=== PATIENT | male | born 1940 | race Caucasian/White ===

== ENCOUNTER → 2016-09-29 | Outpatient (CLI) | payer OTHER ==
[~2016-09-29] MED LIST: ACET-1311 PO; BRVIN INH; CALC-51 PO; CLB/200 PO; EPP3/2 IM; ERGO1CAP41 PO; FINA5TAB PO; FLM4 PO; GABA-113 PO; IPRASOL4 INH; LEVAAER2 INH; METO50TA7 PO; TAMS0.4C38 PO; TRAM-10 PO; WARF5TAB7 PO; WARF7.5T4 PO
[2016-09-29 11:14] LABS: INR 2.2 (0.9-1.1); PROTHROMBIN TIME (PATIENT) 24.9 SECONDS (9.0-12.0)
--- NOTE | 2016-10-04 09:38 | CODING QUERY MEDICAL NECESSITY ---
SUPPORTING DIAGNOSIS NEEDED A supporting diagnosis is required for the test/procedure performed on this patient in order for us to be reimbursed by the patient's insurance. Please provide a supporting diagnosis for the following test/procedure listed below next to the test name along with your signature. *If there is no additional diagnosis for this patient that would support the following test/procedure please document that below next to the test/procedure. Test(s)/Procedure(s) that require a supporting diagnosis: * PSA DIAGNOSIS: * DOS: 09/29/16 Provider Signature: Date: Thank you Jossy Dasilva [employer] Once completed, please kindly fax back to [phone] For questions please call [phone]
== END | disposition home or self-care (01) ==
LOC: C.LAB 10:07
PROVIDERS: ATTEND Internal Medicine Pulmonary Disease
DX: I26.99 Other pulmonary embolism without acute cor pulmonale (principal); N40.0 Benign prostatic hyperplasia without lower urinary tract symptoms

== ENCOUNTER 2016-11-24 14:20 | Observation (INO) | payer OTHER ==
[~2016-11-24] VITALS: Ht 182.9 cm; Wt 118.5 kg
[~2016-11-24 14:20] MED LIST changes: -ACET-1311 PO; -BRVIN INH; -ERGO1CAP41 PO; +ERGO500011 PO; -GABA-113 PO; -TAMS0.4C38 PO; -TRAM-10 PO
--- NOTE | 2016-11-24 15:22 | DIAGNOSTIC IMAGING REPORT ---
CHEST ONE VIEW PORTABLE CLINICAL HISTORY: Fall. Headache. Chest pain. COMPARISON STUDY: No previous studies for comparison. FINDINGS: The cardiac and mediastinal contours are normal. There is no evidence of focal pulmonary consolidation. There is no evidence of failure. No pleural effusions are visualized.[ There is a calcified right lower lung zone granuloma. There is minor left basilar atelectasis. There is no pneumothorax. IMPRESSION: No active disease in the chest. Electronically signed by: Dimitrios Bush M.D. 11/24/2016 3:20 PM Dictated Date/Time: 11/24/2016 3:20 PM
[2016-11-24] MEDS ORDERED: TAMS0.4C38 PO (15:25)
[2016-11-24 15:30] LABS: BASO % 0.1 %; BASO ABS # 0.01 K/uL (0-0.2); COMPLETE YES; EOS % 1.6 %; IG% 0.5 %; LYMPH % 14.7 %; LYMPH ABS # 1.52 K/uL (1.2-3.4); MEAN CELL VOLUME 87.2 fL (80-100); MEAN CORPUSCULAR HEMOGLOBIN 29.6 pg (25-34); MEAN CORPUSCULAR HGB CONC 33.9 g/dl (32-36); MEAN PLATELET VOLUME 8.6 fL (7.4-10.4); NEUT % 76.1 %; PLATELET COUNT 260 K/uL (130-400); WHITE BLOOD COUNT 10.32 K/uL (4.8-10.8)
[2016-11-24] MEDS ORDERED: METHYLPREDNISOLONE 125 MG VIAL IV STA (15:30)
[2016-11-24] MEDS ORDERED: DiphenhydrAMINE HCL 50 MG/ML VIAL IV STA (15:30)
[2016-11-24 15:40] LABS: INR 1.9 (0.9-1.1); PARTIAL THROMBOPLASTIN RATIO 1.3; PROTHROMBIN TIME (PATIENT) 20.7 SECONDS (9.0-12.0)
--- NOTE | 2016-11-24 15:42 | EMERGENCY ROOM VISIT NOTE ---
History Report prepared by Nayeibjenny: Delmi Garrett Under the Supervision of: Dr. Josie Green M.D. First contact with patient: 14:37 Chief Complaint: HEAD PAIN Stated Complaint: FELL AND HIT HEAD, HEADACHE, CHEST PAIN, NECK PAIN History of Present Illness The patient is a 76 year old male who presents to the Emergency Room with complaints of a persistent headache status post a fall that occurred this afternoon. 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 He hit his head and lost consciousness. He is unsure how long he was unconscious for. Prior to the fall, he does not remember feeling unsteady, having chest pain or palpitations, or tripping. When he came to, he had neck pain and pain across his chest. Eventually he was able to get up and make his way to his house. His neck pain improved significantly when a collar was placed. Denies abdominal pain or other complaints. The patient is on Coumadin due to a history of blood clots. His INR is usually between 2 and 3. It was most recently checked about 4 weeks ago. Source of History: patient Onset: this afternoon Position: head Timing: other (persistent) Associated Symptoms: + LOC, + chest pain, + neck pain Review of Systems See HPI for pertinent positives & negatives. A total of 10 systems reviewed and were otherwise negative. Past Medical & Surgical Medical Problems: (1) cervical spine lamina fx (2) DVT (deep venous thrombosis) (3) Pulmonary embolism Family History Noncontributory secondary to age. Social History Smoking Status: Never Smoker Marital Status: Housing Status: lives with significant other Occupation Status: retired Current/Historical Medications Scheduled Calcium Carbonate-Vitamin D (Calcium), 500 MG PO WK Epinephrine (Epipen), 0.3 MG IM UD Ergocalciferol (Vitamin D 60187 Unit), 1.25 MG PO WK Finasteride (Proscar), 5 MG PO DAILY Metoprolol Succ (Toprol Xl) (Toprol-Xl), 50 MG PO DAILY Tamsulosin Hcl (Flomax), 0.4 MG PO DAILY Warfarin Sod (Jantoven), 5 MG PO 5XWK Warfarin Sod (Jantoven), 7.5 MG PO 2XWK Scheduled PRN Acetaminophen (Tylenol), 650 MG PO Q6 PRN for Pain Celecoxib (CeleBREX), 200 MG PO DAILY PRN for Pain Tramadol (Ultram), 50 MG PO Q8H PRN for Pain Allergies Coded Allergies: Aspirin (Verified Allergy, Severe, HIVES, 08/21/14) Iodinated Diagnostic Agents (Verified Allergy, Unknown, Contrast media - unknown rxn, 08/23/14) Iodine (Verified Allergy, Unknown, 08/21/14) Pineapple (Verified Allergy, Unknown, FROM ALLERGY TEST, 08/21/14) Physical Exam Vital Signs Date Time Temp Pulse Resp B/P Pulse Ox O2 Delivery O2 Flow Rate FiO2 11/24/16 17:47 59 23 150/88 95 Room Air 11/24/16 17:17 58 20 150/86 93 Room Air 11/24/16 15:28 67 11/24/16 15:20 68 26 146/69 93 Room Air 11/24/16 14:28 36.4 61 24 167/81 94 Room Air Physical Exam Vital signs reviewed. General: Elderly, well-appearing 76 year old male, in no significant distress. Collared. HEENT: No scleral icterus, PERRLA. Atraumatic. Poor dentition. Neck: Tender along the C-spine without step off or deformity. Cardiovascular: Regular rate and rhythm, no extra sounds. Pulmonary: Clear to auscultation bilaterally, normal work of breathing. Abdomen: Soft, nontender, nondistended, positive bowel sounds. Musculoskeletal: Atraumatic, no significant deformity. Cervical, thoracic and lumbar spine are palpated, nontender, no step-off or deformity appreciated. Neurologic: Patient awake alert and oriented x 3, full strength in all 4 extremities. Skin: Warm, dry, no rash. No significant abrasions/laceration. Medical Decision & Procedures ER Provider Diagnostic Interpretation: Radiology results as stated below per my review and radiologist interpretation: CHEST ONE VIEW PORTABLE CLINICAL HISTORY: Fall. Headache. Chest pain. COMPARISON STUDY: No previous studies for comparison. FINDINGS: The cardiac and mediastinal contours are normal. There is no evidence of focal pulmonary consolidation. There is no evidence of failure. No pleural effusions are visualized.[ There is a calcified right lower lung zone granuloma. There is minor left basilar atelectasis. There is no pneumothorax. IMPRESSION: No active disease in the chest. Electronically signed by: Dimitrios Bush M.D. 11/24/2016 3:20 PM Dictated Date/Time: 11/24/2016 3:[address] ABD/PELVIS IV AND ORAL CONT CLINICAL HISTORY: Abdominal pain status post trauma. Patient on Coumadin. COMPARISON STUDY: February 28, 2011 TECHNIQUE: Following the IV administration of 116 mL of Optiray-320, CT scan of the abdomen and pelvis was performed from the lung bases to the proximal femurs. Images are reviewed in the axial, sagittal, and coronal planes. IV contrast was administered without complication. CT DOSE: FINDINGS: Lower chest: There are bibasal atelectatic changes. There are coronary artery calcifications. Liver: The contrast-enhanced liver is normal in size, contour, and attenuation. There is no intrahepatic biliary ductal dilatation. The hepatic veins and portal veins are patent. Gallbladder: Cholelithiasis Spleen: Normal in size and attenuation. Pancreas: There are atrophic changes present. No masses are visualized. Adrenal glands: Unremarkable. Kidneys: There is a 22 mm left renal cyst. Bowel: There are no transition zones indicate bowel obstruction. There is colonic diverticulosis. There are no acute peridiverticular inflammatory changes. There are no extraluminal gas collections. There are no mesenteric fluid collections. Peritoneum: There is no intraperitoneal free air or abdominal ascites. Vasculature: The abdominal aorta is normal in course and caliber. Adenopathy: None. Pelvic viscera: The bladder, and pelvic viscera are unremarkable. Skeletal structures: There is ankylosis the dorsal spine. No acute fractures are visualized. IMPRESSION: No evidence of acute intra-abdominal or pelvic injury. Electronically signed by: Dimitrios Bush M.D. 11/24/2016 4:25 PM Dictated Date/Time: 11/24/2016 4:[address] DOSE: 1489.71 mGy.cm HISTORY: Neck pain. trauma TECHNIQUE: Multiaxial CT images of the cervical spine were performed and reformatted in the sagittal and coronal plane without the use of contrast. COMPARISON: None. FINDINGS: There is a nondisplaced incomplete fracture within the left C7 lamina. This is best seen on axial image 430 of 616. Fluid levels within the maxillary sinuses. Medial deviation of right vocal cord. This raises the possibility of paralysis. Alignment is intact. Mild degenerative disc disease within the mid to lower cervical spine. Prevertebral soft tissues and the C1-C2 interval are well-maintained. No pneumothorax. IMPRESSION: Nondisplaced incomplete fracture within the left C7 lamina. This is consistent with a stable fracture. Electronically signed by: Prem Flores M.D. 11/24/2016 4:15 PM Dictated Date/Time: 11/24/2016 4:[address] WITH CONTRAST CT DOSE: 1464.18 mGy.cm HISTORY: Fall. Trauma. trauma, coumadin TECHNIQUE: Multiaxial CT images of the chest were performed following the intravenous administration of contrast. COMPARISON: Chest CT 12/16/2010. FINDINGS: Majority of the thoracic spine vertebral bodies are fused. No acute fractures identified within the visualized osseous structures of the chest. No pleural effusions. No pneumothorax. Patchy and linear density lung bases favor subsegmental atelectasis. Stable calcified granuloma within the right lower lobe and right upper lobe. No focal lung consolidations to suggest pneumonia. No mediastinal or hilar lymphadenopathy. The main pulmonary arteries are patent. No pericardial effusion. IMPRESSION: No acute traumatic process within the chest. Additional chronic findings as described above. Electronically signed by: Prem Flores M.D. 11/24/2016 4:25 PM Dictated Date/Time: 11/24/2016 4:[address] HEAD WITHOUT CONTRAST (CT) CLINICAL HISTORY: Head trauma. Loss of consciousness. COMPARISON STUDY: No previous studies for comparison. TECHNIQUE: Axial CT of the brain is performed from the vertex to the skull base. IV contrast was not administered for this examination. CT DOSE: FINDINGS: No intra or extra-axial mass lesions are visualized. There is no CT evidence of acute cortical infarction. There is no evidence of midline shift. There is no acute hemorrhage. No calvarial fractures are visualized. There are minimal white matter hypodensities likely on a small vessel basis. There is no evidence of pathologic ventricular dilatation. There is a left maxillary sinus air-fluid level. There is partial opacification right maxillary sinus with right maxilla sinus wall thickening. The findings in the right are likely chronic. IMPRESSION: 1. Inflammatory changes within the maxilla sinuses 2. No evidence of acute intracranial injury. Electronically signed by: Dimitrios Bush M.D. 11/24/2016 4:07 PM Dictated Date/Time: 11/24/2016 4:05 PM Laboratory Results Test 11/24/16 15:15 11/24/16 15:25 Immature Granulocyte % (Auto) 0.5 % White Blood Count 10.32 K/uL (4.8-10.8) Red Blood Count 4.70 M/uL (4.7-6.1) Hemoglobin 13.9 g/dL (14.0-18.0) Hematocrit 41.0 % (42-52) Mean Corpuscular Volume 87.2 fL (80-100) Mean Corpuscular Hemoglobin 29.6 pg (25-34) Mean Corpuscular Hemoglobin Concent 33.9 g/dl (32-36) Platelet Count 260 K/uL (130-400) Mean Platelet Volume 8.6 fL (7.4-10.4) Neutrophils (%) (Auto) 76.1 % Lymphocytes (%) (Auto) 14.7 % Monocytes (%) (Auto) 7.0 % Eosinophils (%) (Auto) 1.6 % Basophils (%) (Auto) 0.1 % Neutrophils # (Auto) 7.85 K/uL (1.4-6.5) Lymphocytes # (Auto) 1.52 K/uL (1.2-3.4) Monocytes # (Auto) 0.72 K/uL (0.11-0.59) Eosinophils # (Auto) 0.17 K/uL (0-0.5) Basophils # (Auto) 0.01 K/uL (0-0.2) Immature Granulocyte # (Auto) 0.05 K/uL (0.00-0.02) Prothrombin Time 20.7 SECONDS (9.0-12.0) Prothromb Time International Ratio 1.9 (0.9-1.1) Activated Partial Thromboplast Time 34.8 SECONDS (21.0-31.0) Partial Thromboplastin Ratio 1.3 Magnesium Level 2.3 mg/dl (1.8-2.4) Total Bilirubin 0.3 mg/dl (0.2-1) Direct Bilirubin < 0.1 mg/dl (0-0.2) Aspartate Amino Transf (AST/SGOT) 16 U/L (15-37) Alanine Aminotransferase (ALT/SGPT) 20 U/L (12-78) Alkaline Phosphatase 69 U/L (45-117) Total Creatine Kinase 101 U/L (39-308) Creatine Kinase MB 2.5 ng/ml (0.5-3.6) Creatine Kinase MB Ratio 2.5 (0-3.0) Total Protein 6.9 gm/dl (6.4-8.2) Albumin 3.4 gm/dl (3.4-5.0) Bedside Troponin I 0.000 ng/ml (0-0.045) Laboratory results per my review. Medications Administered Medications (Trade) Dose Ordered Sig/Terri Route Start Time Stop Time Status Last Admin Dose Admin Diphenhydramine HCl (Benadryl Inj) 50 mg NOW STAT IV 11/24/16 15:30 11/24/16 15:33 DC 11/24/16 16:00 50 MG Methylprednisolone Sodium Succinate (Solu-Medrol IV) 125 mg NOW STAT IV 11/24/16 15:30 11/24/16 15:33 DC 11/24/16 16:00 125 MG Fentanyl Citrate (Fentanyl Inj) 50 mcg NOW STAT IV 11/24/16 16:58 11/24/16 16:59 DC 11/24/16 17:13 50 MCG Acetaminophen (Tylenol Tab) 1,000 mg Q6H PRN PO 11/24/16 18:45 11/25/16 12:56 DC 11/25/16 08:55 1,000 MG Morphine Sulfate (MoRPHine SULFATE INJ) 4 mg Q4H PRN IV 11/24/16 18:45 11/25/16 12:56 DC 11/24/16 20:54 4 MG Oxycodone HCl (Roxicodone Immediate Rel Tab) 10 mg Q6 PRN PO 11/24/16 18:45 11/25/16 12:56 DC 11/25/16 00:06 10 MG ECG Indication: other (fall with LOC) Rate (beats per minute): 63 Rhythm: normal sinus Findings: no acute ischemic change, no ectopy ED Course 1527: Past medical records reviewed. The patient was evaluated in room C9. A complete history and physical examination was performed. 1530: Ordered Solu-Medrol 125 mg IV, Benadryl Inj 50 mg IV. 1658: Ordered Fentanyl Inj 50 mcg IV. 1705: I reassessed the patient and updated him and his family on results so far. 1720: I discussed the case with Dr. Cárdenas - Orthopedic Surgery. He recommended hospitalization and will see the patient in the morning. 1730: Upon reevaluation, the patient is feeling better. I discussed laboratory and radiographic results with the patient and his family. They verbalized agreement of the treatment plan. 1839: I discussed the case [place] [facility] [place] The patient will be evaluated for further management. Medical Decision DDx: Intracranial injury, cervical spine injury, intrathoracic injury, intra- abdominal injury, musculoskeletal injury. This pt was evaluated and appeared to be in no distress. IV access was obtained and lab work was drawn. CT head and c-spine were performed and reveals a C7 laminar fx, sinusitis. CT CAP were performed d/t c/o chest pain, his trauma and anticoagulation. These studies are negative for acute trauma. Case was d/w Dr Cárdenas of spine who feels the pt should be placed in [place] J collar and observed overnight d/t head injury. Pt and family were made aware and they agree. Pt was d/w Dr Farris of the hospitalist service for further management. Consults Time Called: 1649 Consulting Physician: Dr. Cárdenas - Orthopedic Surgery Returned Call: 1720 I discussed the case with him. He recommended hospitalization and will see the patient in the morning. Additional Consults: Time Called: 1730 Consulted Physician: Dr. Farris - [facility] [place] Returned Call: 1839 Additional Comments: I discussed the case with him. The patient will be evaluated for further management. Impression Primary Impression: C7 cervical fracture Additional Impressions: Closed head injury Anticoagulated Scribe Attestation The scribe's documentation has been prepared under my direction and personally reviewed by me in its entirety. I confirm that the note above accurately reflects all work, treatment, procedures, and medical decision making performed by me. Departure Information Dispostion Being Evaluated By Hospitalist Prescriptions Tramadol (Ultram) 50 Mg Tab 50 MG PO Q8H Y for Pain, #20 TAB Prov: Benigno Toribio, D.O. 11/25/16 Acetaminophen (Tylenol) 325 Mg Tab 650 MG PO Q6 Y for Pain, #60 TAB Prov: Benigno Toribio, Denzel.O. 11/25/16 Referrals No Doctor, Assigned (PCP) Patient Instructions My [facility] Problem Qualifiers
[2016-11-24 15:48] LABS: ALT/SGPT 20 U/L (12-78); AST/SGOT 16 U/L (15-37); BLOOD UREA NITROGEN 13 mg/dl (7-18); BUN/CREATININE RATIO 13.9 (10-20); CALCIUM 8.5 mg/dl (8.5-10.1); CARBON DIOXIDE 26 mmol/L (21-32); CHLORIDE 107 mmol/L (98-107); CREATININE 0.93 mg/dl (0.60-1.40); GLUCOSE 129 mg/dl (70-99); MAGNESIUM 2.3 mg/dl (1.8-2.4); POTASSIUM 3.9 mmol/L (3.5-5.1); SODIUM 140 mmol/L (136-145)
[2016-11-24 15:53] LABS: ALKALINE PHOSPHATASE 69 U/L (45-117); CKMB/CK RATIO 2.5 (0-3.0)
[2016-11-24] MEDS ORDERED: OPTIRAY 320 IV PRN (16:00)
--- NOTE | 2016-11-24 16:09 | DIAGNOSTIC IMAGING REPORT ---
CT HEAD WITHOUT CONTRAST (CT) CLINICAL HISTORY: Head trauma. Loss of consciousness. COMPARISON STUDY: No previous studies for comparison. TECHNIQUE: Axial CT of the brain is performed from the vertex to the skull base. IV contrast was not administered for this examination. CT DOSE: FINDINGS: No intra or extra-axial mass lesions are visualized. There is no CT evidence of acute cortical infarction. There is no evidence of midline shift. There is no acute hemorrhage. No calvarial fractures are visualized. There are minimal white matter hypodensities likely on a small vessel basis. There is no evidence of pathologic ventricular dilatation. There is a left maxillary sinus air-fluid level. There is partial opacification right maxillary sinus with right maxilla sinus wall thickening. The findings in the right are likely chronic. IMPRESSION: 1. Inflammatory changes within the maxilla sinuses 2. No evidence of acute intracranial injury. Electronically signed by: Dimitrios Bush M.D. 11/24/2016 4:07 PM Dictated Date/Time: 11/24/2016 4:05 PM
--- NOTE | 2016-11-24 16:17 | DIAGNOSTIC IMAGING REPORT ---
CERVICAL SPINE CT CT DOSE: 1489.71 mGy.cm HISTORY: Neck pain. trauma TECHNIQUE: Multiaxial CT images of the cervical spine were performed and reformatted in the sagittal and coronal plane without the use of contrast. COMPARISON: None. FINDINGS: There is a nondisplaced incomplete fracture within the left C7 lamina. This is best seen on axial image 430 of 616. Fluid levels within the maxillary sinuses. Medial deviation of right vocal cord. This raises the possibility of paralysis. Alignment is intact. Mild degenerative disc disease within the mid to lower cervical spine. Prevertebral soft tissues and the C1-C2 interval are well-maintained. No pneumothorax. IMPRESSION: Nondisplaced incomplete fracture within the left C7 lamina. This is consistent with a stable fracture. Electronically signed by: Prem Flores M.D. 11/24/2016 4:15 PM Dictated Date/Time: 11/24/2016 4:07 PM
--- NOTE | 2016-11-24 16:26 | DIAGNOSTIC IMAGING REPORT ---
CT ABD/PELVIS IV AND ORAL CONT CLINICAL HISTORY: Abdominal pain status post trauma. Patient on Coumadin. COMPARISON STUDY: February 28, 2011 TECHNIQUE: Following the IV administration of 116 mL of Optiray-320, CT scan of the abdomen and pelvis was performed from the lung bases to the proximal femurs. Images are reviewed in the axial, sagittal, and coronal planes. IV contrast was administered without complication. CT DOSE: FINDINGS: Lower chest: There are bibasal atelectatic changes. There are coronary artery calcifications. Liver: The contrast-enhanced liver is normal in size, contour, and attenuation. There is no intrahepatic biliary ductal dilatation. The hepatic veins and portal veins are patent. Gallbladder: Cholelithiasis Spleen: Normal in size and attenuation. Pancreas: There are atrophic changes present. No masses are visualized. Adrenal glands: Unremarkable. Kidneys: There is a 22 mm left renal cyst. Bowel: There are no transition zones indicate bowel obstruction. There is colonic diverticulosis. There are no acute peridiverticular inflammatory changes. There are no extraluminal gas collections. There are no mesenteric fluid collections. Peritoneum: There is no intraperitoneal free air or abdominal ascites. Vasculature: The abdominal aorta is normal in course and caliber. Adenopathy: None. Pelvic viscera: The bladder, and pelvic viscera are unremarkable. Skeletal structures: There is ankylosis the dorsal spine. No acute fractures are visualized. IMPRESSION: No evidence of acute intra-abdominal or pelvic injury. Electronically signed by: Dimitrios Bush M.D. 11/24/2016 4:25 PM Dictated Date/Time: 11/24/2016 4:21 PM
--- NOTE | 2016-11-24 16:27 | DIAGNOSTIC IMAGING REPORT ---
CHEST CT WITH CONTRAST CT DOSE: 1464.18 mGy.cm HISTORY: Fall. Trauma. trauma, coumadin TECHNIQUE: Multiaxial CT images of the chest were performed following the intravenous administration of contrast. COMPARISON: Chest CT 12/16/2010. FINDINGS: Majority of the thoracic spine vertebral bodies are fused. No acute fractures identified within the visualized osseous structures of the chest. No pleural effusions. No pneumothorax. Patchy and linear density lung bases favor subsegmental atelectasis. Stable calcified granuloma within the right lower lobe and right upper lobe. No focal lung consolidations to suggest pneumonia. No mediastinal or hilar lymphadenopathy. The main pulmonary arteries are patent. No pericardial effusion. IMPRESSION: No acute traumatic process within the chest. Additional chronic findings as described above. Electronically signed by: Prem Flores M.D. 11/24/2016 4:25 PM Dictated Date/Time: 11/24/2016 4:20 PM
[2016-11-24] MEDS ORDERED: FENTANYL CITRATE INJ 50 MCG/1 ML 2 ML VIAL IV STA (16:58)
[2016-11-24] MEDS ORDERED: ONDANSETRON INJ 2 MG/ML 2 ML VIAL IV PRN (18:45)
[2016-11-24] MEDS ORDERED: OXYCODONE HCL IR 5 MG TAB (IMMEDIATE RELEASE) PO PRN (18:45)
[2016-11-24] MEDS ORDERED: ACETAMINOPHEN 500 MG TAB PO PRN (18:45)
[2016-11-24] MEDS ORDERED: MoRPHine SULFATE 4 MG/ML 1 ML CARP\\VIAL IV PRN (18:45)
[2016-11-24] MEDS ORDERED: MoRPHine SULFATE 2 MG/ML CARP IV PRN (18:45)
[2016-11-24] MEDS ORDERED: HydrALAZINE HCL 20 MG/ML VIAL IV PRN (19:30)
[2016-11-24 19:50] VITALS: BP 161/95; PULSE 63; TEMP 36.3; O2SAT 94; Ht 182.9 cm; Wt 118.5 kg
--- NOTE | 2016-11-24 21:34 | HISTORY & PHYSICAL EXAMINATION ---
DATE OF ADMISSION: 11/24/2016 REASON FOR ADMISSION: C7 fracture of the lamina from a traumatic fall. HISTORY OF PRESENT ILLNESS: Mr. Fink is a 76-year-old male who was getting into his skid steer, he reached for the handle, missed the handle, fell forward. He initially felt some minor paresthesias surrounding his left thumb. He presented to the Emergency Department, he had multiple imaging performed including: Head CT, only showing some maxillary sinus inflammation. Chest x-ray which showed no active disease in the chest. He had a chest CT which showed no traumatic process in the chest. He has had some atelectasis in his lungs. He has stable calcified granuloma in the right lower and right upper lobe. No pericardial effusion. He had abdominal pelvis CT which showed no acute intraabdominal or pelvic injury and he had a cervical spine which showed nondisplaced incomplete fracture of the left C7 lamina, stable fracture. The patient otherwise feels a little bit groggy. He lost consciousness at that time, does not know how long he was unconscious. He had neck pain initially, which was improved with the collar. PAST MEDICAL HISTORY: BPH, hypertension. He has had PE x2, is on lifelong anticoagulation. He has a history of asthma. He has had bilateral total knee arthroplasty and a TURP. MEDICATIONS: Proscar 5 a day, vitamin D daily, metoprolol XL 50 a day, Flomax 0.4 a day and warfarin he alternates 5 and 7.5. His INR was 1.0 on presentation. His labs were unremarkable. Reportedly Dr. Green told me she spoke with Dr. Cárdenas who recommended him to remain in a rigid collar, be observed overnight and he will evaluate him in the morning unless he acutely decompensates. REVIEW OF SYSTEMS: Ten systems reviewed are negative. PHYSICAL EXAMINATION: VITAL SIGNS: Temperature 36.4, pulse is 59, respirations 23, BP 150/88, O2 sat 95. HEENT: PERRL, EOMI. Oropharynx is clear. He has a rigid C-collar in place, which I did not remove. HEART: Regular without murmurs. LUNGS: Clear without wheezes or crackles. ABDOMEN: Normoactive bowel sounds, soft, nontender. EXTREMITIES: Without cyanosis, clubbing or edema. His inpatient coder strength is 5/5. His ability to abduct his thumbs are equal and equivalent bilaterally and sensation is equal and equivalent bilaterally to his upper and lower extremities. ASSESSMENT: A 76-year-old male with traumatic nondisplaced C7 lamina fracture. PLAN: We will observe him in our facility. We will be give him pain medication if needed. He will wear the rigid C-collar, will assess neuro checks one time throughout the night and Dr. Cárdenas will see him in the morning. Now, he took his Coumadin today, so we are not going to necessarily hold it, but we are not going to administer any additional Coumadin. Instructions on further warfarin therapy could be made per Dr. Cárdenas. Currently, DVT prevention is based on his Coumadin therapy. The patient is a full code.
[2016-11-24] MEDS ORDERED: IV FLUIDS COMPLETED PRN (22:30)
[2016-11-24 23:57] VITALS: BP 144/72; PULSE 65; TEMP 36.5; O2SAT 91
[2016-11-25 05:50] LABS: HEMATOCRIT 41.3 % (42-52); MEAN CELL VOLUME 87.3 fL (80-100); MEAN CORPUSCULAR HEMOGLOBIN 29.6 pg (25-34); MEAN CORPUSCULAR HGB CONC 33.9 g/dl (32-36); MEAN PLATELET VOLUME 8.8 fL (7.4-10.4); PLATELET COUNT 255 K/uL (130-400); RED BLOOD COUNT 4.73 M/uL (4.7-6.1); WHITE BLOOD COUNT 9.94 K/uL (4.8-10.8)
[2016-11-25 06:27] LABS: BUN/CREATININE RATIO 15.4 (10-20); CALCIUM 8.8 mg/dl (8.5-10.1); CREATININE 0.82 mg/dl (0.60-1.40); POTASSIUM 4.4 mmol/L (3.5-5.1)
[2016-11-25] MEDS ORDERED: PNEUMOCOCCAL POLYSACCHARIDES 25 MCG/0.5 ML VIAL/SYR IM. ONE (08:00)
[2016-11-25] MEDS ORDERED: INFLUENZA VIRUS QUAD VACCINE 0.5 ML SYR IM. ONE (08:00)
[2016-11-25] MEDS ORDERED: PNEUMOCOCCAL ADMINISTRATION CHARGE ONE (08:00)
[2016-11-25] MEDS ORDERED: INFLUENZA ADMINISTRATION CHARGE ONE (08:00)
[2016-11-25 08:03] VITALS: BP 137/78; PULSE 64; TEMP 36.7; O2SAT 91
[2016-11-25] MEDS ORDERED: TAMSULOSIN HCL 0.4 MG CAP PO SCH (09:00)
[2016-11-25] MEDS ORDERED: METOPROLOL SUCC 50MG EXT REL TAB PO SCH (09:00)
[2016-11-25] MEDS ORDERED: FINASTERIDE 5 MG TAB PO SCH (09:00)
[2016-11-25 09:21] VITALS: O2SAT 91
--- NOTE | 2016-11-25 10:53 | ORTHOPEDIC CONSULTATION ---
DATE OF CONSULTATION: 11/25/2016 CHIEF COMPLAINT: Neck pain. HISTORY OF PRESENT ILLNESS: Very pleasant 76-year-old male who is status post fall at home last evening. He describes a brief episode of loss of consciousness. At this point, he complains mostly of headaches and neck pain. This morning he denies any upper extremity numbness or tingling, tolerating the collar well. Has been ambulatory without assistance. PHYSICAL EXAMINATION: He has good strength to testing, tenderness to palpation over the cervicothoracic junction. Grossly neurologically intact. CAT scan of the cervical spine does demonstrate a nondisplaced C7 lamina fracture on the left. Otherwise, he has multilevel spondylosis, no evidence of any other issues or instability. ASSESSMENT: C7 lamina fracture. PLAN: At this time, I would ask him to wear the cervical collar at all times other than showering or eating. He is to lift no more than 5 pounds. I would like to see him in the office in the next 2-3 weeks, update x-ray of the cervical spine and hopefully increase his activity.
[2016-11-25] MEDS ORDERED: ACET-1311 PO (11:28)
[2016-11-25] MEDS ORDERED: TRAM-10 PO (11:28)
--- NOTE | 2016-11-25 11:33 | Discharge Instructions ---
Discharge Instructions Date of Service Nov 25, 2016. Admission Reason for Admission: Cervical Spine Lamina Fx Discharge Discharge Diagnosis / Problem: C7 lamina fracture, incomplete, non-displaced Discharge Goals Goal(s): Decrease discomfort, Improve function Activity Recommendations Activity Limitations: per Instructions/Follow-up section Lifting Limitations: no more than 5 pounds (until you see Dr. Cárdenas) Exercise/Sports Limitations: as tolerated May Resume Sexual Activity: when tolerated Shower/Bathe: no limitations (you can take off the collar to shower) Driving or Machine Use: do not drive with collar due to inability to turn head . Instructions / Follow-Up Instructions / Follow-Up Medications: - TYLENOL: take 650mg every 6 hours for pain, maximum dose in 24 hours is 3000mg - ULTRAM: 50mg, only get script filled if your pain is not controlled with Tylenol and Celebrex - COUMADIN: okay to continue taking Coumadin, no evidence of any bleeding C7 spine fracture: incomplete, non-displaced. Recommendations from Dr. Cárdenas below - wear the collar at ALL TIMES, you can take off to shower and eat - no lifting more that 5 pounds until you see Dr. Cárdenas FOLLOW UP - Dr. Cárdenas with [facility] in 2-3 weeks, call to make appointment , he will obtain a repeat x-ray and give you further instructions regarding the collar and activity [phone] Current Hospital Diet Patient's current hospital diet: Regular Diet Discharge Diet Recommended Diet: Regular Diet Pending Studies Studies pending at discharge: no Laboratory Results Last Resulted CBC 11/25/16 05:29 Last Resulted BMP 11/25/16 05:29 Medical Emergencies . Who to Call and When: Medical Emergencies: If at any time you feel your situation is an emergency, please call 911 immediately. . Non-Emergent Contact Non-Emergency issues call your: Primary Care Provider, Surgeon Call Non-Emergent contact if: your pain is not controlled, your pain is worsening, you have any medication questions . . "Provider Documentation" section prepared by Benigno Toribio. VTE Core Measure Inpt VTE Proph given/why not?: Warfarin (Coumadin) [place] Drug Monitoring Program Search Results: no issues identified
[2016-11-25 11:52] VITALS: BP 141/63; PULSE 67; TEMP 36.5; O2SAT 94
--- NOTE | 2016-11-25 14:18 | Discharge Summary ---
Discharge Summary Date of Service Nov 25, 2016. Discharge Summary Admission Date: Nov 24, 2016 at 18:48 Discharge Date: Nov 25, 2016 Discharge Disposition: Home Principal Diagnosis: C7 lamina fracture from trauma Problems/Secondary Diagnoses: H/o PE x 2, on Coumadin Immunizations: Have You Had Influenza Vaccine: Yes Influenza Vaccine Date: Jun 25, 2007 History of Tetanus Vaccine?: Yes Tetanus Immunization Date: Jun 25, 2005 History of Pneumococcal: No History of Hepatitis B Vaccine: No Procedures: CT head - normal CT chest and abdomen/pelvis - no injuries CT cervical spine - C7 lamina non-displaced fracture Consultations: Orthopedic surgery - Dr. Cárdenas Medication Reconciliation New Medications: Acetaminophen (Tylenol) 325 Mg Tab 650 MG PO Q6 PRN for Pain, #60 TAB Tramadol (Ultram) 50 Mg Tab 50 MG PO Q8H PRN for Pain, #20 TAB Continued Medications: Calcium Carbonate-Vitamin D (Calcium) 1 Tab Tab 500 MG PO WK Celecoxib (CeleBREX) 200 Mg Cap 200 MG PO DAILY PRN for Pain for 30 Days, #30 CAP 2 Refills Epinephrine (Epipen) 0.3 Mg/0.3 Ml Inj 0.3 MG IM UD Ergocalciferol (Vitamin D 65605 Unit) 50,000 Unit Cap 1.25 MG PO WK for 28 Days, #4 CAP 2 Refills Finasteride (Proscar) 5 Mg Tab 5 MG PO DAILY, 0 Refills Metoprolol Succ (Toprol Xl) (Toprol-Xl) 50 Mg Tabcr 50 MG PO DAILY, 0 Refills Tamsulosin Hcl (Flomax) 0.4 Mg Cap 0.4 MG PO DAILY, CAP Warfarin Sod (Jantoven) 5 Mg Tab 5 MG PO 5XWK, TAB Warfarin Sod (Jantoven) 7.5 Mg Tab 7.5 MG PO 2XWK, TAB Mon/Fri Discharge Exam Patient feeling well with collar in place, minimal pain this AM. Evaluated by Dr. Cárdenas, instructions below. Spoke with Dr. Cárdenas, he is okay with Coumadin. spoke with patient and family, answered their questions. Review of Systems: Constitutional: No chills, No fatigue, No fever, No problem reported, No sweats, No weakness, No weight loss Eyes: No diplopia, No discharge, No eye pain, No problem reported, No redness, No worsening of vision ENT: No dental problems, No hearing loss, No nasal symptoms, No problem reported, No sore throat, No tinnitus, No trouble swallowing, No unusual epistaxis Respiratory: No cough, No dyspnea at rest, No dyspnea on exertion, No hemoptysis, No problem reported, No shortness of breath, No sputum, No wheezing Cardiovascular: No PND, No chest pain, No claudication, No edema, No orthopnea, No palpitations, No problem reported Abdomen: No GI bleeding, No constipation, No diarrhea, No nausea, No pain, No problem reported, No vomiting Musculoskeletal: + joint pain (neck, mild to moderate at worst), No calf pain, No muscle pain, No problem reported, No swelling Genitourinary - Male: No dysuria, No hematuria, No urinary frequency, No urinary urgency Neurologic: No balance problems, No memory loss, No numbness/tingling, No paralysis, No problem reported, No vertigo, No weakness Psychiatric: No anhedonism, No anxiety, No depression symptoms, No insomnia , No problem reported, No substance abuse Endocrine: No excessive thirst, No excessive urination, No fatigue, No problem reported Hematologic / Lymphatic: No abnormal bleeding/bruising, No clotting problems , No night sweats, No problem reported, No swollen lymph nodes Integumentary: No bleeding, No color change, No itch, No new/changing skin lesions, No problem reported, No rash Physical Exam: General Appearance: WD/WN, no apparent distress Eyes: normal inspection, EOMI, sclerae normal ENT: normal ENT inspection, hearing grossly normal, pharynx normal Neck: + pertinent finding (collar in place) Respiratory/Chest: chest non-tender, lungs clear, normal breath sounds, no respiratory distress, no accessory muscle use Cardiovascular: regular rate, rhythm, no edema, no gallop, no JVD, no murmur , normal peripheral pulses Abdomen / GI: normal bowel sounds, non tender, soft, no organomegaly Extremities: normal inspection, no calf tenderness, normal capillary refill , no pedal edema, normal range of motion, pelvis stable 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 Imaging of abdomen, chest and head was normal. CT cervical spine showed C7 lamina fracture - C7 lamina fracture, incomplete, non-displaced: recommendations per Dr. Cárdenas collar in place at all times except off briefly for shower and to eat no lifting more than 5 pounds until seen by Dr. Cárdenas follow up in 2-3 weeks for repeat x-ray and evaluation Tylenol, Celebrex for pain, script for Ultram if pain not controlled - h/o PE: continue Coumadin, okay with Dr. Cárdenas d/c to home Total Time Spent: Less than 30 minutes This includes examination of the patient, discharge planning, medication reconciliation, and communication with other providers. Discharge Instructions Please refer to the electronic Patient Visit Report (Discharge Instructions) for additional information. Follow-Up Dr. Cárdenas in 2-3 weeks Additional Copies To Marlon Cárdenas,D.O.; Rex Granados, JAZ
[2016-11-25] MEDS ORDERED: WARFARIN SOD 5 MG TAB PO ONE (16:00)
[2016-11-26] MEDS ORDERED: CALCIUM 600MG + VIT D 400 IU TAB PO SCH (09:00)
== END 2016-11-25 12:15 | disposition home or self-care (01) ==
LOC: ENRESERVTM → ENRESERVDT → C.EDB 14:21 → C.MSW 18:48
PROVIDERS: ADMIT Internal Medicine; ATTEND Internal Medicine
DX: S12.600A Unspecified displaced fracture of seventh cervical vertebra, initial encounter for closed fracture (principal); S09.90XA Unspecified injury of head, initial encounter; W31.89XA Contact with other specified machinery, initial encounter; N40.0 Benign prostatic hyperplasia without lower urinary tract symptoms; J45.909 Unspecified asthma, uncomplicated; I10 Essential (primary) hypertension; Z86.711 Personal history of pulmonary embolism; Z79.01 Long term (current) use of anticoagulants; Z86.718 Personal history of other venous thrombosis and embolism; Z96.653 Presence of artificial knee joint, bilateral

== ENCOUNTER → 2017-02-07 | Outpatient (CLI) | payer OTHER ==
[~2017-02-07] MED LIST changes: +ACET-1311 PO; -FLM4 PO; -IPRASOL4 INH; -LEVAAER2 INH; +TAMS0.4C38 PO; +TRAM-10 PO
[2017-02-07 12:09] LABS: BASO % 0.5 %; BASO ABS # 0.03 K/uL (0-0.2); COMPLETE YES; EOS % 4.2 %; HEMATOCRIT 42.3 % (42-52); IG% 0.6 %; LYMPH % 22.1 %; LYMPH ABS # 1.37 K/uL (1.2-3.4); MEAN CELL VOLUME 88.7 fL (80-100); MEAN CORPUSCULAR HEMOGLOBIN 29.8 pg (25-34); MEAN CORPUSCULAR HGB CONC 33.6 g/dl (32-36); MONO % 9.2 %; NEUT % 63.4 %; PLATELET COUNT 252 K/uL (130-400); RED BLOOD COUNT 4.77 M/uL (4.7-6.1); WHITE BLOOD COUNT 6.21 K/uL (4.8-10.8)
[2017-02-07 12:38] LABS: ALT/SGPT 19 U/L (12-78); BLOOD UREA NITROGEN 13 mg/dl (7-18); BUN/CREATININE RATIO 14.1 (10-20); CARBON DIOXIDE 27 mmol/L (21-32); CHLORIDE 106 mmol/L (98-107); CHOLESTEROL 226 mg/dl (0-200); GLUCOSE 85 mg/dl (70-99); POTASSIUM 4.1 mmol/L (3.5-5.1); SODIUM 140 mmol/L (136-145)
[2017-02-07 12:41] LABS: ALB/GLOB RATIO 1.2 (0.9-2); ALKALINE PHOSPHATASE 71 U/L (45-117); AST/SGOT 17 U/L (15-37); CHOLESTEROL/HDL RATIO 5.1; HDL CHOLESTEROL 44 mg/dl; LDL CHOLESTEROL CALCULATED 152 mg/dl; TRIGLYCERIDES 152 mg/dl (0-150); VERY LOW DENSITY LIPOPROT CALC 30 mg/dl
[2017-02-07 12:48] LABS: CALCIUM 8.8 mg/dl (8.5-10.1)
== END | disposition home or self-care (01) ==
LOC: C.LAB 10:30
PROVIDERS: ATTEND Physician Assistant
DX: S12.600A Unspecified displaced fracture of seventh cervical vertebra, initial encounter for closed fracture (principal); X58.XXXA Exposure to other specified factors, initial encounter; Z51.81 Encounter for therapeutic drug level monitoring; Z79.01 Long term (current) use of anticoagulants; I82.409 Acute embolism and thrombosis of unspecified deep veins of unspecified lower extremity; I26.99 Other pulmonary embolism without acute cor pulmonale

== ENCOUNTER → 2017-06-07 | Outpatient (CLI) | payer OTHER ==
[~2017-06-07] MED LIST changes: -ACET-1311 PO; +ERGO1CAP41 PO; -ERGO500011 PO; -TRAM-10 PO
--- NOTE | 2017-06-07 14:35 | DIAGNOSTIC IMAGING REPORT ---
CHEST 2 VIEWS ROUTINE CLINICAL HISTORY: Chest pain and chronic bronchitis COMPARISON STUDY: 11/24/2016 FINDINGS: The heart is borderline enlarged. There is no failure. There is no focal pulmonary consolidation. There are no pleural effusions. This calcified granuloma at the right lung base[. There is no failure IMPRESSION: No active disease in the chest. Electronically signed by: Dimitrios Bush M.D. 06/07/2017 2:34 PM Dictated Date/Time: 06/07/2017 2:33 PM
[2017-06-07 15:43] LABS: BASO % 0.4 %; BASO ABS # 0.03 K/uL (0-0.2); COMPLETE YES; EOS % 3.7 %; HEMATOCRIT 41.4 % (42-52); IG% 0.7 %; LYMPH % 26.1 %; LYMPH ABS # 1.98 K/uL (1.2-3.4); MEAN CELL VOLUME 89.8 fL (80-100); MEAN CORPUSCULAR HEMOGLOBIN 30.6 pg (25-34); MEAN CORPUSCULAR HGB CONC 34.1 g/dl (32-36); NEUT % 59.1 %; PLATELET COUNT 257 K/uL (130-400); RED BLOOD COUNT 4.61 M/uL (4.7-6.1); WHITE BLOOD COUNT 7.59 K/uL (4.8-10.8)
[2017-06-07 15:54] LABS: ALT/SGPT 19 U/L (12-78); BLOOD UREA NITROGEN 13 mg/dl (7-18); BUN/CREATININE RATIO 15.1 (10-20); CARBON DIOXIDE 28 mmol/L (21-32); CHLORIDE 106 mmol/L (98-107); CREATININE 0.86 mg/dl (0.60-1.40); GLUCOSE 92 mg/dl (70-99); SODIUM 138 mmol/L (136-145)
[2017-06-07 15:56] LABS: ALKALINE PHOSPHATASE 75 U/L (45-117); AST/SGOT 15 U/L (15-37)
== END | disposition home or self-care (01) ==
LOC: C.RAD1850 14:21
PROVIDERS: ATTEND Internal Medicine Pulmonary Disease
DX: J42 Unspecified chronic bronchitis (principal); R07.9 Chest pain, unspecified

== ENCOUNTER → 2017-06-11 | Outpatient (CLI) | payer OTHER ==
[~2017-06-11] MED LIST changes: -ERGO1CAP41 PO; +ERGO500011 PO
--- NOTE | 2017-06-11 11:06 | DIAGNOSTIC IMAGING REPORT ---
LUNG IMAGING VQ HISTORY: J42 Chronic [id number] atypical Chest pain TECHNIQUE: Immediately following the inhalation of 33 mCi of technetium 99 M DTPA and the intravenous injection of 5.5 mCi of technetium 99m MAA, anterior, posterior, oblique, lateral views of the chest were performed for the ventilation and perfusion scan. COMPARISON STUDY: Chest 06/07/2017. FINDINGS: Blunting of the costophrenic sulci and a few small matched defects at the lung bases. No mismatch defects or large segmental defects identified. IMPRESSION: Above findings are consistent with a low probability scan. Electronically signed by: Prem Flores M.D. 06/11/2017 11:04 AM Dictated Date/Time: 06/11/2017 11:01 AM
--- NOTE | 2017-06-11 11:20 | DIAGNOSTIC IMAGING REPORT ---
CHEST 2 VIEWS ROUTINE CLINICAL HISTORY: CHEST PAIN dyspnea COMPARISON STUDY: 06/07/2017 FINDINGS: Mild chronic atelectatic change left lung base. Lungs otherwise are clear. There is component of mild emphysematous change. Costophrenic granuloma peripheral aspect right lung base unchanged. No new or interval finding. Small calcified granuloma right pulmonary apex unchanged. IMPRESSION: Chronic granulomatous change. Minimal chronic atelectatic change left base. No acute infiltrate. The above report was generated using voice recognition software. It may contain grammatical, syntax or spelling errors. Electronically signed by: Jairo John M.D. 06/11/2017 11:18 AM Dictated Date/Time: 06/11/2017 11:17 AM
== END | disposition home or self-care (01) ==
LOC: C.NUCL 10:02
PROVIDERS: ATTEND Internal Medicine Pulmonary Disease
DX: J42 Unspecified chronic bronchitis (principal); R07.9 Chest pain, unspecified

== ENCOUNTER → 2017-09-05 | Outpatient (CLI) | payer OTHER ==
[2017-09-05 15:39] LABS: BASO % 0.4 %; BASO ABS # 0.03 K/uL (0-0.2); EOS % 3.8 %; EOS ABS # 0.28 K/uL (0-0.5); HEMATOCRIT 43.5 % (42-52); HEMOGLOBIN 14.6 g/dL (14.0-18.0); IG# 0.02 K/uL (0.00-0.02); LYMPH ABS # 1.91 K/uL (1.2-3.4); MEAN CELL VOLUME 89.9 fL (80-100); MEAN CORPUSCULAR HEMOGLOBIN 30.2 pg (25-34); MEAN CORPUSCULAR HGB CONC 33.6 g/dl (32-36); MEAN PLATELET VOLUME 9.2 fL (7.4-10.4); MONO % 9.3 %; MONO ABS # 0.68 K/uL (0.11-0.59); NEUT % 60.2 %; NEUT ABS # 4.43 K/uL (1.4-6.5); PLATELET COUNT 254 K/uL (130-400); RED CELL DISTRIBUTION WIDTH CV 13.6 % (11.5-14.5); RED CELL DISTRIBUTION WIDTH SD 45.2 fL (36.4-46.3); WHITE BLOOD COUNT 7.35 K/uL (4.8-10.8)
[2017-09-05 16:02] LABS: ALBUMIN 3.6 gm/dl (3.4-5.0); ALKALINE PHOSPHATASE 73 U/L (45-117); ALT/SGPT 20 U/L (12-78); AST/SGOT 15 U/L (15-37)
== END | disposition home or self-care (01) ==
LOC: C.LAB1850 14:20
PROVIDERS: ATTEND Physician Assistant
DX: L29.9 Pruritus, unspecified (principal)

== ENCOUNTER 2020-05-05 12:28 | Inpatient (IN) ==
--- NOTE | 2020-05-05 13:12 | Emergency Department Note ---
Impression & Plan Syncope, Chest pain, High serum chloride ED Provider Note NAME: TONY AWAN AGE: 80 SEX: M : 1940 ARRIVES VIA: Walk-In INFORMANT: Patient ED PROVIDER(S): Raudel Gomes DO CHIEF COMPLAINT: Syncope HPI: Patient is an 80-year-old former with a past medical history of blood clots, prostate cancer who presents the ER for syncope. He passed out Sunday and his only symptom at that time prior to passing out was shortness of breath. He does not remember the event otherwise. 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 Following this he does not remember anything else. Sunday he was fine. Today he went down to cook pickled meat a stick and he believes he remembers everything but he does not remember his grand daughter coming to help him out as she was watching him from the window and saw him nearly fall. He currently upon arrival initially had chest pain but that has now abated. It was in the middle of his chest and radiated to the back. He notes he gets this intermittently and describes as a pressure/heaviness associated with some shortness of breath. Denies any nausea, vomiting, or diarrhea. No belly pain. No other weakness or numbness. ROS: See above HPI for pertinent positives & negatives. A total of 10 systems reviewed and were otherwise negative. PAST MEDICAL HISTORY:See Below PAST SURGICAL HISTORY:See Below FAMILY HISTORY:See Below SOCIAL HISTORY:See Below HOME MEDICATIONS:See Below ALLERGIES:See Below VITALS:See Below PHYSICAL EXAMINATION: GENERAL: Sitting up in bed, alert, well appearing, well nourished, no distress, non-toxic EYE EXAM: normal conjunctiva. PERRL and EOM's intact. OROPHARYNX: no exudate, no erythema, lips, buccal mucosa, and tongue normal and mucous membranes are moist NECK: supple, no nuchal rigidity, no adenopathy, non-tender LUNGS: Clear to auscultation. Normal chest wall mechanics HEART: no murmurs, S1 normal and S2 normal ABDOMEN: abdomen soft, non-tender, normo-active bowel sounds, no masses, no rebound or guarding. BACK: Back is symmetrical on inspection and there is no deformity, no midline tenderness, no CVA tenderness. SKIN: no rashes and no bruising UPPER EXTREMITIES: upper extremities are grossly normal. LOWER EXTREMITIES: No pitting edema. Right calf slightly larger than left NEURO EXAM: Normal sensorium, cranial nerves II-XII grossly intact, normal speech, no gross weakness of arms, no gross weakness of legs. MEDICAL DECISION MAKING: Patient is an 80-year-old male who presents the ER for an episode of syncope on Sunday. He was short of breath prior to the episode and sat down. Next thing he knew he woke up on the ground. He had no other prodromal symptoms. Again today prior to arrival he was outside and went to bend over and notes he nearly fell over and used his cane to support himself. Granddaughter ran out to assist him and help him and he does not remember that at all. He initially had some chest pain upon arrival but on my evaluation notes that that has abated. IV was established blood work was obtained. Labs show no significant leukocytosis or anemia. INR was therapeutic at 2.8. BMP with a slightly elevated chloride. LFTs bilirubin and lipase was negative. Troponin was negative as well. EKG with no acute ischemia. CT head was performed with a fall on Coumadin and was negative. Chest x-ray was unremarkable. Patient was updated bedside. With his age and symptoms I discussed with the hospitalist for observation. Triage Nursing notes reviewed. Prior medical records reviewed Vital Signs: reviewed and remarkable for no significant abnormalities Differential diagnosis: Differential diagnosis includes etiologies such as vasovagal event, infection, hypoglycemia, electrolyte abnormalities, cardiac sources, intracerebral event, toxicologic, neurologic, as well as others were entertained. ER treatment provided: See below Diagnostics interpreted by me: ECG: Sinus rhythm rate of 72 Left axis PVCs Normal QTC TWI in the septal leads V2 was changed from most recent previous ekg Cardiac Monitoring: An order was placed for continuous cardiac monitoring. The monitor shows a rate of 68 with sinus rhythm. Laboratory studies: As stated above and show below. Imaging studies: CT head shows no acute pathology Portable AP upright 1 view of the chest shows no focal infiltrate Consultation(s): Discussed with Dr. Daron Thomas for further evaluation ED COURSE: Procedures: none Critical Care: None Past Med/Surg History Medical History (Updated 05/05/20 @ 19:20 by Raudel Gomes DO) BPH loc w urin obs/LUTS Broken neck Broken ribs DVT (deep venous thrombosis) Hypoxia (08/22/14) Prostate cancer screening Pulmonary embolism (08/22/14) Sensorineural hearing loss (SNHL) of both ears SNHL (sensorineural hearing loss) Surgical History History of knee replacement History of transurethral resection of prostate Family History Father Cancer Prostate Other No significant family history Social History Smoking Status: Never smoker Hx Alcohol Use: Yes Alcohol type: wine Hx Substance Use: No Preferred Language: Urdu Communication Ability: Effective Qualitative Field Coordinator Required: No Beliefs That Will Affect Care: None Current Living Situation: Spouse current occupational status: retired Other Information That Helps Us Care for You: No Feels Safe at Home: Yes Safety Concerns: Feels Safe At This Time Allergies Allergies Allergy/AdvReac Type Severity Reaction Status Date / Time aspirin Allergy Severe HIVES Verified 05/05/20 15:07 celecoxib [From Celebrex] Allergy Severe hives Verified 05/05/20 15:07 Iodinated Contrast Media Allergy Unknown Contrast Verified 05/05/20 15:07 media - unknown rxn iodine Allergy Unknown Unknown Verified 05/05/20 15:07 Home Meds Home Medications Medication Instructions Recorded Confirmed calcium carbonate-vitamin D3 500 mg PO WK #0 09/11/16 05/05/20 [Calcium 500 + D] acetaminophen 500 mg tablet 500 mg PO DAILY PRN tab 11/11/18 05/05/20 epinephrine 0.3 mg/0.3 mL 0.3 mg IM UD PRN #0 08/28/19 05/05/20 injection, auto-injector warfarin 5 mg tablet See Rx Instructions PO UD tab 04/12/20 05/05/20 Previous Rx's Medication Instructions Recorded finasteride 5 mg tablet 5 mg PO DAILY #90 tab 07/22/19 tamsulosin 0.4 mg capsule 0.4 mg PO DAILY #90 cap 07/22/19 metoprolol succinate 50 mg 25 mg PO DAILY #45 tab 03/22/20 tablet,extended release 24 hr escitalopram oxalate 10 mg tablet 10 mg PO DAILY #30 tab 04/29/20 Results & Data (ED) Vital Signs Vital Signs - 24 hr 05/05/20 12:50 05/05/20 13:03 05/05/20 13:30 Temperature 36.8 C Temperature Source Oral Pulse Rate 69 61 56 L Respiratory Rate 18 13 15 Respiratory Effort / Characteristics Non-Labored Spontaneous Respiratory Depth Normal Respiratory Pattern Regular Blood Pressure 137/74 Blood Pressure Mean 95 Blood Pressure Position Sitting Pulse Oximetry 94 Oxygen Delivery Method Room Air Sepsis Recent Fever Within 48 Hours No Sepsis New/Unexplained Change in Mental Status N/A Sepsis Action Taken by Nursing No Action Required 05/05/20 14:37 05/05/20 14:38 Temperature Temperature Source Pulse Rate 52 L 52 L Respiratory Rate 21 23 Respiratory Effort / Characteristics Respiratory Depth Respiratory Pattern Blood Pressure 143/83 H Blood Pressure Mean 99 Blood Pressure Position Pulse Oximetry Oxygen Delivery Method Sepsis Recent Fever Within 48 Hours Sepsis New/Unexplained Change in Mental Status Sepsis Action Taken by Nursing Laboratory Data Result diagrams: 05/05/20 13:09 05/05/20 13:09 Lab Results 05/05/20 05/05/20 05/05/20 Range/Units 13:09 13:09 13:09 WBC 5.75 (4.8-10.8) K/uL RBC 4.51 L (4.7-6.1) M/uL Hgb 13.5 L (14.0-18.0) g/dL Hct 41.1 L (42-52) % MCV 91.1 (80-100) fL MCH 29.9 (25-34) pg MCHC 32.8 (32-36) g/dL RDW Std Deviation 47.6 H (36.4-46.3) fL RDW Coeff of Castillo 14.1 (11.5-14.5) % Plt Count 188 (130-400) K/uL MPV 9.1 (7.4-10.4) fL Immature Gran % (Auto) 0.7 % Neut % (Auto) 57.8 % Lymph % (Auto) 26.4 % Meigs % (Auto) 10.4 % Eos % (Auto) 4.5 % Baso % (Auto) 0.2 % Neut # (Auto) 3.32 (1.4-6.5) K/uL Lymph # (Auto) 1.52 (1.2-3.4) K/uL Meigs # (Auto) 0.60 H (0.11-0.59) K/uL Eos # (Auto) 0.26 (0-0.5) K/uL Baso # (Auto) 0.01 (0-0.2) K/uL Immature Gran # (Auto) 0.04 H (0.00-0.02) K/uL PT 28.2 H (9.0-12.0) Seconds INR 2.8 H (0.9-1.1) APTT 45.6 H* (21.0-31.0) Seconds PTT Ratio 1.6 Sodium 142 (136-145) mmol/L Potassium 4.3 (3.5-5.1) mmol/L Chloride 108 H (98-107) mmol/L Carbon Dioxide 27 (21-32) mmol/L Anion Gap 7.0 (3-11) BUN 10 (7-18) mg/dl Creatinine 1.00 (0.6-1.4) mg/dl Est Cr Clr Drug Dosing 76.5 ml/min Est GFR ( Amer) 80.9 Est GFR (Non-Af Amer) 69.8 BUN/Creatinine Ratio 9.8 L (10-20) Glucose 99 (70-99) mg/dl Calcium 9.0 (8.5-10.1) mg/dl Total Bilirubin 0.4 (0.2-1) mg/dl AST 15 (15-37) U/L ALT 19 (12-78) U/L Alkaline Phosphatase 62 (45-117) U/L Troponin I < 0.015 (0-0.045) ng/ml Total Protein 6.7 (6.4-8.2) gm/dl Albumin 3.3 L (3.4-5.0) gm/dl Globulin 3.4 (2.5-4.0) gm/dl Albumin/Globulin Ratio 1.0 (0.9-2) Lipase 64 L (73-393) U/L Discharge Plan Visit Data Chief Complaint: Syncope Stated Complaint: SYNCOPE ED Provider: Raudel Gomes Discharge Problem: Syncope, Chest pain, High serum chloride Patient Disposition: Admitted As Inpatient Discharge Instructions Interventions: ED Discharge Assessment Last Done: 05/05/20 17:56 Discharge Problem: Syncope Qualifiers: Syncope type: unspecified Qualified Code(s): R55 - Syncope and collapse Chest pain Qualifiers: Chest pain type: unspecified Qualified Code(s): R07.9 - Chest pain, unspecified
[2020-05-05 13:20] LABS: Basophils # (auto) 0.01 K/uL (0-0.2); Basophils % (auto) 0.2 %; Eosinophils # (auto) 0.26 K/uL (0-0.5); Eosinophils % (auto) 4.5 %; Hematocrit (blood only) 41.1 % (42-52); Hemoglobin 13.5 g/dL (14.0-18.0); Immature Granulocytes # (auto) 0.04 K/uL (0.00-0.02); Immature Granulocytes % (auto) 0.7 %; Lymphocytes # (auto) 1.52 K/uL (1.2-3.4); Lymphocytes % (auto) 26.4 %; Mean Corpuscular Hemoglobin 29.9 pg (25-34); Mean Corpuscular Hgb Conc 32.8 g/dL (32-36); Mean Corpuscular Volume 91.1 fL (80-100); Mean Platelet Volume 9.1 fL (7.4-10.4); Monocytes % (auto) 10.4 %; Neutrophils # (auto) 3.32 K/uL (1.4-6.5); Neutrophils % (auto) 57.8 %; Platelet Count 188 K/uL (130-400); RDW Coefficient of Variation 14.1 % (11.5-14.5); RDW Standard Deviation 47.6 fL (36.4-46.3); Red Blood Count 4.51 M/uL (4.7-6.1); White Blood Count 5.75 K/uL (4.8-10.8)
--- NOTE | 2020-05-05 13:33 | Electrocardiogram Report ---
Test Reason : Blood Pressure : / mmHG Vent. Rate : 062 BPM Atrial Rate : 062 BPM P-R Int : 180 ms QRS Dur : 096 ms QT Int : 422 ms P-R-T Axes : 060 -35 043 degrees QTc Int : 428 ms Poor data quality, interpretation may be adversely affected Sinus rhythm with occasional Premature ventricular complexes Left axis deviation Abnormal ECG When compared with ECG of 15-SEP-2018 23:28, Premature ventricular complexes are now Present Confirmed by Kevin Barbour ([id number]) on 05/05/2020 1:32:45 PM Referred By: Confirmed By:Kevin Barbour
[2020-05-05 13:37] LABS: Alanine Aminotransferase 19 U/L (12-78); Albumin Level 3.3 gm/dl (3.4-5.0); Aspartate Aminotransferase 15 U/L (15-37); BUN Creatinine Ratio 9.8 (10-20); Blood Urea Nitrogen 10 mg/dl (7-18); Carbon Dioxide 27 mmol/L (21-32); Chloride 108 mmol/L (98-107); Creatinine Clr Calc Pharmacy 76.5 ml/min; Est GFR (African American) 80.9; Est GFR (Non-African American) 69.8; Glucose 99 mg/dl (70-99); Lipase 64 U/L (73-393); Potassium 4.3 mmol/L (3.5-5.1); Sodium 142 mmol/L (136-145)
[2020-05-05 13:42] LABS: Alkaline Phosphatase 62 U/L (45-117); Bilirubin,Total 0.4 mg/dl (0.2-1); Globulin 3.4 gm/dl (2.5-4.0); Total Protein 6.7 gm/dl (6.4-8.2); Troponin I < 0.015 ng/ml (0-0.045)
[2020-05-05 13:49] LABS: INR 2.8 (0.9-1.1); Partial Thromboplastin Ratio 1.6; Prothrombin Time 28.2 Seconds (9.0-12.0)
[2020-05-05 14:16] LABS: Partial Thromboplastin Time 45.6 Seconds (21.0-31.0)
--- NOTE | 2020-05-05 14:35 | CT Scan Report ---
CT head/brain wo con CLINICAL HISTORY: syncope COMPARISON STUDY: 05/14/2019 TECHNIQUE: Axial CT of the brain is performed from the vertex to the skull base. IV contrast was not administered for this examination. A dose lowering technique was utilized adhering to the principles of ALARA. CT DOSE: 691.05 mGy.cm FINDINGS: No intra or extra-axial mass lesions are visualized. There is no CT evidence of acute cortical infarc tion. There is no evidence of midline shift. There is no acute hemorrhage. No calvarial fractures ar e visualized. There are patchy white matter hypodensities likely on a small vessel basis. There is no evidence of pathologic ventricular dilatation. There are chronic inflammatory changes present within the right maxillary sinus with areas of calcifi cation. There is chronic maxillary sinus wall thickening. IMPRESSION: No acute intracranial findings ACT 112: Negative or not required by law. Electronically signed by: Dimitrios Bush M.D. 05/05/2020 2:34 PM
--- NOTE | 2020-05-05 14:39 | Ultrasound Report ---
ULTRASOUND BILATERAL LOWER EXTREMITY VENOUS CLINICAL HISTORY: Leg pain. COMPARISON STUDY: Right lower extremity venous ultrasound dated 03/04/2020. TECHNIQUE: Real-time, grayscale, and color Doppler sonography of the deep veins of the right and left lower extremity was performed from the inguinal crease to the calf. Compression and augmentation wer e utilized. FINDINGS: There is no sonographic evidence of deep venous thrombosis identified in the right or left lower extremity. The common femoral, superficial femoral, and popliteal veins are patent and normally compressible bilaterally. The greater saphenous vein and the profunda femoris vein at the junction w ith the common femoral vein are clear in both legs. The visualized calf veins are patent bilaterally. IMPRESSION: There is no sonographic evidence of deep venous thrombosis identified in the right or lef t lower extremity. ACT 112: Negative or not required by law. Electronically signed by: Evelio Hollis M.D. 05/05/2020 2:37 PM
--- NOTE | 2020-05-05 14:56 | XRay Report ---
SINGLE VIEW CHEST CLINICAL HISTORY: Atypical chest pain. FINDINGS: 2 AP, portable, upright chest radiographs are compared to study dated 04/07/2020 and correla echo with chest CT dated 11/24/2016. The examination is degraded by portable technique and patient rotat ion. The heart is top normal for projection noting atherosclerotic calcification of the thoracic aort a. The pulmonary vasculature is noncongested. Chronic interstitial thickening is similar to previous. Atelectasis is noted at the left lung base. No airspace consolidation or large pleural effusion is i dentified. No pneumothorax is seen. The skeletal structures are osteopenic. The bony thorax is grossl y intact. IMPRESSION: No acute cardiopulmonary abnormality. ACT 112: Negative or not required by law. Electronically signed by: Evelio Hollis M.D. 05/05/2020 2:54 PM
--- NOTE | 2020-05-05 16:57 | History & Physical Report ---
Date of Service May 05, 2020 Assessment & Plan (1) Recurrent falls: Appears to be a combination of mainly ambulatory disequilibrium ?secondary to peripheral neuropathy +/- suspected cardiac arrythmia. (2) Syncope: Most concern are his episodes of unexplained syncope. No prodromal symptoms. Large number of PVCs as below ?causing low effective HR. Monitor on telemetry for arrhythmia/PVC burden - notable prior outpatient monitor but did not have any episodes while on this. Will continue on his usual metoprolol for now to see if he has a recurrent episode. Consult cardiology - for consideration of implantable loop recorder given infrequent episodes. (3) Frequent PVCs: Monitor on telemetry. As above. (4) Chest pain: Longstanding, not present on admission. Previously diagnosed as chest wall pain. Consistent with muscle spasms. (5) Ambulatory dysfunction: ?secondary to peripheral neuropathy. ?intermittent nerve compression at the back of his right knee causing his distal numbness. B12 level with AM labs - treat if < 400. Consider neurology consult either inpatient or outpatient for nerve conduction studies. (6) Peripheral neuropathy: Outpatient diagnosis of this although no prior workup seen. Consider inpatient/outpatient neurology referral for further workup as above. (7) BPH loc w urin obs/LUTS: Continue finasteride 5 mg p.o. daily (8) Benign essential tremor: Longstanding. Consider treatment if affecting his balance. (9) History of pulmonary embolism: Continue warfarin with his usual home dosing regimen. INR therapeutic. History of Present Illness Chief Complaint: Ambulatory dysfunction, syncope Primary Care Provider: Kevin Horton MD Patel Basurto is an 80 year old male with prior history of prostate cancer who presents to the ER after a fall/syncopal event. He does note think he lost consciousness today but does not remember his granddaughter coming to get him and sitting him down. He reports walking with his walking stick and reaching down to remove a rock on the floor. He felt unsteady and went to the right-hand side (he reports always falling to the right). He was unable to catch himself and so fell to the ground. He denies hitting his head or neck. His granddaughters were also the window and helped him to a chair to sitting down. Given his ongoing falls and a syncopal events on Sunday his advised him to come to the hospital. 2 days prior to this he had a full syncopal event. He was walking with 2 bottles of water. Unwitnessed. Denies any prodromal symptoms. His family found him lying down on the ground, unresponsive. Unsure how long he was lying down. They were eventually able to get him up and he declined coming to the hospital at this time. The following day he felt his normal self. In the ER he was referred to medicine due to concerning increased ambulatory dysfunction and recent syncopal event. Allergies Allergy/AdvReac Type Severity Reaction Status Date / Time aspirin Allergy Severe HIVES Verified 05/05/20 15:07 celecoxib [From Celebrex] Allergy Severe hives Verified 05/05/20 15:07 Iodinated Contrast Media Allergy Unknown Contrast Verified 05/05/20 15:07 media - unknown rxn iodine Allergy Unknown Unknown Verified 05/05/20 15:07 Home Medications Home Medications Medication Instructions Recorded Confirmed Type calcium carbonate-vitamin D3 500 mg PO WK #0 09/11/16 05/05/20 History [Calcium 500 + D] acetaminophen 500 mg tablet 500 mg PO DAILY PRN tab 11/11/18 05/05/20 History finasteride 5 mg tablet 5 mg PO DAILY #90 tab 07/22/19 05/05/20 Rx tamsulosin 0.4 mg capsule 0.4 mg PO DAILY #90 cap 07/22/19 05/05/20 Rx epinephrine 0.3 mg/0.3 mL 0.3 mg IM UD PRN #0 08/28/19 05/05/20 History injection, auto-injector metoprolol succinate 50 mg 25 mg PO DAILY #45 tab 03/22/20 05/05/20 Rx tablet,extended release 24 hr warfarin 5 mg tablet See Rx Instructions PO UD tab 04/12/20 05/05/20 History escitalopram oxalate 10 mg tablet 10 mg PO DAILY #30 tab 04/29/20 05/05/20 Rx Past Med/Surg History Medical History Acute bronchitis Arthralgia of multiple sites BPH loc w urin obs/LUTS Broken ribs DVT (deep venous thrombosis) Enlarged prostate with lower urinary tract symptoms (LUTS) Fracture of lamina of cervical vertebra (2016) History of squamous cell carcinoma HTN (hypertension) Impacted cerumen of both ears Left rib fracture Osteoporosis Polyneuropathy Sensorineural hearing loss (SNHL) of both ears Surgical History History of knee replacement History of transurethral resection of prostate Family History No significant family history Cancer Father Prostate Social History Smoking Status: Never smoker Hx Alcohol Use: Yes Alcohol type: wine Hx Substance Use: No Preferred Language: Nicaraguan Communication Ability: Effective 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 He always falls to the right side. He has a diagnosis of peripheral neuropathy although no formal nerve conduction studies. B12 level in 2018 -297. He is not on B12 supplements. Intermittent numbness from the right knee distally. Chronic chest pain -he has had this for years, diagnosed with chest wall pain and EHR, no recent change to this. Left hand action tremor - present for many years but progressively getting worse. Bilateral plantar foot paresthesia -first thing the morning feels like "walking on sponges" Broke neck 2 years ago off a skid steer. Turned around and passed out. Limited neck ROM since his accident. No dizziness on turning his head currently. Physical Exam Constitutional: well developed, well nourished and + obese; no acute distress Eyes: PERRL, conjunctivae normal, anicteric sclerae ENMT: external ear and nose normal, oropharynx normal Neck: trachea midline, no thyromegaly Respiratory: normal respiratory effort, lungs clear to auscultation Auscultation: + diminished lung sounds (Bibasal) Cardiovascular: RRR, no murmur, no edema (Frequent skipped beats) Gastrointestinal (Abdomen): normal bowel sounds, soft, nontender, no hepatosplenomegaly Musculoskeletal: no cyanosis or clubbing, extremities motor strength 5/5 Neurologic: moves all extremities and awake; not confused Motor/Sensory: + tremor (Action tremor left upper extremity) and + sensory deficit (Stocking distribution numbness to his ankles bilaterally); no pronator drift Cranial Nerves: normal facial strength and no nystagmus Coordination: normal [id number] test and normal fdmc-[id number] test Psychiatric: A+Ox3, euthymic affect Genitourinary: no CVA tenderness Results & Data Results & Data ([facility]) Vital Signs (Past 12 Hours) Vital Signs Temp Pulse Resp BP Pulse Ox 05/05/20 14:38 52 L 23 143/83 H 05/05/20 14:37 52 L 21 05/05/20 13:30 56 L 15 05/05/20 13:03 61 13 05/05/20 12:50 36.8 C 69 18 137/74 94 Diagnostic Findings ULTRASOUND BILATERAL LOWER EXTREMITY VENOUS IMPRESSION: There is no sonographic evidence of deep venous thrombosis identified in the right or left lower extremity. CT head/brain wo con IMPRESSION: No acute intracranial findings SINGLE VIEW CHEST IMPRESSION: No acute cardiopulmonary abnormality. ECG Indication: other (Fall) Rate (beats per minute): 62 Rhythm: normal sinus Findings: + PVC; no acute ischemic change Comparison ECG Date: from (September 15, 2018) Change: the following changes noted (PVCs present) Code Status & VTE Plan Code Status Full PG Care Time/CCT Total # of Minutes Spent Total Time Spent with Patient: Total time spent is greater than 50% in coordination of care (as documented) at patient's floor/unit and/or counseling patient: Coding Level of Care Code 63724 Initial Inpt Care Lvl 3 Diagnoses Recurrent falls R29.6 Syncope R55 Frequent PVCs I49.3 Chest pain R07.9 Chest pain type: unspecified Ambulatory dysfunction R26.2 Peripheral neuropathy G62.9 BPH loc w urin obs/LUTS N40.1 Benign essential tremor G25.0 History of pulmonary embolism Z86.711 (1) Chest pain Chest pain type: unspecified Qualified Code(s): R07.9 - Chest pain, unspecified
[2020-05-05] MEDS ORDERED: ONDANSETRON INJ 2 MG/ML 2 ML VIAL IV PRN (18:22)
[2020-05-05] MEDS ORDERED: ACETAMINOPHEN 325 MG TAB PO PRN (18:22)
[2020-05-05] MEDS ORDERED: POLYETHYLENE (MIRALAX) 17 GM PACK PO PRN (18:22)
[2020-05-05] MEDS ORDERED: ALUMINUM/MAGNESIUM SUSP 30 ML UDC PO PRN (18:22)
[2020-05-06 00:29] LABS: Appearance Urine Clear (Clear); Bilirubin Urine Negative (Negative); Blood Urine Negative (Negative); Color Urine Yellow; Glucose Urine UA Negative (Negative); Ketones Urine Negative (Negative); Leukocyte Esterase Urine Negative (Negative); Nitrite Urine Negative (Negative); Protein Urine Negative (Negative); Specific Gravity Urine 1.011 (1.000-1.030); Urobilinogen Urine Negative (Negative)
[2020-05-06 07:02] LABS: Basophils # (auto) 0.02 K/uL (0-0.2); Basophils % (auto) 0.4 %; Eosinophils # (auto) 0.26 K/uL (0-0.5); Eosinophils % (auto) 4.7 %; Hematocrit (blood only) 42.5 % (42-52); Hemoglobin 13.4 g/dL (14.0-18.0); Immature Granulocytes # (auto) 0.03 K/uL (0.00-0.02); Immature Granulocytes % (auto) 0.5 %; Lymphocytes # (auto) 1.48 K/uL (1.2-3.4); Lymphocytes % (auto) 26.5 %; Mean Corpuscular Hgb Conc 31.5 g/dL (32-36); Mean Platelet Volume 9.2 fL (7.4-10.4); Monocytes # (auto) 0.46 K/uL (0.11-0.59); Monocytes % (auto) 8.2 %; Neutrophils # (auto) 3.34 K/uL (1.4-6.5); Neutrophils % (auto) 59.7 %; Platelet Count 202 K/uL (130-400); RDW Coefficient of Variation 14.3 % (11.5-14.5); RDW Standard Deviation 48.5 fL (36.4-46.3); Red Blood Count 4.62 M/uL (4.7-6.1); White Blood Count 5.59 K/uL (4.8-10.8)
[2020-05-06 07:07] LABS: INR 2.8 (0.9-1.1); Prothrombin Time 27.7 Seconds (9.0-12.0)
[2020-05-06 07:31] LABS: BUN Creatinine Ratio 12.7 (10-20); Calcium 8.6 mg/dl (8.5-10.1); Creatinine Clr Calc Pharmacy 82.5 ml/min; Est GFR (African American) 90.6; Est GFR (Non-African American) 78.2; Potassium 4.3 mmol/L (3.5-5.1)
[2020-05-06] MEDS ORDERED: ESCITALOPRAM OXALATE 10 MG TAB PO SCH (09:00)
[2020-05-06] MEDS ORDERED: FINASTERIDE 5 MG TAB PO SCH (09:00)
[2020-05-06] MEDS ORDERED: METOPROLOL SUCC 25MG EXT REL TAB PO SCH (09:00)
[2020-05-06] MEDS ORDERED: TAMSULOSIN HCL 0.4 MG CAP PO SCH (09:00)
[2020-05-06] MEDS ORDERED: ATROPINE SULFATE 0.1 MG/ML 10ML SYR IV ONE (12:07)
[2020-05-06] MEDS ORDERED: METOPROLOL TARTRATE 1 MG/ML VIAL IV ONE (12:07)
[2020-05-06] MEDS ORDERED: DOBUTamine HCL 12.5 MG/ML 20 ML VIAL IV ONE (12:07)
[2020-05-06] MEDS ORDERED: PERFLUTREN LIPID MICROSPHERE (DEFINITY) IV ONE (13:26)
--- NOTE | 2020-05-06 14:07 | Cardiology Consultation ---
Date of Consultation May 06, 2020 Assessment & Plan (1) Syncope: Etiology of recurrent syncope remains uncertain. Fortunately, given favorable dobutamine stress echocardiogram results there is no evidence of myocardial ischemia or stress-induced dysrhythmia as contributing factors to his syncope. The suggestion that each of the syncopal episodes could have occurred at a time when he would have been turning his head or twisting his neck raises the strong possibility of carotid hypersensitivity. However, was unable to elicit on carotid massage any rhythm disturbance. Since his low-dose beta-samm could be suppressing ventricular ectopy and he showed a brisk response to dobutamine/atropine, reasonable to continue this in the absence of evidence for significant bradycardia. Did recommend moving his neck carefully and slowly during activities and avoiding climbing ladders or other risky activities given risk of further syncope. Spoke with electrophysiologists, they felt that there could be a role for a loop recorder in this situation, but that this could be arranged as an outpatient. Therefore would recommend arranging follow-up with Dr. Wu or Dr. Hutton for evaluation for loop recorder. (2) Peripheral neuropathy: This may have contributed to his disequilibrium and on balance, but is unlikely to play a role in his syncopal episodes. (3) Ambulatory dysfunction: Multifactorial, likely peripheral neuropathy. (4) HTN (hypertension): BP mildly hypertensive or normotensive throughout his hospital stay. Would not aggressively change his vasoactive regimen until his syncopal evaluation is completed. History of Present Illness Reason for Consultation: Syncope. Requesting Physician: Daron Thomas MD Attending Physician: Benigno Toribio DO History of Present Illness 80-year-old man with remote history of pulmonary embolism (chronic warfarin anticoagulation), peripheral neuropathy, hypertension, and minor other medical problems, who was admitted 05/05/2020 after 2 episodes of syncope over the past few days. Of note, he had a fall from a skid steer in 2017 which resulted in fracture of lamina of C7. His history and physical at the time states that he missed a handle and fell forward, but also notes that he had some loss of consciousness. When he related the episode to me today, he noted that he does not recall what happened to prompt the fall, but he did remember passing in front of the carmichael of the skid steer as he was falling. He had an event monitor in May 2019 for reasons that are unclear (no obvious associated notes), this showed only mild sinus bradycardia or sinus rhythm, there was one 7 beat run read as PSVT at 110 bpm. In the years since his fall from the skid steer in 2016, he has had some unsteadiness on his feet with disequilibrium and walks with a cane, occasionally falling, but without any alteration of consciousness. However, several days ago he had an episode of loss of consciousness after he was walking with 2 buckets of water, he set the buckets down and lost consciousness briefly. No trauma. He felt well up until that time, noting mild dyspnea but nothing extraordinary. No chest pain at that time. No bowel or bladder incontinence, post episode confusion, palpitations, or other prodrome or subsequent symptoms. On the day of admission he was walking up a hill, did not feel particularly fatigued or dyspneic, he bent over to bead picker a rock and lost consciousness. No significant trauma. Again, no prodrome or subsequent symptoms. Since his admission he has felt well, no lightheadedness or other symptoms. Work-up was unrevealing with ECG showing sinus rhythm with PVCs, telemetry monitoring showing sinus rhythm with sporadic PVCs but no runs or pauses, troponin was negative, head CT was negative. He did undergo a dobutamine stress echocardiogram today, there was no ECG, echo, or clinical evidence of myocardial ischemia. His baseline PVCs disappeared during stress and no dysrhythmia was noted. Carotid massage did not elicit any bradycardia or change in rhythm. Allergies Allergy/AdvReac Type Severity Reaction Status Date / Time aspirin Allergy Severe HIVES Verified 05/05/20 15:07 celecoxib [From Celebrex] Allergy Severe hives Verified 05/05/20 15:07 Iodinated Contrast Media Allergy Unknown Contrast Verified 05/05/20 15:07 media - unknown rxn iodine Allergy Unknown Unknown Verified 05/05/20 15:07 Home Medications Home Medications Medication Instructions Recorded Confirmed Type calcium carbonate-vitamin D3 500 mg PO WK #0 09/11/16 05/05/20 History [Calcium 500 + D] acetaminophen 500 mg tablet 500 mg PO DAILY PRN tab 11/11/18 05/05/20 History finasteride 5 mg tablet 5 mg PO DAILY #90 tab 07/22/19 05/05/20 Rx tamsulosin 0.4 mg capsule 0.4 mg PO DAILY #90 cap 07/22/19 05/05/20 Rx epinephrine 0.3 mg/0.3 mL 0.3 mg IM UD PRN #0 08/28/19 05/05/20 History injection, auto-injector metoprolol succinate 50 mg 25 mg PO DAILY #45 tab 03/22/20 05/05/20 Rx tablet,extended release 24 hr warfarin 5 mg tablet See Rx Instructions PO UD tab 04/12/20 05/05/20 History escitalopram oxalate 10 mg tablet 10 mg PO DAILY #30 tab 04/29/20 05/05/20 Rx Patient History Medical History Acute bronchitis Arthralgia of multiple sites BPH loc w urin obs/LUTS Broken ribs DVT (deep venous thrombosis) Enlarged prostate with lower urinary tract symptoms (LUTS) Fracture of lamina of cervical vertebra (2017) History of squamous cell carcinoma HTN (hypertension) Impacted cerumen of both ears Left rib fracture Osteoporosis Polyneuropathy Sensorineural hearing loss (SNHL) of both ears Surgical History History of knee replacement History of transurethral resection of prostate Family History No significant family history Cancer Father Prostate Social History Smoking Status: Never smoker Hx Alcohol Use: Yes Alcohol type: wine Hx Substance Use: No Preferred Language: Serbian Communication Ability: Effective Employee Services Manager Required: No Beliefs That Will Affect Care: None Current Living Situation: Spouse current occupational status: retired Other Information That Helps Us Care for You: No Feels Safe at Home: Yes Safety Concerns: Feels Safe At This Time Review of Systems Constitutional: no fever, no chills, no fatigue, no weight loss and no weight gain Eyes: no problem reported Ear, Nose, Mouth, Throat: no problem reported Respiratory: no cough and no dyspnea Cardiovascular: as per Subjective / HPI Gastrointestinal: no abdominal pain and no change in stools Musculoskeletal: no myalgia Integumentary: no rash and no new lesions Neurologic: as per Subjective / HPI, + falls and + syncope Psychiatric: no problem reported Hematologic / Lymphatic: no easy bleeding and no easy bruising Physical Exam Physical Exam: Large frame elderly white male appears comfortable. Afebrile. Mildly hypertensive, mildly bradycardic, respirations 20 but unlabored. Skin: No generalized lesions. HEENT: Unremarkable. Neck: Jugular venous pulse at the clavicle at 90 degrees, no carotid bruits. Lungs: Mildly decreased breath sounds but clear. Cardiac: Regular rhythm with faint heart tones, no obvious murmur or gallop. Abdomen: Soft nontender. Extremities: Minor right greater than left pretibial edema, peripheral pulses intact. Neurologic: Normal affect and conversation, grossly nonfocal. Results & Data ([facility]) Vital Signs (Past 12 Hours) Vital Signs Temp Pulse Pulse Resp BP Pulse Ox 05/06/20 11:25 97.5 F L 55 L 20 145/75 H 94 05/06/20 07:49 63 05/06/20 07:38 98.2 F 54 L 16 127/67 92 05/06/20 07:01 60 05/06/20 02:58 98.6 F 55 L 18 146/88 H 93 Laboratory Results CBC normal for age. INR therapeutic at 2.8. Normal electrolytes, BUN 12, creatinine 0.91. Troponin less than 0.015. Diagnostic Findings ECG showed sinus rhythm at 62 bpm with occasional PVCs and left axis deviation. Compared with 09/15/2018 ECG, PVCs now present, otherwise no significant change. Telemetry overnight showed sinus rhythm with sporadic PVCs, no ventricular runs or other dysrhythmias. PG Care Time/CCT Total # of Minutes Spent Total Time Spent with Patient: Total time spent is greater than 50% in coordination of care (as documented) at patient's floor/unit and/or counseling patient: Coding Level of Care Code 13488 Initial Inpt Care Lvl 3 Diagnoses Syncope R55 Syncope type: unspecified Peripheral neuropathy G62.9 Ambulatory dysfunction R26.2 HTN (hypertension) I10 (1) Syncope Syncope type: unspecified Qualified Code(s): R55 - Syncope and collapse
--- NOTE | 2020-05-06 14:30 | XCELERA ---
[id number]
[2020-05-06] MEDS ORDERED: WARFARIN SOD 5 MG TAB PO SCH (16:00)
[2020-05-07] MEDS ORDERED: WARFARIN SOD 7.5 MG TAB PO SCH (16:00)
--- NOTE | 2020-05-08 10:36 | Discharge Summary ---
Date of Service May 06, 2020 Admission HPI Per Admitting Provider Patel Basurto is an 80 year old male While walking he reached down for a rock. Using a walking stick for the last 6-8 months. Usually needing walking stick in morning until he gets going. Always falling to the right side. Granddaughter saw him start to fall out of the window. Patient doesn't remember her being there. She told him to sit down. His told him to come to the hospital. Occasional numbness from knee distally on right side. Sunday fell over while carrying 2 bottles of water. Found him laying down. Lost consciousness. Unresponsive. Unsure how long he laid there. No prodromal symptoms. Falling a lot over the last year, especially the last 2 months. Didn't think he lost conciousness today but also Chest pain for years. Broke neck 2 years ago off a skid steer. Turned around and passed out. Feels like walking on spongest. Left hand shakes. Principal Diagnosis Syncope and collapse Discharge Exam Constitutional WD/WN, vitals as above Eyes PERRL, conjunctivae normal, anicteric sclerae ENMT external ear and nose normal, oropharynx normal Neck trachea midline, no thyromegaly Respiratory normal respiratory effort, lungs clear to auscultation Cardiovascular RRR, no murmur, no edema Gastrointestinal (Abdomen) normal bowel sounds, soft, nontender, no hepatosplenomegaly Musculoskeletal no cyanosis or clubbing, extremities motor strength 5/5 Skin no rashes, warm and dry Neurologic patellar DTR's 2+ bilat, sensation intact and PERRL, EOMI, accommodation nl, no face palsy, no dysarthria Psychiatric A+Ox3, euthymic affect Lymphatic no cervical or axillary lymphadenopathy Discharge Data Allergies Allergy/AdvReac Type Severity Reaction Status Date / Time aspirin Allergy Severe HIVES Verified 05/05/20 15:07 celecoxib [From Celebrex] Allergy Severe hives Verified 05/05/20 15:07 Iodinated Contrast Media Allergy Unknown Contrast Verified 05/05/20 15:07 media - unknown rxn iodine Allergy Unknown Unknown Verified 05/05/20 15:07 Consultations 05/05/20 14:59 ED Decision to Admit Stat 05/05/20 18:22 Consult Cardiology Routine Ordered Studies 05/05/20 13:06 CT head/brain wo con Stat 05/05/20 13:12 US venous doppler LE BI Stat Hospital Course (1) Recurrent falls: falls not happening often, just a few in the past years 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 No prodromal symptoms. Large number of PVCs as below ?causing low effective HR. echo with preserved EF, no valve disease dobutamine stress echo on day of discharge showed no ischemic changes discussed with EP, will plan for loop recorder to be placed to determine if he has arrhythmia that causes these no neurological deficits, do not suspect stroke syncope was witnessed, it was 30 seconds long, he did not have confusion when he regained consciousness, no seizure like activity (3) Frequent PVCs: Monitor on telemetry. As above. plan for loop recorder (4) Chest pain: Longstanding, not present on admission. Previously diagnosed as chest wall pain. Consistent with muscle spasms. dobutamine stress echo - NEGATIVE for ischemia (5) Ambulatory dysfunction: (6) Peripheral neuropathy: Outpatient diagnosis of this although no prior workup seen. Consider inpatient/outpatient neurology referral for further workup as above. (7) BPH loc w urin obs/LUTS: Continue finasteride 5 mg p.o. daily (8) Benign essential tremor: Longstanding. Consider treatment if affecting his balance. (9) History of pulmonary embolism: Continue warfarin with his usual home dosing regimen. INR therapeutic. Total Time Total Time Spent Total Time Spent (In Minutes): 31 Total Time Includes: Examination of the Patient, Discharge Planning, Medication Reconciliation and Communication With Other Providers (Dr. Camargo) Discharge Plan Discharge Items Patient Disposition: Home - Self-Care Reason For Visit: SYNCOPE Discharge Diagnosis: Syncope Condition on Discharge: Good Activity: Resume your previous activity Driving/Machine Use: No limitations Weightbearing: Full weightbearing Non-emergency contact: Primary Care Provider and Foil Spinner Call non-emergency contact if: you have any medication questions and your symptoms worsen Follow-up/Referrals: Kevin Horton MD [Primary Care Provider] - 05/12/20 9:30 am (Your appointment will be with Dr. Khan) Dao Hutton MD [Physician] - 05/19/20 12:15 pm (2 weeks, evaluate for placement of loop recorder) Diet: Regular Addtl Attending Provider Instructions: Medications: no changes Syncope: unclear etiology, no clear cause found on work up here in hospital Complete blood count, renal function, electrolytes all normal normal CT head, normal chest x-ray no evidence of acute heart attack Dr. Camargo performed at stress echocardiogram and found no evidence of ischemia, heart functions well no arrhythmia on monitor Dr. Camargo recommends getting an implantable loop recorder that will stay in place, will record if you have an arrhythmia if you have another episode of passing out will make a referral for that appointment in the upcoming weeks Pending Studies at Discharge: No Stand-Alone Forms: [facility] [employer], Smoking Cessation Medications and DC Order Prescriptions: Continued acetaminophen [Tylenol Extra Strength] 500 mg tablet 500 mg PO DAILY PRN (Reason: pain) RF: 0 warfarin 5 mg tablet See Rx Instructions PO UD RF: 0 calcium carbonate-vitamin D3 [Calcium 500 + D] 500 mg(1,250mg) -200 unit Tablet 500 mg PO WK Qty: 0 RF: 0 epinephrine [EpiPen] 0.3 mg/0.3 mL auto-injector 0.3 mg IM UD PRN (Reason: Anaphylaxis) Qty: 0 RF: 0 metoprolol succinate [Toprol XL] 50 mg tablet extended release 24 hr 25 mg PO DAILY Qty: 45 RF: 1 escitalopram oxalate [Lexapro] 10 mg tablet 10 mg PO DAILY Qty: 30 RF: 5 tamsulosin [Flomax] 0.4 mg capsule 0.4 mg PO DAILY Qty: 90 RF: 3 finasteride [Proscar] 5 mg tablet 5 mg PO DAILY Qty: 90 RF: 3 Discharge Orders: Discharge Order (Routine); Ordered 05/06/20 Ordered By: Benigno Toribio Admission Data Admit Date/Time: 05/05/20 16:42 Attending Provider: Benigno Toribio Admit Provider: Daron Thomas Primary Care Provider: Kevin Horton Other Providers: Daron Thomas ; Kevin Barbour Other Interventions: Discharge Summary Assessment (RN) Last Done: 05/06/20 14:42 Coding Level of Care Code D/C Day Management >30 mins Diagnoses Recurrent falls R29.6 Syncope R55 Syncope type: unspecified Frequent PVCs I49.3 Chest pain R07.9 Chest pain type: unspecified Ambulatory dysfunction R26.2 Peripheral neuropathy G62.9 BPH loc w urin obs/LUTS N40.1 Benign essential tremor G25.0 History of pulmonary embolism Z86.711
== END 2020-05-06 15:15 | disposition home or self-care (01) | DRG 74 ==
LOC: ED 12:28 → 2N 16:42 → SUATTDRO 16:42 → 2N 17:56

== ENCOUNTER 2020-11-11 17:54 | Observation (INO) ==
[2020-11-11] MEDS ORDERED: ASPIRIN CHEW 324 MG ONE (19:03)
[2020-11-11] MEDS ORDERED: NITROGLYCERIN SL 0.4 MG/TAB TAB ONE (19:04)
[2020-11-11] MEDS ORDERED: NITROGLYCERIN SL 0.4 MG/TAB TAB SL STA (19:06)
[2020-11-11] MEDS ORDERED: SODIUM CHLORIDE 0.9% 1000ML 1,000 ML IV SCH (19:15)
[2020-11-11 19:21] LABS: Basophils # (auto) 0.02 K/uL (0-0.2); Basophils % (auto) 0.3 %; Eosinophils # (auto) 0.31 K/uL (0-0.5); Eosinophils % (auto) 4.7 %; Hematocrit (blood only) 39.4 % (42-52); Hemoglobin 13.1 g/dL (14.0-18.0); Immature Granulocytes # (auto) 0.03 K/uL (0.00-0.02); Immature Granulocytes % (auto) 0.5 %; Lymphocytes # (auto) 1.97 K/uL (1.2-3.4); Lymphocytes % (auto) 29.8 %; Mean Corpuscular Hgb Conc 33.2 g/dL (32-36); Mean Corpuscular Volume 90.2 fL (80-100); Monocytes # (auto) 0.65 K/uL (0.11-0.59); Monocytes % (auto) 9.8 %; Neutrophils # (auto) 3.63 K/uL (1.4-6.5); Neutrophils % (auto) 54.9 %; Platelet Count 207 K/uL (130-400); RDW Coefficient of Variation 14.1 % (11.5-14.5); RDW Standard Deviation 46.8 fL (36.4-46.3); Red Blood Count 4.37 M/uL (4.7-6.1); White Blood Count 6.61 K/uL (4.8-10.8)
[2020-11-11 19:35] LABS: Partial Thromboplastin Ratio 1.4; Partial Thromboplastin Time 36.2 Seconds (21.0-31.0); Prothrombin Time 19.1 Seconds (9.0-12.0)
[2020-11-11 19:37] LABS: BUN Creatinine Ratio 16.9 (10-20); Blood Urea Nitrogen 18 mg/dl (7-18); Calcium 9.2 mg/dl (8.5-10.1); Carbon Dioxide 26 mmol/L (21-32); Chloride 109 mmol/L (98-107); Creatinine Clr Calc Pharmacy 71.4 ml/min; Est GFR (African American) 74.5; Est GFR (Non-African American) 64.3; Glucose 97 mg/dl (70-99); Lipase 79 U/L (73-393); Potassium 4.1 mmol/L (3.5-5.1); Sodium 140 mmol/L (136-145)
[2020-11-11 19:42] LABS: Troponin I < 0.015 ng/ml (0-0.045)
--- NOTE | 2020-11-11 19:47 | XRay Report ---
XR chest 2V PA/lateral CLINICAL HISTORY: Atypical chest pain. COMPARISON STUDY: Chest radiograph June 19, 2020. Chest CT November 24, 2016. FINDINGS: Lung volumes are normal. There is no pneumothorax or pleural effusion. Incidental note is m darek of a calcified granuloma within the right lower lobe. Cardiomegaly is unchanged. There is no evid ence for pulmonary edema. There may be minimal left midlung opacity. IMPRESSION: 1. Possible left lung opacity. Artifact is favored however an infectious process could appear similar . Radiographic follow up is recommended. 2. Cardiomegaly without evidence for pulmonary edema. ACT 112: Negative or not required by law. Electronically signed by: Harrison Gaffney M.D. 11/11/2020 7:45 PM
[2020-11-11 23:38] LABS: Influenza A virus by PCR Negative (Neg); Influenza B virus by PCR Negative (Neg); RSV by PCR Negative (Neg); SARS CoV2 RNA(COVID-19) InHosp NEGATIVE (Negative)
--- NOTE | 2020-11-12 00:09 | Emergency Department Note ---
History of Present Illness General Chief Complaint: Chest Pain Stated Complaint: CHEST PAIN Time Seen by Provider: 11/11/20 18:47 History of Present Illness Provider Complaint: chest pain Onset (ago): day(s) 1 Duration: intermittent Pain Location: substernal Pain Radiation: LUE Severity: moderate Maximum Pain Intensity: 4 Current Pain Intensity: 4 Quality: + other (Pressure) Relieved By: + nothing Exacerbated By: + nothing Context: no recent illness, no recent surgery, no recent immobilization, no recent travel, no trauma/injury and no new medications Associated symptoms: + dyspnea; no nausea, no vomiting, no diaphoresis, no sense of impending doom, no syncope, no palpitations, no fever and no cough Home Medications Medication Instructions Recorded Confirmed Type calcium carbonate-vitamin D3 500 mg PO WK #0 09/11/16 11/11/20 History [Calcium 500 + D] epinephrine 0.3 mg/0.3 mL 0.3 mg IM UD PRN #0 08/28/19 11/11/20 History injection, auto-injector finasteride 5 mg tablet 5 mg PO DAILY #90 tab 05/27/20 11/11/20 Rx tamsulosin 0.4 mg capsule 0.4 mg PO DAILY #90 cap 05/27/20 11/11/20 Rx acetaminophen 500 mg tablet 500 mg PO BID tab 06/18/20 11/11/20 History metoprolol succinate 50 mg 25 mg PO DAILY #45 tab 09/17/20 11/11/20 Rx tablet,extended release 24 hr warfarin 5 mg tablet See Rx Instructions PO UD tab 11/08/20 11/11/20 History escitalopram oxalate 10 mg PO DAILY 11/11/20 11/11/20 History Allergies Allergy/AdvReac Type Severity Reaction Status Date / Time aspirin Allergy Severe HIVES Verified 11/11/20 21:30 celecoxib [From Celebrex] Allergy Severe hives Verified 11/11/20 21:30 Iodinated Contrast Media Allergy Unknown Contrast Verified 11/11/20 21:30 media - unknown rxn iodine Allergy Unknown Unknown Verified 11/11/20 21:30 Past Med/Surg History Medical History Acute bronchitis Arthralgia of multiple sites BPH loc w urin obs/LUTS Broken ribs Chest pain DVT (deep venous thrombosis) Enlarged prostate with lower urinary tract symptoms (LUTS) Fracture of lamina of cervical vertebra (2017) 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 HTN (hypertension) Impacted cerumen of both ears Left rib fracture Osteoporosis Polyneuropathy Sensorineural hearing loss (SNHL) of both ears Syncope Surgical History History of knee replacement History of transurethral resection of prostate Family History Father Cancer Prostate Other No significant family history Social History Smoking Status: Never smoker Hx Alcohol Use: No Hx Substance Use: No Preferred Language: Bruneian Communication Ability: Effective 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: No Beliefs That Will Affect Care: None Current Living Situation: Spouse current occupational status: retired Feels Safe at Home: Yes Assistive Devices: Glasses, Hearing Aid - Left and Hearing Aid - Right Review of Systems A total of 10 systems reviewed and were otherwise negative Physical Exam Vital Signs Vital Signs - 24 hr 11/11/20 18:03 11/11/20 19:13 11/11/20 19:28 Temperature 36.3 C L Temperature Source Temporal Artery Scan Pulse Rate 64 53 L 52 L Pulse Rate from SpO2 Sensor 51 L 52 L Respiratory Rate 20 18 18 Respiratory Effort / Characteristics Non-Labored Respiratory Depth Normal Blood Pressure 141/87 H 122/60 Blood Pressure Mean 105 80 Pulse Oximetry 93 96 96 Oxygen Delivery Method Room Air Sepsis Recent Fever Within 48 Hours No Sepsis New/Unexplained Change in Mental Status N/A Sepsis Action Taken by Nursing No Action Required 11/11/20 19:30 11/11/20 19:38 11/11/20 19:40 Temperature Temperature Source Pulse Rate 62 55 L Pulse Rate from SpO2 Sensor 72 Respiratory Rate 20 17 Respiratory Effort / Characteristics Respiratory Depth Blood Pressure 122/88 Blood Pressure Mean 99 Pulse Oximetry 93 Oxygen Delivery Method Sepsis Recent Fever Within 48 Hours Sepsis New/Unexplained Change in Mental Status Sepsis Action Taken by Nursing 11/11/20 19:50 11/11/20 20:00 11/11/20 20:01 Temperature Temperature Source Pulse Rate 51 L 53 L 52 L Pulse Rate from SpO2 Sensor 51 L 51 L 52 L Respiratory Rate 18 14 22 Respiratory Effort / Characteristics Respiratory Depth Blood Pressure 131/64 Blood Pressure Mean 86 Pulse Oximetry 96 96 95 Oxygen Delivery Method Sepsis Recent Fever Within 48 Hours Sepsis New/Unexplained Change in Mental Status Sepsis Action Taken by Nursing 11/11/20 20:10 11/11/20 20:20 11/11/20 20:30 Temperature Temperature Source Pulse Rate 54 L 51 L 51 L Pulse Rate from SpO2 Sensor 53 L 50 L 51 L Respiratory Rate 18 17 7 L Respiratory Effort / Characteristics Respiratory Depth Blood Pressure 141/69 H Blood Pressure Mean 93 Pulse Oximetry 96 94 94 Oxygen Delivery Method Sepsis Recent Fever Within 48 Hours Sepsis New/Unexplained Change in Mental Status Sepsis Action Taken by Nursing 11/11/20 20:31 11/11/20 20:40 11/11/20 20:50 Temperature Temperature Source Pulse Rate 50 L 51 L 53 L Pulse Rate from SpO2 Sensor 50 L 51 L 49 L Respiratory Rate 17 12 17 Respiratory Effort / Characteristics Respiratory Depth Blood Pressure Blood Pressure Mean Pulse Oximetry 95 95 94 Oxygen Delivery Method Sepsis Recent Fever Within 48 Hours Sepsis New/Unexplained Change in Mental Status Sepsis Action Taken by Nursing 11/11/20 21:00 11/11/20 21:30 Temperature Temperature Source Pulse Rate 50 L 51 L Pulse Rate from SpO2 Sensor 51 L 51 L Respiratory Rate 14 18 Respiratory Effort / Characteristics Respiratory Depth Blood Pressure 138/70 162/60 H Blood Pressure Mean 92 94 Pulse Oximetry 98 97 Oxygen Delivery Method Sepsis Recent Fever Within 48 Hours Sepsis New/Unexplained Change in Mental Status Sepsis Action Taken by Nursing Physical Exam GENERAL: He is oriented to person, place, and time. He appears well-developed and well-nourished. He does not appear distressed. HENT: Exam performed. - Head: Normocephalic and atraumatic. - Right Ear: External ear normal. No mastoid tenderness. - Left Ear: External ear normal. No mastoid tenderness. - Mouth/Throat: The oropharynx is clear and moist. No trismus in the jaw. No dental abscesses or uvula swelling. No oropharyngeal exudate or tonsillar abscesses. EYES: Conjunctivae and EOM are normal. Pupils are equal, round, and reactive to light. Right eye exhibits no discharge. Left eye exhibits no discharge. No scleral icterus. NECK: Normal range of motion. Neck supple. No JVD present. No spinous process tenderness present. No carotid bruit present. No rigidity. No tracheal deviation and normal range of motion present. No Brudzinski's sign and no Kernig's sign noted. CV: Normal rate, regular rhythm, normal heart sounds and intact distal pulses. There is no peripheral edema. Palpable radial pulses bue. PULM/CHEST: Effort normal and breath sounds normal. No respiratory distress. No stridor. He has no wheezes. He has no rales. - Chest Wall: He exhibits no tenderness. ABD: The abdomen is soft. Bowel sounds are normal. He has no distension. No mass is present. There is no tenderness. There is no rebound, no guarding, no Johnston's sign and no tenderness at McBurney's point. Rovsig negative. MUSC/SKEL: Normal range of motion. There is no peripheral edema, tenderness or deformity. LYMPH: No cervical adenopathy. NEURO: He is alert and oriented to person, place, and time. He has normal strength. No cranial nerve deficit or sensory deficit. Coordination and gait normal. GCS eye subscore is 4. GCS verbal subscore is 5. GCS motor subscore is 6. Cerebellar tests wnl. SKIN: Skin is warm and dry. He is not diaphoretic. PSYCH: He has a normal mood and affect. Behavior is normal. Judgment and thought content normal. Course Course 1846: The patient was evaluated in room C2. A complete history and physical exam was performed Cardiac monitoring: An order was placed for continuous cardiac monitoring. The monitor shows a rate of 60 with sinus rhythm 2150: Vital signs stable. Labs and imaging within normal limits with the exception of x-ray that shows a possible left lung opacity. Based on the patient's clinical history physical exam and normal white blood cell count it is not thought that the patient is suffering from pneumonia. Patient reports his chest pain resolved after sublingual nitroglycerin. [facility] ACS. Dr. Jimenez has been notified. Administered Medications Sodium Chloride (Nss 1000ml) 1,000 mls @ 125 mls/hr IV .Q8H [facility] Stop: 12/11/20 19:14 Last Admin: 11/11/20 19:18 Dose: 125 mls/hr Documented by: [id number] Discontinued Medications Aspirin (Aspirin Chew 324 Mg) Confirm Administered Dose 324 mg .ROUTE .STK-MED ONE Stop: 11/11/20 19:04 Last Admin: 11/11/20 19:17 Dose: Not Given Documented by: [id number] Nitroglycerin (Nitroglycerin Sl 0.4 Mg/Tab Tab) Confirm Administered Dose 0.4 mg .ROUTE .STK-MED ONE Stop: 11/11/20 19:05 Last Admin: 11/11/20 19:06 Dose: 0.4 mg Documented by: [id number] Nitroglycerin (Nitroglycerin Sl 0.4 Mg/Tab Tab) 0.4 mg SL NOW STA Stop: 11/11/20 19:07 Last Admin: 11/11/20 19:17 Dose: Not Given Documented by: [id number] Medical Decision Making Laboratory Data Result diagrams: 11/11/20 19:15 11/11/20 19:15 Labs: Lab Results 11/11/20 11/11/20 11/11/20 Range/Units 19:15 19:15 19:15 WBC 6.61 (4.8-10.8) K/uL RBC 4.37 L (4.7-6.1) M/uL Hgb 13.1 L (14.0-18.0) g/dL Hct 39.4 L (42-52) % MCV 90.2 (80-100) fL MCH 30.0 (25-34) pg MCHC 33.2 (32-36) g/dL RDW Std Deviation 46.8 H (36.4-46.3) fL RDW Coeff of Castillo 14.1 (11.5-14.5) % Plt Count 207 (130-400) K/uL MPV 9.0 (7.4-10.4) fL Immature Gran % (Auto) 0.5 % Neut % (Auto) 54.9 % Lymph % (Auto) 29.8 % Dickey % (Auto) 9.8 % Eos % (Auto) 4.7 % Baso % (Auto) 0.3 % Neut # (Auto) 3.63 (1.4-6.5) K/uL Lymph # (Auto) 1.97 (1.2-3.4) K/uL Dickey # (Auto) 0.65 H (0.11-0.59) K/uL Eos # (Auto) 0.31 (0-0.5) K/uL Baso # (Auto) 0.02 (0-0.2) K/uL Immature Gran # (Auto) 0.03 H (0.00-0.02) K/uL PT 19.1 H (9.0-12.0) Seconds INR 2.0 H (0.9-1.1) APTT 36.2 H (21.0-31.0) Seconds PTT Ratio 1.4 Sodium 140 (136-145) mmol/L Potassium 4.1 (3.5-5.1) mmol/L Chloride 109 H (98-107) mmol/L Carbon Dioxide 26 (21-32) mmol/L Anion Gap 5.0 (3-11) BUN 18 (7-18) mg/dl Creatinine 1.07 (0.6-1.4) mg/dl Est Cr Clr Drug Dosing 71.4 ml/min Est GFR ( Amer) 74.5 Est GFR (Non-Af Amer) 64.3 BUN/Creatinine Ratio 16.9 (10-20) Glucose 97 (70-99) mg/dl Calcium 9.2 (8.5-10.1) mg/dl Troponin I < 0.015 (0-0.045) ng/ml Lipase 79 (73-393) U/L COVID-19 Eval Order SARS-CoV-2 (PCR) (Negative) Influenza Type A (PCR) (Neg) Influenza Type B (PCR) (Neg) RSV (RT-PCR) (Neg) 11/11/20 11/11/20 Range/Units 21:55 21:55 WBC (4.8-10.8) K/uL RBC (4.7-6.1) M/uL Hgb (14.0-18.0) g/dL Hct (42-52) % MCV (80-100) fL MCH (25-34) pg MCHC (32-36) g/dL RDW Std Deviation (36.4-46.3) fL RDW Coeff of Castillo (11.5-14.5) % Plt Count (130-400) K/uL MPV (7.4-10.4) fL Immature Gran % (Auto) % Neut % (Auto) % Lymph % (Auto) % Dickey % (Auto) % Eos % (Auto) % Baso % (Auto) % Neut # (Auto) (1.4-6.5) K/uL Lymph # (Auto) (1.2-3.4) K/uL Dickey # (Auto) (0.11-0.59) K/uL Eos # (Auto) (0-0.5) K/uL Baso # (Auto) (0-0.2) K/uL Immature Gran # (Auto) (0.00-0.02) K/uL PT (9.0-12.0) Seconds INR (0.9-1.1) APTT (21.0-31.0) Seconds PTT Ratio Sodium (136-145) mmol/L Potassium (3.5-5.1) mmol/L Chloride (98-107) mmol/L Carbon Dioxide (21-32) mmol/L Anion Gap (3-11) BUN (7-18) mg/dl Creatinine (0.6-1.4) mg/dl Est Cr Clr Drug Dosing ml/min Est GFR ( Amer) Est GFR (Non-Af Amer) BUN/Creatinine Ratio (10-20) Glucose (70-99) mg/dl Calcium (8.5-10.1) mg/dl Troponin I (0-0.045) ng/ml Lipase (73-393) U/L COVID-19 Eval Order CovFluRsv at [facility] SARS-CoV-2 (PCR) NEGATIVE (Negative) Influenza Type A (PCR) Negative (Neg) Influenza Type B (PCR) Negative (Neg) RSV (RT-PCR) Negative (Neg) Imaging Data Chest x-ray: Radiologist's impression: XR chest 2V PA/lateral CLINICAL HISTORY: Atypical chest pain. COMPARISON STUDY: Chest radiograph June 19, 2020. Chest CT November 24, 2016. FINDINGS: Lung volumes are normal. There is no pneumothorax or pleural effusion. Incidental note is made of a calcified granuloma within the right lower lobe. Cardiomegaly is unchanged. There is no evidence for pulmonary edema. There may be minimal left midlung opacity. IMPRESSION: 1. Possible left lung opacity. Artifact is favored however an infectious process could appear similar. Radiographic follow up is recommended. 2. Cardiomegaly without evidence for pulmonary edema. ACT 112: Negative or not required by law. Electronically signed by: Harrison Gaffney M.D. 11/11/2020 7:45 PM Dictated: 11/11/201940 Transcribed: 11/11/201940 ECG Data Indication: chest pain Rate (beats per minute): 61 Rhythm: normal sinus Findings: + PVC; no ST depression, no ST elevation and no prolonged QT [facility] Narrative 1847: The patient was evaluated in room C2. A complete history and physical exam was performed Cardiac monitoring: An order was placed for continuous cardiac monitoring. The monitor shows a rate of 60 with sinus rhythm 2150: Vital signs stable. Labs and imaging within normal limits with the exception of x-ray that shows a possible left lung opacity. Based on the patient's clinical history physical exam and normal white blood cell count it is not thought that the patient is suffering from pneumonia. Patient reports his chest pain resolved after sublingual nitroglycerin. Patient will be admitted to the [facility] team for chest pain rule out ACS. Dr. Jimenez has been notified. Impression & Plan Chest pain Discharge Plan Visit Data Chief Complaint: Chest Pain Stated Complaint: CHEST PAIN ED Provider: Jordan Laws Discharge Problem: Chest pain Patient Disposition: Admitted As Inpatient Forms Stand Alone Forms: My [facility] Prescriptions Prescriptions: No Action acetaminophen [Tylenol Extra Strength] 500 mg tablet 500 mg PO BID RF: 0 warfarin 5 mg tablet See Rx Instructions PO UD RF: 0 calcium carbonate-vitamin D3 [Calcium 500 + D] 500 mg(1,250mg) -200 unit Tablet 500 mg PO WK Qty: 0 RF: 0 epinephrine [EpiPen] 0.3 mg/0.3 mL auto-injector 0.3 mg IM UD PRN (Reason: Anaphylaxis) Qty: 0 RF: 0 metoprolol succinate [Toprol XL] 50 mg tablet extended release 24 hr 25 mg PO DAILY Qty: 45 RF: 1 tamsulosin [Flomax] 0.4 mg capsule 0.4 mg PO DAILY Qty: 90 RF: 3 finasteride [Proscar] 5 mg tablet 5 mg PO DAILY Qty: 90 RF: 3 escitalopram oxalate 10 mg tablet 10 mg PO DAILY RF: 0 Referrals Referrals: Juvencio Granados PA-C [Primary Care Provider] - Discharge Problem: Chest pain Qualifiers: Chest pain type: unspecified Qualified Code(s): R07.9 - Chest pain, unspecified
[2020-11-12] MEDS ORDERED: NITROGLYCERIN SL 0.4 MG/TAB TAB SL PRN (01:52)
[2020-11-12] MEDS ORDERED: ONDANSETRON INJ 2 MG/ML 2 ML VIAL IV PRN (01:52)
[2020-11-12] MEDS ORDERED: ACETAMINOPHEN 325 MG TAB PO PRN (01:52)
[2020-11-12] MEDS ORDERED: hydrALAZINE HCL 20 MG/ML VIAL IV STA (02:00)
--- NOTE | 2020-11-12 04:52 | History & Physical Report ---
Date of Service November 12, 2020 Assessment & Plan (1) Chest wall pain: Chest wall pain/hypertension/presence of loop recorder- The patient will be admitted to telemetry for serial cardiac enzymes, serial EKG's, cardiac rhythm monitoring and a 2-D echocardiogram with Dopplers. Pain is somewhat reproducible, suggesting possible costochondritis, the patient has enough risk factors to warrant cardiac work-up. Continue metoprolol succinate 25 mg daily. Consult his charge account clerk Dr. Hutton Present on Admission?: Yes (2) HTN (hypertension): See above Present on Admission?: Yes (3) History of pulmonary embolism: Continue warfarin. INR therapeutic at 2.0 Present on Admission?: Yes (4) Enlarged prostate with lower urinary tract symptoms (LUTS): Continue tamsulosin 0.4 mg p.o. daily and finasteride 5 mg p.o. daily Present on Admission?: Yes Admission and Anticipated Discharge Date Admission Date: November 12, 2020 History of Present Illness Chief Complaint: The patient presents to the emergency department with complaint of intermittent left parasternal chest discomfort off and on over the past 2 weeks, which may occur with and without physical activity Primary Care Provider: Juvencio Granados PA-C The patient is an 80-year-old male with a past medical history including syncope, hypertension, polyneuropathy, benign essential tremor, frequent PVCs, history of PE, SNHL, chest wall pain, lumbar spinal stenosis and claudication of both lower extremities. 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 He notes 2 weeks of intermittent left parasternal chest discomfort, that initially occurred when he was physically active, but he reports that it may occur equally frequently when he is at rest or with activity. The discomfort does go away gradually on its own. He denies any recent travels or sick exposures. Allergies Allergy/AdvReac Type Severity Reaction Status Date / Time aspirin Allergy Severe HIVES Verified 11/11/20 21:30 celecoxib [From Celebrex] Allergy Severe hives Verified 11/11/20 21:30 Iodinated Contrast Media Allergy Unknown Contrast Verified 11/11/20 21:30 media - unknown rxn iodine Allergy Unknown Unknown Verified 11/11/20 21:30 Home Medications Medication Instructions Recorded Confirmed Type calcium carbonate-vitamin D3 500 mg PO WK #0 09/11/16 11/11/20 History [Calcium 500 + D] epinephrine 0.3 mg/0.3 mL 0.3 mg IM UD PRN #0 08/28/19 11/11/20 History injection, auto-injector finasteride 5 mg tablet 5 mg PO DAILY #90 tab 05/27/20 11/11/20 Rx tamsulosin 0.4 mg capsule 0.4 mg PO DAILY #90 cap 05/27/20 11/11/20 Rx acetaminophen 500 mg tablet 500 mg PO BID tab 06/18/20 11/11/20 History metoprolol succinate 50 mg 25 mg PO DAILY #45 tab 09/17/20 11/11/20 Rx tablet,extended release 24 hr warfarin 5 mg tablet See Rx Instructions PO UD tab 11/08/20 11/11/20 History escitalopram oxalate 10 mg PO DAILY 11/11/20 11/11/20 History Past Med/Surg History Medical History Acute bronchitis Arthralgia of multiple sites BPH loc w urin obs/LUTS Broken ribs Chest pain DVT (deep venous thrombosis) Enlarged prostate with lower urinary tract symptoms (LUTS) Fracture of lamina of cervical vertebra (2017) 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 HTN (hypertension) Impacted cerumen of both ears Left rib fracture Osteoporosis Polyneuropathy Sensorineural hearing loss (SNHL) of both ears Syncope Surgical History History of knee replacement History of transurethral resection of prostate Family History Father Cancer Prostate Other No significant family history Social History Smoking Status: Never smoker Hx Alcohol Use: No Hx Substance Use: No Preferred Language: Cypriot Communication Ability: Effective 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 Beliefs That Will Affect Care: None Current Living Situation: Spouse Current Living Situation Comment: lives in farmhouse with current occupational status: retired Other Information That Helps Us Care for You: No Feels Safe at Home: Yes Safety Concerns: Feels Safe At This Time Assistive Devices: None Review of Systems Review of Systems: The patient denies palpitations, shortness of breath, dyspnea on exertion, cough, lower extremity swelling, sore throat, fevers, chills, sweats, weight change, fatigue, nausea, vomiting, diarrhea , constipation, abdominal pain, pelvic pain, blood in urine or stool, dysuria, urinary frequency or urgency, lightheadedness, dizziness, headache, memory loss, loss of consciousness, rash, abnormal bruising or bleeding, imbalance, focal or generalized weakness, numbness or tingling in arms or legs, generalized arthralgias or myalgias, back or neck pain, or night sweats. 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 Physical Exam Physical Exam: The patient is awake, alert and oriented 3, well developed and well nourished, normocephalic and atraumatic, lying in bed and in no acute distress. HEENT--PERRL, EOMI, mucous membranes and oropharynx normal. Neck--supple. No JVD. No bruits. Thyroid normal, trachea midline, no adenopathy. Heart--normal S1 and S2. No murmurs, rubs or gallops. Lungs--clear bilaterally, no respiratory distress, no accessory muscle use. Chest wall--reproducible pain over left costochondral junctions at approximate level of T5-T7 Abdomen--normal bowel sounds and soft. Nontender. Nondistended. Obese. Extremities--no cyanosis or clubbing. No edema. Dermatologic--normal skin turgor, normal color, no abnormal lymph nodes, no rash. Neurologic--cranial nerves II through XII grossly intact. Rheumatologic--reproducible pain in rib cage as noted above. Decreased range of motion right knee Psychiatric--normal affect. Results & Data Results & Data ([facility]) Vital Signs (Past 12 Hours) Vital Signs Temp Pulse Pulse Resp BP BP BP 11/12/20 03:20 97.7 F 55 L 18 121/66 11/12/20 02:26 53 L 163/80 H 11/12/20 02:05 97.3 F L 53 L 51 L 18 179/83 H 11/12/20 01:30 51 L 18 139/66 11/12/20 00:35 54 L 15 156/69 H 11/11/20 23:00 51 L 13 03/25/21 21:30 51 L 18 162/60 H 11/11/20 21:00 50 L 14 138/70 11/11/20 20:50 53 L 17 11/11/20 20:40 51 L 12 11/11/20 20:31 50 L 17 11/11/20 20:30 51 L 7 L 141/69 H 11/11/20 20:20 51 L 17 11/11/20 20:10 54 L 18 11/11/20 20:01 52 L 22 11/11/20 20:00 53 L 14 131/64 11/11/20 19:50 51 L 18 11/11/20 19:40 55 L 17 11/11/20 19:38 62 20 11/11/20 19:30 122/88 11/11/20 19:28 52 L 18 11/11/20 19:13 53 L 18 122/60 11/11/20 18:03 97.3 F L 64 20 141/87 H Pulse Ox 11/12/20 03:20 95 11/12/20 02:26 11/12/20 02:05 96 11/12/20 01:30 96 11/12/20 00:35 96 11/11/20 23:00 96 11/11/20 21:30 97 11/11/20 21:00 98 11/11/20 20:50 94 11/11/20 20:40 95 11/11/20 20:31 95 11/11/20 20:30 94 11/11/20 20:20 94 11/11/20 20:10 96 11/11/20 20:01 95 11/11/20 20:00 96 11/11/20 19:50 96 11/11/20 19:40 93 11/11/20 19:38 11/11/20 19:30 11/11/20 19:28 96 11/11/20 19:13 96 11/11/20 18:03 93 Laboratory Results Laboratory Results WBC 6.61 K/uL (4.8-10.8) 11/11/20 19:15 RBC 4.37 M/uL (4.7-6.1) L 11/11/20 19:15 Hgb 13.1 g/dL (14.0-18.0) L 11/11/20 19:15 Hct 39.4 % (42-52) L 11/11/20 19:15 MCV 90.2 fL (80-100) 11/11/20 19:15 MCH 30.0 pg (25-34) 11/11/20 19:15 MCHC 33.2 g/dL (32-36) 11/11/20 19:15 RDW Std Deviation 46.8 fL (36.4-46.3) H 11/11/20 19:15 RDW Coeff of Castillo 14.1 % (11.5-14.5) 11/11/20 19:15 Plt Count 207 K/uL (130-400) 11/11/20 19:15 MPV 9.0 fL (7.4-10.4) 11/11/20 19:15 Immature Gran % (Auto) 0.5 % 11/11/20 19:15 Neut % (Auto) 54.9 % 11/11/20 19:15 Lymph % (Auto) 29.8 % 11/11/20 19:15 Dauphin % (Auto) 9.8 % 11/11/20 19:15 Eos % (Auto) 4.7 % 11/11/20 19:15 Baso % (Auto) 0.3 % 11/11/20 19:15 Neut # (Auto) 3.63 K/uL (1.4-6.5) 11/11/20 19:15 Lymph # (Auto) 1.97 K/uL (1.2-3.4) 11/11/20 19:15 Dauphin # (Auto) 0.65 K/uL (0.11-0.59) H 11/11/20 19:15 Eos # (Auto) 0.31 K/uL (0-0.5) 11/11/20 19:15 Baso # (Auto) 0.02 K/uL (0-0.2) 11/11/20 19:15 Immature Gran # (Auto) 0.03 K/uL (0.00-0.02) H 11/11/20 19:15 PT 19.1 Seconds (9.0-12.0) H 11/11/20 19:15 INR 2.0 (0.9-1.1) H 11/11/20 19:15 APTT 36.2 Seconds (21.0-31.0) H 11/11/20 19:15 PTT Ratio 1.4 11/11/20 19:15 Sodium 140 mmol/L (136-145) 11/11/20 19:15 Potassium 4.1 mmol/L (3.5-5.1) 11/11/20 19:15 Chloride 109 mmol/L (98-107) H 11/11/20 19:15 Carbon Dioxide 26 mmol/L (21-32) 11/11/20 19:15 Anion Gap 5.0 (3-11) 11/11/20 19:15 BUN 18 mg/dl (7-18) 11/11/20 19:15 Creatinine 1.07 mg/dl (0.6-1.4) 11/11/20 19:15 Est Cr Clr Drug Dosing 71.4 ml/min 11/11/20 19:15 Est GFR ( Amer) 74.5 11/11/20 19:15 Est GFR (Non-Af Amer) 64.3 11/11/20 19:15 BUN/Creatinine Ratio 16.9 (10-20) 11/11/20 19:15 Glucose 97 mg/dl (70-99) 11/11/20 19:15 Calcium 9.2 mg/dl (8.5-10.1) 11/11/20 19:15 Troponin I < 0.015 ng/ml (0-0.045) 11/11/20 19:15 Lipase 79 U/L (73-393) 11/11/20 19:15 COVID-19 Eval Order [facility]Rsv at [facility] 11/11/20 21:55 SARS-CoV-2 (PCR) NEGATIVE (Negative) 11/11/20 21:55 Influenza Type A (PCR) Negative (Neg) 11/11/20 21:55 Influenza Type B (PCR) Negative (Neg) 11/11/20 21:55 RSV (RT-PCR) Negative (Neg) 11/11/20 21:55 Diagnostic Findings [facility], [phone] XRay Report Patient: TONY AWAN AAdmit Date: 11/11/20MR#: [id number]: [id number]:[id number]: Date: 1940City Zip: [place] [address]Qcf: 80Location: EDSex: MRoom/Bed:Att Phy:Diagnosis: CHEST PAINPri Phy: Juvencio Granados PA-CService Date: 11/11/20Fa Phy:Interpreting Phy: Harrison Gaffney MDAdmit Phy: Ordering Phy: Jordan Laws MD cc: ~ XR chest 2V PA/lateral CLINICAL HISTORY: Atypical chest pain. COMPARISON STUDY: Chest radiograph June 19, 2020. Chest CT November 24, 2016. FINDINGS: Lung volumes are normal. There is no pneumothorax or pleural effusion. Incidental note is made of a calcified granuloma within the right lower lobe. Cardiomegaly is unchanged. There is no evidence for pulmonary edema. There may be minimal left midlung opacity. IMPRESSION: 1. Possible left lung opacity. Artifact is favored however an infectious process could appear similar. Radiographic follow up is recommended. 2. Cardiomegaly without evidence for pulmonary edema. ACT 112: Negative or not required by law. Electronically signed by: Harrison Gaffney M.D. 11/11/2020 7:45 PM Dictated: 11/11/201940Transcribed: 11/11/201940 [facility] Patient: TONY AWAN (Male) : 36 Status: ER Date: 11/11/20 22:46 Room #: History: abnormal chest xray lung lesion seen on xray Slices: [phone] Priors: Tech: Martha Sawyer @ [phone] Exams: CT CHEST Without Contrast Contrast: Accession Numbers: [id number] Preliminary Findings Only See Final Report For Complete Findings CT CHEST Without Contrast: Minimal bibasilar atelectasis/pneumonitis. No consolidation. No pulmonary mass. Old granulomatous disease. Cardiomegaly. Cholelithiasis. Spinal ankylosis. Radiologist: Mirella Teran M.D. Study ready at 23:01 and initial results transmitted at 23:07 *This report constitutes a preliminary interpretation only. Non-acute findings felt to be unrelated to the clinical presentation may not be discussed in this report. The study will be interpreted and a final report will be generated by the local Radiologist the following shift. To reach the hospital radiology department call [phone]. If a discrepancy is found between the preliminary and final interpretations of this study, please notify us via our Client Portal at [email or web address], under QA Exams.You can also fax this report with a description of the discrepancy, or include the final report, to our daytime fax number [phone].If faxing, please indicate the severity of discrepancy using one of the following categories: [ ] 1 - Agree/Informational [ ] 2 - Unlikely to Affect Management [ ] 3 - Possible Eventual Change of Management [ ] 4 - Probable Immediate Change of Management For all other patient related information, please fax us at [phone]. [id number] Code Status & VTE Plan Code Status Full code VTE Prophylaxis Plan VTE Prophylaxis will be ordered: Yes PG Care Time/CCT Total # of Minutes Spent Total Time Spent with Patient: Total time spent is greater than 50% in coordination of care (as documented) at patient's floor/unit and/or counseling patient: Coding Level of Care Code 88702 OBS Care - Level 3 Diagnoses Chest wall pain R07.89 HTN (hypertension) I10 History of pulmonary embolism Z86.711 Enlarged prostate with lower urinary tract symptoms (LUTS) N40.1
--- NOTE | 2020-11-12 07:34 | CT Scan Report ---
CT chest diagnostic wo con CLINICAL HISTORY: Abnormal chest x-ray. COMPARISON STUDY: Chest x-ray dated 11/11/2020, chest CT dated 11/24/2016 CT DOSE: 704.24 mGy.cm TECHNIQUE: CT of the thorax was performed from the thoracic inlet to the lung bases. Images are revi ewed in the axial, sagittal, and coronal planes. IV contrast was not administered for this examinatio n. A dose lowering technique was utilized adhering to the principles of ALARA. FINDINGS: Thyroid: Imaged portions of the thyroid gland are normal in appearance. Thoracic aorta: The thoracic aorta is normal in course and caliber, noting standard 3 vessel arch yazmin gary. Heart: There are coronary artery calcifications. There is mild pulmonary artery enlargement suggestin g pulmonary artery hypertension. Lungs and pleural spaces: There are no pleural effusions. There is prominent left-sided extrapleural fat which likely explains the chest x-ray findings. There is mild subpleural reticulation. There is a calcified right lower lobe granuloma. There is respiratory motion artifact. Mediastinum: Mediastinal lymph nodes are the upper limits of normal in size. Vira: There is no evidence of pathologic hilar adenopathy given the limitations of a noncontrast stud y Axilla: There is no evidence of pathologic axillary lymphadenopathy. Upper abdomen: Cholelithiasis Skeletal structures: No destructive lesions are visualized. There is ankylosis of the thoracic spine IMPRESSION: 1. No acute intrathoracic findings 2. Prominent extrapleural fat which explains the chest x-ray findings. No evidence of left lung conso lidation or mass 3. Cholelithiasis 4. Ankylosis of the spine. ACT 112: Negative or not required by law. Electronically signed by: Dimitrios Bush M.D. 11/12/2020 7:32 AM
[2020-11-12 07:58] LABS: Basophils # (auto) 0.03 K/uL (0-0.2); Basophils % (auto) 0.5 %; Eosinophils # (auto) 0.31 K/uL (0-0.5); Eosinophils % (auto) 5.2 %; Hematocrit (blood only) 39.4 % (42-52); Hemoglobin 13.4 g/dL (14.0-18.0); Immature Granulocytes # (auto) 0.03 K/uL (0.00-0.02); Immature Granulocytes % (auto) 0.5 %; Lymphocytes # (auto) 1.35 K/uL (1.2-3.4); Lymphocytes % (auto) 22.7 %; Mean Corpuscular Hemoglobin 30.4 pg (25-34); Mean Corpuscular Volume 89.3 fL (80-100); Mean Platelet Volume 9.1 fL (7.4-10.4); Monocytes # (auto) 0.69 K/uL (0.11-0.59); Monocytes % (auto) 11.6 %; Neutrophils # (auto) 3.54 K/uL (1.4-6.5); Neutrophils % (auto) 59.5 %; Platelet Count 228 K/uL (130-400); RDW Coefficient of Variation 14.3 % (11.5-14.5); RDW Standard Deviation 47.2 fL (36.4-46.3); Red Blood Count 4.41 M/uL (4.7-6.1); White Blood Count 5.95 K/uL (4.8-10.8)
[2020-11-12 08:26] LABS: Albumin Level 3.3 gm/dl (3.4-5.0); BUN Creatinine Ratio 18.6 (10-20); Blood Urea Nitrogen 15 mg/dl (7-18); Carbon Dioxide 26 mmol/L (21-32); Chloride 110 mmol/L (98-107); Creatinine Clr Calc Pharmacy 95.8 ml/min; Est GFR (African American) 96.9; Est GFR (Non-African American) 83.6; Glucose 91 mg/dl (70-99); Potassium 3.9 mmol/L (3.5-5.1); Sodium 140 mmol/L (136-145)
[2020-11-12 08:30] LABS: Phosphorus 3.2 mg/dl (2.5-4.9); Troponin I < 0.015 ng/ml (0-0.045)
[2020-11-12] MEDS: ACETAMINOPHEN 500 MG TAB PO SCH ×2 (08:30→11:28)
[2020-11-12] MEDS ORDERED: TAMSULOSIN HCL 0.4 MG CAP PO SCH (09:00)
[2020-11-12] MEDS ORDERED: METOPROLOL SUCC 25MG EXT REL TAB PO SCH (09:00)
[2020-11-12] MEDS ORDERED: FINASTERIDE 5 MG TAB PO SCH (09:00)
[2020-11-12] MEDS ORDERED: ESCITALOPRAM OXALATE 10 MG TAB PO SCH (09:00)
--- NOTE | 2020-11-12 10:23 | Cardiology Consultation ---
Date of Consultation November 12, 2020 Assessment & Plan (1) Chest pain: Despite his demographic and risk factors for coronary disease, I do not believe his current symptoms are related to coronary insufficiency, angina or ischemia. The episodes are fairly longstanding in nature. He has actually had some fairly extended episodes recently without any elevation in his cardiac biomarkers. The episodes themselves occur at rest and with activity. There does appear to be a positional and possibly reproducible component to his symptoms as well. I think it is possible this is musculoskeletal injury of some variety. He is known to have had some spinal fractures previously. This may have been related to falls in the past. 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 Think this is more likely an injury rather than a cardiac problem. Additionally, the symptoms have been present for over a year and only more frequent and severe in nature. He did undergo dobutamine echocardiography 6 months ago and there was no evidence of ischemia. Again, this speaks against a cardiac etiology for his current symptoms. (2) Recurrent falls: Most likely mechanical in nature. No defined etiology has been found. No arrhythmia has been recorded on loop recorder despite recurrent episodes subsequent to implantation. No recent falls. (3) Mitral regurgitation: Mild on echocardiography in April of 2020. No significant murmur on examination today. No need for re-evaluation currently. History of Present Illness Reason for Consultation: Chest pain Requesting Physician: Genie Attending Physician: Richard Quinn MD History of Present Illness The patient is an 80-year-old gentleman without a known history of significant cardiac disease who was admitted yesterday with symptoms of chest pain. Patient states for over a year he has been having some symptoms of chest discomfort. He describes this as both a sharp, stabbing pain in the chest with radiation to the back. Good portion of the symptoms seem to involve back discomfort. The episodes themselves have become more frequent in now are fairly random in occurrence. 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 He states that over the past weekend he had an extended episode which likely lasted several hours. Symptoms do not appear to be pleuritic in nature. They are not closely associated with breathing difficulty. He states that Tylenol relieves the symptoms to some degree. Also pressing his back against the wall often times relieves some of his symptoms. He has a history of falling. He had previously undergone implantation of a loop recorder in order to identify any arrhythmias associated with his falls. No arrhythmia has been identified. He has not report a fall in the past 2 months. He continues to have some back discomfort. Even lying in bed currently his back hurts. He describes location as underneath the left scapula. Not worse with movement of the left arm. Allergies Allergy/AdvReac Type Severity Reaction Status Date / Time aspirin Allergy Severe HIVES Verified 11/11/20 21:30 celecoxib [From Celebrex] Allergy Severe hives Verified 11/11/20 21:30 Iodinated Contrast Media Allergy Unknown Contrast Verified 11/11/20 21:30 media - unknown rxn iodine Allergy Unknown Unknown Verified 11/11/20 21:30 Home Medications Medication Instructions Recorded Confirmed Type calcium carbonate-vitamin D3 500 mg PO WK #0 09/11/16 11/11/20 History [Calcium 500 + D] epinephrine 0.3 mg/0.3 mL 0.3 mg IM UD PRN #0 08/28/19 11/11/20 History injection, auto-injector finasteride 5 mg tablet 5 mg PO DAILY #90 tab 05/27/20 11/11/20 Rx tamsulosin 0.4 mg capsule 0.4 mg PO DAILY #90 cap 05/27/20 11/11/20 Rx acetaminophen 500 mg tablet 500 mg PO BID tab 06/18/20 11/11/20 History metoprolol succinate 50 mg 25 mg PO DAILY #45 tab 09/17/20 11/11/20 Rx tablet,extended release 24 hr warfarin 5 mg tablet See Rx Instructions PO UD tab 11/08/20 11/11/20 History escitalopram oxalate 10 mg PO DAILY 11/11/20 11/11/20 History cyanocobalamin (vitamin B-12) 1,000 mcg PO DAILY #30 cap 11/12/20 Rx diclofenac sodium [Voltaren] 2 g EXT QID #50 g 11/12/20 Rx Patient History Medical History Acute bronchitis Arthralgia of multiple sites BPH loc w urin obs/LUTS Broken ribs Chest pain DVT (deep venous thrombosis) Enlarged prostate with lower urinary tract symptoms (LUTS) Fracture of lamina of cervical vertebra (2017) 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 HTN (hypertension) Impacted cerumen of both ears Left rib fracture Osteoporosis Polyneuropathy Sensorineural hearing loss (SNHL) of both ears Syncope Surgical History History of knee replacement History of transurethral resection of prostate Family History Father Cancer Prostate Other No significant family history Social History Smoking Status: Never smoker Hx Alcohol Use: No Hx Substance Use: No Preferred Language: Turkish Communication Ability: Effective Records And Tape Recordings Engineer Required: No Beliefs That Will Affect Care: None Current Living Situation: Spouse Current Living Situation Comment: lives in farmhouse with current occupational status: retired Feels Safe at Home: Yes Assistive Devices: None Review of Systems Review of Systems: Per HPI Physical Exam Physical Exam: The patient is alert and oriented. Mood and affect appeared normal. He answered all questions appropriately. HEENT: Pupils are equal and reactive to light and accommodation. Extraocular movements are intact. The sclerae are anicteric. Poor dentition Neuro: Cranial nerves intact Neck: Patient's neck is supple. He has palpable carotid pulses bilaterally w ithout bruits on auscultation. There is no evidence of jugular venous distention. The thyroid is not enlarged. Lungs: Clear to auscultation bilaterally. He has good air movement without use of accessory muscles. No rales wheezes or rhonchi. Cardiac: Heart demonstrates a regular rate and rhythm. Normal S1 and S2. Her soft systolic murmur Pulses: The patient has palpable radial pulses bilaterally that are equal in intensity Extremities: There was no evidence of hypoperfusion. There is no cyanosis or clubbing. Skin: I did not appreciate any rashes on examination today. Results & Data ([facility]) Vital Signs (Past 12 Hours) Vital Signs Temp Pulse Pulse Resp BP BP BP 11/12/20 07:11 36.5 C 66 18 151/73 H 11/12/20 07:06 49 L 11/12/20 03:20 36.5 C 55 L 18 121/66 11/12/20 02:26 53 L 163/80 H 11/12/20 02:05 36.3 C L 53 L 51 L 18 179/83 H 11/12/20 01:30 51 L 18 139/66 11/12/20 00:35 54 L 15 156/69 H 11/11/20 23:00 51 L 13 Pulse Ox 11/12/20 07:11 95 11/12/20 07:06 11/12/20 03:20 95 11/12/20 02:26 11/12/20 02:05 96 11/12/20 01:30 96 11/12/20 00:35 96 11/11/20 23:00 96 Laboratory Results Abnormal Lab Results 11/11/20 11/11/20 11/11/20 19:15 19:15 19:15 WBC 6.61 RBC 4.37 L Hgb 13.1 L Hct 39.4 L MCV 90.2 MCH 30.0 MCHC 33.2 RDW Std Deviation 46.8 H RDW Coeff of Castillo 14.1 Plt Count 207 MPV 9.0 Immature Gran % (Auto) 0.5 Neut % (Auto) 54.9 Lymph % (Auto) 29.8 [place] % (Auto) 9.8 Eos % (Auto) 4.7 Baso % (Auto) 0.3 Neut # (Auto) 3.63 Lymph # (Auto) 1.97 [place] # (Auto) 0.65 H Eos # (Auto) 0.31 Baso # (Auto) 0.02 Immature Gran # (Auto) 0.03 H PT 19.1 H INR 2.0 H APTT 36.2 H PTT Ratio 1.4 Sodium 140 Potassium 4.1 Chloride 109 H Carbon Dioxide 26 Anion Gap 5.0 BUN 18 Creatinine 1.07 Est Cr Clr Drug Dosing 71.4 Est GFR ( Amer) 74.5 Est GFR (Non-Af Amer) 64.3 BUN/Creatinine Ratio 16.9 Glucose 97 Calcium 9.2 Phosphorus Troponin I < 0.015 Albumin Lipase 79 COVID-19 Eval Order SARS-CoV-2 (PCR) Influenza Type A (PCR) Influenza Type B (PCR) RSV (RT-PCR) 11/11/20 11/11/20 11/12/20 21:55 21:55 07:10 WBC RBC Hgb Hct MCV MCH MCHC RDW Std Deviation RDW Coeff of Castillo Plt Count MPV Immature Gran % (Auto) Neut % (Auto) Lymph % (Auto) [place] % (Auto) Eos % (Auto) Baso % (Auto) Neut # (Auto) Lymph # (Auto) [place] # (Auto) Eos # (Auto) Baso # (Auto) Immature Gran # (Auto) PT INR APTT PTT Ratio Sodium 140 Potassium 3.9 Chloride 110 H Carbon Dioxide 26 Anion Gap 4.0 BUN 15 Creatinine 0.79 Est Cr Clr Drug Dosing 95.8 Est GFR ( Amer) 96.9 Est GFR (Non-Af Amer) 83.6 BUN/Creatinine Ratio 18.6 Glucose 91 Calcium 9.0 Phosphorus 3.2 Troponin I < 0.015 Albumin 3.3 L Lipase COVID-19 Eval Order CovFluRsv at [facility] SARS-CoV-2 (PCR) NEGATIVE Influenza Type A (PCR) Negative Influenza Type B (PCR) Negative RSV (RT-PCR) Negative 11/12/20 07:10 WBC 5.95 RBC 4.41 L Hgb 13.4 L Hct 39.4 L MCV 89.3 MCH 30.4 MCHC 34.0 RDW Std Deviation 47.2 H RDW Coeff of Castillo 14.3 Plt Count 228 MPV 9.1 Immature Gran % (Auto) 0.5 Neut % (Auto) 59.5 Lymph % (Auto) 22.7 [place] % (Auto) 11.6 Eos % (Auto) 5.2 Baso % (Auto) 0.5 Neut # (Auto) 3.54 Lymph # (Auto) 1.35 [place] # (Auto) 0.69 H Eos # (Auto) 0.31 Baso # (Auto) 0.03 Immature Gran # (Auto) 0.03 H PT INR APTT PTT Ratio Sodium Potassium Chloride Carbon Dioxide Anion Gap BUN Creatinine Est Cr Clr Drug Dosing Est GFR ( Amer) Est GFR (Non-Af Amer) BUN/Creatinine Ratio Glucose Calcium Phosphorus Troponin I Albumin Lipase COVID-19 Eval Order SARS-CoV-2 (PCR) Influenza Type A (PCR) Influenza Type B (PCR) RSV (RT-PCR) Diagnostic Findings I reviewed the source images EKG. Normal EKG was single PVC Chest x-ray obtained in the emergency room revealed a possible left lung opacity which was not confirmed on a CT scan. CT scan of the chest did not reveal any acute intrathoracic findings. There was cholelithiasis and ankylosis of the spine. Dobutamine echocardiogram performed in April 2020 did not reveal any evidence of inducible ischemia. He preserved LV systolic function at rest. There was mild mitral regurgitation. Sclerosis of the aortic valve. PG Care Time/CCT Total # of Minutes Spent Total Time Spent with Patient: Total time spent is greater than 50% in coordination of care (as documented) at patient's floor/unit and/or counseling patient: Coding Level of Care Code 10034 OBS Care - Level 3 Diagnoses Chest pain R07.9 Chest pain type: unspecified Recurrent falls R29.6 Mitral regurgitation I34.0 (1) Chest pain Chest pain type: unspecified Qualified Code(s): R07.9 - Chest pain, unspecified
--- NOTE | 2020-11-12 12:50 | Discharge Summary ---
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 He notes 2 weeks of intermittent left parasternal chest discomfort, that initially occurred when he was physically active, but he reports that it may occur equally frequently when he is at rest or with activity. The discomfort does go away gradually on its own. He denies any recent travels or sick exposures. Admission Exam Per Admitting Provider The patient is awake, alert and oriented 3, well developed and well nourished, normocephalic and atraumatic, lying in bed and in no acute distress. HEENT--PERRL, EOMI, mucous membranes and oropharynx normal. Neck--supple. No JVD. No bruits. Thyroid normal, trachea midline, no adenopathy. Heart--normal S1 and S2. No murmurs, rubs or gallops. Lungs--clear bilaterally, no respiratory distress, no accessory muscle use. Chest wall--reproducible pain over left costochondral junctions at approximate level of T5-T7 Abdomen--normal bowel sounds and soft. Nontender. Nondistended. Obese. Extremities--no cyanosis or clubbing. No edema. Dermatologic--normal skin turgor, normal color, no abnormal lymph nodes, no rash. Neurologic--cranial nerves II through XII grossly intact. Rheumatologic--reproducible pain in rib cage as noted above. Decreased range of motion right knee Psychiatric--normal affect. Principal Diagnosis MSK strain, possible costochondritis Discharge Exam Constitutional WD/WN, vitals as above Eyes PERRL, conjunctivae normal, anicteric sclerae ENMT external ear and nose normal, oropharynx normal Neck trachea midline, no thyromegaly Respiratory normal respiratory effort, lungs clear to auscultation Cardiovascular RRR, no murmur, no edema Chest (Breasts) Additional Comments: tender to palpation L chest and scapular region, reproducing reported discomfort Gastrointestinal (Abdomen) normal bowel sounds, soft, nontender, no hepatosplenomegaly Musculoskeletal no cyanosis or clubbing, extremities motor strength 5/5 Skin no rashes, warm and dry Neurologic patellar DTR's 2+ bilat, sensation intact and PERRL, EOMI, accommodation nl, no face palsy, no dysarthria Psychiatric A+Ox3, euthymic affect Lymphatic no cervical or axillary lymphadenopathy Discharge Data Allergies Allergy/AdvReac Type Severity Reaction Status Date / Time aspirin Allergy Severe HIVES Verified 11/11/20 21:30 celecoxib [From Celebrex] Allergy Severe hives Verified 11/11/20 21:30 Iodinated Contrast Media Allergy Unknown Contrast Verified 11/11/20 21:30 media - unknown rxn iodine Allergy Unknown Unknown Verified 11/11/20 21:30 Consultations 11/11/20 21:51 ED Decision to Admit Stat 11/12/20 01:52 Consult Cardiology Routine Ordered Studies 11/11/20 22:33 CT chest diagnostic wo con Urgent Hospital Course (1) Chest wall pain: Chest wall pain/hypertension/presence of loop recorder- Trop neg x 2 Dr Hutton from cardiology was consulted -- felt to be MSK related. No ECHO obtained Treated with topical voltaren and sent tube with patient at discharge Continued his metoprolol daily Follow up with cardiology routine as previously scheduled (2) HTN (hypertension): BP controlled but slightly elevated with discomfort 136/65 this morning but did elevated to 163/80 Consider increasing BP regimen at f/u with PCP if continues to have discomfort following treatment with voltaren (3) History of pulmonary embolism: Continued warfarin. INR therapeutic at 2.0 (4) Enlarged prostate with lower urinary tract symptoms (LUTS): Continued tamsulosin 0.4 mg p.o. daily and finasteride 5 mg p.o. daily No urinary symptoms reported B12 deficiency Not technically considered "low", but was low normal 298 -- given hx mechnical falls and neuropathy, supplementation at discharge Discharged home with family. Total Time Total Time Spent Total Time Spent (In Minutes): 60 Discharge Plan Discharge Items Patient Disposition: Home - Self-Care Reason For Visit: CHEST PAIN Discharge Diagnosis: Costochondritis Goals: You have been hospitalized for an acute medical problem. During your stay at [facility], we have made an effort to correct the problem that brought you to the hospital while keeping you as comfortable as possible. Medications were used to bring your condition under control and your discharge instructions will include directions for any medications you should take after leaving the hospital. Please make sure you see your Primary Care Provider as part of your follow up plan. Activity: Resume your previous activity Non-emergency contact: Primary Care Provider and High Wire Artist Call non-emergency contact if: you have any medication questions, your symptoms worsen and your pain is not controlled Follow-up/Referrals: Juvencio Granados PA-C [Primary Care Provider] - 11/18/20 1:15 pm (You have an appt on November 18 at 115pm. Please arrive 15 minutes prior to your appt. ) Dao Hutton MD [Physician] - 11/23/20 10:15 am (You have an appt with Dr. Hutton on 11/23 @ 1015am. Please arrive 15 minutes prior to your appt. ) Diet: Heart Healthy Addtl Attending Provider Instructions: You have been hospitalized for chest pain. Cardiac enzymes have been negative and you were evaluated by cardiology. This is felt to be musculoskeletal related given it's reproducibility, and you have been given topical Voltaren gel that can be applied up to 4 times/day for relief. This will be sent with you from the hospital. Telemetry monitoring did not show any abnormalities. Your B12 was checked given your neuropathy and history of falls and was not "low" based on lab ranges, but is on the low end of normal and you have been sent a prescription for supplementation at discharge that hopefully will help with this as well. You should follow up with your primary care provider and Dr. Hutton as needed. Please return to the emergency department with any worsening chest pain, shortness of breath, or for any other symptoms that are concerning for you. It has been a pleasure being a part of the medical team providing for you while you have been in the hospital. Take care! Pending Studies at Discharge: No Stand-Alone Forms: My [facility] Medications and DC Order Prescriptions: New diclofenac sodium [Voltaren] 1 % Gel 2 g EXT QID Qty: 50 RF: 0 cyanocobalamin (vitamin B-12) 1,000 mcg capsule 1,000 mcg PO DAILY Qty: 30 RF: 0 Continued acetaminophen [Tylenol Extra Strength] 500 mg tablet 500 mg PO BID RF: 0 warfarin 5 mg tablet See Rx Instructions PO UD RF: 0 calcium carbonate-vitamin D3 [Calcium 500 + D] 500 mg(1,250mg) -200 unit Tablet 500 mg PO WK Qty: 0 RF: 0 epinephrine [EpiPen] 0.3 mg/0.3 mL auto-injector 0.3 mg IM UD PRN (Reason: Anaphylaxis) Qty: 0 RF: 0 metoprolol succinate [Toprol XL] 50 mg tablet extended release 24 hr 25 mg PO DAILY Qty: 45 RF: 1 tamsulosin [Flomax] 0.4 mg capsule 0.4 mg PO DAILY Qty: 90 RF: 3 finasteride [Proscar] 5 mg tablet 5 mg PO DAILY Qty: 90 RF: 3 escitalopram oxalate 10 mg tablet 10 mg PO DAILY RF: 0 Discharge Orders: Discharge Order (Routine); Ordered 11/12/20 Ordered By: Gem Ziegler/Other Patient Handouts: ED Chest Pain, Noncardiac Admission Data Admit Date/Time: 11/12/20 00:27 Attending Provider: Richard Quinn Admit Provider: Mello Keen Primary Care Provider: Juvencio Granados Other Providers: Dao Hutton ; Richard Quinn Other Interventions: Discharge Summary Assessment (RN) Last Done: 11/12/20 12:46 Supervising Physician Co-Signing Physician Notes I supervised Gem Can PA-C on this admission. I did not examine the patient as he had been admitted <24 hours prior and seen by the attending provider at that time; however, we did discuss the patient's care and I also spoke with the customer complaint clerk. The plan is as written in her note except for any following changes/exceptions: None Likely MSK pain. No further cardiac testing per cardiology. Discharge home with Voltaren gel. Coding Level of Care Code Admit/DC Same Day >8hr Level 3 Diagnoses Chest wall pain R07.89 HTN (hypertension) I10 History of pulmonary embolism Z86.711 Enlarged prostate with lower urinary tract symptoms (LUTS) N40.1
[2020-11-12] MEDS ORDERED: DICLOFENAC SOD 1% GEL 100 GM TUBE EXT SCH (13:00)
--- NOTE | 2020-11-12 14:09 | Electrocardiogram Report ---
Test Reason : Blood Pressure : / mmHG Vent. Rate : 061 BPM Atrial Rate : 061 BPM P-R Int : 192 ms QRS Dur : 104 ms QT Int : 430 ms P-R-T Axes : 000 -34 046 degrees QTc Int : 432 ms Poor data quality, interpretation may be adversely affected Sinus rhythm with Premature atrial complexes with Aberrant conduction Left axis deviation Abnormal ECG When compared with ECG of 19-JUN-2020 17:31, Aberrant conduction is now Present Confirmed by Tariq Hutton ([id number]) on 11/12/2020 2:09:30 PM Referred By: REFERRED SELF Confirmed By:Power Hutton
[2020-11-12] MEDS ORDERED: WARFARIN SOD 5 MG TAB PO SCH (16:00)
[2020-11-13] MEDS ORDERED: WARFARIN SOD 7.5 MG TAB PO SCH (16:00)
== END 2020-11-12 15:12 | disposition home or self-care (01) ==
LOC: ED 17:54 → 2W 17:54 → SUATTDRO 11-12 00:27 → 2W 11-12 00:58

== ENCOUNTER 2022-07-10 11:50 | Observation (INO) ==
--- NOTE | 2022-07-10 12:44 | Emergency Department Note ---
Impression & Plan Acute exacerbation of CHF (congestive heart failure), PERALTA (dyspnea on exertion), Bilateral edema of lower extremity ED Provider Note HISTORY OF PRESENT ILLNESS: Patient is an 82-year-old male presenting with lower extremity edema and dyspnea on exertion. Patient reportedly has significantly declined in the last week per his . Reports the patient has always had some swelling of his lower extremities and takes 20 mg of furosemide daily. However, in the last week he has had progressively worsening swelling and he is unable to get up and do his activities of daily living. reports that the patient normally is able to walk around the house, but in the last week he is only been able to take 1-2 steps before becoming significantly winded and having to sit down. Patient denies having history of heart failure. Denies any chest pain. ROS: Constitutional: No fever, chills, or weakness Skin: No rash or diaphoresis HENT: No headaches or congestion Eyes: No vision changes Cardio: No chest pain, palpitations +leg swelling Respiratory: No cough, wheezing +shortness of breath GI: No nausea, vomiting, diarrhea, constipation : No dysuria, polyuria MSK: No joint or back pain Neuro: No loss of sensation, confusion, focal deficits, numbness, tingling Psychiatric: No mood changes PHYSICAL EXAM: Constitutional: Patient appears in no acute distress. HENT: Head: Normocephalic and atraumatic. Eyes: EOMI, PERRL Mouth/Throat: Mucous membranes moist. Neck: Trachea midline. Neck supple. Cardiovascular: RRR, No murmurs, rubs or gallops. Intact distal pulses. Pulmonary/Chest: No respiratory distress. Breath sounds clear and equal bilaterally. No wheezes or rales. Abdominal: BS +. Abdomen soft, no tenderness, rebound or guarding. Back: No midline spinal tenderness, no paraspinal tenderness, no CVA tenderness. Musculoskeletal: No tenderness or deformity noted. +2 pitting edema of bilateral lower extremities extending to knees. Skin: Warm and dry. No rash, erythema, pallor or cyanosis Psychiatric: Appropriate mood and affect for situation. Neurological: Alert and keenly responsive. CN II-XII grossly intact, moving all extremities equally and fully. MDM: - Vitals signs showed bradycardia - EKG negative for acute ischemic changes. - Laboratory workup showed normal WBC; stable electrolytes; normal creatinine; normal troponin; normal BNP - CXR negative for acute cardiopulmonary pathology. - 80 mg IV lasix ordered. Ordered for springer placement. - Hospitalist consulted for admission. - Patient admitted to [facility] [place] [facility] hospitalist service for further evaluation and management. ASSESSMENT AND PLAN: Disposition: leg swelling; dyspnea; CHF exacerbation Plan: admit Past Med/Surg History Medical History Enlarged prostate Hearing deficit BL JUDGE History of atrial fibrillation Follows with Dr. Hutton. On Eliquis. History of DVT (deep vein thrombosis) RLE post op TKA approx 20 years ago. Treated with AC. History of pulmonary embolism approx 20 years ago post op Rt TKA History of squamous cell carcinoma HTN (hypertension) Osteoarthritis Osteoporosis Polyneuropathy Sleep apnea no device Surgical History History of cataract surgery History of knee replacement Rt History of loop recorder History of squamous cell carcinoma excision History of tonsillectomy History of transurethral resection of prostate Family History Father Prostate cancer Cancer Prostate Mother Breast cancer Colorectal cancer Other No family history of adverse response to anesthesia No significant family history Denies family history of Ovarian cancer Myocardial infarction Social History Smoking Status: Never smoker Second Hand Exposure: No; Hx Alcohol Use: No Hx Substance Use: No Preferred Language: Amharic Communication Ability: Effective 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 Beliefs That Will Affect Care: None marital status: Current Living Situation: Spouse Current Living Situation Comment: lives in farmhouse with current occupational status: retired Feels Safe at Home: Yes Childhood Exposure to Second-Hand Smoke: No Dental Care, Regularly: No Physical Activity Frequency: Does not Exercise Seatbelt Use: always Sunscreen Use: Yes Assistive Devices: Cane, Glasses, Hearing Aid - Bilateral and Walker Allergies Allergies Allergy/AdvReac Type Severity Reaction Status Date / Time aspirin Allergy Severe HIVES Verified 07/03/22 16:37 celecoxib [From Celebrex] Allergy Severe hives Verified 07/03/22 16:37 Iodinated Contrast Media Allergy Unknown Contrast Verified 07/03/22 16:37 media - unknown rxn iodine Allergy Unknown Unknown Verified 07/03/22 16:37 tramadol AdvReac Severe dizziness, Verified 07/03/22 16:37 nausea, leg weakness Home Meds Home Medications Medication Instructions Recorded Confirmed acetaminophen 500 mg tablet 500 mg PO BID PRN Pain, Mild 11/07/21 07/03/22 (Tylenol Extra Strength) finasteride 5 mg tablet 5 mg PO QAM 05/24/22 07/03/22 amiodarone 200 mg tablet 200 mg PO QAM 07/03/22 07/03/22 furosemide 20 mg tablet (Lasix) 20 mg PO QAM 07/03/22 07/03/22 Previous Rx's Medication Instructions Recorded syringe with needle, safety 3 mL #100 ea 12/09/20 23 gauge x 1" (BD Safety-Bren Detachable Needle) epinephrine 0.3 mg/0.3 mL 0.3 mg (0.3 mL) IM UD PRN 11/07/21 injection, auto-injector (EpiPen) Anaphylaxis #1 ea albuterol sulfate 90 mcg/actuation 2 puff inhalation Q6H PRN 11/17/21 aerosol inhaler Shortness Of Breath Or Wheezing #18 grams fluticasone furoate 100 1 inh inhalation DAILY #60 ea 11/17/21 mcg-vilanterol 25 mcg/dose inhalation powder (Breo Ellipta) apixaban 5 mg tablet (Eliquis) 5 mg PO BID #180 tabs 06/27/22 metoprolol succinate 100 mg 150 mg PO DAILY #90 tabs 07/06/22 tablet,extended release 24 hr tamsulosin 0.4 mg capsule (Flomax) 0.4 mg PO QAM #90 caps 07/10/22 Results & Data (ED) Vital Signs Vital Signs - 24 hr 07/10/22 12:01 07/10/22 12:14 07/10/22 13:17 Temperature 36.4 C L Temperature Source Temporal Artery Scan Pulse Rate 49 L Pulse Rate [Apical] 48 L 46 L Pulse Rhythm Regular Pulse Strength Normal Respiratory Rate 20 18 18 Respiratory Effort / Characteristics Non-Labored Spontaneous Non-Labored Non-Labored Respiratory Depth Normal Normal Normal Respiratory Pattern Regular Blood Pressure 150/85 H Blood Pressure [Right Arm] 136/67 132/80 Blood Pressure Mean 106 Blood Pressure Mean [Right Arm] 90 97 Blood Pressure Position Sitting Pulse Oximetry 94 97 97 Oxygen Delivery Method Room Air Room Air Room Air Sepsis Recent Fever Within 48 Hours No Sepsis New/Unexplained Change in Mental Status N/A Sepsis Action Taken by Nursing No Action Required Laboratory Data Result diagrams: 07/10/22 12:25 07/10/22 12:25 Lab Results 07/10/22 07/10/22 07/10/22 Range/Units 12:25 12:25 13:12 WBC 7.81 (4.8-10.8) K/ul RBC 4.36 L (4.63-6.08) M/uL Hgb 13.3 L (14.0-18.0) g/dl Hct 40.6 (40.1-51.0) % MCV 93.1 (80.0-100.0) fL MCH 30.5 (25.0-34.0) pg MCHC 32.8 (32.0-36.0) g/dL RDW Std Deviation 49.2 H (36.4-46.3) fL RDW Coeff of Castillo 14.5 (11.5-14.5) % Plt Count 243 (130-400) K/uL MPV 9.0 L (9.4-12.4) fL Immature Gran % (Auto) 2.4 % Neut % (Auto) 61.8 % Lymph % (Auto) 19.1 % [place] % (Auto) 13.6 % Eos % (Auto) 2.2 % Baso % (Auto) 0.9 % Neut # (Auto) 4.83 (1.4-6.5) K/uL Lymph # (Auto) 1.49 (1.2-3.4) K/uL [place] # (Auto) 1.06 H (0.24-0.82) K/uL Eos # (Auto) 0.17 (0-0.50) K/uL Baso # (Auto) 0.07 (0-0.2) K/uL Immature Gran # (Auto) 0.19 H (0.00-0.02) K/uL Sodium 140 (136-145) mmol/L Potassium 4.2 (3.5-5.1) mmol/L Chloride 104 (98-107) mmol/L Carbon Dioxide 32 (21-32) mmol/L Anion Gap 4 (3-11) BUN 14 (6-23) mg/dl Creatinine 1.06 (0.6-1.4) mg/dl Est Cr Clr Drug Dosing 67.3 ml/min Est GFR ( Amer) 74.3 ml/min Est GFR (Non-Af Amer) 64.1 ml/min BUN/Creatinine Ratio 13.2 (10-20) Glucose 92 (70-99(Fasting)) mg/dl Calcium 9.1 (8.5-10.1) mg/dl Magnesium 2.2 (1.7-2.4) mg/dl Total Bilirubin 0.6 (0.2-1.0) mg/dl AST 11 L (13-39) U/L ALT 11 (7-52) U/L Alkaline Phosphatase 58 (34-104) U/L Troponin I High Sens 8.8 (0-20) pg/ml B-Natriuretic Peptide 89 (0-100) pg/ml Total Protein 6.4 (6.0-8.3) gm/dl Albumin 3.8 (3.4-5.0) gm/dl Globulin 2.6 (2.5-4.0) gm/dl Albumin/Globulin Ratio 1.5 (0.9-2) Administered Medications Discontinued Medications Furosemide (Furosemide 40 Mg/4 Ml Vial) 80 mg IV ONE ONE Stop: 07/10/22 14:16 Last Admin: 07/10/22 14:35 Dose: 80 mg Documented By: Imaging Data Radiologist's Impression: Chest X-Ray 07/10/22 12:42 XR chest 1V portable HISTORY: 82 years-old Male dyspnea on exertion acute shortness of breath COMPARISON: Chest radiograph and CTA chest 07/01/2022 TECHNIQUE: AP view of the chest FINDINGS: Cardiac silhouette is mildly enlarged. Corticated device. No pneumothorax, pleural effusion, airspace consolidation or overt pulmonary edema. Calcified granuloma of the right lower lobe. Degenerative changes of the shoulders and spine. IMPRESSION: No acute process. ACT 112: Negative or not required by law. The above report was generated using voice recognition software. It may contain grammatical, syntax or spelling errors. Electronically signed by: Enrico Fields M.D. 07/10/2022 12:56 PM Discharge Plan Visit Data Chief Complaint: Foot Injury/Pain Stated Complaint: SWELLING IN FEET, TROUBLE BREATHING ED Provider: Polinski,Delmi Z. Discharge Problem: Acute exacerbation of CHF (congestive heart failure), PERALTA (dyspnea on exe rtion), Bilateral edema of lower extremity Patient Disposition: Admitted As Inpatient Forms Stand Alone Forms: My [facility] Prescriptions Prescriptions: No Action acetaminophen [Tylenol Extra Strength] 500 mg tablet 500 mg PO BID PRN (Reason: Pain, Mild) Rx Instructions: in AM and with lunch Eliquis 5 mg tablet 5 mg PO BID Qty: 180 0RF tamsulosin [Flomax] 0.4 mg capsule 0.4 mg PO QAM Qty: 90 1RF epinephrine [EpiPen] 0.3 mg/0.3 mL auto-injector 0.3 mg IM UD PRN (Reason: Anaphylaxis) Qty: 1 1RF albuterol sulfate 90 mcg/actuation HFA aerosol inhaler 2 puff inhalation Q6H PRN (Reason: Shortness Of Breath Or Wheezing) Qty: 18 3RF Breo Ellipta 100-25 mcg/dose blister with device 1 inh inhalation DAILY Qty: 60 5RF (DME) BD Safety-Bren Detachable Needl 3 mL 23 gauge x 1" syringe See Rx Instructions .ROUTE .MEDSUPPLY Qty: 100 0RF Rx Instructions: As directed with cyanocobalamin finasteride 5 mg tablet 5 mg PO QAM Rx Instructions: TAKE 1 TABLET BY MOUTH DAILY amiodarone 200 mg tablet 200 mg PO QAM Rx Instructions: Two tablets by mouth twice daily for 10 days then reduce to 1 tablet daily. furosemide [Lasix] 20 mg tablet 20 mg PO QAM metoprolol succinate 100 mg tablet extended release 24 hr 150 mg PO DAILY Qty: 90 3RF Referrals Referrals: Sylvie Clarke MD [Primary Care Provider] -
--- NOTE | 2022-07-10 12:57 | XRay Report ---
XR chest 1V portable HISTORY: 82 years-old Male dyspnea on exertion acute shortness of breath COMPARISON: Chest radiograph and CTA chest 07/01/2022 TECHNIQUE: AP view of the chest FINDINGS: Cardiac silhouette is mildly enlarged. Corticated device. No pneumothorax, pleural effusion, airspace consolidation or overt pulmonary edema. Calcified granuloma of the right lower lobe. Degenerative ch anges of the shoulders and spine. IMPRESSION: No acute process. ACT 112: Negative or not required by law. The above report was generated using voice recognition software. It may contain grammatical, syntax o r spelling errors. Electronically signed by: Enrico Fields M.D. 07/10/2022 12:56 PM
[2022-07-10 13:10] LABS: Basophils # (auto) 0.07 K/uL (0-0.2); Basophils % (auto) 0.9 %; Eosinophils # (auto) 0.17 K/uL (0-0.50); Eosinophils % (auto) 2.2 %; Hematocrit (blood only) 40.6 % (40.1-51.0); Hemoglobin 13.3 g/dl (14.0-18.0); Immature Granulocytes # (auto) 0.19 K/uL (0.00-0.02); Immature Granulocytes % (auto) 2.4 %; Lymphocytes # (auto) 1.49 K/uL (1.2-3.4); Lymphocytes % (auto) 19.1 %; Mean Corpuscular Hemoglobin 30.5 pg (25.0-34.0); Mean Corpuscular Hgb Conc 32.8 g/dL (32.0-36.0); Mean Corpuscular Volume 93.1 fL (80.0-100.0); Monocytes # (auto) 1.06 K/uL (0.24-0.82); Monocytes % (auto) 13.6 %; Neutrophils # (auto) 4.83 K/uL (1.4-6.5); Neutrophils % (auto) 61.8 %; Platelet Count 243 K/uL (130-400); RDW Coefficient of Variation 14.5 % (11.5-14.5); RDW Standard Deviation 49.2 fL (36.4-46.3); Red Blood Count 4.36 M/uL (4.63-6.08); White Blood Count 7.81 K/ul (4.8-10.8)
[2022-07-10 13:22] LABS: Troponin I High Sensitivity 8.8 pg/ml (0-20)
[2022-07-10 13:29] LABS: Albumin Globulin Ratio 1.5 (0.9-2); Albumin Level 3.8 gm/dl (3.4-5.0); BUN Creatinine Ratio 13.2 (10-20); Bilirubin,Total 0.6 mg/dl (0.2-1.0); Calcium 9.1 mg/dl (8.5-10.1); Creatinine Clr Calc Pharmacy 67.3 ml/min; Est GFR (African American) 74.3 ml/min; Est GFR (Non-African American) 64.1 ml/min; Globulin 2.6 gm/dl (2.5-4.0); Magnesium 2.2 mg/dl (1.7-2.4); Potassium 4.2 mmol/L (3.5-5.1); Total Protein 6.4 gm/dl (6.0-8.3)
[2022-07-10] MEDS ORDERED: FUROSEMIDE 40 MG/4 ML VIAL IV ONE (14:15)
--- NOTE | 2022-07-10 15:00 | History & Physical Report ---
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 Santana, but he has not been taking his Breo. He had a CTPE on his last ED visit on 07/01/22 and has been on anticoagulation since so PE is less likely at this time. -Was given 80 mg IV lasix in the ED and had springer placed, will continue with 40 mg IV BID for now -Will continue albuterol, and restart breo as prescribed, will also start pulm hygiene with incentive spirometry and flutter therapy -Will get repeat echo to monitor for any changes since 2019, patient did just have a cardioversion with [facility] on 07/06/22 -Monitor on tele, daily weights, intake/output monitoring q6h -Will consul [facility] heart failure program -Will also consult PT/OT as it appears as he likely has some deconditioning as well -Heart healthy diet with 2g sodium restriction -AM CBC and BMP (2) Bilateral edema of lower extremity: Plan: See PERALTA (3) Sinus bradycardia: Plan: -Noted on ECG today and on tele -He was noted to be in sinus rhythm after his cardioversion and is still on 150 mg PO metoprolol succinate, of which he had his dose this am -Will cut his dose of metoprolol in half starting tomorrow -Monitor on tele -Continue amiodaron for hx of afib/flutter (4) History of pulmonary embolism: Plan: -Continue Eliquis (5) COPD with emphysema: Plan: -See PERALTA -Could consider pulmonary consult during admission (6) Paroxysmal atrial fibrillation: Plan: -Continue amiodarone -Redcuing dose of metoprolol from 150 daily to 75 due to sinus bradycardia (7) HTN (hypertension): Plan: -Continue metoprolol, and IV lasix for now -Has been hemodynamically stable (8) BPH (benign prostatic hyperplasia): Plan: -Continue flomax Plan The patient was discussed with Dr. Vanegas at the time of the admission History of Present Illness Chief Complaint: Lower extremity edema/PERALTA Primary Care Provider: Sylvie Clarke MD Patel is an 82 year old male with a PMH significant for afib on Eliquis, history of PE in 2014, benign essential tremor, BPH, COPD, HTN who presented to the [facility] ED on 07/10/22 with complaints of increased lower extremity swelling, PERALTA, and decreased exercise tolerance. In the ED the patient was found to be afebrile, hemodynamically stable, and stable on RA. Labs were remarkable for WBC WNL, stable Hgb, stable platelets, stable renal function and electrolytes, stable liver function, high sensitivity troponin of 8.8, BNP of 89. Chest xray was negative for acute processes. Prior to admission the patient was given 80 mg IV lasix and a Springer catheter was placed by ED staff. Per chart review, the patient was last seen in the [facility] ED on 07/01/22 for SOB, especially lying down. At that time a CTPE was obtained and was negative for acute PE or pulmonary edema. 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 The patient recently underwent cardioversion with [facility] on 07/06/22 due to chronic atrial flutter. Prior to the procedure the patient had been switched from Coumadin to Eliquis and had successful cardioversion back to NSR prior to discharge. Per chart review, the patient underwent a Dobutamine stress echo on 05/06/22 which was negative for ischemia. At that time his LVEF was noted to be 60-65%, mild-mod right ventricle dilation was noted, he was also found to have grade I LV diastolic dysfunction and mild aortic valve sclerosis without significant stenosis. At the time of the exam the patient was sitting comfortably in bed in no acute distress with his and Granddaughter sitting bedside. The majority of the history was obtained from the patient's as the patient has severe sensorineural hearing loss. She states that the patient started developing worsening PERALTA and lower extremity swelling approximately 1-2 months ago. The patient is a reddy and also used to work at [email or web address] where he had exposure to over 21 different chemicals, often without PPE. They state that since his cardioversion the patient has had even more swelling, PERALTA , and generalized weakness. The patient is unable to walk more than a few feet without feeling significantly SOB. His states that his legs have become much more weak with all the swelling, the patient states that it feels as though he's walking on water because his legs/feet are so swollen. The patient had a recent event at home where he had to lower himself to the ground because he felt so w eak; he did not hit his head or have acute trauma with that event. His states that the patient has been anticoagulation the entire time during this decline in function. He was on Warfarin prior to his cardioversion, switched to Eliquis before the cardioversion, and has continued on the Eliquis. His confirms that the patient has not missed doses of Eliquis. When asked if he has COPD of previous lung issues both he and he said now. Going over his med rec with them I noted that he has albuterol and breo listed. The patient states he stopped taking the breo awhile ago because he didn't think he needed it. His states that he occasionally uses the albuterol inhaler when he's SOB. He denies recent sick contacts, fever, chills, chest pain, productive cough, nausea, vomiting, diarrhea, dysuria, hematuria, melena. The patient and his confirm that he has been taking his 20 mg PO lasix daily as prescribed. I spoke to them regarding code status. The patient clearly stated that he would like to be a DNR/DNI. 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 His would make decisions for him if he could not make them himself. Per chart review, the patient has been followed outpatient by Pulmonology with his last visit with Dr. Santana on 11/17/21. Per the clinic notes, the patient was experiencing exertional dyspnea, hypersomnia, and had previously been experiencing anterior chest pain. Per the note, the patient had previously been diagnosed with COPD due to moderate obstructive patter on PFT's. This is why Dr. santana had prescribed Breo and albuterol. His assessment and plan state that he ordered the patient a 2D echo but it does not appear that the patient ever got it. Please refer to Dr. Vanegas's attestation for any changes to the treatment plan. Allergies Allergy/AdvReac Type Severity Reaction Status Date / Time aspirin Allergy Severe HIVES Verified 07/03/22 16:37 celecoxib [From Celebrex] Allergy Severe hives Verified 07/03/22 16:37 Iodinated Contrast Media Allergy Unknown Contrast Verified 07/03/22 16:37 media - unknown rxn iodine Allergy Unknown Unknown Verified 07/03/22 16:37 tramadol AdvReac Severe dizziness, Verified 07/03/22 16:37 nausea, leg weakness Home Medications Medication Instructions Recorded Confirmed Type syringe with needle, safety 3 mL #100 ea 12/09/20 06/27/22 Rx 23 gauge x 1" (BD Safety-Bren Detachable Needle) acetaminophen 500 mg tablet 500 mg PO BID PRN Pain, Mild 11/07/21 07/10/22 History (Tylenol Extra Strength) epinephrine 0.3 mg/0.3 mL 0.3 mg (0.3 mL) IM UD PRN 11/07/21 07/10/22 Rx injection, auto-injector (EpiPen) Anaphylaxis #1 ea albuterol sulfate 90 mcg/actuation 2 puff inhalation Q6H PRN 11/17/21 07/10/22 Rx aerosol inhaler Shortness Of Breath Or Wheezing #18 grams fluticasone furoate 100 1 inh inhalation DAILY #60 ea 11/17/21 07/10/22 Rx mcg-vilanterol 25 mcg/dose inhalation powder (Breo Ellipta) finasteride 5 mg tablet 5 mg PO QAM 05/24/22 07/10/22 History apixaban 5 mg tablet (Eliquis) 5 mg PO BID #180 tabs 06/27/22 07/10/22 Rx amiodarone 200 mg tablet 200 mg PO QAM 07/03/22 07/10/22 History furosemide 20 mg tablet (Lasix) 20 mg PO QAM 07/03/22 07/10/22 History metoprolol succinate 100 mg 150 mg PO DAILY #90 tabs 07/06/22 07/10/22 Rx tablet,extended release 24 hr tamsulosin 0.4 mg capsule (Flomax) 0.4 mg PO QAM #90 caps 07/10/22 07/10/22 Rx Past Med/Surg History Medical History Enlarged prostate Hearing deficit BL JUDGE History of atrial fibrillation Follows with Dr. Hutton. On Eliquis. History of DVT (deep vein thrombosis) RLE post op TKA approx 20 years ago. Treated with AC. History of pulmonary embolism approx 20 years ago post op Rt TKA History of squamous cell carcinoma HTN (hypertension) Osteoarthritis Osteoporosis Polyneuropathy Sleep apnea no device Surgical History History of cataract surgery History of knee replacement Rt History of loop recorder History of squamous cell carcinoma excision History of tonsillectomy History of transurethral resection of prostate Family History Father Prostate cancer Cancer Prostate Mother Breast cancer Colorectal cancer Other No family history of adverse response to anesthesia No significant family history Denies family history of Ovarian cancer Myocardial infarction Social History Smoking Status: Never smoker Second Hand Exposure: No; Hx Alcohol Use: No Hx Substance Use: No Preferred Language: Indonesian Communication Ability: Effective 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 Appliance Mechanic Required: No Beliefs That Will Affect Care: None marital status: Current Living Situation: Spouse Current Living Situation Comment: lives in farmhouse with current occupational status: retired Feels Safe at Home: Yes Childhood Exposure to Second-Hand Smoke: No Dental Care, Regularly: No Physical Activity Frequency: Does not Exercise Seatbelt Use: always Sunscreen Use: Yes Assistive Devices: Cane, Glasses, Hearing Aid - Bilateral and Walker Review of Systems Review of Systems: Denies current fever, chills, headache, changes in vision, hearing, taste, and smell, chest pain, abdominal pain, nausea, vomiting, diarrhea, hematemesis, melena, dysuria, hematuria. All systems have been reviewed and are otherwise negative. Physical Exam Physical Exam: Physical Exam: General: In no acute distress, stated age, morbidly obese, chronically ill appearing, non-toxic appearing HEENT: Normocephalic, atraumatic, no scleral icterus, pupils around round, symmetrical, and reactive to light, moist mucus membranes, trachea midline, no thyromegaly Chest/Pulm: Distant breath sounds, No respiratory distress, symmetrical chest expansion, expriatory wheezing noted throughout Cardiac: bradycardic rate, regular rhythm, no murmurs noted Abdomen: Negative for ascites and bruising, normoactive bowel sounds, soft, non-tender to palpation throughout Musculoskeletal: Symmetrical and without signs of acute trauma, upper and lower extremities with full ROM, no atrophy, spasticity, or flaccidity Extremities: Radial, dorsalis pedis, and posterior tibial pulses are intact and symmetrical, 3+edema noted in the BL LE's Skin: Warm, dry, no rashes , lesions, or scars noted Neuro: Alert and oriented to person, place, month, year, and president, no focal defects, CN II-XII tested and intact, finger to nose test negative, no tremors noted Psych: No acute distress, calm and cooperative during the exam Results & Data Results & Data ([facility]) Vital Signs (Past 12 Hours) Vital Signs Temp Pulse Pulse Resp BP BP Pulse Ox 07/10/22 13:17 46 L 18 132/80 97 07/10/22 12:14 48 L 18 136/67 97 07/10/22 12:01 36.4 C L 49 L 20 150/85 H 94 O2 Del Method 07/10/22 13:17 Room Air 07/10/22 12:14 Room Air 07/10/22 12:01 Room Air Laboratory Results Abnormal lab results 07/10/22 07/10/22 Range/Units 12:25 12:25 RBC 4.36 L (4.63-6.08) M/uL Hgb 13.3 L (14.0-18.0) g/dl RDW Std Deviation 49.2 H (36.4-46.3) fL MPV 9.0 L (9.4-12.4) fL [place] # (Auto) 1.06 H (0.24-0.82) K/uL Immature Gran # (Auto) 0.19 H (0.00-0.02) K/uL AST 11 L (13-39) U/L Diagnostic Findings Chest X-Ray 07/10/22 12:42 XR chest 1V portable HISTORY: 82 years-old Male dyspnea on exertion acute shortness of breath COMPARISON: Chest radiograph and CTA chest 07/01/2022 TECHNIQUE: AP view of the chest FINDINGS: Cardiac silhouette is mildly enlarged. Corticated device. No pneumothorax, pleural effusion, airspace consolidation or overt pulmonary edema. Calcified granuloma of the right lower lobe. Degenerative changes of the shoulders and spine. IMPRESSION: No acute process. ACT 112: Negative or not required by law. The above report was generated using voice recognition software. It may contain grammatical, syntax or spelling errors. Electronically signed by: Enrico Fields M.D. 07/10/2022 12:56 PM ECG Additional Comments: Sinus bradycardia with 1st degree A-V block Otherwise normal ECG When compared with ECG of 06-JUL-2022 07:26, No significant change was found Code Status & VTE Plan Code Status DNR/DNI VTE Prophylaxis Plan VTE Prophylaxis will be ordered: Yes Supervising Physician Co-Signing Physician Notes Patient seen and examined, chart reviewed, case discussed with Anatoly Motta PA-C and I agree with the assessment and plan as above except as otherwise noted Labs and images reviewed 82-year-old male who presents for evaluation of dyspnea and is clinically volume overloaded, suspect 2/2 CHF +/- acute on chronic COPD. At bedside no acute distress, 3+ edema, no rales are appreciated there is bilateral crackles but with scattered expiratory wheezes. Breathing improving. No sputum change agree with diuresis and breathing treatments as above. Sinus bradycardia on 150 mg of metoprolol which has been cut in half for bradycardia. Agree with management above. PG Care Time/CCT Total # of Minutes Spent Total Time Spent with Patient: Total time spent is greater than 50% in coordination of care (as documented) at patient's floor/unit and/or counseling patient: Coding Level of Care Code Established Pt INT OBSERVATION CARE 70M LVL 3 Patient Type Established Medical Decision Making High Complexity Diagnoses PERALTA (dyspnea on exertion) R06.09 Bilateral edema of lower extremity R60.0 Sinus bradycardia R00.1 History of pulmonary embolism Z86.711 COPD with emphysema J43.9 Paroxysmal atrial fibrillation I48.0 HTN (hypertension) I10 BPH (benign prostatic hyperplasia) N40.0
[2022-07-10] MEDS ORDERED: ALBUTEROL HFA 8 GM INHALER INH PRN (18:29)
--- NOTE | 2022-07-10 19:39 | XCELERA ---
[id number]
[2022-07-10] MEDS: FUROSEMIDE 40 MG/4 ML VIAL IV SCH (20:33)
[2022-07-10] MEDS: APIXABAN 5 MG TABLET PO SCH (21:35)
[2022-07-11] MEDS ORDERED: ACETAMINOPHEN 500 MG TAB PO PRN (00:44)
[2022-07-11 08:28] LABS: Hematocrit (blood only) 42.2 % (40.1-51.0); Hemoglobin 13.8 g/dl (14.0-18.0); Mean Corpuscular Hemoglobin 30.3 pg (25.0-34.0); Mean Corpuscular Hgb Conc 32.7 g/dL (32.0-36.0); Mean Corpuscular Volume 92.7 fL (80.0-100.0); Platelet Count 235 K/uL (130-400); RDW Coefficient of Variation 14.5 % (11.5-14.5); RDW Standard Deviation 49.3 fL (36.4-46.3); Red Blood Count 4.55 M/uL (4.63-6.08); White Blood Count 8.38 K/ul (4.8-10.8)
[2022-07-11 08:51] LABS: BUN Creatinine Ratio 15.1 (10-20); Calcium 9.3 mg/dl (8.5-10.1); Creatinine Clr Calc Pharmacy 58.1 ml/min; Est GFR (African American) 60.3 ml/min
[2022-07-11] MEDS: APIXABAN 5 MG TABLET PO SCH ×2 (08:55→20:21)
[2022-07-11] MEDS: FLUTICASONE/VILANTEROL 100/25MCG 14 PUFFS/INHALER INH SCH (08:55)
[2022-07-11] MEDS: TAMSULOSIN HCL 0.4 MG CAP PO SCH (08:55)
[2022-07-11] MEDS: FUROSEMIDE 40 MG/4 ML VIAL IV SCH ×2 (08:56→20:21)
[2022-07-11] MEDS: METOPROLOL SUCC 25MG EXT REL TAB PO SCH (09:32)
[2022-07-11] MEDS: AMIODARONE 200 MG TAB PO SCH (09:32)
--- NOTE | 2022-07-11 13:14 | Hospitalist Progress Note ---
Date of Service July 11, 2022 Assessment & Plan (1) PERALTA (dyspnea on exertion): Plan: -Transient shortness of breath -Etiology is uncertain, could have been multifactorial, CURTIS, Obesity hypoventilation, CHF exacerbation, COPD exacerbation -No chest x ray evidence of flash pulmonary edema, no wheeze on exam, low suspicion for PE -SOB has resolved, patient now at baseline. saturating well on room air -Was given 80 mg IV lasix in the ED and had springer placed, will continue with 40 mg IV BID for now -Will continue albuterol, and restart breo as prescribed, will also continue pulm hygiene with incentive spirometry and flutter therapy -2 D ECHO showed preserved EF 60-65% -Monitor on tele, daily weights, intake/output monitoring q6h (2) Bilateral edema of lower extremity: Plan: See PERALTA (3) Sinus bradycardia: Plan: -Noted on ECG today and on tele -He was noted to be in sinus rhythm after his cardioversion and is still on 150 mg PO metoprolol succinate, of which he had his dose this am -Will cut his dose of metoprolol in half starting tomorrow -Monitor on tele -Continue amiodaron for hx of afib/flutter (4) History of pulmonary embolism: Plan: -Continue Eliquis (5) COPD with emphysema: Plan: -diagnosed with COPD and was started on Breo and albuterol by Dr. Manning, but he has not been taking his Breo. -No wheeze on exam (6) Paroxysmal atrial fibrillation: Plan: -Continue amiodarone -Redcuing dose of metoprolol from 150 daily to 75 due to sinus bradycardia (7) HTN (hypertension): Plan: -Continue metoprolol, and IV lasix for now -Has been hemodynamically stable (8) BPH (benign prostatic hyperplasia): Plan: -Continue flomax Plan likely d/c in 24 hrs Admission and Anticipated Discharge Date Admission Date: July 10, 2022 Subjective patient seen and examined, now at baseline, says SOB has resolved Review of Systems Review of Systems: All systems reviewed are negative, apart from the ones contained in the history. Physical Exam Physical Exam: The patient is awake, alert and oriented 3, well developed and well nourished, normocephalic and atraumatic, lying in bed and in no acute distress. HEENT--PERRL, EOMI, mucous membranes and oropharynx mildly dry Neck--supple. No JVD. No bruits. Thyroid normal, trachea midline, no adenopathy. Heart--normal S1 and S2. No murmurs, rubs or gallops. Lungs--clear bilaterally, no respiratory distress, no accessory muscle use. Abdomen--normal bowel sounds and soft. Mild epigastric and left sided abdominal pain Extremities--no cyanosis or clubbing. No edema. Dermatologic--normal skin turgor, normal color, no abnormal lymph nodes, no rash. Neurologic--cranial nerves II through XII grossly intact. Rheumatologic--normal range of motion. Psychiatric--normal affect. Results & Data Results & Data ([facility]) Vital Signs (Past 12 Hours) Vital Signs Temp Pulse Pulse Resp BP Pulse Ox O2 Del Method 07/11/22 11:50 97.7 F 60 18 124/62 92 Room Air 07/11/22 06:15 63 07/11/22 07:23 97.5 F L 49 L 16 135/70 95 Room Air 07/11/22 04:19 97.5 F L 49 L 20 117/70 94 Room Air PG Care Time/CCT Total # of Minutes Spent Total Time Spent with Patient: Total time spent is greater than 50% in coordination of care (as documented) at patient's floor/unit and/or counseling patient: Coding Level of Care Code 27416 Subseq Hosp Care Lvl 2 Diagnoses PERALTA (dyspnea on exertion) R06.09 Bilateral edema of lower extremity R60.0 Sinus bradycardia R00.1 History of pulmonary embolism Z86.711 COPD with emphysema J43.9 Paroxysmal atrial fibrillation I48.0 HTN (hypertension) I10 BPH (benign prostatic hyperplasia) N40.0 Time Spent (min) 35
--- NOTE | 2022-07-11 14:14 | Heart Failure Consultation ---
Date of Consultation July 11, 2022 Assessment & Plan (1) Bilateral edema of lower extremity: (2) Exertional dyspnea: (3) COPD (chronic obstructive pulmonary disease): (4) Paroxysmal atrial fibrillation: (5) Mild sleep apnea: (6) Obesity: (7) Physical deconditioning: Plan Hypervolemia: Patient is having increased swelling in both legs. Ultrasound negative for DVT. His pulmonary symptoms seem to be chronic. His edema is responding well to diuretics and elevation. Symptoms improved today. Suspect his symptoms are multifactorial including COPD, CURTIS/OHS, deconditioning, and possibly some volume overload. CXR is negative and BNP is < 100 which would argue against cardiac etiology. Nonetheless, patient is diuresing quite well on Lasix 40 mg IV. Would continue to optimize his volume status as long as he is here. Would continue IV diuretics until a bump in his creatinine. He is taking Lasix 20 mg daily at home. If there is a significant improvement in his dyspnea- would consider more aggressive outpatient regimen. Continue daily STANDING weights. Low sodium diet. Strict I&Os. Dyspnea on exertion: This is somewhat chronic and is being worked up. Recently diagnosed with COPD and CURTIS. Attempted cardioversion to see if his arrhythmia could be playing a role. Patient bradycardic afterwards so possible that could have exacerbated his more recent symptoms. Rate is improved with lower dose of Metoprolol. Atrial fibrillation: Follows with EP. Recently cardioverted. Remains in sinus this admission. Rate improved on lower doses of Metoprolol. Continue Eliquis. Disposition: Will be away from the hospital for the next 5 days. Patient is scheduled for outpatient follow up with the heart failure program on 07/20/22. History of Present Illness Attending Physician: Odessa Ly MD History of Present Illness The patient is an 82-year-old gentleman with a history of pulmonary embolus, syncope, atrial fibrillation/flutter (persistent, cardioversion 07/06/22), COPD, atypical chest pain and PVCs were previously undergone implantation of loop recorder. Dr. Hutton is his primary machine programmer. Recent cardiac studies: 1. 12/28/21 Cardiac catheterization: 2. 07/10/22 Echo: Normal LV size/function. EF 60-65%. No RWMA. No significant valve disease. Patient has no prior history of heart failure. He has chronic dyspnea on e xertion that is likely multifactorial. Patient presented to the ED on 07/10/22 with chronic dyspnea on exertion and worsening lower extremity edema. He was taking Lasix 20 mg daily at home without improvement. He had been recently cardioverted on 07/06/22. BNP 89. CXR without acute process. EF well preserved without valvular abnormalities. He was treated with Lasix IV 80 mg on admission. He responded well and is net negative 3.9L Patient resting comfortably in bed this am. He reports he's feeling improved, breathing is back to baseline. He admits his breathing and decline in exercise tolerance has been going on for a least a year. 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 His saturations are in the 90s on room air. His biggest compliant was the increased edema. This seems to be somewhat improved today. He has had a good response to IV diuretics. He is sleeping with his head elevated. He sleeps in a recliner at home. He denies chest pain, palpitations, cough. Telemetry reviewed, sinus in the 50s/60s. Weight was 270 lb this am per bed scale. Kidney function and electrolytes are stable. Allergies Allergy/AdvReac Type Severity Reaction Status Date / Time aspirin Allergy Severe HIVES Verified 07/03/22 16:37 celecoxib [From Celebrex] Allergy Severe hives Verified 07/03/22 16:37 Iodinated Contrast Media Allergy Unknown Contrast Verified 07/03/22 16:37 media - unknown rxn iodine Allergy Unknown Unknown Verified 07/03/22 16:37 tramadol AdvReac Severe dizziness, Verified 07/03/22 16:37 nausea, leg weakness Home Medications Medication Instructions Recorded Confirmed Type syringe with needle, safety 3 mL #100 ea 12/09/20 06/27/22 Rx 23 gauge x 1" (BD Safety-Bren Detachable Needle) acetaminophen 500 mg tablet 500 mg PO BID PRN Pain, Mild 11/07/21 07/10/22 History (Tylenol Extra Strength) epinephrine 0.3 mg/0.3 mL 0.3 mg (0.3 mL) IM UD PRN 11/07/21 07/10/22 Rx injection, auto-injector (EpiPen) Anaphylaxis #1 ea albuterol sulfate 90 mcg/actuation 2 puff inhalation Q6H PRN 11/17/21 07/10/22 Rx aerosol inhaler Shortness Of Breath Or Wheezing #18 grams fluticasone furoate 100 1 inh inhalation DAILY #60 ea 11/17/21 07/10/22 Rx mcg-vilanterol 25 mcg/dose inhalation powder (Breo Ellipta) finasteride 5 mg tablet 5 mg PO QAM 05/24/22 07/10/22 History apixaban 5 mg tablet (Eliquis) 5 mg PO BID #180 tabs 06/27/22 07/10/22 Rx amiodarone 200 mg tablet 200 mg PO QAM 07/03/22 07/10/22 History furosemide 20 mg tablet (Lasix) 20 mg PO QAM 07/03/22 07/10/22 History metoprolol succinate 100 mg 150 mg PO DAILY #90 tabs 07/06/22 07/10/22 Rx tablet,extended release 24 hr tamsulosin 0.4 mg capsule (Flomax) 0.4 mg PO QAM #90 caps 07/10/22 07/10/22 Rx Patient History Medical History Enlarged prostate Hearing deficit BL JUDGE History of atrial fibrillation Follows with Dr. Hutton. On Eliquis. History of DVT (deep vein thrombosis) RLE post op TKA approx 20 years ago. Treated with AC. History of pulmonary embolism approx 20 years ago post op Rt TKA History of squamous cell carcinoma HTN (hypertension) Osteoarthritis Osteoporosis Polyneuropathy Sleep apnea no device Surgical History History of cataract surgery History of knee replacement Rt History of loop recorder History of squamous cell carcinoma excision History of tonsillectomy History of transurethral resection of prostate Family History Father Prostate cancer Cancer Prostate Mother Breast cancer Colorectal cancer Other No family history of adverse response to anesthesia No significant family history Denies family history of Ovarian cancer Myocardial infarction Social History Smoking Status: Never smoker Second Hand Exposure: No; Hx Alcohol Use: Yes Alcohol type: beer Hx Substance Use: No Preferred Language: Icelandic Communication Ability: Effective 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 Mood and affect appeared normal. He answered all questions appropriately. hard of hearing. HEENT: Pupils are equal and reactive to light and accommodation. Extraocular movements are intact. The sclerae are anicteric. No JVD Neuro: A&O x 3 Lungs: clear to auscultation bilaterally. Normal respiratory effort with decreased breath sounds at bases. Cardiac: Heart demonstrates an regular rate and rhythm. Normal S1 and S2. No murmurs on examination. Pulses: The patient has palpable radial pulses bilaterally that are equal in intensity Extremities: There was no evidence of hypoperfusion. There is no cyanosis or clubbing. 1+ lower bilateral lower extremity edema Skin: No rashes, wounds, cyanosis. Results & Data ([facility]) Vital Signs (Past 12 Hours) Vital Signs Temp Pulse Pulse Resp BP Pulse Ox O2 Del Method 07/11/22 11:50 97.7 F 60 18 124/62 92 Room Air 07/11/22 06:15 63 07/11/22 07:23 97.5 F L 49 L 16 135/70 95 Room Air 07/11/22 04:19 97.5 F L 49 L 20 117/70 94 Room Air Coding Level of Care Code 82095 Initial Inpt Care Lvl 3 Diagnoses Bilateral edema of lower extremity R60.0 Exertional dyspnea R06.00 COPD (chronic obstructive pulmonary disease) J44.9 Paroxysmal atrial fibrillation I48.0 Mild sleep apnea G47.30 Obesity E66.9 Physical deconditioning R53.81
[2022-07-12 06:49] LABS: Hematocrit (blood only) 40.8 % (40.1-51.0); Hemoglobin 13.7 g/dl (14.0-18.0); Mean Corpuscular Hemoglobin 30.4 pg (25.0-34.0); Mean Corpuscular Hgb Conc 33.6 g/dL (32.0-36.0); Mean Corpuscular Volume 90.7 fL (80.0-100.0); Mean Platelet Volume 9.2 fL (9.4-12.4); Platelet Count 232 K/uL (130-400); RDW Coefficient of Variation 14.5 % (11.5-14.5); White Blood Count 8.31 K/ul (4.8-10.8)
[2022-07-12 07:19] LABS: BUN Creatinine Ratio 18.1 (10-20); Calcium 9.2 mg/dl (8.5-10.1); Creatinine Clr Calc Pharmacy 50.8 ml/min; Est GFR (African American) 51.3 ml/min; Est GFR (Non-African American) 44.3 ml/min; Potassium 3.3 mmol/L (3.5-5.1)
[2022-07-12] MEDS: METOPROLOL SUCC 25MG EXT REL TAB PO SCH (09:06)
[2022-07-12] MEDS: FLUTICASONE/VILANTEROL 100/25MCG 14 PUFFS/INHALER INH SCH (09:06)
[2022-07-12] MEDS: APIXABAN 5 MG TABLET PO SCH (09:07)
[2022-07-12] MEDS: AMIODARONE 200 MG TAB PO SCH (09:07)
[2022-07-12] MEDS: TAMSULOSIN HCL 0.4 MG CAP PO SCH (09:08)
[2022-07-12] MEDS: FUROSEMIDE 40 MG/4 ML VIAL IV SCH (09:10)
--- NOTE | 2022-07-12 12:01 | Discharge Summary ---
Date of Service July 12, 2022 Admission HPI Per Admitting Provider Patel is an 82 year old male with a PMH significant for afib on Eliquis, history of PE in 2015, benign essential tremor, BPH, COPD, HTN who presented to the [facility] ED on 07/10/22 with complaints of increased lower extremity swelling, PERALTA, and decreased exercise tolerance. In the ED the patient was found to be afebrile, hemodynamically stable, and stable on RA. Labs were remarkable for WBC WNL, stable Hgb, stable platelets, stable renal function and electrolytes, stable liver function, high sensitivity troponin of 8.8, BNP of 89. Chest xray was negative for acute processes. Prior to admission the patient was given 80 mg IV lasix and a Springer catheter was placed by ED staff. Per chart review, the patient was last seen in the [facility] ED on 07/01/22 for SOB, especially lying down. At that time a CTPE was obtained and was negative for acute PE or pulmonary edema. 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 The patient recently underwent cardioversion with [facility] cardiology on 07/06/22 due to chronic atrial flutter. Prior to the procedure the patient had been switched from Coumadin to Eliquis and had successful cardioversion back to NSR prior to discharge. Per chart review, the patient underwent a Dobutamine stress echo on 05/06/22 which was negative for ischemia. At that time his LVEF was noted to be 60-65%, mild-mod right ventricle dilation was noted, he was also found to have grade I LV diastolic dysfunction and mild aortic valve sclerosis without significant stenosis. At the time of the exam the patient was sitting comfortably in bed in no acute distress with his and Granddaughter sitting bedside. The majority of the history was obtained from the patient's as the patient has severe sensorineural hearing loss. She states that the patient started developing worsening PERALTA and lower extremity swelling approximately 1-2 months ago. The patient is a reddy and also used to work at [employer]'s where he had exposure to over 21 different chemicals, often without PPE. They state that since his cardioversion the patient has had even more swelling, PERALTA , and generalized weakness. The patient is unable to walk more than a few feet without feeling significantly SOB. His states that his legs have become much more weak with all the swelling, the patient states that it feels as though he's walking on water because his legs/feet are so swollen. The patient had a recent event at home where he had to lower himself to the ground because he felt so weak; he did not hit his head or have acute trauma with that event. His states that the patient has been anticoagulation the entire time during this decline in function. He was on Warfarin prior to his cardioversion, switched to Eliquis before the cardioversion, and has continued on the Eliquis. His confirms that the patient has not missed doses of Eliquis. When asked if he has COPD of previous lung issues both he and he said now. Going over his med rec with them I noted that he has albuterol and breo listed. The patient states he stopped taking the breo awhile ago because he didn't think he needed it. His states that he occasionally uses the albuterol inhaler when he's SOB. He denies recent sick contacts, fever, chills, chest pain, productive cough, nausea, vomiting, diarrhea, dysuria, hematuria, melena. The patient and his confirm that he has been taking his 20 mg PO lasix daily as prescribed. I spoke to them regarding code status. The patient clearly stated that he would like to be a DNR/DNI. 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 His would make decisions for him if he could not make them himself. Per chart review, the patient has been followed outpatient by Pulmonology with his last visit with Dr. Santana on 11/17/21. Per the clinic notes, the patient was experiencing exertional dyspnea, hypersomnia, and had previously been experiencing anterior chest pain. Per the note, the patient had previously been diagnosed with COPD due to moderate obstructive patter on PFT's. This is why Dr. santana had prescribed Breo and albuterol. His assessment and plan state that he ordered the patient a 2D echo but it does not appear that the patient ever got it. Principal Diagnosis acute on chronic CHF exacerbation Discharge Exam The patient is awake, alert and oriented 3, well developed and well nourished, normocephalic and atraumatic, lying in bed and in no acute distress. HEENT--PERRL, EOMI, mucous membranes and oropharynx mildly dry Neck--supple. No JVD. No bruits. Thyroid normal, trachea midline, no adenopathy. Heart--normal S1 and S2. No murmurs, rubs or gallops. Lungs--clear bilaterally, no respiratory distress, no accessory muscle use. Abdomen--normal bowel sounds and soft. Mild epigastric and left sided abdominal pain Extremities--no cyanosis or clubbing. No edema. Dermatologic--normal skin turgor, normal color, no abnormal lymph nodes, no rash. Neurologic--cranial nerves II through XII grossly intact. Rheumatologic--normal range of motion. Psychiatric--normal affect. Discharge Data Allergies Allergy/AdvReac Type Severity Reaction Status Date / Time aspirin Allergy Severe HIVES Verified 07/03/22 16:37 celecoxib [From Celebrex] Allergy Severe hives Verified 07/03/22 16:37 Iodinated Contrast Media Allergy Unknown Contrast Verified 07/03/22 16:37 media - unknown rxn iodine Allergy Unknown Unknown Verified 07/03/22 16:37 tramadol AdvReac Severe dizziness, Verified 07/03/22 16:37 nausea, leg weakness Consultations 07/10/22 14:46 ED Decision to Admit Stat 07/10/22 15:54 [facility] CHF Program Referral Routine Hospital Course (1) PERALTA (dyspnea on exertion): -Transient shortness of breath -Etiology is uncertain, could have been multifactorial, CURTIS, Obesity hypoventilation, CHF exacerbation, COPD exacerbation -No chest x ray evidence of flash pulmonary edema, no wheeze on exam, low suspicion for PE -SOB has resolved, patient now at baseline. saturating well on room air -Was given 80 mg IV lasix in the ED and had springer placed, will continue with 40 mg IV BID for now -Will continue albuterol, and restart breo as prescribed, will also continue pulm hygiene with incentive spirometry and flutter therapy -2 D ECHO showed preserved EF 60-65% -Monitor on tele, daily weights, intake/output monitoring q6h (2) Bilateral edema of lower extremity: See PEARLTA (3) Sinus bradycardia: -Noted on ECG today and on tele -He was noted to be in sinus rhythm after his cardioversion and is still on 150 mg PO metoprolol succinate, of which he had his dose this am -Will cut his dose of metoprolol in half starting tomorrow -Monitor on tele -Continue amiodaron for hx of afib/flutter (4) History of pulmonary embolism: -Continue Eliquis (5) COPD with emphysema: -diagnosed with COPD and was started on Breo and albuterol by Dr. Santana, but he has not been taking his Breo. -No wheeze on exam (6) Paroxysmal atrial fibrillation: -Continue amiodarone -Redcuing dose of metoprolol from 150 daily to 75 due to sinus bradycardia (7) HTN (hypertension): -Continue metoprolol, and IV lasix for now -Has been hemodynamically stable (8) BPH (benign prostatic hyperplasia): -Continue flomax (9) Acute on chronic systolic CHF (congestive heart failure): Received Lasix with improvement continue home lasix Plan likely d/c in 24 hrs Total Time Total Time Spent Total Time Spent (In Minutes): 35 Discharge Plan Discharge Items Patient Disposition: Home - Self-Care Reason For Visit: PERALTA, LE SWELLING Discharge Diagnosis: Acute on chronic CHF exacerbation Activity: Resume your previous activity Non-emergency contact: Primary Care Provider and Fermenter Champagne Call non-emergency contact if: you have any medication questions Follow-up/Referrals: Sylvie Clarke MD [Primary Care Provider] - 07/24/22 11:00 am Luz Martinez PA-C [Physician Slitting And Shipping Supervisor] - 07/20/22 2:00 pm (Congestive Heart Failure Program Appointment Information Early follow up is essential to managing your heart failure. An appointment has been scheduled for you with the [facility] Heart Failure Program within 7 days of discharge. Anticipate this visit to be 30-60 minutes long. Please expect a commodity specialist phone call from one of our nurses approximately 48 hours from discharge. They will also be placing an order for lab work to be completed 1-2 days prior to your heart failure follow up appointment. Please be sure to have this done so we can go over the results when you come in. Office Location The cardiology office building is located in front of the hospital at [address]. Bring the following with you to your follow-up doctor appointments: Please bring your daily weight log any discharge paperwork all of your medication bottles with you to this visit. ) Diet: Low Sodium (2gm) Addtl Attending Provider Instructions: please make appointment to follow up with your regular PCP and parts cleaner Addtl Knife Changer Provider Instructions: Call your Primary Care doctor if any of the following symptoms or problems start or get worse: * Shortness of breath or difficulty breathing * Wake up at night short of breath * Chest pain * Cough * Swelling of your hands, feet, or legs * More fatigued or tired with your normal activity * Palpitations - sudden fast heart beats WEIGHT * Weigh yourself every morning after using the bathroom. * Use the same scale. * Wear the same amount of clothing. * Write your weight down on a chart. * Call your Primary Care doctor if you gain more than 2-3 pounds in 1-2 days. MEDICATIONS * Use this discharge instruction sheet for medication instructions. * Take your medications at the time your doctor ordered. * Do not skip a dose of your medicines. * If you miss a dose of medicine, take it as soon as possible, but DO NOT DOUBLE A DOSE. * Read your medicine information when you get home. * Know all of the side effects of your medicine. If in doubt, ask your pharmacist * Call your Primary Care doctor's office if you have any side effects. * Be sure all of your doctors know what medicine and herbs you take (including cold, flu, and herbal medicine). Take the following with you to your follow-up doctor appointments: * Weight Chart * Medication List * List of questions Do not drink excessive alcohol, beer or wine. Pending Studies at Discharge: No Stand-Alone Forms: My [facility], Smoking Cessation Medications and DC Order Prescriptions: Continued acetaminophen [Tylenol Extra Strength] 500 mg tablet 500 mg PO BID PRN (Reason: Pain, Mild) Rx Instructions: in AM and with lunch Eliquis 5 mg tablet 5 mg PO BID Qty: 180 0RF tamsulosin [Flomax] 0.4 mg capsule 0.4 mg PO QAM Qty: 90 1RF epinephrine [EpiPen] 0.3 mg/0.3 mL auto-injector 0.3 mg IM UD PRN (Reason: Anaphylaxis) Qty: 1 1RF albuterol sulfate 90 mcg/actuation HFA aerosol inhaler 2 puff inhalation Q6H PRN (Reason: Shortness Of Breath Or Wheezing) Qty: 18 3RF Breo Ellipta 100-25 mcg/dose blister with device 1 inh inhalation DAILY Qty: 60 5RF (DME) BD Safety-Bren Detachable Needl 3 mL 23 gauge x 1" syringe See Rx Instructions .ROUTE .MEDSUPPLY Qty: 100 0RF Rx Instructions: As directed with cyanocobalamin finasteride 5 mg tablet 5 mg PO QAM Rx Instructions: TAKE 1 TABLET BY MOUTH DAILY amiodarone 200 mg tablet 200 mg PO QAM Rx Instructions: Two tablets by mouth twice daily for 10 days then reduce to 1 tablet daily. furosemide [Lasix] 20 mg tablet 20 mg PO QAM metoprolol succinate 100 mg tablet extended release 24 hr 150 mg PO DAILY Qty: 90 3RF Discharge Orders: Discharge Order (Routine); Ordered 07/12/22 Ordered By: Odessa Ly Admission Data Admit Date/Time: 07/10/22 15:00 Attending Provider: Odessa Ly Admit Provider: Thomas Vanegas Primary Care Provider: Sylvie Clarke Other Providers: Thomas Vanegas ; Luz Martinez Other Interventions: Discharge Summary Assessment (RN) Last Done: 07/12/22 11:24 Coding Level of Care Code D/C DAY MANAGEMENT >30 MINS Diagnoses PERALTA (dyspnea on exertion) R06.09 Bilateral edema of lower extremity R60.0 Sinus bradycardia R00.1 History of pulmonary embolism Z86.711 COPD with emphysema J43.9 Paroxysmal atrial fibrillation I48.0 HTN (hypertension) I10 BPH (benign prostatic hyperplasia) N40.0 Acute on chronic systolic CHF (congestive heart failure) I50.23 Time Spent (min) 35
--- NOTE | 2022-07-12 21:15 | Electrocardiogram Report ---
Test Reason : Blood Pressure : / mmHG Vent. Rate : 049 BPM Atrial Rate : 049 BPM P-R Int : 228 ms QRS Dur : 114 ms QT Int : 492 ms P-R-T Axes : 064 -29 031 degrees QTc Int : 444 ms Sinus bradycardia with 1st degree A-V block Otherwise normal ECG When compared with ECG of 06-JUL-2022 07:26, No significant change was found Confirmed by Gulshan Eid ([id number]) on 07/12/2022 9:15:03 PM Referred By: ED Confirmed By:Gulshan Eid
== END 2022-07-12 14:16 | disposition home or self-care (01) ==
LOC: EDINP 11:50 → ED 11:50 → SUATTDRO 15:00 → 2W 18:30

== ENCOUNTER 2022-10-31 13:28 | Observation (INO) ==
[2022-10-31] MEDS ORDERED: NITROGLYCERIN 2% OINTMENT 30GM TUBE EXT STA (13:46)
--- NOTE | 2022-10-31 13:55 | Emergency Department Note ---
Impression & Plan Precordial chest pain, Near syncope ED Provider Note NAME: TONY AWAN AGE: 82 SEX: M : 1940 ARRIVES VIA: Walk-In INFORMANT: [Patient][family] ED PROVIDER(S): [Evelio Evans MD] CHIEF COMPLAINT: Chest pain HISTORY OF PRESENT ILLNESS: The patient is an 82-year-old male who presents to the ED with 1 week of exertional chest pain that makes him feel like he wants to pass out. No palpitations. He has to rest for things to improve. The episodes last anywhere from 15 minutes to an hour. The pain gets as severe as a 5/10. No shortness of breath, no pain radiation. No sweating, no nausea. The patient states that he has noticed that his legs are more swollen. He has not had cough or cold or congestion. No respiratory complaints. He denies ever having an WI. He is on Eliquis for previous PE, he also has a history of COPD and CHF. The patient currently has some very mild chest discomfort, nothing like earlier. PMHx/PSHx: See Below SOCIAL HISTORY: See Below. PHYSICAL EXAM: GENERAL: Patient is in no acute distress. HEENT: No acute trauma, normocephalic atraumatic, mucous membranes moist, no nasal congestion. NECK: No stridor, no adenopathy, no meningismus, trachea is midline. LUNGS: Clear to auscultation bilaterally, no wheeze, no rhonchi, breath sounds equal. HEART: Without murmurs gallops or rubs, regular rate and rhythm. ABDOMEN: Soft, nontender, bowel sounds positive, no peritonitis. EXTREMITIES: No cyanosis, moderate bilateral pedal edema, full range of motion of all the joints without pain or difficulty, no signs for acute trauma. NEUROLOGIC: Oriented x 3, no acute motor or sensory deficits, no focal weakness. SKIN: No rash, no jaundice, no diaphoresis. DIFFERENTIAL DIAGNOSIS: Dysrhythmia, A-fib, a flutter, V. tach or SVT, WI, angina, anemia, fluid overload, among others. EMERGENCY DEPARTMENT COURSE/PROCEDURES: Prior/Outside records reviewed: None. ECG per my interpretation: Indication was chest pain. The ECG shows a normal sinus rhythm with a rate of 62. There is no obvious ST elevation, there is an incomplete left bundle branch block. There are no PVCs. The QTc is 442. Continuous Cardiac Monitoring per my interpretation: An order was placed for continuous cardiac monitoring. The monitor shows a rate of 60 with normal sinus rhythm. MEDICAL DECISION MAKING: There is no leukocytosis or concerning anemia. There is a normal platelet count. No coagulopathy. No renal failure or significant electrolyte abnormality. No concerning liver enzyme elevation. No pancreatitis. ECG showed a normal sinus rhythm with a rate of 62. There was no obvious ST elevation. Cardiac enzyme testing x1 was not consistent with acute cardiac injury. Chest x-ray per my review did not show mediastinal widening, pneumonia or pneumothorax. There was no CHF. On exam, the patient complained of very mild chest discomfort, he was resting comfortably. The patient was given 1 inch of nitroglycerin paste. Aspirin was not given as he had a listed allergy to aspirin. The patient presents with exertional chest pain that improves with rest. Things have escalated for him. He felt near syncopal a few times. The patient requires further cardiac work-up in the hospital. Angina is a concern, dysrhythmia is a concern. I did speak with the patient and case management, the on-call hospitalist was consulted. DISPOSITION: The patient's presentation and findings warrant a hospital stay. 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 Hutton. On [facility]. History of DVT (deep vein thrombosis) RLE post op TKA approx 20 years ago. Treated with AC. History of pulmonary embolism approx 20 years ago post op Rt TKA History of squamous cell carcinoma HTN (hypertension) Mitral regurgitation Osteoarthritis Osteoporosis Polyneuropathy Sleep apnea no device Surgical History History of cataract surgery History of knee replacement History of loop recorder History of squamous cell carcinoma excision History of tonsillectomy History of transurethral resection of prostate Family History Father Prostate cancer Cancer Mother Breast cancer Colorectal cancer Other No family history of adverse response to anesthesia No significant family history Denies family history of Ovarian cancer Myocardial infarction Social History Smoking Status: Never smoker Second Hand Exposure: No; Hx Alcohol Use: Yes Alcohol type: beer Hx Substance Use: No Preferred Language: Ukrainian Communication Ability: Effective Cardiac Rehab Nurse Required: No Beliefs That Will Affect Care: None marital status: Current Living Situation: Spouse Current Living Situation Comment: lives in farmhouse with current occupational status: retired Feels Safe at Home: Yes Childhood Exposure to Second-Hand Smoke: No Dental Care, Regularly: No Physical Activity Frequency: Does not Exercise Seatbelt Use: always Sunscreen Use: Yes Assistive Devices: Cane Allergies Allergies Allergy/AdvReac Type Severity Reaction Status Date / Time aspirin Allergy Severe HIVES Verified 10/31/22 15:37 celecoxib [From Celebrex] Allergy Severe hives Verified 10/31/22 15:37 Iodinated Contrast Media Allergy Unknown Contrast Verified 10/31/22 15:37 media - unknown rxn iodine Allergy Unknown Unknown Verified 10/31/22 15:37 tramadol AdvReac Severe dizziness, Verified 10/31/22 15:37 nausea, leg weakness Home Meds Home Medications Medication Instructions Recorded Confirmed acetaminophen 500 mg tablet 500 mg PO BID PRN Pain, Mild 11/07/21 10/31/22 (Tylenol Extra Strength) phenazopyridine 200 mg tablet 200 mg PO TID PRN BLADDER PAIN 10/31/22 10/31/22 (Pyridium) Previous Rx's Medication Instructions Recorded syringe with needle, safety 3 mL #100 ea 12/09/20 23 gauge x 1" (BD Safety-Bren Detachable Needle) epinephrine 0.3 mg/0.3 mL 0.3 mg (0.3 mL) IM UD PRN 11/07/21 injection, auto-injector (EpiPen) Anaphylaxis #1 ea albuterol sulfate 90 mcg/actuation 2 puff inhalation Q6H PRN 11/17/21 aerosol inhaler Shortness Of Breath Or Wheezing #18 grams fluticasone furoate 100 1 inh inhalation DAILY #60 ea 11/17/21 mcg-vilanterol 25 mcg/dose inhalation powder (Breo Ellipta) tamsulosin 0.4 mg capsule (Flomax) 0.4 mg PO QAM #90 caps 07/10/22 furosemide 20 mg tablet (Lasix) 40 mg PO QAM #60 tabs 07/24/22 finasteride 5 mg tablet 5 mg PO QAM #90 tabs 08/15/22 amiodarone 200 mg tablet 200 mg PO QAM #30 tabs 08/17/22 metoprolol succinate 100 mg 50 mg PO DAILY #90 tabs 08/17/22 tablet,extended release 24 hr apixaban 5 mg tablet (Eliquis) 5 mg PO BID #180 tabs 09/11/22 Results & Data (ED) Vital Signs Vital Signs - 24 hr 10/31/22 13:30 10/31/22 13:47 10/31/22 13:48 Temperature 36.6 C Temperature Source Temporal Artery Scan Pulse Rate 69 Pulse Rate [Apical] 60 Pulse Rhythm [Apical] Regular Respiratory Rate 20 18 Respiratory Effort / Characteristics Non-Labored Spontaneous Respiratory Depth Normal Normal Respiratory Pattern Regular Blood Pressure 174/89 H Blood Pressure [Right Arm] 145/75 H Blood Pressure Mean 117 Blood Pressure Mean [Right Arm] 98 Blood Pressure Position Sitting Blood Pressure Position [Right Arm] Lying Pulse Oximetry 94 97 96 Oxygen Delivery Method Room Air Room Air Room Air Sepsis Recent Fever Within 48 Hours No Sepsis New/Unexplained Change in Mental Status No Sepsis Action Taken by Nursing No Action Required 10/31/22 13:48 Temperature Temperature Source Pulse Rate 61 Pulse Rate [Apical] Pulse Rhythm [Apical] Respiratory Rate Respiratory Effort / Characteristics Respiratory Depth Respiratory Pattern Blood Pressure Blood Pressure [Right Arm] Blood Pressure Mean Blood Pressure Mean [Right Arm] Blood Pressure Position Blood Pressure Position [Right Arm] Pulse Oximetry Oxygen Delivery Method Sepsis Recent Fever Within 48 Hours Sepsis New/Unexplained Change in Mental Status Sepsis Action Taken by Long Term Medications Current Medication List: was personally reviewed by me Laboratory Data Attestation: I reviewed the patient's lab results. 10/31/22 14:09 10/31/22 14:09 Lab Results 10/31/22 10/31/22 10/31/22 Range/Units 14:09 14:09 14:09 WBC 5.64 (4.8-10.8) K/ul RBC 4.55 L (4.70-6.10) M/uL Hgb 14.2 (14.0-18.0) g/dl Hct 42.1 (42.0-52.0) % MCV 92.5 (80.0-100.0) fL MCH 31.2 (25.0-34.0) pg MCHC 33.7 (32.0-36.0) g/dL RDW Std Deviation 45.3 (36.4-46.3) fL RDW Coeff of Castillo 13.4 (11.5-14.5) % Plt Count 248 (130-400) K/uL MPV 9.0 L (9.4-12.4) fL Immature Gran % (Auto) 1.2 % Neut % (Auto) 62.2 % Lymph % (Auto) 21.1 % [place] % (Auto) 11.7 % Eos % (Auto) 2.7 % Baso % (Auto) 1.1 % Neut # (Auto) 3.51 (1.40-6.50) K/uL Lymph # (Auto) 1.19 L (1.2-3.4) K/uL [place] # (Auto) 0.66 H (0.11-0.59) K/uL Eos # (Auto) 0.15 (0-0.50) K/uL Baso # (Auto) 0.06 (0-0.2) K/uL Immature Gran # (Auto) 0.07 (0.01-0.20) K/uL PT 11.3 (9.0-12.0) Seconds INR 1.1 (0.9-1.1) APTT 29.9 (21.0-31.0) Seconds PTT Ratio 1.1 Sodium 139 (136-145) mmol/L Potassium 4.2 (3.5-5.1) mmol/L Chloride 105 (98-107) mmol/L Carbon Dioxide 28 (21-32) mmol/L Anion Gap 6 (3-11) BUN 12 (6-23) mg/dl Creatinine 1.34 (0.6-1.4) mg/dl Est Cr Clr Drug Dosing Not Reportable Est GFR ( Amer) 56.0 ml/min Est GFR (Non-Af Amer) 48.3 ml/min BUN/Creatinine Ratio 9.0 L (10-20) Glucose 92 (70-99(Fasting)) mg/dl Calcium 9.0 (8.5-10.1) mg/dl Magnesium 2.3 (1.7-2.4) mg/dl Total Bilirubin 0.5 (0.2-1.0) mg/dl AST 15 (13-39) U/L ALT 10 (7-52) U/L Alkaline Phosphatase 63 (34-104) U/L Troponin I High Sens 6.3 (0-20) pg/ml Total Protein 6.9 (6.0-8.3) gm/dl Albumin 4.0 (3.4-5.0) gm/dl Globulin 2.9 (2.5-4.0) gm/dl Albumin/Globulin Ratio 1.4 (0.9-2) Lipase 10 L (11-82) U/L SARS-CoV-2, RNA, NAAT (NEGATIVE) 10/31/22 Range/Units 14:09 WBC (4.8-10.8) K/ul RBC (4.70-6.10) M/uL Hgb (14.0-18.0) g/dl Hct (42.0-52.0) % MCV (80.0-100.0) fL MCH (25.0-34.0) pg MCHC (32.0-36.0) g/dL RDW Std Deviation (36.4-46.3) fL RDW Coeff of Castillo (11.5-14.5) % Plt Count (130-400) K/uL MPV (9.4-12.4) fL Immature Gran % (Auto) % Neut % (Auto) % Lymph % (Auto) % [place] % (Auto) % Eos % (Auto) % Baso % (Auto) % Neut # (Auto) (1.40-6.50) K/uL Lymph # (Auto) (1.2-3.4) K/uL [place] # (Auto) (0.11-0.59) K/uL Eos # (Auto) (0-0.50) K/uL Baso # (Auto) (0-0.2) K/uL Immature Gran # (Auto) (0.01-0.20) K/uL PT (9.0-12.0) Seconds INR (0.9-1.1) APTT (21.0-31.0) Seconds PTT Ratio Sodium (136-145) mmol/L Potassium (3.5-5.1) mmol/L Chloride (98-107) mmol/L Carbon Dioxide (21-32) mmol/L Anion Gap (3-11) BUN (6-23) mg/dl Creatinine (0.6-1.4) mg/dl Est Cr Clr Drug Dosing Est GFR ( Amer) ml/min Est GFR (Non-Af Amer) ml/min BUN/Creatinine Ratio (10-20) Glucose (70-99(Fasting)) mg/dl Calcium (8.5-10.1) mg/dl Magnesium (1.7-2.4) mg/dl Total Bilirubin (0.2-1.0) mg/dl AST (13-39) U/L ALT (7-52) U/L Alkaline Phosphatase (34-104) U/L Troponin I High Sens (0-20) pg/ml Total Protein (6.0-8.3) gm/dl Albumin (3.4-5.0) gm/dl Globulin (2.5-4.0) gm/dl Albumin/Globulin Ratio (0.9-2) Lipase (11-82) U/L SARS-CoV-2, RNA, NAAT NEGATIVE (NEGATIVE) Administered Medications Discontinued Medications Famotidine (Famotidine 20mg/5ml Iv Push) 20 mg IV ONE STA Stop: 10/31/22 16:02 Last Admin: 10/31/22 16:12 Dose: 20 mg Documented By: DIANA Nitroglycerin (Nitroglycerin 2% Ointment 30gm Tube) 1 inch EXT NOW STA Stop: 10/31/22 13:47 Last Admin: 10/31/22 14:15 Dose: 1 inch Documented By: DIANA Imaging Data Radiologist's Impression: Chest X-Ray 10/31/22 13:36 SINGLE VIEW CHEST CLINICAL HISTORY: Atypical chest pain FINDINGS: 2 AP, portable, upright chest radiographs are compared to study dated 07/10/2022 and correlated with chest CT dated 07/01/2022. The examination is deg raded by portable technique and apical lordotic positioning. The heart is enlarged noting atherosclerotic calcification of the thoracic aorta. The pulmonary vasculature is noncongested. Chronic interstitial thickening is similar to previous. There is bibasilar scarring/atelectasis. No airspace conso lidation or large pleural effusion is identified. A calcified granuloma seen in the right lower lobe. No pneumothorax is seen. The skeletal structures are osteopenic. The bony thorax is grossly intact. IMPRESSION: Cardiomegaly with no acute cardiopulmonary abnormality. ACT 112: Negative or not required by law. Electronically signed by: Evelio Hollis M.D. 10/31/2022 1:56 PM Discharge Plan Visit Data Chief Complaint: Chest Pain Stated Complaint: CHEST PAINS, ABOUT TO PASSOUT ED Provider: Evelio Evans Discharge Problem: Precordial chest pain, Near syncope Patient Disposition: Admitted As Inpatient Condition: Good Discharge Instructions Interventions: ED Discharge Assessment Last Done: 10/31/22 16:23
--- NOTE | 2022-10-31 13:57 | XRay Report ---
SINGLE VIEW CHEST CLINICAL HISTORY: Atypical chest pain FINDINGS: 2 AP, portable, upright chest radiographs are compared to study dated 07/10/2022 and correl ated with chest CT dated 07/01/2022. The examination is degraded by portable technique and apical sabiha dotic positioning. The heart is enlarged noting atherosclerotic calcification of the thoracic aorta. The pulmonary vasculature is noncongested. Chronic interstitial thickening is similar to previous. Th ere is bibasilar scarring/atelectasis. No airspace consolidation or large pleural effusion is identif ied. A calcified granuloma seen in the right lower lobe. No pneumothorax is seen. The skeletal struct ures are osteopenic. The bony thorax is grossly intact. IMPRESSION: Cardiomegaly with no acute cardiopulmonary abnormality. ACT 112: Negative or not required by law. Electronically signed by: Evelio Hollis M.D. 10/31/2022 1:56 PM
[2022-10-31 14:32] LABS: Basophils # (auto) 0.06 K/uL (0-0.2); Basophils % (auto) 1.1 %; Eosinophils # (auto) 0.15 K/uL (0-0.50); Eosinophils % (auto) 2.7 %; Hematocrit (blood only) 42.1 % (42.0-52.0); Hemoglobin 14.2 g/dl (14.0-18.0); Immature Granulocytes # (auto) 0.07 K/uL (0.01-0.20); Immature Granulocytes % (auto) 1.2 %; Lymphocytes # (auto) 1.19 K/uL (1.2-3.4); Lymphocytes % (auto) 21.1 %; Mean Corpuscular Hemoglobin 31.2 pg (25.0-34.0); Mean Corpuscular Hgb Conc 33.7 g/dL (32.0-36.0); Mean Corpuscular Volume 92.5 fL (80.0-100.0); Monocytes # (auto) 0.66 K/uL (0.11-0.59); Monocytes % (auto) 11.7 %; Neutrophils # (auto) 3.51 K/uL (1.40-6.50); Neutrophils % (auto) 62.2 %; Platelet Count 248 K/uL (130-400); RDW Coefficient of Variation 13.4 % (11.5-14.5); RDW Standard Deviation 45.3 fL (36.4-46.3); Red Blood Count 4.55 M/uL (4.70-6.10); White Blood Count 5.64 K/ul (4.8-10.8)
[2022-10-31 14:51] LABS: Alanine Aminotransferase 10 U/L (7-52); Albumin Globulin Ratio 1.4 (0.9-2); Alkaline Phosphatase 63 U/L (34-104); Anion Gap 6 (3-11); Aspartate Aminotransferase 15 U/L (13-39); Bilirubin,Total 0.5 mg/dl (0.2-1.0); Blood Urea Nitrogen 12 mg/dl (6-23); Carbon Dioxide 28 mmol/L (21-32); Chloride 105 mmol/L (98-107); Est GFR (Non-African American) 48.3 ml/min; Globulin 2.9 gm/dl (2.5-4.0); Glucose 92 mg/dl (70-99(Fasting)); Lipase 10 U/L (11-82); Magnesium 2.3 mg/dl (1.7-2.4); Potassium 4.2 mmol/L (3.5-5.1); Sodium 139 mmol/L (136-145); Total Protein 6.9 gm/dl (6.0-8.3)
[2022-10-31 14:56] LABS: Troponin I High Sensitivity 6.3 pg/ml (0-20)
[2022-10-31 15:00] LABS: INR 1.1 (0.9-1.1); Partial Thromboplastin Ratio 1.1; Partial Thromboplastin Time 29.9 Seconds (21.0-31.0); Prothrombin Time 11.3 Seconds (9.0-12.0)
--- NOTE | 2022-10-31 15:42 | History & Physical Report ---
Date of Service October 31, 2022 Assessment & Plan (1) Dizziness: Plan: This is more of his acute issue than the chest pain. He describes it as difficulty focusing and a feeling like he is going to pass out. He denies vertigo. He does report being unbalanced but feels this is a separate issue. Will monitor on telemetry for arrhythmia and consult cardiology to assess loop recorder Orthostatics qshift TTE (2) Chest pain: Plan: Chest pain rule out OK - low likelihood since he has had similar pains for years with non-obstructive coronary artery disease on cath on December 2021 It it concerning that it is getting more frequent and increased duration but given some episodes last for an hour without a troponin elevation ACS seems unlikely Will trend troponins. TTE Consult cardiology Alternatively does not fit well with a GI cause either given random onset but not previously been evaluated for GERD/gastritis/esophageal spasm. Will give IV famotidine to see if this has any effect. ?chest tightness related to reactive airway disease, no PFTs no file but prescribed both Breo Ellipta and duonebs in the past which he does not use. Consider trial of duoneb if chest pain reoccurs. (3) Acute on chronic systolic CHF (congestive heart failure): Plan: Increased leg edema. Increased shortness of breath on exertion per family but denied by patient. Increased BNP. Will diurese with Lasix 40mg IV daily (first does now) Monitor for hypotension given dizziness as above. TTE Strict I&Os - if excessive oral intake will place fluid restriction Daily weights (4) Exertional shortness of breath: Plan: Likely underestimates his shortness of breath per family Likely multifactorial with CHF (treatment as above), suspect some reactive airway disease given prior inhaler prescription which he does not use (COPD mentioned in previous notes but no PFTs on file and patient denies this to me), CURTIS (which he does not treat) (5) HTN (hypertension): Plan: Continue metoprolol, lasix as above (6) History of pulmonary embolism: Plan: Continue Eliquis (7) Obstructive sleep apnea: Plan: Mild on sleep study in April 2022 Patient does not use CPAP. Not interested in using CPAP here. (8) Peripheral neuropathy: Plan: Patient reports unknown cause - consider further workup as outpatient with neurology Historically B12 levels < 400. Recommend supplementation for this. (9) Paroxysmal atrial fibrillation: Plan: Currently in NSR Anticoagulation with Eliquis Continue rhythm control with amiodarone Plan VTE Prophylaxis - Eliquis Diet - heart healthy Disposition - observation status to PCU Admission and Anticipated Discharge Date Admission Date: November 01, 2022 History of Present Illness Chief Complaint: Dizziness and chest pain Primary Care Provider: Sylvie Clarke MD Patel Fink is an 82 year old male who presents to the ER with chest pain and dizziness. Very difficult to get a good history from the patient due to the vagueness of his symptoms. He describes substernal chest pain the has been intermittently ongoing for years. It has more recently has been increasing in frequency and duration lasting for 15 minutes to and hour multiple times through the day. Occurs at random times and it doesn't matter what he is doing. Not positional, inspirational or exertional. No associated shortness of breath, diaphoresis or nausea. He was having similar characteristic pain when he had his cardiac cath in December 2021 showing non obstructive coronary artery disease. The dizziness is the main reason he came to the ER. This is a new symptom getting worse over the last week. He describes it as his eyes not being able to focus properly and feeling like he is going to pass out. He feels "bad" when he stands up and cannot walk straight away but he reports that is a different sensation to his current dizziness. He is unclear whether the dizziness is related to the chest pain, initially telling me they were occurring at the same time but later does not think they are related. His describes one of these episode he had yesterday with him sudden falling to the side and saying he felt like he was going to pass out. He denies any room spinning sensation. He has also noticed his leg swelling getting worse over the last month. Unknown if he has gained weight. His has also notived him getting progressively more short of breath although this is denied by the patient who feel he could walk half a mile without stopping. In the ER EKG showed normal sinus rhythm without ischemic changes. Initial troponin was negative. He was referred to medicine for admission and ongoing management of exertional chest pain (although he denies the exertional part to me) and near syncope. Allergies Allergy/AdvReac Type Severity Reaction Status Date / Time aspirin Allergy Severe HIVES Verified 10/31/22 15:37 celecoxib [From Celebrex] Allergy Severe hives Verified 10/31/22 15:37 Iodinated Contrast Media Allergy Unknown Contrast Verified 10/31/22 15:37 media - unknown rxn iodine Allergy Unknown Unknown Verified 10/31/22 15:37 tramadol AdvReac Severe dizziness, Verified 10/31/22 15:37 nausea, leg weakness Home Medications Medication Instructions Recorded Confirmed Type syringe with needle, safety 3 mL #100 ea 12/09/20 10/26/22 Rx 23 gauge x 1" (BD Safety-Bren Detachable Needle) acetaminophen 500 mg tablet 500 mg PO BID PRN Pain, Mild 11/07/21 10/31/22 History (Tylenol Extra Strength) epinephrine 0.3 mg/0.3 mL 0.3 mg (0.3 mL) IM UD PRN 11/07/21 10/31/22 Rx injection, auto-injector (EpiPen) Anaphylaxis #1 ea albuterol sulfate 90 mcg/actuation 2 puff inhalation Q6H PRN 11/17/21 10/31/22 Rx aerosol inhaler Shortness Of Breath Or Wheezing #18 grams fluticasone furoate 100 1 inh inhalation DAILY #60 ea 11/17/21 10/31/22 Rx mcg-vilanterol 25 mcg/dose inhalation powder (Breo Ellipta) tamsulosin 0.4 mg capsule (Flomax) 0.4 mg PO QAM #90 caps 07/10/22 10/31/22 Rx furosemide 20 mg tablet (Lasix) 40 mg PO QAM #60 tabs 07/24/22 10/31/22 Rx finasteride 5 mg tablet 5 mg PO QAM #90 tabs 08/15/22 10/31/22 Rx amiodarone 200 mg tablet 200 mg PO QAM #30 tabs 08/17/22 10/31/22 Rx metoprolol succinate 100 mg 50 mg PO DAILY #90 tabs 08/17/22 10/31/22 Rx tablet,extended release 24 hr apixaban 5 mg tablet (Eliquis) 5 mg PO BID #180 tabs 09/11/22 10/31/22 Rx phenazopyridine 200 mg tablet 200 mg PO TID PRN BLADDER PAIN 10/31/22 10/31/22 History (Pyridium) Past Med/Surg History Medical History Acute exacerbation of CHF (congestive heart failure) Ambulatory dysfunction Enlarged prostate Hearing deficit [employer]GE History of atrial fibrillation Follows with Dr. Hutton. On Eliquis. History of DVT (deep vein thrombosis) RLE post op TKA approx 20 years ago. Treated with AC. History of pulmonary embolism approx 20 years ago post op Rt TKA History of squamous cell carcinoma HTN (hypertension) Mitral regurgitation Osteoarthritis Osteoporosis Polyneuropathy Sleep apnea no device Surgical History History of cataract surgery History of knee replacement Rt History of loop recorder History of squamous cell carcinoma excision History of tonsillectomy History of transurethral resection of prostate Family History Father Prostate cancer Cancer Prostate Mother Breast cancer Colorectal cancer Other No family history of adverse response to anesthesia No significant family history Denies family history of Ovarian cancer Myocardial infarction Social History Smoking Status: Never smoker Second Hand Exposure: No; Hx Alcohol Use: No Hx Substance Use: No Preferred Language: Belarusian Communication Ability: Effective Pot Filler Required: No Beliefs That Will Affect Care: None marital status: Current Living Situation: Spouse Current Living Situation Comment: lives in farmhouse with current occupational status: retired Other Information That Helps Us Care for You: No Feels Safe at Home: Yes Safety Concerns: Feels Safe At This Time Childhood Exposure to Second-Hand Smoke: No Dental Care, Regularly: No Physical Activity Frequency: Does not Exercise Seatbelt Use: always Sunscreen Use: Yes Assistive Devices: None Review of Systems Review of Systems: All systems reviewed & are unremarkable except as noted in HPI & below Physical Exam Constitutional: well developed; + not well nourished and no acute distress Eyes: + anicteric sclerae; normal pupil size ENMT: external ear and nose normal, oropharynx normal Neck: trachea midline, no thyromegaly Respiratory: normal respiratory effort; no respiratory distress Auscultation: + diminished lung sounds (throughout); breath sounds present, no crackles, no rales, no rhonchi and no wheezes Cardiovascular: Rate/Rhythm: regular rate and regular rhythm Heart Sounds: no murmur Extremities: normal capillary refill and + pedal edema (2+ b/l pitting edema); no calf tenderness Gastrointestinal (Abdomen): normal bowel sounds, soft, nontender, no hepatosplenomegaly Musculoskeletal: no cyanosis or clubbing, extremities motor strength 5/5 Skin: no rashes, warm and dry Neurologic: moves all extremities and awake; not confused Psychiatric: A+Ox3, euthymic affect Genitourinary: no CVA tenderness Results & Data Results & Data ([facility]) Vital Signs (Past 12 Hours) Vital Signs Temp Pulse Pulse Resp BP BP Pulse Ox 10/31/22 13:48 61 10/31/22 13:48 96 10/31/22 13:47 60 18 145/75 H 97 10/31/22 13:30 36.6 C 69 20 174/89 H 94 O2 Del Method 10/31/22 13:48 10/31/22 13:48 Room Air 10/31/22 13:47 Room Air 10/31/22 13:30 Room Air Laboratory Results Abnormal lab results 10/31/22 10/31/22 Range/Units 14:09 14:09 RBC 4.55 L (4.70-6.10) M/uL MPV 9.0 L (9.4-12.4) fL Lymph # (Auto) 1.19 L (1.2-3.4) K/uL [place] # (Auto) 0.66 H (0.11-0.59) K/uL BUN/Creatinine Ratio 9.0 L (10-20) Lipase 10 L (11-82) U/L Diagnostic Findings SINGLE VIEW CHEST CLINICAL HISTORY: Atypical chest pain FINDINGS: 2 AP, portable, upright chest radiographs are compared to study dated 07/10/2022 and correlated with chest CT dated 07/01/2022. The examination is degraded by portable technique and apical lordotic positioning. The heart is enlarged noting atherosclerotic calcification of the thoracic aorta. The pulmonary vasculature is noncongested. Chronic interstitial thickening is similar to previous. There is bibasilar scarring/atelectasis. No airspace consolidation or large pleural effusion is identified. A calcified granuloma seen in the right lower lobe. No pneumothorax is seen. The skeletal structures are osteopenic. The bony thorax is grossly intact. IMPRESSION: Cardiomegaly with no acute cardiopulmonary abnormality. Medications Administered ER Medications Given: Nitroglycerin 1 inch paste ECG Indication: chest pain Rate (beats per minute): 62 Rhythm: normal sinus Findings: + LAFB Comparison ECG Date: from (July 10, 2022) Change: the following changes noted (Left anterior fascicular block) Code Status & VTE Plan Code Status Full VTE Prophylaxis Plan VTE Prophylaxis will be ordered: Yes PG Care Time/CCT Total # of Minutes Spent Total Time Spent with Patient: Total time spent is greater than 50% in coordination of care (as documented) at patient's floor/unit and/or counseling patient: Coding Level of Care Code 18752 INT INP/OBS CARE 3/75MIN Diagnoses Dizziness R42 Chest pain R07.9 Chest pain type: unspecified Acute on chronic systolic CHF (congestive heart failure) I50.23 Exertional shortness of breath R06.02 HTN (hypertension) I10 History of pulmonary embolism Z86.711 Obstructive sleep apnea G47.33 Peripheral neuropathy G62.9 Paroxysmal atrial fibrillation I48.0 (2) Chest pain Chest pain type: unspecified Qualified Code(s): R07.9 - Chest pain, unspecified
[2022-10-31] MEDS ORDERED: FAMOTIDINE 20 MG in SYRINGE 3 ML IV STA (15:52)
[2022-10-31] MEDS ORDERED: FAMOTIDINE 20MG/5ML IV PUSH IV STA (16:01)
[2022-10-31] MEDS ORDERED: ONDANSETRON INJ 2 MG/ML 2 ML VIAL IV PRN (16:43)
[2022-10-31] MEDS ORDERED: ACETAMINOPHEN 325 MG TAB PO PRN (16:43)
[2022-10-31] MEDS ORDERED: NITROGLYCERIN SL 0.4 MG/TAB TAB SL PRN (16:43)
[2022-10-31] MEDS: FUROSEMIDE 40 MG/4 ML VIAL IV SCH (17:50)
[2022-10-31] MEDS: APIXABAN 5 MG TABLET PO SCH (20:26)
[2022-11-01 04:37] LABS: Basophils # (auto) 0.05 K/uL (0-0.2); Basophils % (auto) 0.8 %; Eosinophils # (auto) 0.17 K/uL (0-0.50); Eosinophils % (auto) 2.6 %; Hematocrit (blood only) 38.2 % (42.0-52.0); Hemoglobin 12.7 g/dl (14.0-18.0); Immature Granulocytes # (auto) 0.07 K/uL (0.01-0.20); Immature Granulocytes % (auto) 1.1 %; Lymphocytes % (auto) 20.2 %; Mean Corpuscular Hemoglobin 30.7 pg (25.0-34.0); Mean Corpuscular Hgb Conc 33.2 g/dL (32.0-36.0); Mean Corpuscular Volume 92.3 fL (80.0-100.0); Mean Platelet Volume 8.7 fL (9.4-12.4); Monocytes # (auto) 0.67 K/uL (0.11-0.59); Monocytes % (auto) 10.4 %; Neutrophils # (auto) 4.16 K/uL (1.40-6.50); Neutrophils % (auto) 64.9 %; Platelet Count 210 K/uL (130-400); RDW Coefficient of Variation 13.3 % (11.5-14.5); RDW Standard Deviation 45.5 fL (36.4-46.3); Red Blood Count 4.14 M/uL (4.70-6.10); White Blood Count 6.42 K/ul (4.8-10.8)
[2022-11-01 04:45] LABS: BUN Creatinine Ratio 9.3 (10-20); Calcium 8.4 mg/dl (8.5-10.1); Chol HDL Ratio 5.8 (0-5); Creatinine Clr Calc Pharmacy 45.7 ml/min; Est GFR (African American) 44.5 ml/min; Est GFR (Non-African American) 38.4 ml/min; Magnesium 2.1 mg/dl (1.7-2.4)
[2022-11-01 08:15] LABS: Estimated Average Glucose 126 mg/dl
[2022-11-01] MEDS: APIXABAN 5 MG TABLET PO SCH ×2 (08:33→20:08)
[2022-11-01] MEDS: FUROSEMIDE 40 MG/4 ML VIAL IV SCH (08:34)
[2022-11-01] MEDS: TAMSULOSIN HCL 0.4 MG CAP PO SCH (08:34)
[2022-11-01] MEDS: AMIODARONE 200 MG TAB PO SCH (08:34)
[2022-11-01] MEDS: FINASTERIDE 5 MG TAB PO SCH (08:34)
[2022-11-01] MEDS: FLUTICASONE/VILANTEROL 100/25MCG 14 PUFFS/INHALER INH SCH (08:34)
[2022-11-01] MEDS ORDERED: METOPROLOL SUCC 50MG EXT REL TAB PO SCH (09:00)
[2022-11-01] MEDS ORDERED: FAMOTIDINE 20 MG in SYRINGE 3 ML IV SCH (09:00)
--- NOTE | 2022-11-01 12:05 | Hospitalist Progress Note ---
Date of Service November 01, 2022 Assessment & Plan (1) Dizziness: Plan: He describes it as difficulty focusing and a feeling like he is going to pass out. He denies vertigo. He does report being unbalanced but feels this is a separate issue. This is most liklely due to bradycardia, his heart rate has been in the 50's here in the hopsital His pacemaker was interrogated in the past couple of weeks and found to be working well His last 2 d ECHO done 3 months ago showed EF55-60% and no structural heart abnormalities or wma. Repeat is pending (2) Chest pain: Plan: Chest pain rule out [place] - low likelihood since he has had similar pains for years with non-obstructive coronary artery disease on cath on December 2021 It it concerning that it is getting more frequent and increased duration but given some episodes last for an hour without a troponin elevation ACS seems unlikely Will trend troponins. TTE Consult cardiology Alternatively does not fit well with a GI cause either given random onset but no t previously been evaluated for GERD/gastritis/esophageal spasm. Will give IV famotidine to see if this has any effect. ?chest tightness related to reactive airway disease, no PFTs no file but prescri bed both Breo Ellipta and duonebs in the past which he does not use. Consider trial of duoneb if chest pain reoccurs. (3) Acute on chronic systolic CHF (congestive heart failure): Plan: Increased leg edema. Increased shortness of breath on exertion per family but denied by patient. Increased BNP. Will diurese with Lasix 40mg IV daily (first does now) Monitor for hypotension given dizziness as above. TTE Strict I&Os - if excessive oral intake will place fluid restriction Daily weights (4) Exertional shortness of breath: Plan: Likely underestimates his shortness of breath per family Likely multifactorial with CHF (treatment as above), suspect some reactive airway disease given prior inhaler prescription which he does not use (COPD mentioned in previous notes but no PFTs on file and patient denies this to me), CURTIS (which he does not treat) (5) HTN (hypertension): Plan: Continue metoprolol, lasix as above (6) History of pulmonary embolism: Plan: Continue Eliquis (7) Obstructive sleep apnea: Plan: Mild on sleep study in April 2022 Patient does not use CPAP. Not interested in using CPAP here. (8) Peripheral neuropathy: Plan: Patient reports unknown cause - consider further workup as outpatient with neurology Historically B12 levels < 400. Recommend supplementation for this. (9) Paroxysmal atrial fibrillation: Plan: Currently in NSR Anticoagulation with Eliquis Continue rhythm control with amiodarone Plan VTE Prophylaxis - Eliquis Diet - heart healthy Disposition - observation status to PCU Admission and Anticipated Discharge Date Admission Date: October 31, 2022 Subjective patient seen and examined, said his diszzines has resolved, denies chest pain Review of Systems Review of Systems: All systems reviewed are negative, apart from the ones contained in the history. Physical Exam Physical Exam: The patient is awake, alert and oriented 3, well developed and well nourished, normocephalic and atraumatic, lying in bed and in no acute distress. HEENT--PERRL, EOMI, mucous membranes and oropharynx mildly dry Neck--supple. No JVD. No bruits. Thyroid normal, trachea midline, no adenopathy. Heart--normal S1 and S2. No murmurs, rubs or gallops. Lungs--clear bilaterally, no respiratory distress, no accessory muscle use. Abdomen--normal bowel sounds and soft. Mild epigastric and left sided abdominal pain Extremities--trace leg edema. Dermatologic--normal skin turgor, normal color, no abnormal lymph nodes, no rash. Neurologic--cranial nerves II through XII grossly intact. Rheumatologic--normal range of motion. Psychiatric--normal affect. Results & Data Results & Data Vital Signs (Past 12 Hours) Vital Signs Temp Pulse Pulse Resp BP Pulse Ox O2 Del Method 11/01/22 08:00 55 L 11/01/22 07:36 97.9 F 57 L 18 118/73 92 Room Air 11/01/22 02:39 97.9 F 20 95 Room Air PG Care Time/CCT Total # of Minutes Spent Total Time Spent with Patient: Total time spent is greater than 50% in coordination of care (as documented) at patient's floor/unit and/or counseling patient: Coding Level of Care Code 13462 SUB INP/OBS CARE 2/35MIN Diagnoses Dizziness R42 Chest pain R07.9 Chest pain type: unspecified Acute on chronic systolic CHF (congestive heart failure) I50.23 Exertional shortness of breath R06.02 HTN (hypertension) I10 History of pulmonary embolism Z86.711 Obstructive sleep apnea G47.33 Peripheral neuropathy G62.9 Paroxysmal atrial fibrillation I48.0 Time Spent (min) 35 (2) Chest pain Chest pain type: unspecified Qualified Code(s): R07.9 - Chest pain, unspecified
--- NOTE | 2022-11-01 16:38 | XCELERA ---
[id number]
--- NOTE | 2022-11-01 17:14 | Cardiology Consultation ---
Date of Consultation November 01, 2022 Assessment & Plan (1) Precordial chest pain: (2) Dizziness: (3) Sinus bradycardia: (4) HTN (hypertension): (5) Paroxysmal atrial fibrillation: (6) Near syncope: (7) CAD (coronary artery disease): Plan ASSESSMENT/PLAN: 1. Chest pain: Unclear if truly chest pain versus epigastric pain based on his demonstrated location of discomfort. Chronic and stable symptom for many years. Nonobstructive CAD on 12/28/2021. Had prolonged episode on the day prior to arrival with normal high sensitivity troponins. Chest pain appears noncardiac in nature. Defer further evaluation for noncardiac chest pain 2 primary hospitalist service. 2. Orthostatic hypotension/dizziness: Noted to have orthostatic hypotension here when getting from a seated position. Reproducible symptom at home, chronically. Recommended that he remain well hydrated. Recommended compression stockings. Discontinue metoprolol. May need to reduce diuretic dose as an outpatient. Recommend discontinuation of intravenous diuretic year as he does not appear to be hypervolemic and his creatinine increased today from baseline. 3. Bradycardia: Known to have issues with bradycardia in the past. Has demonstrated heart rates in the 30s to 40s at home via loop recorder interrogation. Discontinue metoprolol. If continues with significant bradycardia, would recommend reduction of amiodarone. May require pacemaker in the future, but would first alter medications and re-evaluate. 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 4. Paroxysmal atrial fibrillation/flutter: Continue anticoagulation for stroke risk reduction. Creatinine currently greater than 1.5 higher than baseline and therefore would continue usual dose of Eliquis. Continue amiodarone for now as above. Monitor TSH while on amiodarone, as well as transaminase levels. TSH will be ordered for tomorrow. 5. CAD: No definite angina. Describes chronic chest pain with stable pattern. Has underwent cardiac catheterization within the past year without obstructive CAD. 20 minutes episode day prior to arrival with normal high sensitivity troponin levels. Chest pain likely noncardiac in nature. Recommend high- intensity statin therapy if no contraindication. 6. Near syncope: Likely due to orthostatic hypotension. Bradycardia may be contributing, especially with blood pressure decline when initially standing. Compression stockings. Remain well hydrated. Discontinue beta-samm. May need to reduce diuretic. Change positions slowly. 7. Hypertension: Has history of hypertension but blood pressure has been mostly normotensive during this hospital stay. Adjusting medications due to symptomatic orthostatic hypotension as above. 8. Disposition: Will notify his primary senior industrial engineer, Dr. Hutton. Plan of care communicated to primary hospitalist, Dr. Ly. Cardiology will continue to follow. Today's visit was 65 minutes in duration, which includes [id number] time, reviewing multiple records as outlined above, coordinating care, and completing documentation. Thank you for allowing me to participate in the care of your patient. Please call for any other questions or concerns. Sincerely, Mike Eid M.D. History of Present Illness Reason for Consultation: "Dizziness on standing ?cardiac arrhythmia, chest pain" Requesting Physician: Dr. Thomas Attending Physician: Odessa Ly MD History of Present Illness Mr. Fink is a very pleasant 82-year-old gentleman with a history significant for paroxysmal atrial fibrillation, hypertension, nonobstructive CAD, DVT with PE, neuropathy, and loop recorder implantation. His primary senior industrial engineer is Dr. Hutton. He has chronically had chest discomfort and has had issues with syncope and near-syncope. He also has a history of PVCs and has undergone implantation of loop recorder. According to his most recent electrophysiology outpatient visit on 09/25/2022, there were no patient activated episodes on loop recorder. Apparently there had been a history of bradycardia and sinus arrest but none since the new year. He has had the following studies/procedures: 1. Loop recorder implantation 05/24/2020. 2. PFT's 09/12/2021: Minimal obstructive lung defect. Mild restrictive defect. Mildly decreased diffusing capacity. 3. Cardiac catheterization 12/28/2021: Distal left main 40%. Mid LAD 40-50%. LVEDP 7. No . 4. Cardioversion 07/06/2022: Atrial flutter converted to atrial fibrillation, which was then converted to sinus rhythm. He was admitted on 10/31/2022 after presenting with dizziness and chest pain. He states his chest pain has been intermittently occurring for years. When discussing his chest discomfort, he points to his epigastric area. He states it feels like a red hot poker. He describes it as a jab lasting approximately 1 second or so. He then later stated that he has had episodes up to 20 minutes when walking from room to room in his home. He denies any specific trigger however and has not noted any alleviating factor. Prior to presentation, he had a funny feeling in his abdomen to his neck. He felt near syncopal after getting up from a seated position. He states that when he stands up from a seated position, he will experience lightheaded and dizzy sensations. He typically stand still for a while until his dizziness resolves. He states that this is not a new issue. He has chronic lower extremity swelling. He denies melena, hematochezia, hematuria, or palpitations. He reports having syncope in the past. 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 He then stood and had a syncopal episode, fracturing his neck. His last episode of syncope was last year while upright, ambulating with a walker. He states that he drinks plenty of fluid. Nursing staff checked orthostatic vital signs prior to his consultation this morning. She reported a supine blood pressure of 153/63, sitting 146/80, and standing 127/73, while reporting dizziness upon standing. Heart rate remained in the 60s. His loop recorder was interrogated and he has been experiencing episodes of bradycardia, even during the daytime with heart rates reported as low as 30s to 40s and a 3 second pause on 10/29/2022, once again during the day. He reported taking metoprolol succinate 25 mg daily at home, not listed dose of 50 mg. Review of systems: As above. Review of systems otherwise negative/unremarkable. Family history: No known premature CAD. Social history: He denies smoking, alcohol, or drug abuse. He lives at home with his . Has 3 children. His granddaughter presented to the bedside near the end of today's consultation. 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 Allergies Allergy/AdvReac Type Severity Reaction Status Date / Time aspirin Allergy Severe HIVES Verified 10/31/22 15:37 celecoxib [From Celebrex] Allergy Severe hives Verified 10/31/22 15:37 Iodinated Contrast Media Allergy Unknown Contrast Verified 10/31/22 15:37 media - unknown rxn iodine Allergy Unknown Unknown Verified 10/31/22 15:37 tramadol AdvReac Severe dizziness, Verified 10/31/22 15:37 nausea, leg weakness Home Medications Medication Instructions Recorded Confirmed Type syringe with needle, safety 3 mL #100 ea 12/09/20 10/26/22 Rx 23 gauge x 1" (BD Safety-Bren Detachable Needle) acetaminophen 500 mg tablet 500 mg PO BID PRN Pain, Mild 11/07/21 10/31/22 History (Tylenol Extra Strength) epinephrine 0.3 mg/0.3 mL 0.3 mg (0.3 mL) IM UD PRN 11/07/21 10/31/22 Rx injection, auto-injector (EpiPen) Anaphylaxis #1 ea albuterol sulfate 90 mcg/actuation 2 puff inhalation Q6H PRN 11/17/21 10/31/22 Rx aerosol inhaler Shortness Of Breath Or Wheezing #18 grams fluticasone furoate 100 1 inh inhalation DAILY #60 ea 11/17/21 10/31/22 Rx mcg-vilanterol 25 mcg/dose inhalation powder (Breo Ellipta) tamsulosin 0.4 mg capsule (Flomax) 0.4 mg PO QAM #90 caps 07/10/22 10/31/22 Rx furosemide 20 mg tablet (Lasix) 40 mg PO QAM #60 tabs 07/24/22 10/31/22 Rx finasteride 5 mg tablet 5 mg PO QAM #90 tabs 08/15/22 10/31/22 Rx amiodarone 200 mg tablet 200 mg PO QAM #30 tabs 08/17/22 10/31/22 Rx metoprolol succinate 100 mg 50 mg PO DAILY #90 tabs 08/17/22 10/31/22 Rx tablet,extended release 24 hr apixaban 5 mg tablet (Eliquis) 5 mg PO BID #180 tabs 09/11/22 10/31/22 Rx phenazopyridine 200 mg tablet 200 mg PO TID PRN BLADDER PAIN 10/31/22 10/31/22 History (Pyridium) Patient History Medical History Ambulatory dysfunction CAD (coronary artery disease) Enlarged prostate Hearing deficit BL JUDGE History of atrial fibrillation Follows with Dr. Hutton. On Eliquis. History of DVT (deep vein thrombosis) RLE post op TKA approx 20 years ago. Treated with AC. History of pulmonary embolism approx 20 years ago post op Rt TKA History of squamous cell carcinoma HTN (hypertension) Mitral regurgitation Osteoarthritis Osteoporosis Polyneuropathy Sleep apnea no device Surgical History History of cataract surgery History of knee replacement Rt History of loop recorder History of squamous cell carcinoma excision History of tonsillectomy History of transurethral resection of prostate Family History Father Prostate cancer Cancer Prostate Mother Breast cancer Colorectal cancer Other No family history of adverse response to anesthesia No significant family history Denies family history of Ovarian cancer Myocardial infarction Social History Smoking Status: Never smoker Second Hand Exposure: No; Hx Alcohol Use: No Hx Substance Use: No Preferred Language: Citizen [place] Communication Ability: Effective Window Display Designer Required: No Beliefs That Will Affect Care: None marital status: Current Living Situation: Spouse Current Living Situation Comment: lives in farmhouse with current occupational status: retired Other Information That Helps Us Care for You: No Feels Safe at Home: Yes Safety Concerns: Feels Safe At This Time Childhood Exposure to Second-Hand Smoke: No Dental Care, Regularly: No Physical Activity Frequency: Does not Exercise Seatbelt Use: always Sunscreen Use: Yes Assistive Devices: Cane Physical Exam Physical Exam: Gen.: No acute distress. Alert. HEENT: Anicteric sclera. Neck: No JVD. No bruits. Normal carotid upstrokes bilaterally. Cardiac: No ventricular heave. Regular. Normal S1-S2. No murmurs, rubs, or gallops. Pulmonary: Clear to auscultation bilaterally without wheezes, rales, or rhonchi. Abdomen: Soft, nontender, nondistended, with normoactive bowel sounds. No bruits noted. Extremities: 2+ radial pulses bilaterally. 2+ posterior tibialis pulses bilaterally. Right leg larger than left (s/p right DVT in past). Trace bilateral lower extremity edema, right > left leg. No cyanosis. Psychiatric: Affect appears appropriate. Results & Data Vital Signs (Past 12 Hours) Vital Signs Temp Pulse Pulse Resp BP Pulse Ox O2 Del Method 11/01/22 16:47 36.6 C 58 L 20 111/67 94 Room Air 11/01/22 16:00 54 L 11/01/22 12:20 36.4 C L 56 L 18 114/69 93 Room Air 11/01/22 08:00 55 L 11/01/22 07:36 36.6 C 57 L 18 118/73 92 Room Air Intake & Output 10/30/22 10/31/22 11/01/22 11/02/22 06:59 06:59 06:59 06:59 Intake Total 475 / 475 750 / 750 Balance 475 / 475 750 / 750 Weight 259 lb 11.272 oz 259 lb 11.272 oz Laboratory Results Laboratory Results - last 24 hr 10/31/22 11/01/22 11/01/22 22:54 04:15 04:15 WBC 6.42 RBC 4.14 L Hgb 12.7 L Hct 38.2 L MCV 92.3 MCH 30.7 MCHC 33.2 RDW Std Deviation 45.5 RDW Coeff of Castillo 13.3 Plt Count 210 MPV 8.7 L Immature Gran % (Auto) 1.1 Neut % (Auto) 64.9 Lymph % (Auto) 20.2 [place] % (Auto) 10.4 Eos % (Auto) 2.6 Baso % (Auto) 0.8 Neut # (Auto) 4.16 Lymph # (Auto) 1.30 [place] # (Auto) 0.67 H Eos # (Auto) 0.17 Baso # (Auto) 0.05 Immature Gran # (Auto) 0.07 Sodium Potassium Chloride Carbon Dioxide Anion Gap BUN Creatinine Est Cr Clr Drug Dosing Est GFR ( Amer) Est GFR (Non-Af Amer) BUN/Creatinine Ratio Glucose Estimat Average Glucose Hemoglobin A1c Calcium Magnesium Troponin I High Sens 6.6 Triglycerides Cholesterol LDL Cholesterol, Calc VLDL Cholesterol, Calc HDL Cholesterol Cholesterol/HDL Ratio Vitamin B12 181 11/01/22 11/01/22 11/01/22 04:15 04:15 04:15 WBC RBC Hgb Hct MCV MCH MCHC RDW Std Deviation RDW Coeff of Castillo Plt Count MPV Immature Gran % (Auto) Neut % (Auto) Lymph % (Auto) [place] % (Auto) Eos % (Auto) Baso % (Auto) Neut # (Auto) Lymph # (Auto) [place] # (Auto) Eos # (Auto) Baso # (Auto) Immature Gran # (Auto) Sodium 138 Potassium 4.0 Chloride 103 Carbon Dioxide 29 Anion Gap 6 BUN 15 Creatinine 1.62 H Est Cr Clr Drug Dosing 45.7 Est GFR ( Amer) 44.5 Est GFR (Non-Af Amer) 38.4 BUN/Creatinine Ratio 9.3 L Glucose 105 H Estimat Average Glucose 126 Hemoglobin A1c 6.0 H Calcium 8.4 L Magnesium 2.1 Troponin I High Sens 6.2 Triglycerides 164 H Cholesterol 204 H LDL Cholesterol, Calc 136 VLDL Cholesterol, Calc 33 H HDL Cholesterol 35 Cholesterol/HDL Ratio 5.8 H Vitamin B12 11/01/22 10:28 WBC RBC Hgb Hct MCV MCH MCHC RDW Std Deviation RDW Coeff of Castillo Plt Count MPV Immature Gran % (Auto) Neut % (Auto) Lymph % (Auto) [place] % (Auto) Eos % (Auto) Baso % (Auto) Neut # (Auto) Lymph # (Auto) [place] # (Auto) Eos # (Auto) Baso # (Auto) Immature Gran # (Auto) Sodium Potassium Chloride Carbon Dioxide Anion Gap BUN Creatinine Est Cr Clr Drug Dosing Est GFR ( Amer) Est GFR (Non-Af Amer) BUN/Creatinine Ratio Glucose Estimat Average Glucose Hemoglobin A1c Calcium Magnesium Troponin I High Sens 6.5 Triglycerides Cholesterol LDL Cholesterol, Calc VLDL Cholesterol, Calc HDL Cholesterol Cholesterol/HDL Ratio Vitamin B12 Diagnostic Findings Labs reviewed from 11/01/2022, notable for mild anemia, worsened renal function, normal magnesium, dyslipidemia, and normal high sensitivity troponin levels x 5. ECG personally reviewed 10/31/2022: Sinus 62 bpm. Left anterior fascicular block. Loop recorder interrogation records reviewed demonstrating bradycardia. Echo 11/01/2022: Hyperdynamic LV systolic function. EF > 70%. No regional wall motion abnormalities. Moderate LVH. Mild left atrial dilation. No significant valvular abnormalities. Telemetry personally reviewed: Sinus bradycardia in the 40s to 50s although heart rate was in the 60s this morning at the time of evaluation. History and Physical report reviewed. Cardiac catheterization report reviewed. Outpatient electrophysiology notes reviewed. Chest x-ray image from 10/31/2022 personally reviewed: No obvious infiltrate. Radiology interpreted as no acute cardiopulmonary abnormality. Medications Administered Current Inpatient Medications Acetaminophen (Acetaminophen 325 Mg Tab) 650 mg PO Q4H PRN PRN Reason: Pain or Fever Stop: 11/30/22 16:42 Amiodarone HCl (Amiodarone 200 Mg Tab) 200 mg PO QAM [facility] Stop: 12/01/22 08:59 Last Admin: 11/01/22 08:34 Dose: 200 mg Apixaban (Apixaban 5 Mg Tablet) 5 mg PO BID [facility] Stop: 11/30/22 20:59 Last Admin: 11/01/22 08:33 Dose: 5 mg Famotidine (Famotidine 20 Mg Tab) 20 mg PO QAM [facility] Stop: 12/02/22 08:59 Finasteride (Finasteride 5 Mg Tab) 5 mg PO QAM [facility] Stop: 12/01/22 08:59 Last Admin: 11/01/22 08:34 Dose: 5 mg Fluticasone/Vilanterol (Fluticasone/Vilanterol 100/25mcg 14 Puffs/Inhaler) 1 puffs INH DAILY [facility] Stop: 12/01/22 08:59 Last Admin: 11/01/22 08:34 Dose: 1 puffs Furosemide (Furosemide 40 Mg/4 Ml Vial) 40 mg IV QAM [facility] Stop: 11/30/22 17:44 Last Admin: 11/01/22 08:34 Dose: 40 mg Metoprolol Succinate (Metoprolol Succ 25mg Ext Rel Tab) 25 mg PO DAILY [facility] Stop: 12/02/22 08:59 Nitroglycerin (Nitroglycerin Sl 0.4 Mg/Tab Tab) 0.4 mg SL UD PRN PRN Reason: Chest Pain Stop: 11/30/22 16:42 Ondansetron HCl (Ondansetron Inj 2 Mg/Ml 2 Ml Vial) 4 mg IV Q6H PRN PRN Reason: Nausea Stop: 11/30/22 16:42 Tamsulosin HCl (Tamsulosin Hcl 0.4 Mg Cap) 0.4 mg PO QAM [facility] Stop: 12/01/22 08:59 Last Admin: 11/01/22 08:34 Dose: 0.4 mg PG Care Time/CCT Total # of Minutes Spent Total Time Spent with Patient: Total time spent is greater than 50% in coordination of care (as documented) at patient's floor/unit and/or counseling patient: Coding Level of Care Code 57737 INT INP/OBS CARE 2/55MIN Diagnoses Precordial chest pain R07.2 Dizziness R42 Sinus bradycardia R00.1 HTN (hypertension) I10 Paroxysmal atrial fibrillation I48.0 Near syncope R55 CAD (coronary artery disease) I25.10 Time Spent (min) 65
[2022-11-02 06:26] LABS: BUN Creatinine Ratio 13.4 (10-20); Calcium 8.9 mg/dl (8.5-10.1); Creatinine Clr Calc Pharmacy 51.4 ml/min; Est GFR (African American) 52.2 ml/min
[2022-11-02] MEDS: FLUTICASONE/VILANTEROL 100/25MCG 14 PUFFS/INHALER INH SCH (08:14)
[2022-11-02] MEDS: TAMSULOSIN HCL 0.4 MG CAP PO SCH (08:14)
[2022-11-02] MEDS: APIXABAN 5 MG TABLET PO SCH (08:14)
[2022-11-02] MEDS: AMIODARONE 200 MG TAB PO SCH (08:14)
[2022-11-02] MEDS: FINASTERIDE 5 MG TAB PO SCH (08:15)
[2022-11-02] MEDS ORDERED: FAMOTIDINE 20 MG TAB PO SCH (09:00)
[2022-11-02] MEDS ORDERED: METOPROLOL SUCC 25MG EXT REL TAB PO SCH (09:00)
--- NOTE | 2022-11-02 11:37 | Hospitalist Progress Note ---
Date of Service November 02, 2022 Assessment & Plan (1) Dizziness: Plan: Admitted on account of dizziness, which He describes as difficulty focusing and a feeling like he is going to pass out. He denies vertigo. This is most liklely due to bradycardia, and orthostatic hypotension, his heart rate has been in the 50's here in the hospital His pacemaker was interrogated in the past couple of weeks and found to be working well His last 2 d ECHO done 3 months ago showed EF55-60% and no structural heart abnormalities or wma. Repeat is similar His metoprolol has been discontinued (2) Chest pain: Plan: ACS has been ruled out NO ST changes on EKG, normal trops (3) Bradycardia: Plan: Patient has been having occassional bryson as noted by his drilling fluids specialist Will discontinue his metoprolol ECHO did not show any structural heart abnormality TSH is a bit elevated, may have an element of hypothyroidism Obtain T3, T4 cardiology on consult (4) Acute on chronic systolic CHF (congestive heart failure): Plan: Appears currently compensated Lasix has been discontinued Monitor I/O, daily weight (5) Exertional shortness of breath: Plan: Likely due to deconditioning (6) HTN (hypertension): Plan: Continue metoprolol, lasix as above (7) History of pulmonary embolism: Plan: Continue Eliquis (8) Obstructive sleep apnea: Plan: Mild on sleep study in April 2022 Patient does not use CPAP. Not interested in using CPAP here. (9) Peripheral neuropathy: Plan: Patient reports unknown cause - consider further workup as outpatient with neurology Historically B12 levels < 400. Recommend supplementation for this. (10) Paroxysmal atrial fibrillation: Plan: Currently in NSR Anticoagulation with Eliquis Continue rhythm control with amiodarone Plan VTE Prophylaxis - Eliquis Diet - heart healthy Disposition - observation status to PCU Admission and Anticipated Discharge Date Admission Date: October 31, 2022 Subjective patient seen and examined, no more episodes of dizziness and chest pain Review of Systems Review of Systems: All systems reviewed are negative, apart from the ones contained in the history. Physical Exam Physical Exam: The patient is awake, alert and oriented 3, well developed and well nourished, normocephalic and atraumatic, lying in bed and in no acute distress. HEENT--PERRL, EOMI, mucous membranes and oropharynx mildly dry Neck--supple. No JVD. No bruits. Thyroid normal, trachea midline, no adenopathy. Heart--normal S1 and S2. No murmurs, rubs or gallops. Lungs--clear bilaterally, no respiratory distress, no accessory muscle use. Abdomen--normal bowel sounds and soft. Mild epigastric and left sided abdominal pain Extremities--trace leg edema. Dermatologic--normal skin turgor, normal color, no abnormal lymph nodes, no rash. Neurologic--cranial nerves II through XII grossly intact. Rheumatologic--normal range of motion. Psychiatric--normal affect. Results & Data Results & Data Vital Signs (Past 12 Hours) Vital Signs Temp Pulse Pulse Resp BP Pulse Ox O2 Del Method 11/02/22 10:56 97.9 F 61 20 164/83 H 93 Room Air 11/02/22 08:00 54 L 11/02/22 07:50 98.2 F 51 L 18 127/65 93 Room Air 11/02/22 02:38 97.9 F 60 18 137/64 94 Room Air PG Care Time/CCT Total # of Minutes Spent Total Time Spent with Patient: Total time spent is greater than 50% in coordination of care (as documented) at patient's floor/unit and/or counseling patient: Coding Level of Care Code 61413 SUB INP/OBS CARE 2/35MIN Diagnoses Dizziness R42 Chest pain R07.9 Chest pain type: unspecified Bradycardia R00.1 Acute on chronic systolic CHF (congestive heart failure) I50.23 Exertional shortness of breath R06.02 HTN (hypertension) I10 History of pulmonary embolism Z86.711 Obstructive sleep apnea G47.33 Peripheral neuropathy G62.9 Paroxysmal atrial fibrillation I48.0 Time Spent (min) 35 (2) Chest pain Chest pain type: unspecified Qualified Code(s): R07.9 - Chest pain, unspecified
--- NOTE | 2022-11-02 13:31 | Cardiology Progress Note ---
Date of Service November 02, 2022 Assessment & Plan (1) Precordial chest pain: (2) Dizziness: (3) Sinus bradycardia: (4) HTN (hypertension): (5) Paroxysmal atrial fibrillation: (6) Near syncope: (7) CAD (coronary artery disease): Plan ASSESSMENT/PLAN: 1. Chest pain: this is his usual atypical chest pain. No recurrence. Not exertional. 2. Orthostatic hypotension/dizziness: This seems to be improved today. I think reducing his outpatient diuretic dose would also be reasonable. We will need to monitor for worsening edema, but he does have close follow-up in our clinic. 3. Bradycardia: He has had some lower heart rates at times. These have not correlated very well with any symptoms. We have gradually been reducing his beta-samm in the outpatient setting it would seem reasonable discontinue this altogether. Will continue the low-dose amiodarone at 200 mg daily. 4. Paroxysmal atrial fibrillation/flutter: He has maintained sinus rhythm since his cardioversion. Unclear this is produces significant change in his symptoms. However, at this point I think we will continue the amiodarone at 200 mg daily. Continue systemic anticoagulation. 5. CAD: We will continue aggressive secondary prevention. 6. Near syncope: Likely due to orthostatic hypotension. Bradycardia may be contributing, especially with blood pressure decline when initially standing. Compression stockings. Remain well hydrated. Discontinue beta-samm. reduce diuretic. Change positions slowly. 7. Hypertension: He appears have adequate control. 8. Disposition: He feels much better today. There was no significant bradycardia, pauses or heart block on his telemetry. I would feel comfortable sending him home today if he is ambulatory without symptoms. As noted above discontinue metoprolol and reduce Lasix to 20 mg daily. Admission and Anticipated Discharge Date Admission Date: October 31, 2022 Subjective this afternoon the patient claimed he feeling much better. He did not report significant dizziness or lightheadedness. He has been ambulatory to the bathroom. He had some hot visual changes yesterday and also appeared to have resolved. Review of Systems Review of Systems: per HPI Physical Exam Physical Exam: The patient is alert and oriented. Mood and affect appeared normal. He answered all questions appropriately. hard of hearing HEENT: Pupils are equal and reactive to light and accommodation. Extraocular movements are intact. The sclerae are anicteric. Neuro: Cranial nerves intact Lungs: Clear to auscultation bilaterally. He has good air movement without use of accessory muscles. No rales wheezes or rhonchi. Cardiac: Heart demonstrates a regular rate and rhythm. Normal S1 and S2. No murmurs on examination. Pulses: The patient has palpable radial pulses bilaterally that are equal in intensity Extremities: There was no evidence of hypoperfusion. There is no cyanosis or clubbing. mild lower extremity edema Skin: I did not appreciate any rashes on examination today. Results & Data Vital Signs (Past 12 Hours) Vital Signs Temp Pulse Pulse Resp BP Pulse Ox O2 Del Method 11/02/22 10:56 36.6 C 61 20 164/83 H 93 Room Air 11/02/22 08:00 54 L 11/02/22 07:50 36.8 C 51 L 18 127/65 93 Room Air 11/02/22 02:38 36.6 C 60 18 137/64 94 Room Air Laboratory Results Abnormal Lab Results 11/02/22 11/02/22 11/02/22 05:49 05:49 05:49 Sodium 138 Potassium 4.0 Chloride 101 Carbon Dioxide 30 Anion Gap 7 BUN 19 Creatinine 1.42 H Est Cr Clr Drug Dosing 51.4 Est GFR ( Amer) 52.2 Est GFR (Non-Af Amer) 45.0 BUN/Creatinine Ratio 13.4 Glucose 105 H Calcium 8.9 TSH 12.907 H Free T4 0.71 PG Care Time/CCT Total # of Minutes Spent Total Time Spent with Patient: Total time spent is greater than 50% in coordination of care (as documented) at patient's floor/unit and/or counseling patient: Coding Level of Care Code 12962 SUB INP/OBS CARE 2/35MIN Diagnoses Precordial chest pain R07.2 Dizziness R42 Sinus bradycardia R00.1 HTN (hypertension) I10 Paroxysmal atrial fibrillation I48.0 Near syncope R55 CAD (coronary artery disease) I25.10
--- NOTE | 2022-11-02 13:56 | Discharge Summary ---
Date of Service November 02, 2022 Admission HPI Per Admitting Provider Patel Fink is an 82 year old male who presents to the ER with chest pain and dizziness. Very difficult to get a good history from the patient due to the vagueness of his symptoms. He describes substernal chest pain the has been intermittently ongoing for years. It has more recently has been increasing in frequency and duration lasting for 15 minutes to and hour multiple times through the day. Occurs at random times and it doesn't matter what he is doing. Not positional, inspirational or exertional. No associated shortness of breath, diaphoresis or nausea. He was having similar characteristic pain when he had his cardiac cath in December 2021 showing non obstructive coronary artery disease. The dizziness is the main reason he came to the ER. This is a new symptom getting worse over the last week. He describes it as his eyes not being able to focus properly and feeling like he is going to pass out. He feels "bad" when he stands up and cannot walk straight away but he reports that is a different sensation to his current dizziness. He is unclear whether the dizziness is related to the chest pain, initially telling me they were occurring at the same time but later does not think they are related. His describes one of these episode he had yesterday with him sudden falling to the side and saying he felt like he was going to pass out. He denies any room spinning sensation. He has also noticed his leg swelling getting worse over the last month. Unknown if he has gained weight. His has also notived him getting progressively more short of breath although this is denied by the patient who feel he could walk half a mile without stopping. In the ER EKG showed normal sinus rhythm without ischemic changes. Initial troponin was negative. He was referred to medicine for admission and ongoing management of exertional chest pain (although he denies the exertional part to me) and near syncope. Principal Diagnosis presyncope, Bradycardia Discharge Exam The patient is awake, alert and oriented 3, well developed and well nourished, normocephalic and atraumatic, lying in bed and in no acute distress. HEENT--PERRL, EOMI, mucous membranes and oropharynx mildly dry Neck--supple. No JVD. No bruits. Thyroid normal, trachea midline, no adenopathy. Heart--normal S1 and S2. No murmurs, rubs or gallops. Lungs--clear bilaterally, no respiratory distress, no accessory muscle use. Abdomen--normal bowel sounds and soft. Mild epigastric and left sided abdominal pain Extremities--trace leg edema. Dermatologic--normal skin turgor, normal color, no abnormal lymph nodes, no rash. Neurologic--cranial nerves II through XII grossly intact. Rheumatologic--normal range of motion. Psychiatric--normal affect. Discharge Data Allergies Allergy/AdvReac Type Severity Reaction Status Date / Time aspirin Allergy Severe HIVES Verified 10/31/22 15:37 celecoxib [From Celebrex] Allergy Severe hives Verified 10/31/22 15:37 Iodinated Contrast Media Allergy Unknown Contrast Verified 10/31/22 15:37 media - unknown rxn iodine Allergy Unknown Unknown Verified 10/31/22 15:37 tramadol AdvReac Severe dizziness, Verified 10/31/22 15:37 nausea, leg weakness Consultations 10/31/22 15:30 ED Decision to Admit Stat 10/31/22 17:30 Consult Cardiology Routine Hospital Course (1) Dizziness: Admitted on account of dizziness, which He describes as difficulty focusing and a feeling like he is going to pass out. He denies vertigo. This is most liklely due to bradycardia, and orthostatic hypotension, his heart rate has been in the 50's here in the hospital His pacemaker was interrogated in the past couple of weeks and found to be working well His last 2 d ECHO done 3 months ago showed EF55-60% and no structural heart abnormalities or wma. Repeat is similar His metoprolol has been discontinued (2) Chest pain: ACS has been ruled out NO ST changes on EKG, normal trops (3) Bradycardia: Patient has been having occassional bryson as noted by his retention representative Will discontinue his metoprolol ECHO did not show any structural heart abnormality TSH is a bit elevated, may have an element of hypothyroidism Obtain T3, T4 cardiology on consult (4) Acute on chronic systolic CHF (congestive heart failure): Appears currently compensated Lasix has been discontinued Monitor I/O, daily weight (5) Exertional shortness of breath: Likely due to deconditioning (6) HTN (hypertension): Continue metoprolol, lasix as above (7) History of pulmonary embolism: Continue Eliquis (8) Obstructive sleep apnea: Mild on sleep study in April 2022 Patient does not use CPAP. Not interested in using CPAP here. (9) Peripheral neuropathy: Patient reports unknown cause - consider further workup as outpatient with neurology Historically B12 levels < 400. Recommend supplementation for this. (10) Paroxysmal atrial fibrillation: Currently in NSR Anticoagulation with Eliquis Continue rhythm control with amiodarone Plan VTE Prophylaxis - Eliquis Diet - heart healthy Disposition - observation status to PCU Total Time Total Time Spent Total Time Spent (In Minutes): 35 Discharge Plan Discharge Items Patient Disposition: Home - Self-Care Reason For Visit: UNSTABLE ANGINA Discharge Diagnosis: Presyncope, Bradycardia Condition on Discharge: Good Activity: Resume your previous activity Non-emergency contact: Primary Care Provider and Patient Registration Representative Call non-emergency contact if: you have any medication questions Follow-up/Referrals: Sylvie Clarke MD [Primary Care Provider] - 11/06/22 11:30 am (With Jossy Shelley) Diet: Regular and Low Sodium (2gm) Addtl Attending Provider Instructions: Please make appointment to follow up with your regular PCP and Patient Registration Representative (on the 11/21/22) Stop your metoprolol because of low heart rate Also cut your lasix by half. from 40mg daily to 20mg daily Pending Studies at Discharge: No Stand-Alone Forms: My [employer], Smoking Cessation Medications and DC Order Prescriptions: New furosemide [Lasix] 20 mg tablet 20 mg PO DAILY Qty: 30 0RF Continued acetaminophen [Tylenol Extra Strength] 500 mg tablet 500 mg PO BID PRN (Reason: Pain, Mild) Rx Instructions: in AM and with lunch tamsulosin [Flomax] 0.4 mg capsule 0.4 mg PO QAM Qty: 90 1RF finasteride 5 mg tablet 5 mg PO QAM Qty: 90 3RF Rx Instructions: TAKE 1 TABLET BY MOUTH DAILY Eliquis 5 mg tablet 5 mg PO BID Qty: 180 1RF epinephrine [EpiPen] 0.3 mg/0.3 mL auto-injector 0.3 mg IM UD PRN (Reason: Anaphylaxis) Qty: 1 1RF albuterol sulfate 90 mcg/actuation HFA aerosol inhaler 2 puff inhalation Q6H PRN (Reason: Shortness Of Breath Or Wheezing) Qty: 18 3RF Breo Ellipta 100-25 mcg/dose blister with device 1 inh inhalation DAILY Qty: 60 5RF amiodarone 200 mg tablet 200 mg PO QAM Qty: 30 3RF (DME) BD Safety-Bren Detachable Needl 3 mL 23 gauge x 1" syringe See Rx Instructions .ROUTE .MEDSUPPLY Qty: 100 0RF Rx Instructions: As directed with cyanocobalamin phenazopyridine [Pyridium] 200 mg tablet 200 mg PO TID PRN (Reason: BLADDER PAIN) Discontinued metoprolol succinate 100 mg tablet extended release 24 hr 50 mg PO DAILY Qty: 90 3RF furosemide [Lasix] 20 mg tablet 40 mg PO QAM Qty: 60 11RF Discharge Orders: Discharge Order (Routine); Ordered 11/02/22 Ordered By: Odessa Ly Admission Data Admit Date/Time: 10/31/22 15:39 Attending Provider: Odessa Ly Admit Provider: Daron Thomas Primary Care Provider: Sylvie Clarke Other Providers: Daron Thomas ; Tim Wu Other Interventions: Discharge Summary Assessment (RN) Last Done: 11/02/22 13:31 Coding Level of Care Code 35758 INP/OBS DISCH >30 MIN Diagnoses Dizziness R42 Chest pain R07.9 Chest pain type: unspecified Bradycardia R00.1 Acute on chronic systolic CHF (congestive heart failure) I50.23 Exertional shortness of breath R06.02 HTN (hypertension) I10 History of pulmonary embolism Z86.711 Obstructive sleep apnea G47.33 Peripheral neuropathy G62.9 Paroxysmal atrial fibrillation I48.0 Time Spent (min) 35
--- NOTE | 2022-11-02 23:30 | Electrocardiogram Report ---
Test Reason : Blood Pressure : / mmHG Vent. Rate : 062 BPM Atrial Rate : 062 BPM P-R Int : 232 ms QRS Dur : 108 ms QT Int : 436 ms P-R-T Axes : 000 -53 044 degrees QTc Int : 442 ms Sinus rhythm with 1st degree A-V block Left anterior fascicular block Abnormal ECG When compared with ECG of 10-JUL-2022 12:10, No significant change Confirmed by Gulshan Eid ([id number]) on 11/02/2022 11:29:27 PM Referred By: Confirmed By:Gulshan Eid
--- NOTE | 2022-11-04 00:25 | Electrocardiogram Report ---
Test Reason : Blood Pressure : / mmHG Vent. Rate : 065 BPM Atrial Rate : 065 BPM P-R Int : 208 ms QRS Dur : 114 ms QT Int : 444 ms P-R-T Axes : 022 -67 045 degrees QTc Int : 461 ms Normal sinus rhythm Left anterior fascicular block Abnormal ECG When compared with ECG of 31-OCT-2022 13:40, No significant change was found Confirmed by Gulshan Eid ([id number]) on 11/04/2022 12:24:47 AM Referred By: Sylvie Clarke Confirmed By:Gulshan Eid
== END 2022-11-02 17:23 | disposition home or self-care (01) ==
LOC: ED 13:28 → 4W 13:28 → SUATTDRO 15:39 → 4W 16:23

== ENCOUNTER 2023-11-02 05:10 | Observation (INO) ==
--- NOTE | 2023-10-03 10:04 | PAT Medication Instructions ---
Medication Instructions Date of Service October 03, 2023 Home Medications Medication Instructions Recorded syringe with needle, safety 3 mL #100 ea 12/09/20 23 gauge x 1" (BD Safety-Bren Detachable Needle) tamsulosin 0.4 mg capsule (Flomax) 0.4 mg PO QAM #90 caps 01/30/23 epinephrine 0.3 mg/0.3 mL 0.3 mg (0.3 mL) IM UD PRN 03/01/23 injection, auto-injector (EpiPen) Anaphylaxis #1 ea amiodarone 200 mg tablet 200 mg PO QAM #90 tabs 03/26/23 levothyroxine 50 mcg tablet 50 mcg PO DAILY #90 tabs 06/14/23 apixaban 5 mg tablet (Eliquis) 5 mg PO BID #180 tabs 08/25/23 finasteride 5 mg tablet 5 mg PO QAM #90 tabs 10/01/23 sulfamethoxazole 800 1 tab PO BID 7 days #14 tabs 10/01/23 mg-trimethoprim 160 mg tablet (Bactrim DS) acetaminophen 500 mg tablet (Tylenol Extra Strength) 500 mg PO BID PRN tamsulosin 0.4 mg capsule (Flomax) 0.4 mg PO QAM epinephrine 0.3 mg/0.3 mL injection, auto-injector (EpiPen) 0.3 mg (0.3 mL) IM UD PRN amiodarone 200 mg tablet 200 mg PO QAM levothyroxine 50 mcg tablet 50 mcg PO DAILY apixaban 5 mg tablet (Eliquis) 5 mg PO BID finasteride 5 mg tablet 5 mg PO QAM sulfamethoxazole 800 mg-trimethoprim 160 mg tablet (Bactrim DS) 1 tab PO BID citalopram 10 mg tablet 10 mg PO QAM citalopram 20 mg tablet 20 mg PO QAM cyanocobalamin (vitamin B-12) 1,000 mcg capsule 1,000 mcg PO QAM furosemide 20 mg tablet (Lasix) 20 mg PO BID pregabalin 50 mg capsule (Lyrica) 50 mg PO QPM Continue as directed levothyroxine 50 mcg tablet 50 mcg PO DAILY epinephrine 0.3 mg/0.3 mL injection, auto-injector (EpiPen) 0.3 mg (0.3 mL) IM UD PRN(if needed) ASK your prescriber and surgeon apixaban 5 mg tablet (Eliquis) 5 mg PO BID(in order for spinal or epidural anesthesia, Eliquis needs to be stopped 72 hours/3 days before surgery. Please check if okay with doctor that prescribes this to you) DO NOT take the morning of surgery cyanocobalamin (vitamin B-12) 1,000 mcg capsule 1,000 mcg PO QAM furosemide 20 mg tablet (Lasix) 20 mg PO BID Take morning of surgery With a small sip of water, OTHERWISE NOTHING TO EAT OR DRINK AFTER MIDNIGHT: acetaminophen 500 mg tablet (Tylenol Extra Strength) 500 mg PO BID PRN(if needed) tamsulosin 0.4 mg capsule (Flomax) 0.4 mg PO QAM amiodarone 200 mg tablet 200 mg PO QAM finasteride 5 mg tablet 5 mg PO QAM sulfamethoxazole 800 mg-trimethoprim 160 mg tablet (Bactrim DS) 1 tab PO BID citalopram 10 mg tablet 10 mg PO QAM citalopram 20 mg tablet 20 mg PO QAM Take evening before surgery acetaminophen 500 mg tablet (Tylenol Extra Strength) 500 mg PO BID PRN(if needed) sulfamethoxazole 800 mg-trimethoprim 160 mg tablet (Bactrim DS) 1 tab PO BID furosemide 20 mg tablet (Lasix) 20 mg PO BID pregabalin 50 mg capsule (Lyrica) 50 mg PO QPM Other Notes If you have any questions please call us at [phone] or [phone] or [phone] or [phone]
--- NOTE | 2023-10-05 10:47 | Anesthesiology Consultation ---
Date of Service October 05, 2023 Assessment & Plan (1) Encounter for pre-operative examination: Chart Review Chart Review: Acceptable Risk for Surgery (pending cardio clearance, PCP clearance and routine neuro appt ) and Patient seen in Pre Admission Testing - Will set up cardiac clearance (established with [facility]) for cardiac optimization (risk factors of frequent falls - has loop recorder, chronic chest pain, fair functional status) - appt scheduled 10/11/23 at 830 - information given to who confirms they can make appt - Awaiting PCP appt 10/19/23 (workload written and PCP confirmed will do preop evaluation) - Awaiting neuro appt 10/23/23 ([facility]) (referred for tremor) - Check coags AM DOS - Patient is NOT an OPJ candidate Per PAT appt on 10/05/23, no recent illness/disease exposures, illness related symptoms, or recent illness/disease positive tests. Will leave to surgeon's discretion if preop Covid testing needed Teaching & Discussion Pre-Anesthesia Teaching/Discussion Notes: Instructed NPO after midnight before surgery,except medications with 15 cc of water. Medication instructions provided according to the PAT guidelines. History Surgery Operation Date: 11/02/23 08:05 Proposed Procedures p Right Total Hip Arthroplasty Anterior - Tang Arrington, Height/Weight Height: 6 ft Weight: 117.5 kg Allergies Allergy/AdvReac Type Severity Reaction Status Date / Time aspirin Allergy Intermediate HIVES Verified 10/02/23 15:33 celecoxib [From Celebrex] Allergy Intermediate hives Verified 10/02/23 15:33 Iodinated Contrast Media Allergy Intermediate Hives and Verified 10/05/23 10:51 swelling iodine Allergy Intermediate Hives Verified 10/02/23 15:33 tramadol AdvReac Intermediate dizziness, Verified 10/02/23 15:33 nausea, leg weakness Medications Home Medications Medication Instructions Recorded Confirmed Last Taken syringe with needle, safety 3 mL #100 ea 12/09/20 10/01/23 Unknown 23 gauge x 1" (BD Safety-Bren Detachable Needle) acetaminophen 500 mg tablet 500 mg PO BID PRN Pain, Mild 11/07/21 10/02/23 10/31/22 08:00 (Tylenol Extra Strength) tamsulosin 0.4 mg capsule (Flomax) 0.4 mg PO QAM #90 caps 01/30/23 10/02/23 Unknown epinephrine 0.3 mg/0.3 mL 0.3 mg (0.3 mL) IM UD PRN 03/01/23 10/02/23 Unknown injection, auto-injector (EpiPen) Anaphylaxis #1 ea amiodarone 200 mg tablet 200 mg PO QAM #90 tabs 03/26/23 10/02/23 Unknown levothyroxine 50 mcg tablet 50 mcg PO DAILY #90 tabs 06/14/23 10/02/23 Unknown apixaban 5 mg tablet (Eliquis) 5 mg PO BID #180 tabs 08/25/23 10/02/23 Unknown finasteride 5 mg tablet 5 mg PO QAM #90 tabs 10/01/23 10/02/23 Unknown sulfamethoxazole 800 1 tab PO BID 7 days #14 tabs 10/01/23 10/02/23 Unknown mg-trimethoprim 160 mg tablet (Bactrim DS) citalopram 10 mg tablet 10 mg PO QAM 10/02/23 10/02/23 Unknown citalopram 20 mg tablet 20 mg PO QAM 10/02/23 10/02/23 Unknown cyanocobalamin (vitamin B-12) 1,000 mcg PO QAM 10/02/23 10/02/23 Unknown 1,000 mcg capsule furosemide 20 mg tablet (Lasix) 20 mg PO BID 10/02/23 10/02/23 Unknown pregabalin 50 mg capsule (Lyrica) 50 mg PO QPM 10/02/23 10/02/23 Unknown Past Medical History Medical History (Updated 10/05/23 @ 11:53 by Janet Meehan PA-C) Benign essential tremor Will be seeing neuro 10/23/23 CAD (coronary artery disease) Nonobstructive per cardio records Cervical pain Did have cervical fracture approximately 2019- conservative treatment- mild pain Depression PERALTA (dyspnea on exertion) Improved since cardio stopped Amiodarone 06/2023 Enlarged prostate Hearing deficit BL JUDGE History of atrial fibrillation Follows with Dr. Hutton. On Eliquis. (cardioversion 2021) History of DVT (deep vein thrombosis) RLE post op TKA approx 20+years ago. Treated with AC/coumadin at that time, now on Eliquis History of pulmonary embolism approx 20+ years ago post op Rt TKA History of squamous cell carcinoma s/ excision HTN (hypertension) Osteoporosis Polyneuropathy Hands and feet bilaterally Sleep apnea no device UTI (urinary tract infection) being tx for currently- following with PCP- patient aware that UTI needs resolved by DOS Exercise / Class Metabolic Activity III < 4 Walking/Shop/Light housework (no chest pain or SOB with flat surface ambulation - uses cane ) Past Family History Family History Father Prostate cancer Cancer Prostate Mother Breast cancer Colorectal cancer Other No family history of adverse response to anesthesia No significant family history Denies family history of Ovarian cancer Myocardial infarction Past Surgical History Surgical History History of cardiac cath 2021>no stents History of cardioversion 2021 at [place] History of cataract surgery rt/left History of knee replacement Rt History of loop recorder placed 2019 - placed for syncope and frequent falls History of squamous cell carcinoma excision History of tonsillectomy History of transurethral resection of prostate Past Anesthesia History No Hx of Anesthesia Complications and No Family Hx of Anesthesia Complications History of PONV No Hx of PONV and No Hx of Motion Sickness Social History Smoking Status: Never smoker Do You Dip or Chew Tobacco: No Hx Alcohol Use: Yes Alcohol type: beer alcohol intake frequency: holidays/special occasions only Hx Substance Use: No substance use type: does not use Review of Systems - Chronic chest pain- left sided- last a minute. Can radiate into left arm. Ongoing x years. Unsure how often it occurs. No sweating, SOB, nausea associated. Can occur with strenuous activity (heavy lifting). Rest improves - Occ palpitations - No recent syncope episodes Patient denies shortness of breath, dyspnea on exertion, reflux, cough, wheezing. No hx of seizures, stroke, UT. No hx of blood transfusions Physical Exam Vital Signs VITALS BP 110/63 P 77 TEMP 98.2 SP02 93% RESP 16 Constitutional no acute distress ENMT Mouth: no TMJ clicking Thyromental Distance: > or= 3.5 Finger Breadths (3.5) Mallampati Class: II Mouth / Teeth: 2 1. Broken 2. Missing 3. Missing Missing side teeth, molars and see picture [place] to molar Neck + limited neck extension Respiratory normal respiratory effort; no respiratory distress Auscultation: lungs clear to auscultation bilaterally; no wheezes Cardiovascular Rate/Rhythm: regular rate and regular rhythm Heart Sounds: no murmur Vessels: no carotid bruit Heart sound diminished throughout Musculoskeletal Spine: + pain with cervical ROM Extremities: extremities normal to inspection Psychiatric Orientation: alert Lab Results Anesthesia Preop Results Results Anesthesia Widget: 2 WBC 8.08 K/ul (4.8-10.8) 10/01/23 Hgb 12.8 g/dl (14.0-18.0) L 10/01/23 Hct 37.9 % (42.0-52.0) L 10/01/23 Plt 248 K/uL (130-400) 10/01/23 Na 136 mmol/L (136-145) 10/05/23 K 4.0 mmol/L (3.5-5.1) 10/05/23 Cl 105 mmol/L (98-107) 10/05/23 CO2 23 mmol/L (21-32) 10/05/23 BUN 16 mg/dl (6-23) 10/05/23 Creat 1.28 mg/dl (0.6-1.4) 10/05/23 Glucose Level 125 mg/dl (70-99(Fasting)) H 10/05/23 PT 12.2 Seconds (9.0-12.0) H 10/05/23 PTT 36 Seconds (21-31) H 10/05/23 INR 1.1 (0.9-1.1) 10/05/23 Urine Color Dark Yellow 10/02/23 Urine Appearance Turbid (Clear) A 10/02/23 Urine pH 5.0 (4.5-7.5) 10/02/23 Urine Specific [place] 1.029 (1.000-1.030) 10/02/23 Urine Protein Trace (Negative) H 10/02/23 Urine Glucose (UA) Negative (Negative) 10/02/23 Urine Ketones Trace (Negative) H 10/02/23 Urine Blood Trace (Negative) H 10/02/23 Urine Nitrite Positive (Negative) A 10/02/23 Urine Bilirubin Negative (Negative) 10/02/23 Urine Urobilinogen Negative (Negative) 10/02/23 Urine Leukocyte Esterase 2+ (Negative) H 10/02/23 Urine WBC (Auto) >30 /hpf (0-5) H 10/02/23 Urine RBC (Auto) 0-4 /hpf (0-4) 10/02/23 Urine Hyaline Casts (Auto) 1-5 /lpf (0-5) 10/02/23 Urine Epithelial Cells (Auto) >30 /lpf (0-5) H 10/02/23 Urine Bacteria (Auto) 4+ (Negative) H 10/02/23 Blood Type AB Positive 10/05/23 Antibody Screen NEGATIVE 10/05/23 Testing Laboratory Results Elevated coags- on Eliquis- will recheck DOS 10/02/23= URINE CULTURE: E coli >100,000 CFU/ml (currently on abx at [facility] appt 10/08/23- patient aware UTI needs resolved prior to surgery (following with PCP)- patient will contact PAT or surgeon if symptoms persist/do not resolve) Electrocardiogram Date: 10/08/23 Findings: + NSR @ (67bpm) Left anterior fascicular block Poor R wave progression, consider anterior UT versus lead placement versus LVH When compared to EKG from April 17, 2023sinus rhythm has replaced junctional rhythm per cardio Chest X-Ray Date: 04/17/23 Findings: + NAD No lines and tubes are seen. Calcified aortic knob is seen. The lungs are clear. No evidence of pleural effusion or pneumothorax. Echocardiogram Date: 11/01/22 EF: >70% RWMA: + none Other Findings: + LVH (Moderate/concentric) and + diastolic dysfunction (Type I) Valvular Disease: + no significant valvular disease Normal LV size with hyperdynamic systolic function Mild left atrial dilation Compared to prior study on 07/10/2022, LV systolic function is now hyperdynamic Cardiac Catheterization Date: 12/28/21 LM: Left main coronary artery was normal in size and caliber and bifurcated in the left anterior descending left circumflex arteries. He did have approximately 40% distal stenosis. Left anterior descending: Left anterior descending was a relatively small- caliber vessel bifurcated early into a very high 1st diagonal branch. There is 40-50% mid LAD stenosis. No significant disease in the diagonal branch. Left circumflex: Left circumflex was a nondominant system. There are no discrete lesions. Right coronary: The right coronary was a dominant system with luminal regularities but no discrete obstructive lesions. Impression: Right dominant coronary system Normal left ventricular filling pressures No evidence of aortic stenosis Nonobstructive coronary disease primarily involving the distal left main. Other Testing Loop recorder 09/20/2023 = some episodes of transient bradycardia, possibly junctional. Just last a few seconds on August 23. No symptoms reported. Normal battery parameters.
--- NOTE | 2023-10-30 07:50 | History & Physical Report ---
Date of Service October 30, 2023 Assessment & Plan (1) Osteoarthritis of right hip: We will proceed with a right anterior total of arthroplasty. Postoperatively he will be started on Eliquis for DVT prophylaxis and kept overnight in the hospital for postop medical management. He plans to have the hospital set up home health before discharge. History of Present Illness Chief Complaint: Osteoarthritis of the right hip. Primary Care Provider: Sylvie Clarke MD Patel is a pleasant 83-year-old male who has been dealing with chronic increasing right hip and groin pain. X-rays and clinical examination have been diagnostic for advanced arthritis of the right hip. He has failed years of conservative treatment including multiple injections. After failing conservative treatment he has elected proceed with a right anterior total of arthroplasty. Allergies Allergy/AdvReac Type Severity Reaction Status Date / Time aspirin Allergy Intermediate HIVES Verified 10/23/23 09:49 celecoxib [From Celebrex] Allergy Intermediate hives Verified 10/23/23 09:49 Iodinated Contrast Media Allergy Intermediate Hives and Verified 10/23/23 09:49 swelling iodine Allergy Intermediate Hives Verified 10/23/23 09:49 tramadol AdvReac Intermediate dizziness, Verified 10/23/23 09:49 nausea, leg weakness Home Medications Medication Instructions Recorded Confirmed Type syringe with needle, safety 3 mL #100 ea 12/09/20 10/23/23 Rx 23 gauge x 1" (BD Safety-Bren Detachable Needle) acetaminophen 500 mg tablet 500 mg PO BID PRN Pain, Mild 11/07/21 10/23/23 History (Tylenol Extra Strength) tamsulosin 0.4 mg capsule (Flomax) 0.4 mg PO QAM #90 caps 01/30/23 10/23/23 Rx epinephrine 0.3 mg/0.3 mL 0.3 mg (0.3 mL) IM UD PRN 03/01/23 10/23/23 Rx injection, auto-injector (EpiPen) Anaphylaxis #1 ea amiodarone 200 mg tablet 200 mg PO QAM #90 tabs 03/26/23 10/23/23 Rx levothyroxine 50 mcg tablet 50 mcg PO DAILY #90 tabs 06/14/23 10/23/23 Rx apixaban 5 mg tablet (Eliquis) 5 mg PO BID #180 tabs 08/25/23 10/23/23 Rx finasteride 5 mg tablet 5 mg PO QAM #90 tabs 10/01/23 10/23/23 Rx citalopram 10 mg tablet 10 mg PO QAM 10/02/23 10/23/23 History citalopram 20 mg tablet 20 mg PO QAM 10/02/23 10/23/23 History cyanocobalamin (vitamin B-12) 1,000 mcg PO QAM 10/02/23 10/23/23 History 1,000 mcg capsule furosemide 20 mg tablet (Lasix) 20 mg PO DAILY 10/19/23 10/23/23 History pregabalin 75 mg capsule 75 mg PO HS #60 caps 10/23/23 10/23/23 Rx Past Med/Surg History Medical History Prediabetes Cervical pain Did have cervical fracture approximately 2018- conservative treatment- mild pain Depression UTI (urinary tract infection) being tx for currently- following with PCP- patient aware that UTI needs resolved by DOS CAD (coronary artery disease) Nonobstructive per cardio records PERALTA (dyspnea on exertion) Improved since cardio stopped Amiodarone 06/2023 History of pulmonary embolism approx 20+ years ago post op Rt TKA Enlarged prostate Hearing deficit BL JUDGE Sleep apnea no device History of DVT (deep vein thrombosis) RLE post op TKA approx 20+years ago. Treated with AC/coumadin at that time, now on Eliquis History of atrial fibrillation Follows with Dr. Hutton. On Eliquis. (cardioversion 2021) HTN (hypertension) Osteoporosis Polyneuropathy Hands and feet bilaterally Benign essential tremor Will be seeing neuro 10/23/23 History of squamous cell carcinoma s/ excision Surgical History History of cardioversion 2021 at [place] History of cardiac cath 2021>no stents History of squamous cell carcinoma excision History of loop recorder placed 2019 - placed for syncope and frequent falls History of tonsillectomy History of cataract surgery rt/left History of transurethral resection of prostate History of knee replacement Rt Family History Father Prostate cancer Cancer Prostate Mother Breast cancer Colorectal cancer Other No family history of adverse response to anesthesia No significant family history Denies family history of Ovarian cancer Myocardial infarction Social History Smoking Status: Never smoker Second Hand Exposure: No; Do You Dip or Chew Tobacco: No; Hx Alcohol Use: Yes Alcohol type: beer Hx Substance Use: No Preferred Language: Bahraini Communication Ability: Effective Communication Ability Comment: 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 Physical Exam On physical examination of the right hip, he has decreased range of motion. He has pain with forced internal/external rotation. All of his pain is located in his groin.. Constitutional WD/WN, vitals as above Eyes PERRL, conjunctivae normal, anicteric sclerae ENMT external ear and nose normal, oropharynx normal Neck trachea midline, no thyromegaly Respiratory normal respiratory effort Cardiovascular RRR, no murmur, no edema Gastrointestinal (Abdomen) normal bowel sounds, soft, nontender, no hepatosplenomegaly Psychiatric A+Ox3, euthymic affect Results & Data Results & Data Laboratory Results . Diagnostic Findings X-rays of the right hip show advanced osteoarthritis with joint space narrowing, osteophyte formation, and [id number] articulation. PG Care Time/CCT Total # of Minutes Spent Total Time Spent with Patient: Total time spent is greater than 50% in coordination of care (as documented) at patient's floor/unit and/or counseling patient: Coding Level of Care Code None Diagnoses Osteoarthritis of right hip M16.11
[~2023-11-02 05:10] MED LIST changes: +ALLERGY Noted to ORDERED Medication SCH; -CALC-51 PO; -CLB/200 PO; -EPP3/2 IM; -ERGO500011 PO; -FINA5TAB PO; -METO50TA7 PO; -TAMS0.4C38 PO; -WARF5TAB7 PO; -WARF7.5T4 PO
[2023-11-02] MEDS ORDERED: ceFAZolin 2000MG 2,000 MG/15 ML SYR IV SCH (06:00)
[2023-11-02] MEDS ORDERED: dexAMETHasone 4 MG TAB PO SCH (06:00)
[2023-11-02] MEDS: LR 500ML BOLUS, THEN 15ML/HR IV SCH (06:06)
[2023-11-02] MEDS: LR 60ML/HR IV SCH (06:06)
[2023-11-02] MEDS: ACETAMINOPHEN 500 MG TAB PO SCH ×2 (06:08→14:57)
[2023-11-02] MEDS: FAMOTIDINE 20 MG TAB PO SCH (06:09)
[2023-11-02] MEDS: GABAPENTIN 300 MG CAP PO SCH (06:09)
[2023-11-02] MEDS: dexAMETHasone**PF** 10 MG/ML VIAL IV SCH (06:09)
[2023-11-02] MEDS ORDERED: BUPIVACAINE 0.5 % 5 MG/1 ML PF 10ML VIAL ONE (06:21)
[2023-11-02 06:34] LABS: Partial Thromboplastin Time 29 Seconds (21-31); Prothrombin Time 11.4 Seconds (9.0-12.0)
[2023-11-02] MEDS ORDERED: MIDAZOLAM HCL 1 MG/ML 2ML VIAL ONE (06:36)
[2023-11-02] MEDS ORDERED: HYDROmorphone INJ 1 MG/ML SYRINGE IV PRN (06:41)
[2023-11-02] MEDS ORDERED: ONDANSETRON INJ 2 MG/ML 2 ML VIAL IV PRN ×2 (06:41→10:02)
[2023-11-02] MEDS ORDERED: ePHEDrine sulfate 50 MG/ML AMP IV PRN (06:41)
[2023-11-02] MEDS ORDERED: fentaNYL citrate PF 100 MCG/2 ML VIAL IV PRN (06:41)
[2023-11-02] MEDS ORDERED: ATROPINE SULFATE 0.1 MG/ML 10ML SYR IV PRN (06:41)
[2023-11-02] MEDS: TRANEXAMIC ACID 1,000 MG **IV Pre-op IV SCH (06:44)
--- NOTE | 2023-11-02 06:52 | History & Physical Bridge Note ---
Date of Service November 02, 2023 History & Physical Bridge Note I have examined the patient, reviewed the History & Physical and in the interval since the performance of the History & Physical I have noted the following changes of clinical significance: no changes noted
[2023-11-02] MEDS: ceFAZolin 3000MG 3,000 MG/72.5 ML BAG IV SCH (06:58)
[2023-11-02] MEDS ORDERED: PROPOFOL IV EMULSION 10 MG/ML 20 ML VIAL IV ONE ×2 (07:23→07:57)
[2023-11-02] MEDS ORDERED: ONDANSETRON INJ 2 MG/ML 2 ML VIAL ONE (07:23)
[2023-11-02] MEDS ORDERED: ePHEDrine sulfate 50 MG/5 ML SYR ONE (07:24)
[2023-11-02] MEDS ORDERED: PHENYLEPHRINE 100MCG/ML 10ML SYR IV ONE (07:31)
[2023-11-02] MEDS: ROPIV 0.5% 246mg, Ketorolac 30mg, EPINEPHrine 0.5mg in NSS INFIL SCH (07:34)
[2023-11-02] MEDS: TRANEXAMIC ACID 1,000 MG **IV Intra-op IV SCH (08:01)
--- NOTE | 2023-11-02 08:12 | Operative Report ---
PG Post Operative Report Pre & Post Diagnosis Operation Date: 11/02/23 07:00 Pre-Op Diagnosis: Degenerative Joint Disease Right Hip Post-Op Diagnosis: Degenerative Joint Disease Right Hip I identified the patient and participated in the time-out.: Yes Procedure Operation Date: 11/02/23 07:00 Actual Procedures p Right Anterior Total Hip Arthroplasty, Uncemented(Right) - Tang Arrington DO Surgeon Tang Arrington DO Patient Office Rep Tang Lira PA-C Estimated Blood Loss 250 Findings Consistent with Post-Op Diagnosis Specimens Right femoral head Description of Procedure Implants used I used a ZimmerBiomet total hip arthroplasty system with a size 8 standard Avenir Complete stem, a 58 mm G7 cup with a 25mm screw, an E1 polyethylene liner, a 40 mm ceramic head with a +3.5 neck. Patel arrived at the hospital for the above procedure. He was seen in the preoperative holding area and the operative extremity was identified and signed. He was given a spinal anesthetic, a preoperative antibiotic, and TXA. He was then taken back to the operating room and laid on the table in the supine position. He was given basic sedation. The operative leg was secured to a Puristst leg positioner. The hip was then prepped and draped in sterile fashion. A timeout was done and the patient and the operative extremity was properly identified. An anterior approach was used. Dissection was taken down through the fascia and the tensor muscle belly was retracted laterally and the rectus was retracted medially. The circumflex vessels were identified and ligated. The capsule was then incised and tagged for later repair. The femoral neck was then cut and the femoral head was removed. The acetabulum was exposed. Time was spent doing a complete circumferential labral release. Sequential reaming of the acetabulum up to a size 57 reamer was done. Final reamings were done under fluoroscopy to ensure appropriate version. A Biomet 58 mm G7 cup was then impacted into place. A single 25 mm screw was placed. The E1 polyethylene liner was then snapped into place. Surrounding soft tissues were then injected with 100 cc of an orthopedic pain control cocktail. The proximal femur was then exposed. Sequential broaching up to a size 8 broach was done. Off that broach a size 40 head with a +3.5 neck was trialed. The hip was reduced and fluoroscopic images showed anatomic alignment of the implants in acceptable length. The broach was removed. The final size 8 standard offset Avenir Complete stem was then impacted into place. A ceramic 40 mm head with a +3.5 neck was then impacted onto the stem and the hip was reduced. Final fluoroscopic images showed anatomic alignment of the hip. The capsule was then closed with #1 Vicryl suture. A dilute betadyne lavage was then done for 3 minutes. The joint was then irrigated with normal saline solution. The fascia was closed with #1 PDS suture. Skin was closed with 2-0 Vicryl, flo, and a Silverlon dressing. He was then transferred to a hospital bed and taken to the post anesthesia care unit in stable condition. He tolerated the procedure well. Tang Lira PA-C, was present for the entire procedure. He was critical for patient positioning, prepping, draping, retraction exposure, wound closure and application of sterile dressing. I attest to the content of the Intraoperative Record and any orders documented therein. Any exceptions are noted below.
--- NOTE | 2023-11-02 08:25 | Fluoroscopy Report ---
FL hip RT 1V CLINICAL HISTORY: RT ANTERIOR HIP COMPARISON STUDY: Right hip radiographs December 20, 2022. FLUOROSCOPY TIME: 13 seconds. Ka, r: 2.5580 mGy FLUOROSCOPIC IMAGES: 1 FINDINGS: Fluoroscopy was provided during anterior total right hip arthroplasty. Alignment is anatomi c. Hardware is intact. No unexpected radiopaque foreign bodies. IMPRESSION: Fluoroscopy provided during anterior total right hip arthroplasty. ACT 112: Negative or not required by law. Electronically signed by: Harrison Gaffney M.D. 11/02/2023 8:23 AM
--- NOTE | 2023-11-02 09:05 | XRay Report ---
XR hip 1V RT w pelvis HISTORY: 83 years-old Male IN PACU - Post Surgical right hip arthroplasty COMPARISON: Fluoroscopic images of same day TECHNIQUE: AP view of the pelvis with cross table lateral view of the right hip FINDINGS: Moderate left hip osteoarthritis. Unremarkable appearance of the right hip arthroplasty with lateral skin flo, expected postoperative soft tissue swelling and deep tissue air. No acute fracture, dis location or unexpected opaque foreign body. IMPRESSION: Right hip arthroplasty with expected postoperative changes. ACT 112: Negative or not required by law. The above report was generated using voice recognition software. It may contain grammatical, syntax o r spelling errors. Electronically signed by: Enrico Fielsd M.D. 11/02/2023 9:04 AM
--- NOTE | 2023-11-02 09:41 | Anesthesiology Progress Note ---
Date of Service November 02, 2023 Anesthesia Post Procedure Vital Signs Vital Signs: Temp Pulse Resp BP Pulse Ox O2 Del Method O2 Flow Rate 11/02/23 09:25 63 18 116/58 L 93 Nasal Cannula 2 11/02/23 09:15 36.4 C L 65 18 113/55 L 94 Room Air 11/02/23 09:05 62 16 116/56 L 96 Oxymask 4 11/02/23 08:55 64 18 110/55 L 95 Oxymask 4 11/02/23 08:45 66 16 115/59 L 97 Oxymask 4 11/02/23 08:35 71 18 110/57 L 93 Oxymask 4 11/02/23 08:27 36.4 C L 76 20 106/66 94 Oxymask 6 11/02/23 05:54 36.7 C 62 20 191/93 H 98 Room Air Transfer of Care Handoff Completed per policy Notes Mental Status: alert / awake / arousable and participated in evaluation Patient Amnestic to Procedure: Yes Nausea / Vomiting: adequately controlled Pain: adequately controlled Airway Patency, RR, SpO2: stable & adequate BP & HR: stable & adequate Hydration State: stable & adequate Anesthetic Complications: no major complications apparent and Pt Satisfied with anesthetic care
[2023-11-02] MEDS: Nursing to Pharmacy Communication SCH (10:01)
[2023-11-02] MEDS ORDERED: NON-FORMULARY MEDICATION (Citalopram 10 mg tablet) PO SCH (10:02)
[2023-11-02] MEDS ORDERED: HYDROmorphone INJ 0.5 MG/0.5 ML SYR IV PRN (10:02)
[2023-11-02] MEDS ORDERED: NALOXONE HCL 0.4 MG/1 ML VIAL/CARP IV PRN (10:02)
[2023-11-02] MEDS ORDERED: MAGNESIUM HYDROXIDE SUSP 30 ML UDC PO PRN (10:02)
[2023-11-02] MEDS ORDERED: bisacodyL 10 MG SUPP PR PRN (10:02)
[2023-11-02] MEDS ORDERED: METOCLOPRAMIDE HCL INJ 5 MG/ML 2 ML VIAL IV PRN (10:02)
[2023-11-02] MEDS ORDERED: EPINEPHrine INJ 1 MG/ML AMP IM PRN (10:23)
[2023-11-02] MEDS: SODIUM CHLORIDE 0.9% 1,000 ML IV SCH (11:16)
[2023-11-02] MEDS: DOCUSATE SODIUM 100 MG CAP PO SCH (11:17)
[2023-11-02] MEDS: MULTIVITAMIN TAB PO SCH (11:17)
[2023-11-02] MEDS: ceFAZolin 2000MG 2,000 MG/15 ML SYR IV SCH (14:57)
[2023-11-02] MEDS: SENNA 8.6 MG TAB PO SCH (20:45)
[2023-11-03] MEDS: oxyCODONE HCL IR 5 MG TAB (IMMEDIATE RELEASE) PO PRN (03:17)
[2023-11-03] MEDS: LEVOTHYROXINE SODIUM 50 MCG TABLET PO SCH (05:39)
--- NOTE | 2023-11-03 07:39 | Surgery Progress Note ---
Date of Service November 03, 2023 Assessment & Plan (1) Status post right hip replacement: Plan: 83-year-old elderly gentleman postop day 1 from a right total hip replacement. He is doing reasonably well. Have a little difficulty lifting his leg which is normal at this point. Hips located. He is neurologically intact. Medically appears stable. Plan he is getting go through therapy this morning. Will see how things go. The plan is to discharge home with some home health if he does okay. Follow-up in the office in 2 weeks. Admission and Anticipated Discharge Date Admission Date: November 02, 2023 Subjective 83-year-old gentleman now postop day 1 from a right anterior total hip arthroplasty. He is doing reasonably well. Pains been controlled. Have a little trouble lifting his leg and concerned about that. No chest pain or shortness of breath. Physical Exam Physical Exam: Physical examination is a pleasant elderly male. He is sitting up in bed and looks reasonably comfortable. Examination of the right hip and leg reveals dressing be clean dry and intact. Leg lengths are equal. He can dorsiflex and plantarflex his foot appropriately. He has difficulty doing a straight leg raise. Respiratory: normal respiratory effort, lungs clear to auscultation Cardiovascular: RRR, no murmur, no edema Gastrointestinal (Abdomen): normal bowel sounds, soft, nontender, no hepatosplenomegaly Results & Data Vital Signs (Past 12 Hours) Vital Signs Temp Pulse Resp BP Pulse Ox O2 Del Method 11/03/23 07:14 36.5 C 62 18 158/73 H 94 Room Air 11/03/23 03:23 36.4 C L 60 16 144/71 H 94 Room Air 11/02/23 23:37 36.3 C L 65 16 177/79 H 94 Room Air 11/02/23 19:45 Room Air 11/02/23 19:45 36.4 C L 64 14 133/72 95 Room Air Laboratory Results Labs are pending. PG Care Time/CCT Total # of Minutes Spent Total Time Spent with Patient: Total time spent is greater than 50% in coordination of care (as documented) at patient's floor/unit and/or counseling patient: Coding Level of Care Code None Diagnoses Status post right hip replacement Z96.641
[2023-11-03] MEDS: CITALOPRAM 20 MG TAB PO SCH (07:47)
[2023-11-03] MEDS: APIXABAN 5 MG TABLET PO SCH (07:48)
[2023-11-03] MEDS: dexAMETHasone 4 MG TAB PO SCH (07:48)
[2023-11-03] MEDS: FINASTERIDE 5 MG TAB PO SCH (07:48)
[2023-11-03] MEDS: AMIODARONE 200 MG TAB PO SCH (07:48)
[2023-11-03] MEDS: TAMSULOSIN HCL 0.4 MG CAP PO SCH (07:49)
--- NOTE | 2023-11-05 13:51 | Discharge Summary ---
Date of Service November 05, 2023 Admission HPI (Per Admitting) Patel is a pleasant 83-year-old male who has been dealing with chronic increasing right hip and groin pain. X-rays and clinical examination have been diagnostic for advanced arthritis of the right hip. He has failed years of conservative treatment including multiple injections. After failing conservative treatment he has elected proceed with a right anterior total of arthroplasty. Admission Exam (Per Admitting) On physical examination of the right hip, he has decreased range of motion. He has pain with forced internal/external rotation. All of his pain is located in his groin.. Principal Diagnosis Same as "Discharge Diagnosis" noted below under Discharge Instructions. Discharge Data Procedures Performed Operation Date: 11/02/23 07:00 Actual Procedures p Right Anterior Total Hip Arthroplasty, Uncemented(Right) - Tang Arrington DO Ordered Studies 11/02/23 07:00 FL hip RT 1V Routine Hospital Course (1) Status post right hip replacement: On October 23, 2023 Patel arrived at [facility] and underwent a right anterior hip replacement without complication. Postoperatively he was started back on Eliquis for DVT prophylaxis and transferred to the general orthopedic floors. His hospital course was uneventful. On postop day #1, his vital signs were stable and his pain was well-controlled. He was able to participate well with physical therapy doing ambulation and range of motion exercises. He was then discharged home. He will follow-up orthopedics in 2 weeks. PG Care Time/CCT Total # of Minutes Spent Total Time Spent with Patient: Total time spent is greater than 50% in coordination of care (as documented) at patient's floor/unit and/or counseling patient: Discharge Plan Discharge Items Patient Disposition: Home - Home Health Services Reason For Visit: Degenerative Joint Disease Right Hip Discharge Diagnosis: Right hip replacement Activity: Per Instructions section Non-emergency contact: Surgeon Call non-emergency contact if: your wound has increased redness and your wound has increased drainage Follow-up/Referrals: Sylvie Clarek MD [Primary Care Provider] - Diet: Regular Addtl Attending Provider Instructions: Activity and Therapy Recommendations: * If you are using [facility] then therapy will be provided at your home until they feel you have accomplished all of your goals. * If you are using [facility] then Physical Therapy will be provided until they feel you are ready to start Outpatient Physical Therapy. * If you are not using home therapy then Outpatient Physical Therapy should start about 3-5 days from your day of surgery. Therapy will last about 6-10 weeks * You were shown a series of exercises in the hospital. Do these exercises three times each day including the exercises you were shown in physical therapy. * Get up and walk several times each day.~ For the first four weeks, try not to stand or walk for more than one hour at a time. If you do stand or walk for more than one hour, you will not hurt anything, but your leg will likely swell.~~ * As you feel comfortable, you may change from the walker or crutches to a cane and~then to independent walking. Medications: * Narcotic You will likely be sent home from the hospital with a prescription for the narcotic pain medication that worked best throughout your stay. * Cefadroxil -take the antibiotic twice a day for 10 days to help prevent infection. * Eliquis -continue your Eliquis as prescribed. * Other medications may be prescribed for specific circumstances. If you have any questions, please call the office at . * Resume previous home medications unless otherwise instructed TEDs/Elastic Stockings: The white elastic stockings help limit swelling and prevent blood clots from forming in your legs. The more you wear them, the more they work. Wear them for six weeks. Dressing Care: Leave the Silverlon dressing in place for 7 days. After 7 days you may remove the dressing. If the incision is not draining then you may leave the flo open to air. If there is a little bit of drainage or if the flo are getting stuck on your clothing then cover the incision with a dry dressing. The flo will be removed at your 2 week follow-up appointment. Showering: You may shower with the Silverlon dressing in place. Do not let the shower spray hit the dressing directly. Pat the Silverlon dressing dry. If the dressing becomes wet underneath, then simply remove the dressing. Keep the incision dry until you are 7 days out from the day of surgery. After 7 days you may remove the Silverlon dressing and shower with the flo exposed. Let soapy water run over the flo and pat them dry. Do not scrub or soak the incision. Things To Watch For: * Drainage from the incision site that occurs more than one week after your surgery. * Increased redness at the incision site. * Fever above 102 degrees Fahrenheit. * Unusual chest pain or shortness of breath. * Call [facility] at with any of the above problems Follow-Up Visit: Follow-up with Dr. Arrington's PA (Tang Lira) 2-3 weeks after your day of surgery. He will remove your flo and answer any questions. If you have any additional questions or concerns, Dr Arrington is usually in the office at the same time and will be available An appointment was probably scheduled when you signed-up for surgery in the office. If you have any questions call Office Instructions: More detailed instructions as well as Frequently Asked Questions were provided in a folder by our office when you signed-up for surgery. Please review these instructions when you get home. If you have any further questions or concerns, please feel free to call the office at [phone] Pending Studies at Discharge: No Stand-Alone Forms: [facility], Smoking Cessation Medications and DC Order Prescriptions: New oxycodone 5 mg Tablet 5 mg PO Q4H PRN (Reason: pain) Qty: 30 0RF cefadroxil 500 mg capsule 500 mg PO BID 10 Days Qty: 20 0RF Continued acetaminophen [Tylenol Extra Strength] 500 mg tablet 500 mg PO BID PRN (Reason: Pain, Mild) Rx Instructions: in AM and with lunch amiodarone 200 mg tablet 200 mg PO QAM Qty: 90 3RF levothyroxine 50 mcg tablet 50 mcg PO DAILY Qty: 90 1RF Eliquis 5 mg tablet 5 mg PO BID Qty: 180 2RF furosemide [Lasix] 20 mg tablet 20 mg PO BID Qty: 90 3RF tamsulosin [Flomax] 0.4 mg capsule 0.4 mg PO QAM Qty: 90 3RF (DME) BD Safety-Bren Detachable Needl 3 mL 23 gauge x 1" syringe See Rx Instructions .ROUTE .MEDSUPPLY Qty: 100 0RF Rx Instructions: As directed with cyanocobalamin epinephrine [EpiPen] 0.3 mg/0.3 mL auto-injector 0.3 mg IM UD PRN (Reason: Anaphylaxis) Qty: 1 1RF finasteride 5 mg tablet 5 mg PO QAM Qty: 90 3RF Rx Instructions: TAKE 1 TABLET BY MOUTH DAILY cyanocobalamin (vitamin B-12) 1,000 mcg Capsule 1,000 mcg PO QAM citalopram 10 mg tablet 10 mg PO QAM Rx Instructions: take 20mg +10mg daily citalopram 20 mg tablet 20 mg PO QAM Rx Instructions: Take 20mg +10mg daily Admission Data Admit Date/Time: 11/02/23 08:31 Attending Provider: Tang Arrington Admit Provider: Tang Arrington Primary Care Provider: Sylvie Clarke Other Providers: [facility],Home Healthcare; [facility],Referral Center Other Interventions: Discharge Summary Assessment (RN) Last Done: 11/03/23 10:32
== END 2023-11-03 11:36 | disposition home health service (06) ==
LOC: ASU 05:10 → 3E 05:10

== ENCOUNTER 2024-06-04 11:46 | Observation (INO) ==
--- NOTE | 2024-06-04 12:10 | Emergency Department Note ---
Impression & Plan Fall, Head injury, Back contusion, Abdominal contusion ED Provider Note NAME: TONY AWAN AGE: 84 SEX: M : 1940 ARRIVES VIA: Walk-In INFORMANT: Patient, the patient's daughter ED PROVIDER(S): Kevin Camilo DO CHIEF COMPLAINT: Trauma alert HPI: The patient is an 84-year-old male who has a history of venous thromboembolic disease who presented to the emergency department after frequent falls. The patient has always had a problem with falling especially over the course of the last 6 or 7 months. The patient presented to the emergency department today at the request of his primary care physician. The patient has been having problems with falling. The patient states over the last week he had 3 different falls. The most recent one was today where he fell straight backwards. The patient struck the back of his head. The patient denies having any loss of consciousness. He was made a trauma alert from triage because he takes oral anticoagulation. The patient denies having any abdominal pain but does note some right hip pain. He also notices low back pain and neck pain. ROS: See above HPI for pertinent positives & negatives. A total of 10 systems reviewed and were otherwise negative. PAST MEDICAL HISTORY: See Below PAST SURGICAL HISTORY: See Below FAMILY HISTORY: See Below SOCIAL HISTORY: See Below HOME MEDICATIONS: See Below ALLERGIES: See Below VITALS: See Below PHYSICAL EXAMINATION: GENERAL: Patient is awake alert in no acute distress patient is resting comfortably and showing no signs of anxiety EYES: The conjunctivae are clear. The pupils are round and reactive. EARS, NOSE, MOUTH AND THROAT: The nose is without any evidence of any deformity. Mucous membranes are moist. There is an abrasion on the right side of the forehead. There is no active bleeding. There is tenderness over the occipital scalp. NECK: Diffuse tenderness was noted over the posterior cervical spine. Range of motion appears intact. RESPIRATORY: Normal respiratory effort is noted there is no evidence of wheezing rhonchi or rales CARDIOVASCULAR: Regular rate and rhythm noted there no murmurs rubs or gallops normal S1 normal S2. GASTROINTESTINAL: The abdomen is soft. There is tenderness in the left upper quadrant. There is no guarding or rigidity. BACK: Diffuse back pain was noted to palpation especially over the lower lumbar spine. There was no specific step-off. MUSCULOSKELETAL/EXTREMITIES: There is no deformity of either lower extremity. There was pain with range of motion testing of the right hip. SKIN: Skin was cool and dry. There is pedal edema bilaterally. NEUROLOGIC: Patient is awake alert and oriented x3. Strength is symmetric but diminished. MEDICAL DECISION MAKING: The patient is an 84-year-old male who presented to the emergency department after a fall. It sounds of the patient does have a history of frequent falls but over the last week or so he has had multiple falls. There was concern by his family that this was not normal and given the patient's use of anticoagulation he was felt to be in need of referral to the emergency department by his primary care physician. I discussed the patient's laboratory and radiographic studies with him. There is no obvious injury noted on radiographic studies. The patient was reevaluated multiple times. The patient describes these episodes where he becomes very weak and this is why he falls. Right now his strength does appear to be symmetric. I would still question why the patient is falling. I do not feel that he would be safe for an outpatient workup given his oral anticoagulant use. For this reason I [facility] Nursing notes reviewed. Prior medical records reviewed Vital Signs: reviewed and remarkable for no significant abnormalities Differential diagnosis: Fracture, dislocation, contusion, intra-abdominal, pneumothorax, intrathoracic, intracranial, neurologic, compartment syndrome, rhabdomyolysis, as well as other pathologies. ER treatment provided: See below Diagnostics interpreted by me: ECG: EKG was obtained in the emergency department. My interpretation is normal sinus rhythm at 63 bpm. There was no ectopy. There was no acute ST segment abnormalities noted. This was compared to a tracing from January 18, 2024. No changes were noted. Cardiac Monitoring: An order was placed for continuous cardiac monitoring. The monitor shows a rate of 70 bpm with sinus rhythm. Laboratory studies: As stated above and show below. Imaging studies: See below. Radiographic imaging was reviewed by myself Consultation(s): I discussed this case with Dr. Thomas [facility] Past Med/Surg History Problem List (Updated 06/04/24 @ 16:35 by Kevin Camilo DO) Abdominal contusion (Acute) Back contusion (Acute) Head injury (Acute) Fall (Acute) Recurrent falls Sacroiliitis Leg length discrepancy Ankylosing spondylitis lumbar region Pes anserinus bursitis Status post right hip replacement (~10/2023) Prediabetes Carpal tunnel syndrome on both sides Hypothyroidism Osteoarthritis of hips, bilateral Shortness of breath Cough Exposure to COVID-19 virus Suicidal thoughts Depression Osteoarthritis of right hip Elevated TSH Orthostatic hypotension Near syncope (Acute) Precordial chest pain (Acute) Dizziness Urinary tract infection Conjunctivitis Suprapubic pain, acute Urgency of urination Burning with urination Frequency of urination Obstructive sleep apnea Hematuria Hypervolemia Physical deconditioning BPH (benign prostatic hyperplasia) Sinus bradycardia Bilateral edema of lower extremity (Acute) PERALTA (dyspnea on exertion) (Acute) Improved since cardio stopped Amiodarone 06/2023 Encounter for pre-operative examination Mild sleep apnea Postherpetic neuralgia Paroxysmal atrial fibrillation (Acute) Obesity Hypersomnia COPD (chronic obstructive pulmonary disease) Exertional shortness of breath 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 Decreased activity tolerance Fatigue Exertional dyspnea Arthralgia Myalgia nursing home (current) use of anticoagulants (Chronic) Non-cardiac chest pain Enlarged prostate with lower urinary tract symptoms (LUTS) (Acute) Recurrent falls Benign essential tremor Will be seeing neuro 10/23/23 Frequent PVCs History of pulmonary embolism (2014) Syncope Sensorineural hearing loss (SNHL) of both ears Chest wall pain Lumbar spinal stenosis Peripheral neuropathy CAD (coronary artery disease) Nonobstructive per cardio records HTN (hypertension) (Acute) Polyneuropathy (Acute) Hands and feet bilaterally Medical History Cervical pain Did have cervical fracture approximately 2019- conservative treatment- mild pain Depression UTI (urinary tract infection) being tx for currently- following with PCP- patient aware that UTI needs resolved by DOS History of pulmonary embolism approx 20+ years ago post op Rt TKA Enlarged prostate Hearing deficit BL JUDGE Sleep apnea no device History of DVT (deep vein thrombosis) RLE post op TKA approx 20+years ago. Treated with AC/coumadin at that time, now on Eliquis History of atrial fibrillation Follows with Dr. Hutton. On Alee. (cardioversion 2021) Osteoporosis History of squamous cell carcinoma s/ excision Surgical History History of cardioversion 2021 at [place] History of cardiac cath 2021>no stents History of squamous cell carcinoma excision History of loop recorder placed 2020 - placed for syncope and frequent falls History of tonsillectomy History of cataract surgery rt/left History of transurethral resection of prostate History of knee replacement Rt Family History Father Prostate cancer Cancer Prostate Mother Breast cancer Colorectal cancer Other No family history of adverse response to anesthesia No significant family history Denies family history of Ovarian cancer Myocardial infarction Social History Smoking Status: Never smoker Second Hand Exposure: No; Do You Dip or Chew Tobacco: No; Hx Alcohol Use: Yes Alcohol type: beer Hx Substance Use: No Preferred Language: [place] Communication Ability: Effective Communication Ability Comment: Pt is PAUMA Hearing Ability: Use of Hearing Aid Lathe Scalper Operator Required: No Beliefs That Will Affect Care: None marital status: Current Living Situation: Spouse Current Living Situation Comment: lives in farmhouse with current occupational status: retired Feels Safe at Home: Yes Childhood Exposure to Second-Hand Smoke: No Dental Care, Regularly: No Physical Activity Frequency: Does not Exercise Seatbelt Use: always Sunscreen Use: Yes Assistive Devices: Cane and Walker Allergies Allergies Allergy/AdvReac Type Severity Reaction Status Date / Time aspirin Allergy Intermediate HIVES Verified 06/04/24 13:35 celecoxib [From Celebrex] Allergy Intermediate hives Verified 06/04/24 13:35 Iodinated Contrast Media Allergy Intermediate Hives and Verified 06/04/24 13:35 swelling iodine Allergy Intermediate Hives Verified 06/04/24 13:35 tramadol AdvReac Intermediate dizziness, Verified 06/04/24 13:35 nausea, leg weakness Home Meds Home Medications Medication Instructions Recorded Confirmed cyanocobalamin (vitamin B-12) 1,000 mcg PO QAM 10/02/23 06/04/24 1,000 mcg capsule acetaminophen 500 mg tablet 1,000 mg PO BID Pain, Mild 04/22/24 06/04/24 (Tylenol Extra Strength) levothyroxine 50 mcg tablet 50 mcg PO DAILY 06/04/24 06/04/24 Previous Rx's Medication Instructions Recorded syringe with needle, safety 3 mL #100 ea 12/09/20 23 gauge x 1" (BD Safety-Bren Detachable Needle) epinephrine 0.3 mg/0.3 mL 0.3 mg (0.3 mL) IM UD PRN 03/01/23 injection, auto-injector (EpiPen) Anaphylaxis #1 ea apixaban 5 mg tablet (Eliquis) 5 mg PO BID #180 tabs 08/25/23 finasteride 5 mg tablet 5 mg PO QAM #90 tabs 10/01/23 Wheeled Walker #1 ea 11/21/23 citalopram 20 mg tablet 20 mg PO DAILY #90 tabs 04/22/24 furosemide 20 mg tablet (Lasix) 20 mg PO DAILY #180 tabs 04/22/24 tamsulosin 0.4 mg capsule (Flomax) 0.4 mg PO QAM #90 caps 04/22/24 Results & Data (ED) Vital Signs Vital Signs - 24 hr 06/04/24 11:48 06/04/24 11:52 06/04/24 12:00 Temperature 36.6 C Temperature Source Skin Pulse Rate 72 Pulse Rate [Finger] 63 Pulse Rhythm Pulse Rhythm [Finger] Regular Pulse Strength [Finger] Normal Respiratory Rate 18 20 Respiratory Effort / Characteristics Non-Labored Respiratory Depth Normal Respiratory Pattern Regular Blood Pressure [Right Arm] 177/90 H Blood Pressure Mean [Right Arm] 119 Blood Pressure Position [Right Arm] Lying Pulse Oximetry 94 95 95 Oxygen Delivery Method Room Air Room Air Room Air Oxygen Flow Rate Sepsis Recent Fever Within 48 Hours No Sepsis New/Unexplained Change in Mental Status No Sepsis Action Taken by Nursing No Action Required 06/04/24 12:01 06/04/24 12:05 06/04/24 12:30 Temperature Temperature Source Pulse Rate 56 L Pulse Rate [Finger] 61 Pulse Rhythm Regular Pulse Rhythm [Finger] Regular Pulse Strength [Finger] Normal Respiratory Rate 20 Respiratory Effort / Characteristics Non-Labored Respiratory Depth Normal Respiratory Pattern Regular Blood Pressure [Right Arm] 164/86 H Blood Pressure Mean [Right Arm] 112 Blood Pressure Position [Right Arm] Lying Pulse Oximetry 96 96 Oxygen Delivery Method Room Air Room Air Room Air Oxygen Flow Rate 96 Sepsis Recent Fever Within 48 Hours Sepsis New/Unexplained Change in Mental Status Sepsis Action Taken by Nursing 06/04/24 13:00 06/04/24 13:20 06/04/24 14:00 Temperature 36.6 C Temperature Source Oral Pulse Rate 58 L Pulse Rate [Finger] 56 L Pulse Rhythm Pulse Rhythm [Finger] Regular Pulse Strength [Finger] Normal Respiratory Rate 18 20 Respiratory Effort / Characteristics Non-Labored Non-Labored Spontaneous Respiratory Depth Normal Normal Respiratory Pattern Regular Blood Pressure [Right Arm] 160/83 H 209/109 H Blood Pressure Mean [Right Arm] 108 142 Blood Pressure Position [Right Arm] Lying Lying Pulse Oximetry 95 96 Oxygen Delivery Method Room Air Room Air Oxygen Flow Rate Sepsis Recent Fever Within 48 Hours Sepsis New/Unexplained Change in Mental Status Sepsis Action Taken by Nursing 06/04/24 16:00 Temperature Temperature Source Pulse Rate Pulse Rate [Finger] 67 Pulse Rhythm Pulse Rhythm [Finger] Pulse Strength [Finger] Respiratory Rate 18 Respiratory Effort / Characteristics Non-Labored Spontaneous Respiratory Depth Normal Respiratory Pattern Regular Blood Pressure [Right Arm] 135/77 Blood Pressure Mean [Right Arm] 96 Blood Pressure Position [Right Arm] Pulse Oximetry 95 Oxygen Delivery Method Room Air Oxygen Flow Rate Sepsis Recent Fever Within 48 Hours Sepsis New/Unexplained Change in Mental Status Sepsis Action Taken by [place] Medications Current Medication List: was personally reviewed by me Laboratory Data Attestation: I reviewed the patient's lab results. 06/04/24 12:05 06/04/24 12:05 Lab Results 06/04/24 06/04/24 Range/Units 12:05 13:10 WBC 7.44 (4.8-10.8) K/ul RBC 4.47 L (4.70-6.10) M/uL Hgb 13.7 L (14.0-18.0) g/dl Hct 40.4 L (42.0-52.0) % MCV 90.4 (80.0-100.0) fL MCH 30.6 (25.0-34.0) pg MCHC 33.9 (32.0-36.0) g/dL RDW Std Deviation 44.5 (36.4-46.3) fL RDW Coeff of [place] 13.4 (11.5-14.5) % Plt Count 262 (130-400) K/uL MPV 8.9 L (9.4-12.4) fL Immature Gran % (Auto) 1.1 % Neut % (Auto) 65.7 % Lymph % (Auto) 19.6 % [place] % (Auto) 10.1 % Eos % (Auto) 2.8 % Baso % (Auto) 0.7 % Neut # (Auto) 4.89 (1.40-6.50) K/uL Lymph # (Auto) 1.46 (1.20-3.40) K/uL [place] # (Auto) 0.75 H (0.11-0.59) K/uL Eos # (Auto) 0.21 (0.00-0.50) K/uL Baso # (Auto) 0.05 (0.00-0.20) K/uL Immature Gran # (Auto) 0.08 (0.01-0.20) K/uL PT 11.4 (9.0-12.0) Seconds INR 1.1 (0.9-1.1) APTT 29 (21-31) Seconds PTT Ratio 1.1 Sodium 140 (136-145) mmol/L Potassium 4.0 (3.5-5.1) mmol/L Chloride 106 (98-107) mmol/L Carbon Dioxide 28 (21-32) mmol/L Anion Gap 6 (3-11) BUN 16 (6-23) mg/dl Creatinine 0.95 (0.6-1.4) mg/dl Est Cr Clr Drug Dosing 75.4 ml/min eGFR 77.95 BUN/Creatinine Ratio 16.8 (10-20) Glucose 100 H (70-99(Fasting)) mg/dl Calcium 9.2 (8.6-10.3) mg/dl Total Bilirubin 0.6 (0.2-1.0) mg/dl AST 14 (13-39) U/L ALT 8 (7-52) U/L Alkaline Phosphatase 83 (34-104) U/L Total Creatine Kinase 66 (30-223) U/L Troponin I High Sens 9.5 (0-20) pg/ml Total Protein 7.1 (6.0-8.3) gm/dl Albumin 4.0 (3.4-5.0) gm/dl Globulin 3.1 (2.5-4.0) gm/dl Albumin/Globulin Ratio 1.3 (0.9-2) Urine Color Yellow Urine Appearance Clear (Clear) Urine pH 6.0 (4.5-7.5) Ur Specific [place] 1.014 (1.000-1.030) Urine Protein Negative (Negative) Urine Glucose (UA) Negative (Negative) Urine Ketones Negative (Negative) Urine Blood Negative (Negative) Urine Nitrite Negative (Negative) Urine Bilirubin Negative (Negative) Urine Urobilinogen Negative (Negative) Ur Leukocyte Esterase Negative (Negative) Administered Medications Discontinued Medications Acetaminophen (Acetaminophen 500 Mg Tab) 1,000 mg PO NOW STA Stop: 06/04/24 16:24 Last Admin: 06/04/24 16:29 Dose: 1,000 mg Documented By: GALLO Dexamethasone (Dexamethasone Sod Inj 4 Mg/Ml Vial) 10 mg IV NOW STA Stop: 06/04/24 16:23 Last Admin: 06/04/24 16:31 Dose: 10 mg Documented By: GALLO Imaging Data Attestation: I personally reviewed and interpreted this imaging study as follows: My Impression: CT the brain was obtained in the emergency department. My interpretation is no intracranial hemorrhage or mass effect, final report below. CT of the chest was obtained in the emergency department. My interpretation is no free air or definite infiltrate, final report below. CT of the abdomen and pelvis was obtained in the emergency department. My interpretation is no free air or signs of bowel obstruction, final report below. X-ray of the right hip and pelvis was obtained in the emergency department. My interpretation is no definite fracture, previous surgical intervention noted, final report below. Radiologist's Impression: Abdomen/Pelvis CT 06/04/24 12:01 CT OF THE ABDOMEN AND PELVIS WITHOUT CONTRAST CLINICAL HISTORY: Trauma COMPARISON STUDY: CT of the abdomen and pelvis January 18, 2024. TECHNIQUE: Axial images of the abdomen and pelvis were obtained without IV contrast. Images were reviewed in the axial, sagittal, and coronal planes. Automated exposure control was utilized for the study. A dose lowering technique was utilized adhering to the principles of ALARA. FINDINGS: No hemoperitoneum or pneumoperitoneum is present. Evaluation of the solid abdominal viscera is suboptimal on this unenhanced exam but there is no evidence for traumatic injury to the liver, spleen, adrenal glands, kidneys or pancreas. There is a 4.4 cm left renal cyst. Colonic diverticulosis is present. There is no evidence for acute diverticulitis. There is no evidence for a bowel obstruction. No acute lumbar spine, pelvis or hip fractures are identified. There is less portions of the right hip arthroplasty are intact. There are several healing transverse process fractures as well as healing fractures of the posterior left 11th and 12th rib. No acute fractures are identified. IMPRESSION: 1. No acute medical findings within the abdomen or pelvis on unenhanced exam. 2. No acute lumbar spine, pelvic or hip fractures. 3. Intact total right hip arthroplasty. 4. Colonic diverticulosis. No evidence for acute diverticulitis. ACT 112: Negative or not required by law. Electronically signed by: Harrison Gaffney M.D. 06/04/2024 1:[address] 06/04/24 12:01 CT cervical spine wo con CT DOSE: 4965.91 mGy.cm CLINICAL HISTORY: 84 years-old Male with Trauma. Acute neck injury status post trauma COMPARISON: 11/24/2016. TECHNIQUE: Multiple axial CT images of the cervical spine were obtained without contrast. A dose lowering technique was utilized adhering to the principles of ALARA. FINDINGS: Demineralized appearance of the bones. Moderate multilevel intervertebral disc space narrowing, spondylitic spurring and facet arthrosis. Mild superior endplate compression at T1 appears chronic. The cervical soft tissues appear unremarkable. The visualized lung apices appear clear. IMPRESSION: No acute cervical spine fracture or subluxation identified. ACT 112: Negative or not required by law. The above report was generated using voice recognition software. It may contain grammatical, syntax or spelling errors. Electronically signed by: Enrico Fields M.D. 06/04/2024 1:[address] 06/04/24 12:01 CT OF THE CHEST WITHOUT IV CONTRAST CLINICAL HISTORY: Trauma COMPARISON STUDY: Chest CT January 18, 2024. Chest radiograph performed earlier today. TECHNIQUE: Axial images of the chest were obtained without IV contrast. Images were reviewed in the axial, sagittal, and coronal planes. IV contrast was not administered for this examination. Automated exposure control was utilized for the study. A dose lowering technique was utilized adhering to the principles of ALARA. FINDINGS: The thoracic aorta is suboptimally assessed on this unenhanced exam but there is no mediastinal hematoma. Moderate cardiomegaly and dilatation of the central pulmonary arteries is again noted. There is no pericardial effusion. No pneumothorax or pleural effusion is present. Lungs are suboptimally assessed due to respiratory motion. Subpleural groundglass opacities favor atelectasis. There are no suspicious pulmonary nodules. A few calcified nodules are present. Extensive anterior osteophytosis of the thoracic spine is again noted. No thoracic spine fractures are present. There is a healing posterior left 11th rib. There are several old bilateral rib fractures. No acute rib fractures are identified. IMPRESSION: 1. No acute traumatic findings within the chest on unenhanced exam. 2. No pneumothorax. No pulmonary contusions. Several old bilateral rib fractures and a healing posterior left 11th rib fracture. No acute rib fractures. ACT 112: Negative or not required by law. Electronically signed by: Harrison Gaffney M.D. 06/04/2024 12:53 PM Chest X-Ray 06/04/24 12:01 XR chest 1V portable CLINICAL HISTORY: trauma alert COMPARISON STUDY: Chest CT January 18, 2024. Chest radiograph January 30, 2024. FINDINGS: There is no pneumothorax or pleural effusion. The patient is mildly rotated. Cardiomegaly is unchanged. There is no evidence for pulmonary edema. There are several old anterior right-sided rib fractures. IMPRESSION: No acute cardiopulmonary findings. ACT 112: Negative or not required by law. Electronically signed by: Harrison Gaffney M.D. 06/04/2024 12:[address] 06/04/24 12:01 CT OF THE HEAD WITHOUT CONTRAST CLINICAL HISTORY: Trauma COMPARISON STUDY: Head CT June 19, 2020. TECHNIQUE: Helical axial images of the head were obtained without IV contrast. Automated exposure control was utilized for the study. A dose lowering technique was utilized adhering to the principles of ALARA. FINDINGS: No acute intracranial hemorrhage, midline shift or mass effect is present. White matter hypodensity suggests small vessel disease. The ventricular system is unremarkable. The basal cisterns are patent. No extra-axial collections are present. There are no findings to suggest acute dural sinus thrombosis or acute territorial infarct. There are no calvarial fractures. Visualized portions of the right maxillary sinus are nearly entirely opacified. This has increased since CT of June 19, 2020 but is likely chronic. IMPRESSION: 1. No acute intracranial findings. 2. No calvarial fractures. ACT 112: Negative or not required by law. Electronically signed by: Harrison Gaffney M.D. 06/04/2024 12:[address] 06/04/24 12:01 CT lumbar spine wo con CLINICAL HISTORY: Trauma TECHNIQUE: Multidetector row helical CT of the lumbar spine was performed without administration of intravenous contrast. Coronal and sagittal reformations were obtained. Automated dose lowering techniques and/or adjustment according to patient size were utilized for this exam. Comparison: None available at the time of this dictation. FINDINGS: For counting purposes, the last complete intervertebral disc space is considered L5-S1. No acute fractures are identified. Degenerative changes are noted in the visualized spine. Vertebral body alignment is within normal limits. Surrounding soft tissues are unremarkable. IMPRESSION: Degenerative changes without evidence of acute bony injury. ACT 112: Negative or not required by law. Electronically signed by: Benigno Lopez M.D. 06/04/2024 1:05 PM Hip/Pelvis X-Ray 06/04/24 12:02 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 Unremarkable appearance of the right hip arthroplasty. No acute fracture or dislocation. Marginal osteophytic spurring of the greater trochanter. IMPRESSION: No acute fracture identified. ACT 112: Negative or not required by law. The above report was generated using voice recognition software. It may contain grammatical, syntax or spelling errors. Electronically signed by: Enrico Fields M.D. 06/04/2024 1:07 PM Wrist X-Ray 06/04/24 13:16 XR wrist RT min 3V routine HISTORY: 84 years-old Male fall acute right wrist pain status post fall COMPARISON: 12/16/2012 TECHNIQUE: 4 views of the right breast FINDINGS: Scapholunate interval measures near the limits of normal at 2.5 mm. Multifocal osteoarthritis, severe within the radiocarpal joint and moderate triscaphe and first carpometacarpal articulations. No acute fracture, dislocation or osseous erosion. Arterial calcifications. Mild circumferential soft tissue swelling. IMPRESSION: No acute fracture or dislocation. ACT 112: Negative or not required by law. The above report was generated using voice recognition software. It may contain grammatical, syntax or spelling errors. Electronically signed by: Enrico Fields M.D. 06/04/2024 2:24 PM Discharge Plan Visit Data Chief Complaint: Trauma Stated Complaint: 3-4 FALLS, WEAKNESS/BODY GIVES OUT ED Provider: Kevin Camilo Discharge Problem: Fall, Head injury, Back contusion, Abdominal contusion Patient Disposition: Being Evaluated by Hospitalist Forms Stand Alone Forms: Remember The Member Prescriptions Prescriptions: No Action Eliquis 5 mg tablet 5 mg PO BID Qty: 180 2RF citalopram 20 mg tablet 20 mg PO DAILY Qty: 90 3RF furosemide [Lasix] 20 mg tablet 20 mg PO DAILY Qty: 180 3RF (DME) BD Safety-Bren Detachable Needl 3 mL 23 gauge x 1" syringe See Rx Instructions .ROUTE .MEDSUPPLY Qty: 100 0RF Rx Instructions: As directed with cyanocobalamin (DME) Wheeled Walker Misc See Rx Instructions .MEDSUPPLY Qty: 1 0RF Rx Instructions: As directed epinephrine [EpiPen] 0.3 mg/0.3 mL auto-injector 0.3 mg IM UD PRN (Reason: Anaphylaxis) Qty: 1 1RF finasteride 5 mg tablet 5 mg PO QAM Qty: 90 3RF Rx Instructions: TAKE 1 TABLET BY MOUTH DAILY acetaminophen [Tylenol Extra Strength] 500 mg tablet 1,000 mg PO BID tamsulosin [Flomax] 0.4 mg capsule 0.4 mg PO QAM Qty: 90 3RF cyanocobalamin (vitamin B-12) 1,000 mcg Capsule 1,000 mcg PO QAM levothyroxine 50 mcg tablet 50 mcg PO DAILY Rx Instructions: As of 06/04/24, pt states he takes 50mcg daily Referrals Referrals: Sylvie Clarke MD [Primary Care Provider] - Discharge Problem: Fall Qualifiers: Encounter type: initial encounter Qualified Code(s): W19.XXXA - Unspecified fall, initial encounter Head injury Qualifiers: Encounter type: initial encounter Qualified Code(s): S09.90XA - Unspecified injury of head, initial encounter Back contusion Qualifiers: Encounter type: initial encounter Laterality: unspecified laterality Qualified Code(s): S20.229A - Contusion of unspecified back wall of thorax, initial encounter Abdominal contusion Qualifiers: Encounter type: initial encounter Qualified Code(s): S30.1XXA - Contusion of abdominal wall, initial encounter
--- NOTE | 2024-06-04 12:31 | XRay Report ---
XR chest 1V portable CLINICAL HISTORY: trauma alert COMPARISON STUDY: Chest CT January 18, 2024. Chest radiograph January 30, 2024. FINDINGS: There is no pneumothorax or pleural effusion. The patient is mildly rotated. Cardiomegaly i s unchanged. There is no evidence for pulmonary edema. There are several old anterior right-sided rib fractures. IMPRESSION: No acute cardiopulmonary findings. ACT 112: Negative or not required by law. Electronically signed by: Harrison Gaffney M.D. 06/04/2024 12:29 PM
[2024-06-04 12:34] LABS: Basophils # (auto) 0.05 K/uL (0.00-0.20); Basophils % (auto) 0.7 %; Eosinophils # (auto) 0.21 K/uL (0.00-0.50); Eosinophils % (auto) 2.8 %; Hematocrit (blood only) 40.4 % (42.0-52.0); Hemoglobin 13.7 g/dl (14.0-18.0); Immature Granulocytes # (auto) 0.08 K/uL (0.01-0.20); Immature Granulocytes % (auto) 1.1 %; Lymphocytes # (auto) 1.46 K/uL (1.20-3.40); Lymphocytes % (auto) 19.6 %; Mean Corpuscular Hemoglobin 30.6 pg (25.0-34.0); Mean Corpuscular Hgb Conc 33.9 g/dL (32.0-36.0); Mean Corpuscular Volume 90.4 fL (80.0-100.0); Mean Platelet Volume 8.9 fL (9.4-12.4); Monocytes # (auto) 0.75 K/uL (0.11-0.59); Monocytes % (auto) 10.1 %; Neutrophils # (auto) 4.89 K/uL (1.40-6.50); Neutrophils % (auto) 65.7 %; Platelet Count 262 K/uL (130-400); RDW Coefficient of Variation 13.4 % (11.5-14.5); RDW Standard Deviation 44.5 fL (36.4-46.3); Red Blood Count 4.47 M/uL (4.70-6.10); White Blood Count 7.44 K/ul (4.8-10.8)
--- NOTE | 2024-06-04 12:43 | CT Scan Report ---
CT OF THE HEAD WITHOUT CONTRAST CLINICAL HISTORY: Trauma COMPARISON STUDY: Head CT June 19, 2020. TECHNIQUE: Helical axial images of the head were obtained without IV contrast. Automated exposure con trol was utilized for the study. A dose lowering technique was utilized adhering to the principles o f ALARA. FINDINGS: No acute intracranial hemorrhage, midline shift or mass effect is present. White matter hyp odensity suggests small vessel disease. The ventricular system is unremarkable. The basal cisterns ar e patent. No extra-axial collections are present. There are no findings to suggest acute dural sinus thrombosis or acute territorial infarct. There are no calvarial fractures. Visualized portions of the right maxillary sinus are nearly entirely opacified. This has increased since CT of June 19, 2020 but is likely chronic. IMPRESSION: 1. No acute intracranial findings. 2. No calvarial fractures. ACT 112: Negative or not required by law. Electronically signed by: Harrison Gaffney M.D. 06/04/2024 12:42 PM
[2024-06-04 12:49] LABS: Albumin Globulin Ratio 1.3 (0.9-2); BUN Creatinine Ratio 16.8 (10-20); Bilirubin,Total 0.6 mg/dl (0.2-1.0); Calcium 9.2 mg/dl (8.6-10.3); Creatinine Clr Calc Pharmacy 75.4 ml/min; Globulin 3.1 gm/dl (2.5-4.0); Total Protein 7.1 gm/dl (6.0-8.3)
--- NOTE | 2024-06-04 12:54 | CT Scan Report ---
CT OF THE CHEST WITHOUT IV CONTRAST CLINICAL HISTORY: Trauma COMPARISON STUDY: Chest CT January 18, 2024. Chest radiograph performed earlier today. TECHNIQUE: Axial images of the chest were obtained without IV contrast. Images were reviewed in the axial, sagittal, and coronal planes. IV contrast was not administered for this examination. Automat ed exposure control was utilized for the study. A dose lowering technique was utilized adhering to t he principles of ALARA. FINDINGS: The thoracic aorta is suboptimally assessed on this unenhanced exam but there is no medias tinal hematoma. Moderate cardiomegaly and dilatation of the central pulmonary arteries is again noted . There is no pericardial effusion. No pneumothorax or pleural effusion is present. Lungs are subopti jorge luis assessed due to respiratory motion. Subpleural groundglass opacities favor atelectasis. There a re no suspicious pulmonary nodules. A few calcified nodules are present. Extensive anterior osteophyt osis of the thoracic spine is again noted. No thoracic spine fractures are present. There is a healin g posterior left 11th rib. There are several old bilateral rib fractures. No acute rib fractures are identified. IMPRESSION: 1. No acute traumatic findings within the chest on unenhanced exam. 2. No pneumothorax. No pulmonary contusions. Several old bilateral rib fractures and a healing wool grower ior left 11th rib fracture. No acute rib fractures. ACT 112: Negative or not required by law. Electronically signed by: Harrison Gaffney M.D. 06/04/2024 12:53 PM
[2024-06-04 12:55] LABS: Troponin I High Sensitivity 9.5 pg/ml (0-20)
[2024-06-04 13:07] LABS: INR 1.1 (0.9-1.1); Partial Thromboplastin Ratio 1.1; Partial Thromboplastin Time 29 Seconds (21-31); Prothrombin Time 11.4 Seconds (9.0-12.0)
--- NOTE | 2024-06-04 13:07 | CT Scan Report ---
CT lumbar spine wo con CLINICAL HISTORY: Trauma TECHNIQUE: Multidetector row helical CT of the lumbar spine was performed without administration of i ntravenous contrast. Coronal and sagittal reformations were obtained. Automated dose lowering techniq ues and/or adjustment according to patient size were utilized for this exam. Comparison: None available at the time of this dictation. FINDINGS: For counting purposes, the last complete intervertebral disc space is considered L5-S1. No acute fractures are identified. Degenerative changes are noted in the visualized spine. Vertebral body alignment is within normal limits. Surrounding soft tissues are unremarkable. IMPRESSION: Degenerative changes without evidence of acute bony injury. ACT 112: Negative or not required by law. Electronically signed by: Benigno Lopez M.D. 06/04/2024 1:05 PM
--- NOTE | 2024-06-04 13:08 | XRay Report ---
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 Unremarkable appearance of the right hip arthroplasty. No acute fracture or dislocation. Marginal osteophytic spurring of the greater trochanter. IMPRESSION: No acute fracture identified. ACT 112: Negative or not required by law. The above report was generated using voice recognition software. It may contain grammatical, syntax o r spelling errors. Electronically signed by: Enrico Fields M.D. 06/04/2024 1:07 PM
--- NOTE | 2024-06-04 13:12 | CT Scan Report ---
CT cervical spine wo con CT DOSE: 4965.91 mGy.cm CLINICAL HISTORY: 84 years-old Male with Trauma. Acute neck injury status post trauma COMPARISON: 11/24/2016. TECHNIQUE: Multiple axial CT images of the cervical spine were obtained without contrast. A dose low ering technique was utilized adhering to the principles of ALARA. FINDINGS: Demineralized appearance of the bones. Moderate multilevel intervertebral disc space narrow ing, spondylitic spurring and facet arthrosis. Mild superior endplate compression at T1 appears chron ic. The cervical soft tissues appear unremarkable. The visualized lung apices appear clear. IMPRESSION: No acute cervical spine fracture or subluxation identified. ACT 112: Negative or not required by law. The above report was generated using voice recognition software. It may contain grammatical, syntax o r spelling errors. Electronically signed by: Enrico Fields M.D. 06/04/2024 1:10 PM
--- NOTE | 2024-06-04 13:30 | CT Scan Report ---
CT OF THE ABDOMEN AND PELVIS WITHOUT CONTRAST CLINICAL HISTORY: Trauma COMPARISON STUDY: CT of the abdomen and pelvis January 18, 2024. TECHNIQUE: Axial images of the abdomen and pelvis were obtained without IV contrast. Images were revi ewed in the axial, sagittal, and coronal planes. Automated exposure control was utilized for the beatrice dy. A dose lowering technique was utilized adhering to the principles of ALARA. FINDINGS: No hemoperitoneum or pneumoperitoneum is present. Evaluation of the solid abdominal viscera is suboptimal on this unenhanced exam but there is no evidence for traumatic injury to the liver, sp sidney, adrenal glands, kidneys or pancreas. There is a 4.4 cm left renal cyst. Colonic diverticulosis is present. There is no evidence for acute diverticulitis. There is no evidence for a bowel obstructi on. No acute lumbar spine, pelvis or hip fractures are identified. There is less portions of the righ t hip arthroplasty are intact. There are several healing transverse process fractures as well as heal ing fractures of the posterior left 11th and 12th rib. No acute fractures are identified. IMPRESSION: 1. No acute medical findings within the abdomen or pelvis on unenhanced exam. 2. No acute lumbar spine, pelvic or hip fractures. 3. Intact total right hip arthroplasty. 4. Colonic diverticulosis. No evidence for acute diverticulitis. ACT 112: Negative or not required by law. Electronically signed by: Harrison Gaffney M.D. 06/04/2024 1:27 PM
[2024-06-04 13:40] LABS: Appearance Urine Clear (Clear); Bilirubin Urine Negative (Negative); Blood Urine Negative (Negative); Color Urine Yellow; Glucose Urine UA Negative (Negative); Ketones Urine Negative (Negative); Leukocyte Esterase Urine Negative (Negative); Nitrite Urine Negative (Negative); Protein Urine Negative (Negative); Specific Gravity Urine 1.014 (1.000-1.030); Urobilinogen Urine Negative (Negative)
--- NOTE | 2024-06-04 14:25 | XRay Report ---
XR wrist RT min 3V routine HISTORY: 84 years-old Male fall acute right wrist pain status post fall COMPARISON: 12/16/2012 TECHNIQUE: 4 views of the right breast FINDINGS: Scapholunate interval measures near the limits of normal at 2.5 mm. Multifocal osteoarthritis, severe within the radiocarpal joint and moderate triscaphe and first carpometacarpal articulations. No acut e fracture, dislocation or osseous erosion. Arterial calcifications. Mild circumferential soft tissue swelling. IMPRESSION: No acute fracture or dislocation. ACT 112: Negative or not required by law. The above report was generated using voice recognition software. It may contain grammatical, syntax o r spelling errors. Electronically signed by: Enrico Fields M.D. 06/04/2024 2:24 PM
--- NOTE | 2024-06-04 15:04 | Electrocardiogram Report ---
Test Reason : Blood Pressure : */* mmHG Vent. Rate : 63 BPM Atrial Rate : 63 BPM P-R Int : 182 ms QRS Dur : 112 ms QT Int : 432 ms P-R-T Axes : 12 -41 41 degrees QTcB Int : 442 ms Normal sinus rhythm Left axis deviation Abnormal ECG When compared with ECG of 18-Jan-2024 12:24, No significant change was found Confirmed by Oniel Camargo ([id number]) on 06/04/2024 3:03:57 PM Referred By: REFERRED SELF Confirmed By: Oniel Camargo
--- NOTE | 2024-06-04 15:30 | History & Physical Report ---
Date of Service June 04, 2024 Assessment & Plan (1) Recurrent falls: Plan: Etiology not completely clear from history - appears to be related pain reflex possibly from right hip bursitis (pain on palpation) although also concern of both right lumbar radiculopathy and spinal stenosis from history and right L3 numbness on exam. MRI lumbar spine wo IV contrast ordered. Due to prior significant improvement with prednisone back in March will give a dose of dexamethasone to help with PT/OT tomorrow and monitor for improvement for continued steroid course if felt helpful by rounding provider tomorrow Prior side effects to gabapentin therefore will avoid restarting this, per prior neurology note Lyrica not covered Leg length discrepancy investigated by pain management certainly not helping as his current shoe lift is around 1cm and recent imaging shows 1.9cm - will consult orthotics Given alternative etiologies and no loss of consciousness I am not concerned cardiac or intracranial cause of his falls Consider pain management consult vs. 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 LP/peripheral nerve biopsy (3) Paroxysmal atrial fibrillation: Plan: Currently in NSR Continue ELiquis for anticoagulation - also on this for history of PE Currently on no rate or rhythm control - previously on amiodarone (4) Polyneuropathy: Plan VTE Prophyalxis - Eliquis Diet - regular Disposition - admit Admission and Anticipated Discharge Date Admission Date: June 04, 2024 History of Present Illness Chief Complaint: Recurrent falls Primary Care Provider: Sylvie Clarke MD Patel Fink is an 84 year old male who presents to the ER with recurrent falls. He reports baseline using a walker and stick. He notes no lightheadedness, chest pain or dizziness prior to falling. On each occasion (three times over the last week) he reports sudden lower abdominal/bilateral hip pain which then causes bilateral leg weakness and subsequently he falls down. Difficult to get a definitive history from patient but he notes having this similar pain on the right side which led to him having a hip replacement in October which did not improve the pain. More recently he was seen by Dr Arrington in April for this pain and suspected his cause was more back related. Lumbar XR was taken and he was referred to pain management. Pain management suspected leg length discrepancy contributing and he was sent for XRs to assess for this subsequently showing 1.9cm discrepancy (his current shoe modification accounts for around 1cm). He also notes associated occasional right leg numbness in L3 distribution over the last few weeks. He additionally has a peripheral neuropathy in his hands and feet but this has not recently progressed. He notes no sudden worsening of his chronic lumbar spine pain. EHR notes a history of ankylosing spondylitis although the patient cannot provide any supplemental information in regards to this (appears this diagnosis was based on recent Lumbar spine XRs performed by Dr Arrington). He notes significant improvement with 5 days of prednisone given back in March. Allergies Allergy/AdvReac Type Severity Reaction Status Date / Time aspirin Allergy Intermediate HIVES Verified 06/04/24 13:35 celecoxib [From Celebrex] Allergy Intermediate hives Verified 06/04/24 13:35 Iodinated Contrast Media Allergy Intermediate Hives and Verified 06/04/24 13:35 swelling iodine Allergy Intermediate Hives Verified 06/04/24 13:35 tramadol AdvReac Intermediate dizziness, Verified 06/04/24 13:35 nausea, leg weakness Home Medications Medication Instructions Recorded Confirmed Type syringe with needle, safety 3 mL #100 ea 12/09/20 05/23/24 Rx 23 gauge x 1" (BD Safety-Bren Detachable Needle) epinephrine 0.3 mg/0.3 mL 0.3 mg (0.3 mL) IM UD PRN 03/01/23 06/04/24 Rx injection, auto-injector (EpiPen) Anaphylaxis #1 ea apixaban 5 mg tablet (Eliquis) 5 mg PO BID #180 tabs 08/25/23 06/04/24 Rx finasteride 5 mg tablet 5 mg PO QAM #90 tabs 10/01/23 06/04/24 Rx cyanocobalamin (vitamin B-12) 1,000 mcg PO QAM 10/02/23 06/04/24 History 1,000 mcg capsule Wheeled Walker #1 ea 11/21/23 05/23/24 Rx acetaminophen 500 mg tablet 1,000 mg PO BID Pain, Mild 04/22/24 06/04/24 History (Tylenol Extra Strength) citalopram 20 mg tablet 20 mg PO DAILY #90 tabs 04/22/24 06/04/24 Rx furosemide 20 mg tablet (Lasix) 20 mg PO DAILY #180 tabs 04/22/24 06/04/24 Rx tamsulosin 0.4 mg capsule (Flomax) 0.4 mg PO QAM #90 caps 04/22/24 06/04/24 Rx levothyroxine 50 mcg tablet 50 mcg PO DAILY 06/04/24 06/04/24 History Past Med/Surg History Problem List (Updated 06/04/24 @ 17:07 by Daron Thomas MD) Abdominal contusion (Acute) Back contusion (Acute) Head injury (Acute) Fall (Acute) Recurrent falls Sacroiliitis Leg length discrepancy Ankylosing spondylitis lumbar region Pes anserinus bursitis Status post right hip replacement (~10/2023) Prediabetes Carpal tunnel syndrome on both sides Hypothyroidism Osteoarthritis of hips, bilateral Shortness of breath Cough Exposure to COVID-19 virus Suicidal thoughts Depression Osteoarthritis of right hip Elevated TSH Orthostatic hypotension Near syncope (Acute) Precordial chest pain (Acute) Dizziness Urinary tract infection Suprapubic pain, acute Urgency of urination Burning with urination Frequency of urination Obstructive sleep apnea Hematuria Hypervolemia Physical deconditioning BPH (benign prostatic hyperplasia) Sinus bradycardia Bilateral edema of lower extremity (Acute) PERALTA (dyspnea on exertion) (Acute) Improved since cardio stopped Amiodarone 06/2023 Mild sleep apnea Postherpetic neuralgia Paroxysmal atrial fibrillation (Acute) Obesity Hypersomnia COPD (chronic obstructive pulmonary disease) Exertional shortness of breath 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 Decreased activity tolerance Fatigue Exertional dyspnea Arthralgia Myalgia MCFP (current) use of anticoagulants (Chronic) Non-cardiac chest pain Enlarged prostate with lower urinary tract symptoms (LUTS) (Acute) Recurrent falls Benign essential tremor Will be seeing neuro 10/23/23 Frequent PVCs History of pulmonary embolism (2014) Syncope Sensorineural hearing loss (SNHL) of both ears Chest wall pain Lumbar spinal stenosis Peripheral neuropathy CAD (coronary artery disease) Nonobstructive per cardio records HTN (hypertension) (Acute) Polyneuropathy (Acute) Hands and feet bilaterally Medical History Cervical pain Did have cervical fracture approximately 2019- conservative treatment- mild pain Depression UTI (urinary tract infection) being tx for currently- following with PCP- patient aware that UTI needs resolved by DOS History of pulmonary embolism approx 20+ years ago post op Rt TKA Enlarged prostate Hearing deficit BL JUDGE Sleep apnea no device History of DVT (deep vein thrombosis) RLE post op TKA approx 20+years ago. Treated with AC/coumadin at that time, now on Eliquis History of atrial fibrillation [facility] Osteoporosis History of squamous cell carcinoma s/ excision Surgical History History of cardioversion 2021 at [place] History of cardiac cath 2021>no stents History of squamous cell carcinoma excision History of loop recorder placed 2019 - placed for syncope and frequent falls History of tonsillectomy History of cataract surgery rt/left History of transurethral resection of prostate History of knee replacement Rt Family History Father Prostate cancer Cancer Prostate Mother Breast cancer Colorectal cancer Other No family history of adverse response to anesthesia No significant family history Denies family history of Ovarian cancer Myocardial infarction Social History Smoking Status: Never smoker Second Hand Exposure: No; Do You Dip or Chew Tobacco: No; Hx Alcohol Use: No Hx Substance Use: No Preferred Language: Welsh Communication Ability: Effective Communication Ability Comment: Pt is [id number] Hearing Ability: Use of Hearing Aid Clinical Assistant Required: No Beliefs That Will Affect Care: None marital status: Current Living Situation: Spouse Current Living Situation Comment: lives in farmhouse with current occupational status: retired Other Information That Helps Us Care for You: No Feels Safe at Home: Yes Safety Concerns: Feels Safe At This Time Childhood Exposure to Second-Hand Smoke: No Dental Care, Regularly: No Physical Activity Frequency: Does not Exercise Seatbelt Use: always Sunscreen Use: Yes Assistive Devices: Cane and Walker Review of Systems Review of Systems: All systems reviewed & are unremarkable except as noted in HPI & below Physical Exam Constitutional: WD/WN, vitals as above ENMT: external ear and nose normal, oropharynx normal Respiratory: normal respiratory effort, lungs clear to auscultation Cardiovascular: RRR, no murmur, no edema Gastrointestinal (Abdomen): normal bowel sounds, soft, nontender, no hepatosplenomegaly Neurologic: moves all extremities (5/5 b/l lower extremity strength) and awake; no focal motor deficits and not confused Motor/Sensory: + sensory deficit (right L3 distribution numbness); no tremor b/l knee reflexes mildly reduced b/l, no inducible clonus Psychiatric: A+Ox3, euthymic affect Genitourinary: no CVA tenderness Results & Data Results & Data Vital Signs (Past 12 Hours) Vital Signs Temp Pulse Pulse Resp BP Pulse Ox O2 Del Method 06/04/24 14:00 56 L 20 209/109 H 96 Room Air 06/04/24 13:20 58 L 06/04/24 13:00 36.6 C 18 160/83 H 95 Room Air 06/04/24 12:30 61 20 164/86 H 96 Room Air 06/04/24 12:05 Room Air 06/04/24 12:01 56 L 96 Room Air 06/04/24 12:00 63 20 177/90 H 95 Room Air 06/04/24 11:52 95 Room Air 06/04/24 11:48 36.6 C 72 18 94 Room Air O2 Flow Rate 06/04/24 14:00 06/04/24 13:20 06/04/24 13:00 06/04/24 12:30 06/04/24 12:05 96 06/04/24 12:01 06/04/24 12:00 06/04/24 11:52 06/04/24 11:48 Laboratory Results Abnormal lab results 06/04/24 Range/Units 12:05 RBC 4.47 L (4.70-6.10) M/uL Hgb 13.7 L (14.0-18.0) g/dl Hct 40.4 L (42.0-52.0) % MPV 8.9 L (9.4-12.4) fL Kay # (Auto) 0.75 H (0.11-0.59) K/uL Glucose 100 H (70-99(Fasting)) mg/dl Diagnostic Findings CT OF THE HEAD WITHOUT CONTRAST CLINICAL HISTORY: Trauma COMPARISON STUDY: Head CT June 19, 2020. TECHNIQUE: Helical axial images of the head were obtained without IV contrast. Automated exposure control was utilized for the study. A dose lowering technique was utilized adhering to the principles of ALARA. FINDINGS: No acute intracranial hemorrhage, midline shift or mass effect is present. White matter hypodensity suggests small vessel disease. The ventricular system is unremarkable. The basal cisterns are patent. No extra-axial collections are present. There are no findings to suggest acute dural sinus thrombosis or acute territorial infarct. There are no calvarial fractures. Visualized portions of the right maxillary sinus are nearly entirely opacified. This has increased since CT of June 19, 2020 but is likely chronic. IMPRESSION: 1. No acute intracranial findings. 2. No calvarial fractures. CT cervical spine wo con CT DOSE: 4965.91 mGy.cm CLINICAL HISTORY: 84 years-old Male with Trauma. Acute neck injury status post trauma COMPARISON: 11/24/2016. TECHNIQUE: Multiple axial CT images of the cervical spine were obtained without contrast. A dose lowering technique was utilized adhering to the principles of ALARA. FINDINGS: Demineralized appearance of the bones. Moderate multilevel intervertebral disc space narrowing, spondylitic spurring and facet arthrosis. Mild superior endplate compression at T1 appears chronic. The cervical soft tissues appear unremarkable. The visualized lung apices appear clear. IMPRESSION: No acute cervical spine fracture or subluxation identified. XR chest 1V portable CLINICAL HISTORY: trauma alert COMPARISON STUDY: Chest CT January 18, 2024. Chest radiograph January 30, 2024. FINDINGS: There is no pneumothorax or pleural effusion. The patient is mildly rotated. Cardiomegaly is unchanged. There is no evidence for pulmonary edema. There are several old anterior right-sided rib fractures. IMPRESSION: No acute cardiopulmonary findings. CT OF THE CHEST WITHOUT IV CONTRAST CLINICAL HISTORY: Trauma COMPARISON STUDY: Chest CT January 18, 2024. Chest radiograph performed earlier today. TECHNIQUE: Axial images of the chest were obtained without IV contrast. Images were reviewed in the axial, sagittal, and coronal planes. IV contrast was not administered for this examination. Automated exposure control was utilized for the study. A dose lowering technique was utilized adhering to the principles of ALARA. FINDINGS: The thoracic aorta is suboptimally assessed on this unenhanced exam but there is no mediastinal hematoma. Moderate cardiomegaly and dilatation of the central pulmonary arteries is again noted. There is no pericardial effusion. No pneumothorax or pleural effusion is present. Lungs are suboptimally assessed due to respiratory motion. Subpleural groundglass opacities favor atelectasis. There are no suspicious pulmonary nodules. A few calcified nodules are present. Extensive anterior osteophytosis of the thoracic spine is again noted. No thoracic spine fractures are present. There is a healing posterior left 11th rib. There are several old bilateral rib fractures. No acute rib fractures are identified. IMPRESSION: 1. No acute traumatic findings within the chest on unenhanced exam. 2. No pneumothorax. No pulmonary contusions. Several old bilateral rib fractures and a healing posterior left 11th rib fracture. No acute rib fractures. CT OF THE ABDOMEN AND PELVIS WITHOUT CONTRAST CLINICAL HISTORY: Trauma COMPARISON STUDY: CT of the abdomen and pelvis January 18, 2024. TECHNIQUE: Axial images of the abdomen and pelvis were obtained without IV contrast. Images were reviewed in the axial, sagittal, and coronal planes. Automated exposure control was utilized for the study. A dose lowering technique was utilized adhering to the principles of ALARA. FINDINGS: No hemoperitoneum or pneumoperitoneum is present. Evaluation of the solid abdominal viscera is suboptimal on this unenhanced exam but there is no evidence for traumatic injury to the liver, spleen, adrenal glands, kidneys or pancreas. There is a 4.4 cm left renal cyst. Colonic diverticulosis is present. There is no evidence for acute diverticulitis. There is no evidence for a bowel obstruction. No acute lumbar spine, pelvis or hip fractures are identified. There is less portions of the right hip arthroplasty are intact. There are several healing transverse process fractures as well as healing fractures of the posterior left 11th and 12th rib. No acute fractures are identified. IMPRESSION: 1. No acute medical findings within the abdomen or pelvis on unenhanced exam. 2. No acute lumbar spine, pelvic or hip fractures. 3. Intact total right hip arthroplasty. 4. Colonic diverticulosis. No evidence for acute diverticulitis. CT lumbar spine wo con CLINICAL HISTORY: Trauma TECHNIQUE: Multidetector row helical CT of the lumbar spine was performed without administration of intravenous contrast. Coronal and sagittal reformations were obtained. Automated dose lowering techniques and/or adjustment according to patient size were utilized for this exam. Comparison: None available at the time of this dictation. FINDINGS: For counting purposes, the last complete intervertebral disc space is considered L5-S1. No acute fractures are identified. Degenerative changes are noted in the visualized spine. Vertebral body alignment is within normal limits. Surrounding soft tissues are unremarkable. IMPRESSION: Degenerative changes without evidence of acute bony injury. 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 Unremarkable appearance of the right hip arthroplasty. No acute fracture or dislocation. Marginal osteophytic spurring of the greater trochanter. IMPRESSION: No acute fracture identified. XR wrist RT min 3V routine HISTORY: 84 years-old Male fall acute right wrist pain status post fall COMPARISON: 12/16/2012 TECHNIQUE: 4 views of the right breast FINDINGS: Scapholunate interval measures near the limits of normal at 2.5 mm. Multifocal osteoarthritis, severe within the radiocarpal joint and moderate triscaphe and first carpometacarpal articulations. No acute fracture, dislocation or osseous erosion. Arterial calcifications. Mild circumferential soft tissue swelling. IMPRESSION: No acute fracture or dislocation. Medications Administered ER Medications Given: None ECG Rate (beats per minute): 63 Rhythm: normal sinus Findings: + left axis deviation; no acute ischemic change Comparison ECG Date: from (January 18, 2024) Change: no significant change Code Status & VTE Plan Code Status DNR/DNI VTE Prophylaxis Plan VTE Prophylaxis will be ordered: Yes PG Care Time/CCT Total # of Minutes Spent Total Time Spent with Patient: Total time spent is greater than 50% in coordination of care (as documented) at patient's floor/unit and/or counseling patient: Coding Level of Care Code 93261 INT INP/OBS CARE 3/75MIN Diagnoses Recurrent falls R29.6 Peripheral neuropathy G62.9 Paroxysmal atrial fibrillation I48.0 Polyneuropathy G62.9
[2024-06-04] MEDS: ACETAMINOPHEN 500 MG TAB PO STA (16:29)
[2024-06-04] MEDS: DEXAMETHASONE SOD INJ 4 MG/ML VIAL IV STA (16:31)
--- NOTE | 2024-06-04 17:40 | Ultrasound Report ---
US venous doppler LE RT HISTORY: 84 years-old Male right calf swelling and pain acute pain and swelling of the lower legs COMPARISON: 05/05/2020 TECHNIQUE: Multiple real-time sonographic images of the right lower extremity deep venous structures were obtained assessing grayscale appearance, color and spectral flow. FINDINGS: Normal flow, compressibility, phasicity and augmentation. IMPRESSION: No sonographic evidence of deep venous thrombosis. ACT 112: Negative or not required by law. The above report was generated using voice recognition software. It may contain grammatical, syntax o r spelling errors. Electronically signed by: Enrico Fields M.D. 06/04/2024 5:39 PM
[2024-06-04] MEDS ORDERED: MELATONIN 3 MG TAB PO PRN (18:34)
[2024-06-04] MEDS: APIXABAN 5 MG TABLET PO SCH (21:06)
[2024-06-04] MEDS: ACETAMINOPHEN 500 MG TAB PO SCH (21:12)
[2024-06-05] MEDS: LEVOTHYROXINE SODIUM 50 MCG TABLET PO SCH (05:19)
--- NOTE | 2024-06-05 07:17 | Magnetic Resonance Report ---
MRI OF THE LUMBAR SPINE WITHOUT CONTRAST CLINICAL HISTORY: Right L3 distribution numbness, sudden onset weakness COMPARISON STUDY: Lumbar spine radiographs February 11, 2020. Lumbar spine CT June 04, 2024. TECHNIQUE: Utilizing a 1.5 Katelyn magnet and dedicated coil, multiplanar, multiecho imaging of the donna ar spine was performed without IV contrast. FINDINGS: For purposes of numbering on this exam, the L5-S1 disc space is assigned to axial image 28 of 30. Ali gnment of the lumbar spine is anatomic. Vertebral body heights are maintained. There is no intracanal icular mass or fluid collection. The conus terminates at the upper L1 level. Of note, there is horizo ntal linear T2 hyperintense signal through left anterior osteophytes at the L5-S1 level. There is mod erate adjacent edema. Therefore, this favors an acute fracture. No extension into the posterior eleme nts is noted. No additional acute fractures are identified. L1-2: There is moderate disc space narrowing with mild facet arthrosis. The central canal and neural foramen are patent. L2-3: There is mild disc space narrowing with moderate facet arthrosis. Central canal and neural fora men are patent. L3-4: There is mild disc space narrowing with moderate facet arthrosis and ligamentous hypertrophy. T he central canal is patent. There is mild bilateral neural foraminal stenosis. L4-5: There is moderate facet arthrosis with ligamentous hypertrophy. Mild disc bulge. There is no si gnificant central canal stenosis. There is moderate bilateral neural foraminal stenosis. L5-S1: Mild facet arthrosis is present. The central canal is patent. There is mild bilateral neural f oraminal stenosis. IMPRESSION: 1. Horizontal linear T2 hyperintense signal through left anterior osteophytes at the L5-S1 level with moderate adjacent edema. This is suggestive of an acute nondisplaced fracture. No extension into the posterior elements. No vertebral body height loss. No additional lumbar spine fractures. 2. Moderate facet arthrosis and mild degenerative disc disease within the lumbar spine. No significan t central canal stenosis. No large disc herniations. 3. Mild to moderate multilevel neural foraminal stenosis, as above. ACT 112: Negative or not required by law. Electronically signed by: Harrison Gaffney M.D. 06/05/2024 7:16 AM
[2024-06-05] MEDS: CYANOCOBALAMIN (B-12) 500 MCG TABLET PO SCH (08:22)
[2024-06-05] MEDS: CITALOPRAM 20 MG TAB PO SCH (08:22)
[2024-06-05] MEDS: FINASTERIDE 5 MG TAB PO SCH (08:23)
[2024-06-05] MEDS: TAMSULOSIN HCL 0.4 MG CAP PO SCH (08:23)
[2024-06-05] MEDS: FUROSEMIDE 20 MG TAB PO SCH (08:23)
[2024-06-05] MEDS: predniSONE 20 MG TAB PO SCH (15:43)
--- NOTE | 2024-06-05 16:34 | Hospitalist Progress Note ---
<Statement entered by Lin Lainez MD - 06/05/24 17:40> I have reviewed vital signs, chart notes, labs and imaging. I have also discussed the management of the patient with the ERICK and I agree with the exam findings documented in the history and physical examination and the documented assessment and plan unless otherwise stated below. Pain is multifactorial - he does have significant osteoarthritis and DJD, however, he may also have ankylosing spondylitis. Notably he is much less painful today after dose of dexamethasone given on admission. I reviewed his plain films of L-spine and pelvis as well as CT C/T/L spine images and discussed CT images with the radiologist: on review he thought C- spine and L-spine have some bridging osteophytosis not consistent with ankylosing spondylitis, however the T-spine imaging does look consistent with ankylosing spondylitis because of presence of bridging syndesmophytes. Seems that he may have sacroiliac pain based on history and Dr. Sanon's previous assessment in clinic. I obtained ESR which is normal for his age and CRP which is mildly elevated. ordered HLA-B27 which is pending. I discussed the case with the orthopedic spine surgeon. MRI C and T-spine are pending. Plan to refer to rheumatology and continue trial of steroids since he has had significant improvement after 1 dose of dexamethasone given on admission. Date of Service June 05, 2024 Assessment & Plan (1) Recurrent falls: Plan: Etiology not completely clear from history Given alternative etiologies and no loss of consciousness - not concerned cardiac or intracranial cause of his falls Lazar scanned due to trama alert - no acute findings. Doppler without DVT. L-spine MRI: acute nondisplaced fracture left anterior osteophyte L5-S1 - interestingly pt reports bilateral pain, but Right>left Prior concern for ankylosis spondylitis (Dr. 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 Migel Kohler cased with Dr. Harvey Admission and Anticipated Discharge Date Admission Date: June 04, 2024 Subjective Patient seen sitting up in the chair eating lunch. States that he was able to work with therapy today and was told "his legs are strong" When discussing his prior falls, he states he had no prodrome and his legs just give out after pain across the abdomen. no pain currently, says pain is normally when lying down, but did not have any pain last night when he was laying down here He is concerned about the weakness because he still works on the [employer] Review of Systems Review of Systems: All systems reviewed & are unremarkable except as noted in Subjective Physical Exam Physical Exam: General: NAD, VS as above, seated in the chair Resp: normal respiratory effort, lungs clear to auscultation CV: RRR, no murmur, Extremities: Moves all extremities, able to lift bilateral legs, does report pain when lifiting the right leg Neuro: A&O x3, Skin: intact, no lesions noted Results & Data Results & Data Vital Signs (Past 12 Hours) Vital Signs Temp Pulse Resp BP Pulse Ox O2 Del Method 06/05/24 14:00 97.5 F L 71 16 156/77 H 94 Room Air 06/05/24 06:57 97.9 F 72 16 162/95 H 92 Room Air Laboratory Results ESR, CRP reviewed Diagnostic Findings doppler reiewed L spine MRI reviewed Hip/pelvis xray reviewed PG Care Time/CCT Total # of Minutes Spent Total Time Spent with Patient: Total time spent is greater than 50% in coordination of care (as documented) at patient's floor/unit and/or counseling patient: Coding Level of Care Code 74471 SUB INP/OBS CARE 3/50MIN Diagnoses Recurrent falls R29.6 Peripheral neuropathy G62.9 Paroxysmal atrial fibrillation I48.0 Polyneuropathy G62.9
--- NOTE | 2024-06-05 16:36 | Orthopedic Consultation ---
Date of Service June 05, 2024 Assessment & Plan (1) Lumbar spondylosis: (2) Right groin pain: (3) Recurrent falls: History of Present Illness Reason for Consultation: L5-S1 Fracture osteophyte Attending Physician: Lin Lainez MD HPI: Patient is a pleasant 84-year-old gentleman admitted through the emergency department for 3 falls in the last week. Patient reports that he has a sharp pain into the right groin area which causes his legs to give out and he has fallen several times from this. Does not report any dizziness, loss of consciousness. He has a history of right total hip arthroplasty from my partner Dr. Arrington several months ago. Reports that oh usually he is asymptomatic and ambulates well. 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 Overall he reports no issues with balance however does state that several of the times he has fallen he has noticed weakness in his last sorter as well. MRI and CT scan of the lumbar spine were obtained here in the hospital. Does not report any radicular pain down the legs. No significant radicular pain in the upper extremities. I asked him questions concerning myelopathy, he has no issues with fine motor skills such as handwriting or feeding himself, does not have a wide-based gait. Normal bowel and bladder function. Review of systems: Balance disorder, right groin pain Physical exam Constitutional: Well developed, appears stated age Psych: patient is coherent and answers questions appropriately, normal affect Eye: Normal gaze, no redness to sclera, pupils round and equal Pulm: Normal respiratory effort, no wheezing Cardiovascular: no significant peripheral edema, 2+ radial pulses Skin shows no rashes, lesions 5/5 muscle strength with testing of deltoids, wrist extensors, triceps, finger flexion, and hand intrinsics Sensation intact to light touch in the C5-T1 dermatomes bilaterally 2+ reflexes at biceps, triceps, and brachioradialis bilaterally Negative Loya sign bilaterally,negative Spurling test bilaterally Positive Rhomberg test 5 out of 5 strength bilateral quadriceps, hip flexors, tibialis anterior, gastrocsoleus and EHL Sensation intact to light touch L2-S1 No ankle clonus Imaging: CT scan of the cervical spine was reviewed. Multiple levels of cervical disc degeneration in the lower cervical spine C5-6, C6-7 most notably. There is no evidence of acute fracture or spondylolisthesis. CT scan of the lumbar spine was available for review and interpreted personally. Some anterior bridging osteophytes are noted throughout the lumbar spine, no evidence of acute fracture on CT scan of the facet joints or posterior elements. No spinous process gapping. No vertebral body compression fractures noted. X-ray of the right hip was available for review today and interpreted personally. Right total hip arthroplasty implant appears to be in good position, no evidence of lucency around the stem implant. Cup well-positioned in the acetabulum and appears well-fixed. MRI of the lumbar spine was available for review today and interpreted personally. Well-preserved disc height from L1-S1. There is a fracture which appears acute through an anterior osteophyte at the L5-S1 disc space on the anterior S1 vertebral body. There is no extension into any of the structural elements of the spine. No evidence of disc space injury ligamentous injury. There is no severe neurologic compression either centrally or in the foramina of the lumbar spine. Assessment: 84-year-old gentleman with repeat falls which seem to be onset due to right groin pain, does not have any overt neurologic deficits. He has no signs of hyperreflexia, no Loya sign no signs of spinal cord compression. There is no evidence of lumbar neurologic compression to explain pain into the lower extremities, the incidental finding of S1 osteophyte fracture does not contribute to any stability of the spine. Given his reports of strength in the upper extremities giving way when he goes to grasp as well as some complaints of axial neck pain as well as recent falls. I think it is reasonable to proceed with MRI of the cervical and thoracic spine to rule any severe spinal cord compression. I suspect if he does have any stenosis it would likely be a mild case of myelopathy as he does not have any severe deficits. Allergies Allergy/AdvReac Type Severity Reaction Status Date / Time aspirin Allergy Intermediate HIVES Verified 06/04/24 13:35 celecoxib [From Celebrex] Allergy Intermediate hives Verified 06/04/24 13:35 Iodinated Contrast Media Allergy Intermediate Hives and Verified 06/04/24 13:35 swelling iodine Allergy Intermediate Hives Verified 06/04/24 13:35 tramadol AdvReac Intermediate dizziness, Verified 06/04/24 13:35 nausea, leg weakness Home Medications Medication Instructions Recorded Confirmed Type syringe with needle, safety 3 mL #100 ea 12/09/20 05/23/24 Rx 23 gauge x 1" (BD Safety-Bren Detachable Needle) epinephrine 0.3 mg/0.3 mL 0.3 mg (0.3 mL) IM UD PRN 03/01/23 06/04/24 Rx injection, auto-injector (EpiPen) Anaphylaxis #1 ea apixaban 5 mg tablet (Eliquis) 5 mg PO BID #180 tabs 08/25/23 06/04/24 Rx finasteride 5 mg tablet 5 mg PO QAM #90 tabs 10/01/23 06/04/24 Rx cyanocobalamin (vitamin B-12) 1,000 mcg PO QAM 10/02/23 06/04/24 History 1,000 mcg capsule Wheeled Walker #1 ea 11/21/23 05/23/24 Rx acetaminophen 500 mg tablet 1,000 mg PO BID Pain, Mild 04/22/24 06/04/24 History (Tylenol Extra Strength) citalopram 20 mg tablet 20 mg PO DAILY #90 tabs 04/22/24 06/04/24 Rx furosemide 20 mg tablet (Lasix) 20 mg PO DAILY #180 tabs 04/22/24 06/04/24 Rx tamsulosin 0.4 mg capsule (Flomax) 0.4 mg PO QAM #90 caps 04/22/24 06/04/24 Rx levothyroxine 50 mcg tablet 50 mcg PO DAILY 06/04/24 06/04/24 History Past Med/Surg History Problem List (Updated 06/05/24 @ 16:40 by Evelio Harvey MD) Right groin pain Lumbar spondylosis Abdominal contusion (Acute) Back contusion (Acute) Head injury (Acute) Fall (Acute) Recurrent falls Sacroiliitis Leg length discrepancy Ankylosing spondylitis lumbar region Pes anserinus bursitis Status post right hip replacement (~10/2023) Prediabetes Carpal tunnel syndrome on both sides Hypothyroidism Osteoarthritis of hips, bilateral Shortness of breath Cough Exposure to COVID-19 virus Suicidal thoughts Depression Osteoarthritis of right hip Elevated TSH Orthostatic hypotension Near syncope (Acute) Precordial chest pain (Acute) Dizziness Urinary tract infection Suprapubic pain, acute Urgency of urination Burning with urination Frequency of urination Obstructive sleep apnea Hematuria Hypervolemia Physical deconditioning BPH (benign prostatic hyperplasia) Sinus bradycardia Bilateral edema of lower extremity (Acute) PERALTA (dyspnea on exertion) (Acute) Improved since cardio stopped Amiodarone 06/2023 Mild sleep apnea Postherpetic neuralgia Paroxysmal atrial fibrillation (Acute) Obesity Hypersomnia COPD (chronic obstructive pulmonary disease) Exertional shortness of breath 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 Decreased activity tolerance Fatigue Exertional dyspnea Arthralgia Myalgia jail (current) use of anticoagulants (Chronic) Non-cardiac chest pain Enlarged prostate with lower urinary tract symptoms (LUTS) (Acute) Recurrent falls Benign essential tremor Will be seeing neuro 10/23/23 Frequent PVCs History of pulmonary embolism (2014) Syncope Sensorineural hearing loss (SNHL) of both ears Chest wall pain Lumbar spinal stenosis Peripheral neuropathy CAD (coronary artery disease) Nonobstructive per cardio records HTN (hypertension) (Acute) Polyneuropathy (Acute) Hands and feet bilaterally Medical History Cervical pain Did have cervical fracture approximately 2018- conservative treatment- mild pain Depression UTI (urinary tract infection) being tx for currently- following with PCP- patient aware that UTI needs resolved by DOS History of pulmonary embolism approx 20+ years ago post op Rt TKA Enlarged prostate Hearing deficit BL JUDGE Sleep apnea no device History of DVT (deep vein thrombosis) RLE post op TKA approx 20+years ago. Treated with AC/coumadin at that time, now on Eliquis History of atrial fibrillation Follows with Dr. Hutton. [facility] ([facility]io[facility] 2021) Osteoporosis History of squamous cell carcinoma s/ excision Surgical History History of cardioversion 2021 at [place] History of cardiac cath 2021>no stents History of squamous cell carcinoma excision History of loop recorder placed 2019 - placed for syncope and frequent falls History of tonsillectomy History of cataract surgery rt/left History of transurethral resection of prostate History of knee replacement Rt Family History Father Prostate cancer Cancer Prostate Mother Breast cancer Colorectal cancer Other No family history of adverse response to anesthesia No significant family history Denies family history of Ovarian cancer Myocardial infarction Social History Smoking Status: Never smoker Second Hand Exposure: No; Do You Dip or Chew Tobacco: No; Hx Alcohol Use: No Hx Substance Use: No Preferred Language: Turkish Communication Ability: Effective Communication Ability Comment: Pt is MI'KMAQ Hearing Ability: Use of Hearing Aid Security And Privacy Consultant Required: No Beliefs That Will Affect Care: None marital status: Current Living Situation: Spouse Current Living Situation Comment: lives in farmhouse with current occupational status: retired Other Information That Helps Us Care for You: No Feels Safe at Home: Yes Safety Concerns: Feels Safe At This Time Childhood Exposure to Second-Hand Smoke: No Dental Care, Regularly: No Physical Activity Frequency: Does not Exercise Seatbelt Use: always Sunscreen Use: Yes Assistive Devices: Cane, Stair Lift and Walker Review of Systems All systems reviewed & are unremarkable except as noted in HPI & below. Physical Exam . Results & Data Results & Data Laboratory Results . Diagnostic Findings . PG Care Time/CCT Total # of Minutes Spent Total Time Spent with Patient: Total time spent is greater than 50% in coordination of care (as documented) at patient's floor/unit and/or counseling patient: Coding Level of Care Code 58626 IN/OBS CONSULT LVL 3,45M Diagnoses Lumbar spondylosis M47.816 Right groin pain R10.31 Recurrent falls R29.6
--- NOTE | 2024-06-05 20:43 | Magnetic Resonance Report ---
Exam(s): MRI C SPINE EXAM: MR Cervical Spine Without Intravenous Contrast CLINICAL HISTORY: Reason for exam: balance deficits. TECHNIQUE: Magnetic resonance images of the cervical spine without intravenous contrast in multiple planes. COMPARISON: CT cervical spine: 06/04/2024 FINDINGS: Motion-induced image degradation. Vertebrae: Cervical vertebral body heights/marrow signal is maintained. No acute fracture. No acute subluxation. Spinal cord: Normal brainstem-cervical cord junction.. Normal signal. Soft tissues: Unremarkable. DISCS/SPINAL CANAL/NEURAL FORAMINA: C2-C3: Mild discogenic endplate changes. No central canal or foraminal stenosis. Left uncovertebral/facet arthrosis. C3-C4: Posterior mild disc bulging/endplate changes/a small central osteophyte. No central canal or foraminal stenosis. Mild uncovertebral/facet arthrosis. C4-C5: Significant disc space narrowing. Moderate posterior disc bulging/endplate changes are causing severe right and mild left foraminal stenosis. Mild anterior thecal sac compression. Mild uncovertebral/facet arthrosis. C5-C6: Significant disc space narrowing. Moderate posterior disc bulging/endplate spondylitic changes are seen with severe bilateral RT>LT foraminal stenosis and partial effacement of the anterior thecal sac. Mild facet arthrosis. C6-C7: Mild/moderate posterior disc bulging with endplate changes causing moderate to severe left and moderate right foraminal stenosis. Flattening of the anterior thecal sac. Mild facet arthrosis. C7-T1: No significant central canal or foraminal stenosis. Other findings: Exaggerated cervical lordosis. . IMPRESSION: This unenhanced MRI of the cervical spine demonstrates multilevel degenerative disc/endplates spondylitic changes. The greatest amount of disc material is present at C5-C7 levels with associated severe bilateral foraminal stenosis RT>LT as described above. . Electronically signed by: Felix Oseguera MD, TIGISTR 06/05/24 20:42 PM
--- NOTE | 2024-06-05 21:08 | Magnetic Resonance Report ---
Exam(s): MRI T SPINE Without Contrast EXAM: MR Thoracic Spine Without Intravenous Contrast CLINICAL HISTORY: Reason for exam: balance deficits. TECHNIQUE: Magnetic resonance images of the thoracic spine without intravenous contrast in multiple planes. COMPARISON: MRI thoracic spine: 01/09/2011 FINDINGS: Vertebrae: There is a T1 vertebral mild/moderate compression deformity, probably subacute fracture seen with marrow edema of the lower endplate (series 9 image 8), new from prior old exam. No acute fracture. No subluxation. Increased thoracic kyphosis. Discs/spinal canal/neural foramina: Multilevel mid/lower thoracic mild/moderate degenerative spondylitic changes seen with variable degree of neuroforaminal stenosis. No spinal canal stenosis. Spinal cord: Appears normal in its size/signal characteristics. Soft tissues: Unremarkable.. IMPRESSION: A T1 vertebral mild/moderate compression deformity with mild marrow edema noted, likely subacute/chronic. Recommend clinical correlation. Mild/moderate degenerative disc/endplate spondylitic changes seen within the mid/lower thoracic spine. Increased thoracic kyphosis. . Electronically signed by: Felix Oseguera MD, AURE 06/05/24 21:07 PM
[2024-06-05 21:15] VITALS: RESP 18
[2024-06-06 07:00] VITALS: BP 162/78; PULSE 56; TEMP 97.9; O2SAT 94
--- NOTE | 2024-06-06 13:21 | Discharge Summary ---
<Statement entered by Lin Lainez MD - 06/06/24 16:47> I have reviewed vital signs, chart notes, labs and imaging. I have also discussed the management of the patient with the ERICK and I agree with the exam findings documented in the history and physical examination and the documented assessment and plan unless otherwise stated below. Pain is multifactorial - he does have significant osteoarthritis and DJD, however, he may also have ankylosing spondylitis as pointed out in Dr. Sanon's last note. Notably pain improved rapidly and significantly with steroids this admission. I reviewed his plain films of L-spine and pelvis as well as CT C/T/L spine images and discussed CT images with the radiologist: on review he thought C- spine and L-spine have some bridging osteophytosis not consistent with ankylosing spondylitis, however the T-spine imaging does look consistent with ankylosing spondylitis because of presence of bridging syndesmophytes. Seems that he may have sacroiliac pain based on history and Dr. Sanon's previous assessment in clinic. I obtained ESR which is normal for his age and CRP which is mildly elevated. ordered HLA-B27 which is pending. Discharged with short prednisone burst and taper down to 5 mg, referral made to Rheumatology for further evaluation. Discharge Summary Date of Service June 06, 2024 Principal Dx & Hospital Course #1 = Principal Diagnosis (1) Recurrent falls: Etiology not completely clear from history Given alternative etiologies and no loss of consciousness - not concerned cardiac or intracranial cause of his falls Lazar scanned due to trama alert - no acute findings. Doppler without DVT. L-spine MRI: acute nondisplaced fracture left anterior osteophyte L5-S1 - interestingly pt reports bilateral pain, but Right>left Prior concern for ankylosis spondylitis (Dr. sanon referred him to pain clinic for this for injections) - pain improved with dexamethasone --> continue prednisone 20mg daily - CRP and ESR mildly elevated - HLA-B27 pending - rheum referral placed - recommend continued outpatient follow up with pain clinic for injections Prior side effects to gabapentin therefore will avoid restarting this, per prior neurology note Lyrica not covered Leg length discrepancy investigated by pain management and recent imaging shows 1.9cm - orthotics consult - shoe lift fixed Orthospine consulted - no surgical management - C-spine and T-spine MRI ordered: bilateral formaminal stenosis C5-C7, subacute/chronic T1 fx. - no acute management, does not need outpatient follow up. 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 Harvey Notes For Next Care Provider concern for ankylosing spondylitis - dc on steroid taper, follow up with rheum and pain clinic home health arranged Medication Changes From Visit prednisone taper Admission HPI Per Admitting Provider Patel Fink is an 84 year old male who presents to the ER with recurrent falls. He reports baseline using a walker and stick. He notes no lightheadedness, chest pain or dizziness prior to falling. On each occasion (three times over the last week) he reports sudden lower abdominal/bilateral hip pain which then causes bilateral leg weakness and subsequently he falls down. Difficult to get a definitive history from patient but he notes having this similar pain on the right side which led to him having a hip replacement in October which did not improve the pain. More recently he was seen by Dr Sanon in April for this pain and suspected his cause was more back related. Lumbar XR was taken and he was referred to pain management. Pain management suspected leg length discrepancy contributing and he was sent for XRs to assess for this subsequently showing 1.9cm discrepancy (his current shoe modification accounts for around 1cm). He also notes associated occasional right leg numbness in L3 distribution over the last few weeks. He additionally has a peripheral neuropathy in his hands and feet but this has not recently progressed. He notes no sudden worsening of his chronic lumbar spine pain. EHR notes a history of ankylosing spondylitis although the patient cannot provide any supplemental information in regards to this (appears this diagnosis was based on recent Lumbar spine XRs performed by Dr Sanon). He notes significant improvement with 5 days of prednisone given back in March. Discharge Exam General: NAD, VS as above, seated in the chair Resp: normal respiratory effort, lungs clear to auscultation CV: RRR, no murmur, Extremities: Moves all extremities, able to lift bilateral legs. no pain on palpation Neuro: A&O x3, Skin: intact, no lesions noted Discharge Plan Discharge Items Patient Disposition: Home - Home Health Services Reason For Visit: RECURRENT FALLS, SUSPECTED RADICULOPATHY Discharge Diagnosis: back pain - concern for ankylosis spondylitis Activity: Resume your previous activity Activity Comment: work with therapy to get stronger Weightbearing: Full weightbearing Non-emergency contact: Primary Care Provider Call non-emergency contact if: you have any medication questions and your symptoms worsen Follow-up/Referrals: Alona Hicks PA-C [Physician Landscaper Helper] - (follow up for possible injection ) Sylvie Clarke MD [Primary Care Provider] - 06/13/24 10:00 am (With Fátima Gandhi) Marlon Guy DO [Physician] - (concern for ankylosis spondylitis - improved with steroids, HLA-b27 pending ) Diet: Regular Addtl Attending Provider Instructions: Mr. Fink, You were hospitalized after having recurrent falls at home where you feel like your legs just give out on you. We did lots of scans from your head to abdomen. Your cervical and thoracic spine showed some chronic changes. The lumbar spine MRI showed a fracture of a bone spur. The ortho spine doctor ordered and reviewed things and there is nothing to be done about this, and it not causing your symptoms. There is no need to follow up in his office. We do have concerns that your pain is caused by ankylosing spondylitis. I have attached information about this below. You are being referred to a chemist enzymes to have this further worked up. - To treat this we have placed you on oral steroid (prednisone) you will take this every morning. Follow the instructions on the bottle. - continue follow up with the pain clinic, they can do injections like Dr. sanon has originally recommended you can also take Tylenol for pain. No more than 3000mg per day. You were also seen by Orthotics who helped adjust the lift in your shoe.If you have any issues with this, please reach out to their office. Home health Physical therapy has been arranged to help you get stronger at home. No other changes to your home medications. Activity: You can do normal everyday activities as your body allows. Take rest breaks if you feel tired. Do not overexert. Stop activity if you have pain, shortness of breath or feel dizzy. Follow-up appointments: Make an appointment with your primary care physician within one week of discharge. A copy of this summary will be sent to them. Every time you see your primary care physician, or any other doctor, bring your medication list, and a list of questions. CONTACT YOUR PRIMARY CARE PROVIDER if you experience any of the following: Shortness of breath or difficulty breathing Fevers or chills Feeling tired with normal activity or experiencing dizziness or fainting Difficulty following your treatment plan, or difficulty taking medications CALL 911 OR GO TO THE EMERGENCY DEPARTMENT if you experience any of the following: Severe abdominal pain or nausea/vomiting Severe chest pain, or chest pain that radiates (moves) to your jaw or arm Sudden, severe shortness of breath or difficulty breathing Thank you for allowing us to participate in your care. Camila Boyd PA-C Pending Studies at Discharge: Yes ([id number] ) Stand-Alone Forms: My [facility], Smoking Cessation Medications and DC Order Prescriptions: New prednisone 5 mg tablet See Taper PO DIRECTED Qty: 40 0RF Taper: Taper, Blank 20 mg DAILY for 5 Days 10 mg DAILY for 5 Days 5 mg DAILY for 10 Days Rx Instructions: see taper instructions Continued Eliquis 5 mg tablet 5 mg PO BID Qty: 180 2RF citalopram 20 mg tablet 20 mg PO DAILY Qty: 90 3RF furosemide [Lasix] 20 mg tablet 20 mg PO DAILY Qty: 180 3RF (DME) BD Safety-Bren Detachable Needl 3 mL 23 gauge x 1" syringe See Rx Instructions .ROUTE .MEDSUPPLY Qty: 100 0RF Rx Instructions: As directed with cyanocobalamin (DME) Nimisha Walker [facility] See Rx Instructions .MEDSUPPLY Qty: 1 0RF Rx Instructions: As directed epinephrine [EpiPen] 0.3 mg/0.3 mL auto-injector 0.3 mg IM UD PRN (Reason: Anaphylaxis) Qty: 1 1RF finasteride 5 mg tablet 5 mg PO QAM Qty: 90 3RF Rx Instructions: TAKE 1 TABLET BY MOUTH DAILY acetaminophen [Tylenol Extra Strength] 500 mg tablet 1,000 mg PO BID tamsulosin [Flomax] 0.4 mg capsule 0.4 mg PO QAM Qty: 90 3RF cyanocobalamin (vitamin B-12) 1,000 mcg Capsule 1,000 mcg PO QAM levothyroxine 50 mcg tablet 50 mcg PO DAILY Rx Instructions: As of 06/04/24, pt states he takes 50mcg daily Discharge Orders: Discharge Order (Routine); Ordered 06/06/24 Ordered By: Camila Ziegler/Other Patient Handouts: Ankylosing Spondylitis in Adults Admission Data Admit Date/Time: 06/04/24 16:37 Attending Provider: Lin Lainez Admit Provider: Daron Thomas Primary Care Provider: Sylvie Clarke Other Providers: Daron Thomas; Evelio Harvey Other Interventions: Discharge Summary Assessment (RN) Last Done: 06/06/24 14:03 Hospital Stay Data Consultations 06/04/24 14:39 ED Decision to Admit Stat 06/05/24 09:04 Consult Orthopedic Spine Surgery Routine Diagnostic Imagining Performed Abdomen/Pelvis CT 06/04/24 12:01 CT OF THE ABDOMEN AND PELVIS WITHOUT CONTRAST CLINICAL HISTORY: Trauma COMPARISON STUDY: CT of the abdomen and pelvis January 18, 2024. TECHNIQUE: Axial images of the abdomen and pelvis were obtained without IV contrast. Images were reviewed in the axial, sagittal, and coronal planes. Automated exposure control was utilized for the study. A dose lowering technique was utilized adhering to the principles of ALARA. FINDINGS: No hemoperitoneum or pneumoperitoneum is present. Evaluation of the solid abdominal viscera is suboptimal on this unenhanced exam but there is no evidence for traumatic injury to the liver, spleen, adrenal glands, kidneys or pancreas. There is a 4.4 cm left renal cyst. Colonic diverticulosis is present. There is no evidence for acute diverticulitis. There is no evidence for a bowel obstruction. No acute lumbar spine, pelvis or hip fractures are identified. There is less portions of the right hip arthroplasty are intact. There are several healing transverse process fractures as well as healing fractures of the posterior left 11th and 12th rib. No acute fractures are identified. IMPRESSION: 1. No acute medical findings within the abdomen or pelvis on unenhanced exam. 2. No acute lumbar spine, pelvic or hip fractures. 3. Intact total right hip arthroplasty. 4. Colonic diverticulosis. No evidence for acute diverticulitis. ACT 112: Negative or not required by law. Electronically signed by: Harrison Gaffney M.D. 06/04/2024 1:[address] 06/04/24 12:01 CT cervical spine wo con CT DOSE: 4965.91 mGy.cm CLINICAL HISTORY: 84 years-old Male with Trauma. Acute neck injury status post trauma COMPARISON: 11/24/2016. TECHNIQUE: Multiple axial CT images of the cervical spine were obtained without contrast. A dose lowering technique was utilized adhering to the principles of ALARA. FINDINGS: Demineralized appearance of the bones. Moderate multilevel intervertebral disc space narrowing, spondylitic spurring and facet arthrosis. Mild superior endplate compression at T1 appears chronic. The cervical soft tissues appear unremarkable. The visualized lung apices appear clear. IMPRESSION: No acute cervical spine fracture or subluxation identified. ACT 112: Negative or not required by law. The above report was generated using voice recognition software. It may contain grammatical, syntax or spelling errors. Electronically signed by: Enrico Fields M.D. 06/04/2024 1:[address] 06/04/24 12:01 CT OF THE CHEST WITHOUT IV CONTRAST CLINICAL HISTORY: Trauma COMPARISON STUDY: Chest CT January 18, 2024. Chest radiograph performed earlier today. TECHNIQUE: Axial images of the chest were obtained without IV contrast. Images were reviewed in the axial, sagittal, and coronal planes. IV contrast was not administered for this examination. Automated exposure control was utilized for the study. A dose lowering technique was utilized adhering to the principles of ALARA. FINDINGS: The thoracic aorta is suboptimally assessed on this unenhanced exam but there is no mediastinal hematoma. Moderate cardiomegaly and dilatation of the central pulmonary arteries is again noted. There is no pericardial effusion. No pneumothorax or pleural effusion is present. Lungs are suboptimally assessed due to respiratory motion. Subpleural groundglass opacities favor atelectasis. There are no suspicious pulmonary nodules. A few calcified nodules are present. Extensive anterior osteophytosis of the thoracic spine is again noted. No thoracic spine fractures are present. There is a healing posterior left 11th rib. There are several old bilateral rib fractures. No acute rib fractures are identified. IMPRESSION: 1. No acute traumatic findings within the chest on unenhanced exam. 2. No pneumothorax. No pulmonary contusions. Several old bilateral rib fractures and a healing posterior left 11th rib fracture. No acute rib fractures. ACT 112: Negative or not required by law. Electronically signed by: Harrison Gaffney M.D. 06/04/2024 12:53 PM Chest X-Ray 06/04/24 12:01 XR chest 1V portable CLINICAL HISTORY: trauma alert COMPARISON STUDY: Chest CT January 18, 2024. Chest radiograph January 30, 2024. FINDINGS: There is no pneumothorax or pleural effusion. The patient is mildly rotated. Cardiomegaly is unchanged. There is no evidence for pulmonary edema. There are several old anterior right-sided rib fractures. IMPRESSION: No acute cardiopulmonary findings. ACT 112: Negative or not required by law. Electronically signed by: Harrison Gaffney M.D. 06/04/2024 12:[address] 06/04/24 12:01 CT OF THE HEAD WITHOUT CONTRAST CLINICAL HISTORY: Trauma COMPARISON STUDY: Head CT June 19, 2020. TECHNIQUE: Helical axial images of the head were obtained without IV contrast. Automated exposure control was utilized for the study. A dose lowering technique was utilized adhering to the principles of ALARA. FINDINGS: No acute intracranial hemorrhage, midline shift or mass effect is present. White matter hypodensity suggests small vessel disease. The ventricular system is unremarkable. The basal cisterns are patent. No extra-axial collections are present. There are no findings to suggest acute dural sinus thrombosis or acute territorial infarct. There are no calvarial fractures. Visualized portions of the right maxillary sinus are nearly entirely opacified. This has increased since CT of June 19, 2020 but is likely chronic. IMPRESSION: 1. No acute intracranial findings. 2. No calvarial fractures. ACT 112: Negative or not required by law. Electronically signed by: Harrison Gaffney M.D. 06/04/2024 12:[address] 06/04/24 12:01 CT lumbar spine wo con CLINICAL HISTORY: Trauma TECHNIQUE: Multidetector row helical CT of the lumbar spine was performed without administration of intravenous contrast. Coronal and sagittal reformations were obtained. Automated dose lowering techniques and/or adjustment according to patient size were utilized for this exam. Comparison: None available at the time of this dictation. FINDINGS: For counting purposes, the last complete intervertebral disc space is considered L5-S1. No acute fractures are identified. Degenerative changes are noted in the visualized spine. Vertebral body alignment is within normal limits. Surrounding soft tissues are unremarkable. IMPRESSION: Degenerative changes without evidence of acute bony injury. ACT 112: Negative or not required by law. Electronically signed by: Benigno Lopez M.D. 06/04/2024 1:05 PM Hip/Pelvis X-Ray 06/04/24 12:02 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 Unremarkable appearance of the right hip arthroplasty. No acute fracture or dislocation. Marginal osteophytic spurring of the greater trochanter. IMPRESSION: No acute fracture identified. ACT 112: Negative or not required by law. The above report was generated using voice recognition software. It may contain grammatical, syntax or spelling errors. Electronically signed by: Enrico Fields M.D. 06/04/2024 1:07 PM Wrist X-Ray 06/04/24 13:16 XR wrist RT min 3V routine HISTORY: 84 years-old Male fall acute right wrist pain status post fall COMPARISON: 12/16/2012 TECHNIQUE: 4 views of the right breast FINDINGS: Scapholunate interval measures near the limits of normal at 2.5 mm. Multifocal osteoarthritis, severe within the radiocarpal joint and moderate triscaphe and first carpometacarpal articulations. No acute fracture, dislocation or osseous erosion. Arterial calcifications. Mild circumferential soft tissue swelling. IMPRESSION: No acute fracture or dislocation. ACT 112: Negative or not required by law. The above report was generated using voice recognition software. It may contain grammatical, syntax or spelling errors. Electronically signed by: Enrico Fields M.D. 06/04/2024 2:24 PM Lumbar Spine MRI 06/04/24 16:10 MRI OF THE LUMBAR SPINE WITHOUT CONTRAST CLINICAL HISTORY: Right L3 distribution numbness, sudden onset weakness COMPARISON STUDY: Lumbar spine radiographs February 11, 2020. Lumbar spine CT June 04, 2024. TECHNIQUE: Utilizing a 1.5 Katelyn magnet and dedicated coil, multiplanar, multiecho imaging of the lumbar spine was performed without IV contrast. FINDINGS: For purposes of numbering on this exam, the L5-S1 disc space is assigned to axial image 28 of 30. Alignment of the lumbar spine is anatomic. Vertebral body heights are maintained. There is no intracanalicular mass or fluid collection. The conus terminates at the upper L1 level. Of note, there is horizontal linear T2 hyperintense signal through left anterior osteophytes at the L5-S1 level. There is moderate adjacent edema. Therefore, this favors an acute fracture. No extension into the posterior elements is noted. No additional acute fractures are identified. L1-2: There is moderate disc space narrowing with mild facet arthrosis. The central canal and neural foramen are patent. L2-3: There is mild disc space narrowing with moderate facet arthrosis. Central canal and neural foramen are patent. L3-4: There is mild disc space narrowing with moderate facet arthrosis and ligamentous hypertrophy. The central canal is patent. There is mild bilateral neural foraminal stenosis. L4-5: There is moderate facet arthrosis with ligamentous hypertrophy. Mild disc bulge. There is no significant central canal stenosis. There is moderate bilateral neural foraminal stenosis. L5-S1: Mild facet arthrosis is present. The central canal is patent. There is mild bilateral neural foraminal stenosis. IMPRESSION: 1. Horizontal linear T2 hyperintense signal through left anterior osteophytes at the L5-S1 level with moderate adjacent edema. This is suggestive of an acute nondisplaced fracture. No extension into the posterior elements. No vertebral body height loss. No additional lumbar spine fractures. 2. Moderate facet arthrosis and mild degenerative disc disease within the lumbar spine. No significant central canal stenosis. No large disc herniations. 3. Mild to moderate multilevel neural foraminal stenosis, as above. ACT 112: Negative or not required by law. Electronically signed by: Harrison Gaffney M.D. 06/05/2024 7:16 AM Venous Doppler Study 06/04/24 16:14 US venous doppler LE RT HISTORY: 84 years-old Male right calf swelling and pain acute pain and swelling of the lower legs COMPARISON: 05/05/2020 TECHNIQUE: Multiple real-time sonographic images of the right lower extremity deep venous structures were obtained assessing grayscale appearance, color and spectral flow. FINDINGS: Normal flow, compressibility, phasicity and augmentation. IMPRESSION: No sonographic evidence of deep venous thrombosis. ACT 112: Negative or not required by law. The above report was generated using voice recognition software. It may contain grammatical, syntax or spelling errors. Electronically signed by: Enrico Fields M.D. 06/04/2024 5:39 PM Cervical Spine MRI 06/05/24 13:13 Exam(s): MRI C SPINE EXAM: MR Cervical Spine Without Intravenous Contrast CLINICAL HISTORY: Reason for exam: balance deficits. TECHNIQUE: Magnetic resonance images of the cervical spine without intravenous contrast in multiple planes. COMPARISON: CT cervical spine: 06/04/2024 FINDINGS: Motion-induced image degradation. Vertebrae: Cervical vertebral body heights/marrow signal is maintained. No acute fracture. No acute subluxation. Spinal cord: Normal brainstem-cervical cord junction.. Normal signal. Soft tissues: Unremarkable. DISCS/SPINAL CANAL/NEURAL FORAMINA: C2-C3: Mild discogenic endplate changes. No central canal or foraminal stenosis. Left uncovertebral/facet arthrosis. C3-C4: Posterior mild disc bulging/endplate changes/a small central osteophyte. No central canal or foraminal stenosis. Mild uncovertebral/facet arthrosis. C4-C5: Significant disc space narrowing. Moderate posterior disc bulging/endplate changes are causing severe right and mild left foraminal stenosis. Mild anterior thecal sac compression. Mild uncovertebral/facet arthrosis. C5-C6: Significant disc space narrowing. Moderate posterior disc bulging/endplate spondylitic changes are seen with severe bilateral RT>LT foraminal stenosis and partial effacement of the anterior thecal sac. Mild facet arthrosis. C6-C7: Mild/moderate posterior disc bulging with endplate changes causing moderate to severe left and moderate right foraminal stenosis. Flattening of the anterior thecal sac. Mild facet arthrosis. C7-T1: No significant central canal or foraminal stenosis. Other findings: Exaggerated cervical lordosis. . IMPRESSION: This unenhanced MRI of the cervical spine demonstrates multilevel degenerative disc/endplates spondylitic changes. The greatest amount of disc material is present at C5-C7 levels with associated severe bilateral foraminal stenosis RT>LT as described above. . Electronically signed by: Felix Oseguera MD, DABR 06/05/24 20:42 PM Thoracic Spine MRI 06/05/24 13:13 Exam(s): MRI T SPINE Without Contrast EXAM: MR Thoracic Spine Without Intravenous Contrast CLINICAL HISTORY: Reason for exam: balance deficits. TECHNIQUE: Magnetic resonance images of the thoracic spine without intravenous contrast in multiple planes. COMPARISON: MRI thoracic spine: 01/09/2011 FINDINGS: Vertebrae: There is a T1 vertebral mild/moderate compression deformity, probably subacute fracture seen with marrow edema of the lower endplate (series 9 image 8), new from prior old exam. No acute fracture. No subluxation. Increased thoracic kyphosis. Discs/spinal canal/neural foramina: Multilevel mid/lower thoracic mild/moderate degenerative spondylitic changes seen with variable degree of neuroforaminal stenosis. No spinal canal stenosis. Spinal cord: Appears normal in its size/signal characteristics. Soft tissues: Unremarkable.. IMPRESSION: A T1 vertebral mild/moderate compression deformity with mild marrow edema noted, likely subacute/chronic. Recommend clinical correlation. Mild/moderate degenerative disc/endplate spondylitic changes seen within the mid/lower thoracic spine. Increased thoracic kyphosis. . Electronically signed by: Felix Oseguera MD, DABR 06/05/24 21:07 PM Pending Results Patient Have Any Pending Studies at Discharge: Yes ([id number] ) Discharge Instructions Given to Patient (Per Discharging Provider) Mr. Fink, You were hospitalized after having recurrent falls at home where you feel like your legs just give out on you. We did lots of scans from your head to abdomen. Your cervical and thoracic spine showed some chronic changes. The lumbar spine MRI showed a fracture of a bone spur. The ortho spine doctor ordered and reviewed things and there is nothing to be done about this, and it not causing your symptoms. There is no need to follow up in his office. We do have concerns that your pain is caused by ankylosing spondylitis. I have attached information about this below. You are being referred to a chemist enzymes to have this further worked up. - To treat this we have placed you on oral steroid (prednisone) you will take this every morning. Follow the instructions on the bottle. - continue follow up with the pain clinic, they can do injections like Dr. sanon has originally recommended you can also take Tylenol for pain. No more than 3000mg per day. You were also seen by Orthotics who helped adjust the lift in your shoe.If you have any issues with this, please reach out to their office. Home health Physical therapy has been arranged to help you get stronger at home. No other changes to your home medications. Activity: You can do normal everyday activities as your body allows. Take rest breaks if you feel tired. Do not overexert. Stop activity if you have pain, shortness of breath or feel dizzy. Follow-up appointments: Make an appointment with your primary care physician within one week of discharge. A copy of this summary will be sent to them. Every time you see your primary care physician, or any other doctor, bring your medication list, and a list of questions. CONTACT YOUR PRIMARY CARE PROVIDER if you experience any of the following: Shortness of breath or difficulty breathing Fevers or chills Feeling tired with normal activity or experiencing dizziness or fainting Difficulty following your treatment plan, or difficulty taking medications CALL 911 OR GO TO THE EMERGENCY DEPARTMENT if you experience any of the following: Severe abdominal pain or nausea/vomiting Severe chest pain, or chest pain that radiates (moves) to your jaw or arm Sudden, severe shortness of breath or difficulty breathing Thank you for allowing us to participate in your care. Camila Boyd PA-C Total Time Total Time Spent Total Time Spent (In Minutes): Time spent day of discharge 40 minutes including direct patient care, medication reconciliation, documentation, review of labs and images, and coordination of care. Coding Level of Care Code 06042 INP/OBS DISCH >30 MIN Diagnoses Recurrent falls R29.6 Peripheral neuropathy G62.9 Paroxysmal atrial fibrillation I48.0 Polyneuropathy G62.9
--- NOTE | 2024-06-06 13:54 | Orthopedic Progress Note ---
Date of Service June 06, 2024 Assessment & Plan (1) Lumbar spondylosis: (2) Right groin pain: (3) L5 vertebral fracture: Plan Anterior osteophyte fracture L5-S1, old T1 anterior osteophyte fracture Patient is neurologically intact, no evidence of nerve compression to explain groin pain and recent falls. No treatment for anterior osteophyte fracture, weight bear and activity as tolerated. I explained I unfortunately not have a good explanation for him regarding the groin pain and recent falls. I encouraged him that he has no signs of spine pathology, he has a fracture through an osteophyte and this does not appear to be causing and symptoms. Old appearing T1. I would be happy to see him as an outpatient if he has any back pain. Subjective Patient seen and examined, does not report back, neck or leg pain. Has been ambulating without difficulty here. Again he reports a sharp pain to right groin which is intermittent. He has no leg weakness or balance disorders per report, states it is only the sharp groin pain which causes him to fall, this used to happen 1x per week but this past week he experienced it 3x. No episodes here in hospital. Review of Systems All systems reviewed & are unremarkable except as noted in HPI & below. Physical Exam 5/5 L2-S1 myotomes, C5-T1 Myotomes SILT L2-S1, C5-T1 neg Loya, no clonus Results & Data Results & Data Laboratory Results . Diagnostic Findings MRI c spine interpreted personally, moderate central stenosis C5-7 with disc protrusions that efface the anterior thecal sac, no cord compression or cord signal changes. Moderate to severe foraminal stenosis C5-6 and 6-7 bilateral Thoraci MRI interprted personally. Old appearing anterior osteophyte fracture C7-T1, this does not extend into vertebral body, no acute edema. no thoracic stenosis, no evidence of hematomas, ligamentous injury or acute fracture. PG Care Time/CCT Total # of Minutes Spent Total Time Spent with Patient: Total time spent is greater than 50% in coordination of care (as documented) at patient's floor/unit and/or counseling patient: Coding Level of Care Code 26662 SUB INP/OBS CARE 09/13MIN Diagnoses Lumbar spondylosis M47.816 Right groin pain R10.31 Other closed fracture of fifth lumbar vertebra, initial encounter S32.058A Encounter type: initial encounter Fracture type: closed Fracture morphology: other fracture (3) L5 vertebral fracture Encounter type: initial encounter Fracture type: closed Fracture morphology: other fracture Qualified Code(s): S32.058A - Other fracture of fifth lumbar vertebra, initial encounter for closed fracture
--- NOTE | 2024-06-20 12:32 | Coding Query ---
A supporting diagnosis is required for the test/procedure performed on this patient in order for us to be reimbursed by the patient's insurance. Please provide a supporting diagnosis for the following test/procedure listed below next to the test name along with your signature. *If there is no additional diagnosis for this patient that would support the following test/procedure please document that below next to the test/procedure. Test(s)/Procedure(s) that require a supporting diagnosis: * 69995 VENOUS DOPPLER LE RT DIAGNOSIS: Right calf leg swelling and pain DATE OF SERVICE: 06/04/24 Provider Signature: Date: Thank you Jorge Galarza Health Information Management Once completed, please kindly fax back to [phone] For questions please call [phone] JUANITA
== END 2024-06-06 15:32 | disposition home health service (06) | DRG 552 ==
LOC: ED 11:46 → SUATTDRO 16:37 → INTOOBSV 16:37 → 3W 16:37

== ENCOUNTER 2025-06-12 11:26 | Inpatient (IN) ==
--- NOTE | 2025-06-12 12:26 | Emergency Department Note ---
Impression & Plan Osteomyelitis of toe, [facility] (current) use of anticoagulants ED Provider Note CHIEF COMPLAINT: Infection right second toe HISTORY OF PRESENT ILLNESS: This 85-year-old male patient presents to the emergency department at the recommendation of podiatry (Dr. Joanne Davalos) for admission, IV antibiotics, and optimization for surgery for remainder of right second toe amputation. The patient was diagnosed with osteomyelitis and had partial toe amputation about a month ago. Pt. states he was doing well, but noticed redness and purulent discharge about a week ago. Was seen by yolk spray drier earlier today who referred him to the emergency department for admission, IV antibiotics, and optimization for surgery. She states she plans to complete the amputation of the digit tomorrow, but is concerned due to the patient's history of anticoagulant use that he would need to be off of the anticoagulants first. The patient denies any fever. No red streaking up the leg. No body aches or chills. He denies any complications with prior surgery. History provided by: Patient, daughter, Chart review REVIEW OF SYSTEMS: A 10 system review of systems was performed with positives and pertinent negatives listed in the history of present illness. All other systems were reviewed and are negative. ALLERGIES: Aspirin, Celebrex, CT contrast, iodine, tramadol PHYSICAL EXAM: VITALS: Vitals are noted on the nurse's note and reviewed by myself. GENERAL: This is an 85-year-old male, in no acute distress, nondiaphoretic, well-developed well-nourished. SKIN: Wound on the right second toe with purulent discharge and macerated skin. There is bone exposed. There is surrounding erythema. The skin was otherwise without rashes, erythema, edema, or bruising. There is no tenting of the skin. Capillary refill less than 2 seconds. HEAD: Normocephalic atraumatic. EYES: Conjunctivae without injection, sclerae without icterus. MOUTH: Mucous membranes moist. NECK: Supple without nuchal rigidity. No lymphadenopathy. Cervical spine is nontender. No JVD. HEART: Regular rate and rhythm without murmurs gallops or rubs. LUNGS: Clear to auscultation bilaterally without wheezes, rales or rhonchi. No retractions or accessory muscle use. ABDOMEN: Positive bowel sounds x 4. Soft, nontender, without masses or organomegaly. Johnston sign negative. No guarding or rebound tenderness. MUSCULOSKELETAL: No muscle atrophy, erythema, or edema noted. Full range of motion without joint tenderness in all extremities. No tenderness to palpation. Normal gait. Strength 5/5 throughout. NEURO: Patient was alert and oriented to person place and time. Normal sensation to light and sharp touch. Deep tendon reflexes 2+ throughout. No focal neurological deficits. Imaging as interpreted by myself and the radiologist revealed soft tissue ulceration overlying the proximal phalanx of the right second toe, status post amputation of the middle and distal phalanges of the second toe, with radiologist interpretation as above. I agree with the radiologist's findings as based upon my independent interpretation. EMERGENCY DEPARTMENT COURSE: The patient was evaluated as above. The patient was referred by podiatry for admission/IV antibiotics and optimization for surgery. Plan is for the patient to have the remainder of the right second toe amputated due to concerns for worsening infection. I did speak with Dr. Davalos who notes she plans to see the patient later this evening and operate tomorrow morning. She did request that the patient be admitted to the hospitalist service. IV access was obtained, labs were drawn. Labs reviewed. Per my interpretation, no leukocytosis. There is a mild anemia with hemoglobin of 12.2. No thrombocytopenia. Renal, hepatic function and electrolytes without significant abnormality. Coags unremarkable. C-reactive protein elevated 9.37. I discussed the case with the hospitalist physician, Dr. Vanegas. He did agree to evaluate the patient for admission. He will start the patient on antibiotics. Please see his dictation regarding ongoing management and care of this patient. Case was discussed with the attending physician. I attest that I have personally reviewed the patient medication list. I attest that I have reviewed the patient's blood pressure and it was found to be normal GCS: 15 In the evaluation and treatment of this patient the following differential diagnoses were entertained: Osteomyelitis, cellulitis, abscess, MRSA infection, DVT, allergic reaction, as well as other pathologies. The chart was completed utilizing [employer] Speech voice recognition software. Grammatical errors, random word insertions, pronoun errors, and incomplete sentences are an occasional consequence of this system due to software limitations, ambient noise, and hardware issues. Any formal questions or concerns about the content, text, or information contained within the body of this dictation should be directly addressed to the provider for clarification. 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 L5 vertebral fracture Sacroiliitis Leg length discrepancy Pes anserinus bursitis Prediabetes Carpal tunnel syndrome on both sides Hypothyroidism Osteoarthritis of hips, bilateral Suicidal thoughts Depression Osteoarthritis of right hip Elevated TSH CAD (coronary artery disease) Nonobstructive per cardio records Orthostatic hypotension Near syncope (Acute) Urgency of urination Frequency of urination Obstructive sleep apnea Hematuria Hypervolemia Physical deconditioning BPH (benign prostatic hyperplasia) Sinus bradycardia Bilateral edema of lower extremity (Acute) PERALTA (dyspnea on exertion) (Acute) Mild sleep apnea Postherpetic neuralgia Obesity Hypersomnia 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 Decreased activity tolerance Arthralgia Myalgia [facility] (current) use of anticoagulants (Chronic) Enlarged prostate with lower urinary tract symptoms (LUTS) (Acute) HTN (hypertension) (Acute) Recurrent falls Benign essential tremor Frequent PVCs Syncope Sensorineural hearing loss (SNHL) of both ears Lumbar spinal stenosis Medical History Sensorineural hearing loss (SNHL) of both ears Extremely hard of hearing per daughter Neuropathic ulcer of toe Acquired hammer toe Sacroiliitis Ankylosing spondylitis Wound of foot Follows with [facility] wound clinic Chronic kidney disease (CKD) Hyperlipidemia Obesity HTN (hypertension) Prediabetes Hypothyroid COPD (chronic obstructive pulmonary disease) Benign essential tremor CAD (coronary artery disease) Cath 2021: Nonobstructive Dyspnea on exertion Chronic Follows with [facility] Cardio/HF clinic Negative ischemic w/u 12/2024 [place] (HFpEF) heart failure with preserved ejection fraction Follows with [facility] HF clinic Implantable loop recorder present Per chart review, 'near end of life in 2023; pt has decided not to remove device' Lumbar spondylosis Recurrent falls Most recent 11/2024 Paroxysmal atrial fibrillation Cardioversion 2021 Polyneuropathy B/L hands/feet Peripheral neuropathy Cervical pain Hx cervical fracture ~2019, conservative treatment, mild pain Depression History of pulmonary embolism Approx 20+ years ago post op Rt TKA Enlarged prostate Sleep apnea No device History of DVT (deep vein thrombosis) RLE post op TKA approx 20+years ago Treated with AC/coumadin at that time, now on Eliquis History of atrial fibrillation Follows with [facility] cardio Taking Eliquis Osteoporosis History of squamous cell carcinoma s/p excision Surgical History History of operative procedure on hip Right ADAMA 10/2023 History of cardioversion 2021 at [place] History of cardiac cath (2021) No stents History of squamous cell carcinoma excision History of loop recorder (2019) Placed 2019 (placed for syncope and frequent falls)- still in place/batteries History of tonsillectomy History of cataract surgery R/L History of transurethral resection of prostate History of knee replacement Right Family History Father Prostate cancer Cancer Mother Breast cancer Colorectal cancer Other No family history of adverse response to anesthesia No significant family history Denies family history of Ovarian cancer Myocardial infarction Social History Smoking Status: Never smoker Tobacco Type: Declines Second Hand Exposure: No; Do You Dip or Chew Tobacco: No; Hx Alcohol Use: No Hx Substance Use: No Preferred Language: Indonesian Communication Ability: Effective Communication Ability Comment: Pt is [place] Hearing Ability: Use of Hearing Aid Drive In Teller Required: No Beliefs That Will Affect Care: None marital status: Current Living Situation: Spouse Current Living Situation Comment: lives in farmhouse with current occupational status: retired Feels Safe at Home: Yes Childhood Exposure to Second-Hand Smoke: No Diet: low salt Dental Care, Regularly: No Physical Activity Frequency: Does not Exercise Seatbelt Use: always Sunscreen Use: Yes Assistive Devices: Cane, Glasses, Hearing Aid - Bilateral, Stair Lift and Walker Allergies Allergies Allergy/AdvReac Type Severity Reaction Status Date / Time aspirin Allergy Intermediate Hives Verified 05/26/25 13:35 celecoxib [From Celebrex] Allergy Intermediate Hives Verified 05/26/25 13:35 Iodinated Contrast Media Allergy Intermediate Hives, Verified 05/26/25 13:35 swelling iodine Allergy Intermediate Hives Verified 05/26/25 13:35 tramadol AdvReac Intermediate Dizziness, Verified 05/26/25 13:35 nausea, leg weakness FRESH Pineapple Allergy Unknown Anaphylaxis Uncoded 05/26/25 13:35 Home Meds Home Medications Medication Instructions Recorded Confirmed cyanocobalamin (vitamin B-12) 1,000 mcg PO QAM 10/02/23 05/26/25 1,000 mcg capsule acetaminophen 500 mg tablet 1,000 mg PO TID PRN Pain, Mild 04/22/24 05/26/25 (Tylenol Extra Strength) spironolactone 25 mg tablet 25 mg PO QAM 04/17/25 05/26/25 (Aldactone) finasteride 5 mg tablet (Proscar) 5 mg PO QAM 04/21/25 05/26/25 Previous Rx's Medication Instructions Recorded syringe with needle, safety 3 mL #100 ea 12/09/20 23 gauge x 1" (BD Safety-Bren Detachable Needle) epinephrine 0.3 mg/0.3 mL 0.3 mg (0.3 mL) IM UD PRN 03/01/23 injection, auto-injector (EpiPen) Anaphylaxis #1 ea Nimisha Walker #1 ea 11/21/23 apixaban 5 mg tablet (Eliquis) 5 mg PO BID #180 tabs 10/02/24 albuterol sulfate 90 mcg/actuation 2 inh inhalation QID PRN shortness 02/03/25 aerosol inhaler of breath or wheezing #6.7 grams fluticasone fur. 100 mcg-umeclid 1 inh inhalation DAILY #28 ea 03/02/25 62.5 mcg-vilant 25 mcg inhalat.powder (Trelegy Ellipta) levothyroxine 50 mcg tablet 50 mcg PO .6XW #90 tabs 03/04/25 levothyroxine 50 mcg tablet 100 mcg (2 x 50 mcg) PO .ONE DAY 03/04/25 WEEKLY #90 tabs ipratropium bromide 21 mcg (0.03 2 spray intranasal BID #30 mL 04/08/25 %) nasal spray tamsulosin 0.4 mg capsule (Flomax) 0.4 mg PO QAM #90 caps 04/08/25 losartan 25 mg tablet 25 mg PO QAM #90 tabs 04/14/25 fluoxetine 20 mg capsule (Prozac) 20 mg PO QAM #90 caps 05/26/25 furosemide 40 mg tablet 40 mg PO QAM #90 tabs 06/03/25 Results & Data (ED) Vital Signs Vital Signs - 24 hr 06/12/25 11:37 06/12/25 12:20 Temperature 36.4 C L Temperature Source Oral Pulse Rate 73 60 Respiratory Rate 18 16 Blood Pressure 108/72 Blood Pressure Mean 84 Pulse Oximetry 98 95 Oxygen Delivery Method Room Air Room Air Sepsis Recent Fever Within 48 Hours No Sepsis New/Unexplained Change in Mental Status N/A Sepsis Action Taken by Nursing No Action Required Laboratory Data 06/12/25 12:16 06/12/25 12:16 Lab Results 06/12/25 Range/Units 12:16 WBC 7.76 (4.8-10.8) K/ul RBC 3.93 L (4.70-6.10) M/uL Hgb 12.2 L (14.0-18.0) g/dl Hct 36.6 L (42.0-52.0) % MCV 93.1 (80.0-100.0) fL MCH 31.0 (25.0-34.0) pg MCHC 33.3 (32.0-36.0) g/dL RDW Std Deviation 46.4 H (36.4-46.3) fL RDW Coeff of Castillo 13.6 (11.5-14.5) % Plt Count 258 (130-400) K/uL MPV 8.8 L (9.4-12.4) fL Immature Gran % (Auto) 1.0 % Neut % (Auto) 72.7 % Lymph % (Auto) 13.1 % [place] % (Auto) 11.3 % Eos % (Auto) 1.3 % Baso % (Auto) 0.6 % Neut # (Auto) 5.63 (1.40-6.50) K/uL Lymph # (Auto) 1.02 L (1.20-3.40) K/uL [place] # (Auto) 0.88 H (0.11-0.59) K/uL Eos # (Auto) 0.10 (0.00-0.50) K/uL Baso # (Auto) 0.05 (0.00-0.20) K/uL Immature Gran # (Auto) 0.08 (0.01-0.20) K/uL ESR 63 H (0-20) mm/hr PT 12.0 (9.0-12.0) Seconds INR 1.1 (0.9-1.1) APTT 34 H (21-31) Seconds PTT Ratio 1.3 Sodium 138 (136-145) mmol/L Potassium 4.6 (3.5-5.1) mmol/L Chloride 103 (98-107) mmol/L Carbon Dioxide 29 (21-32) mmol/L Anion Gap 6 (3-11) BUN 18 (6-23) mg/dl Creatinine 1.13 (0.6-1.4) mg/dl Est Cr Clr Drug Dosing 59.7 ml/min eGFR 62.91 BUN/Creatinine Ratio 15.9 (10-20) Glucose 92 (70-99(Fasting)) mg/dl Calcium 9.1 (8.6-10.3) mg/dl Total Bilirubin 0.6 (0.2-1.0) mg/dl AST 15 (13-39) U/L ALT 8 (7-52) U/L Alkaline Phosphatase 75 (34-104) U/L C-Reactive Protein 9.37 H (0-0.5) mg/dl Total Protein 6.9 (6.0-8.3) gm/dl Albumin 3.3 L (3.4-5.0) gm/dl Globulin 3.6 (2.5-4.0) gm/dl Albumin/Globulin Ratio 0.9 (0.9-2) Administered Medications Daptomycin 700 mg/ Syringe 14 mls @ 7 mls/min IV Q24H [facility]; Protocol Stop: 07/24/25 13:59 Last Admin: 06/12/25 14:32 Dose: 7 mls/min Documented By: LEONEL Discontinued Medications Piperacillin Sod/Tazobactam Sod (Zosyn) 4.5 gm in 100 mls @ 200 mls/hr IV 1311 ONE; Protocol Stop: 06/12/25 13:40 Last Admin: 06/12/25 14:32 Dose: 200 mls/hr Documented By: LEONEL Miscellaneous (Patient's Height &/Or Weight Needed) 1 each N/A NOW STA Stop: 06/12/25 12:14 Last Admin: 06/12/25 12:41 Dose: Not Given Documented By: LEONEL Imaging Data Radiologist's Impression: Foot X-Ray 06/12/25 12:01 XR foot RT min 3V routine CLINICAL HISTORY: purulent discharge s/p partial 2nd toe amputation COMPARISON: None FINDINGS: 3 views are provided for interpretation. The bones are osteopenic. There is prominent plantar calcaneal spurring. The patient is status post amputation of the second toe at the level of the proximal interphalangeal joint. There is an overlying soft tissue ulceration. There are no erosive or destructive changes involving the residual proximal phalanx. There is an overlying bandage. IMPRESSION: 1. Status post amputation of the middle and distal phalanges of the second toe. 2. Soft tissue ulceration/defect overlying the proximal phalanx of the second toe. There are no cortical destructive changes to indicate osteomyelitis. ACT 112: Negative or not required by law. Electronically signed by: Dimitrios Bush M.D. 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 SEVENTH DAY= DIFFERENT DOSE. levothyroxine 50 mcg tablet 100 mcg PO .ONE DAY WEEKLY Qty: 90 3RF Rx Instructions: TAKE TWO TABLETS ONE DAY PER WEEK. SIX OTHER DAYS WEEKLY TAKE ONE TABLET. SUNDAY losartan 25 mg tablet 25 mg PO QAM Qty: 90 1RF furosemide 40 mg tablet 40 mg PO QAM Qty: 90 1RF (DME) BD Safety-Bren Detachable Needl 3 mL 23 gauge x 1" syringe See Rx Instructions .ROUTE .MEDSUPPLY Qty: 100 0RF Rx Instructions: As directed with cyanocobalamin (DME) [facility] See Rx Instructions .MEDSUPPLY Qty: 1 0RF Rx Instructions: As directed epinephrine [EpiPen] 0.3 mg/0.3 mL auto-injector 0.3 mg IM UD PRN (Reason: Anaphylaxis) Qty: 1 1RF tamsulosin [Flomax] 0.4 mg capsule 0.4 mg PO QAM Qty: 90 3RF ipratropium bromide 21 mcg (0.03 %) spray,non-aerosol 2 spray intranasal BID Qty: 30 2RF Rx Instructions: administer into each nostril albuterol sulfate 90 mcg/actuation HFA aerosol inhaler 2 inh inhalation QID PRN (Reason: shortness of breath or wheezing) Qty: 6.7 2RF fluoxetine [Prozac] 20 mg capsule 20 mg PO QAM Qty: 90 0RF acetaminophen [Tylenol Extra Strength] 500 mg tablet 1,000 mg PO TID PRN (Reason: Pain, Mild) cyanocobalamin (vitamin B-12) 1,000 mcg Capsule 1,000 mcg PO QAM spironolactone [Aldactone] 25 mg tablet 25 mg PO QAM finasteride [Proscar] 5 mg tablet 5 mg PO QAM Referrals Referrals: Sylvie Aburto MD [Primary Care Provider] -
[2025-06-12 12:32] LABS: Hematocrit (blood only) 36.6 % (42.0-52.0); Hemoglobin 12.2 g/dl (14.0-18.0); Immature Granulocytes # (auto) 0.08 K/uL (0.01-0.20); Immature Granulocytes % (auto) 1.0 %; Mean Corpuscular Hemoglobin 31.0 pg (25.0-34.0); Mean Corpuscular Volume 93.1 fL (80.0-100.0); Platelet Count 258 K/uL (130-400); RDW Standard Deviation 46.4 fL (36.4-46.3); Red Blood Count 3.93 M/uL (4.70-6.10); White Blood Count 7.76 K/ul (4.8-10.8)
--- NOTE | 2025-06-12 12:39 | XRay Report ---
XR foot RT min 3V routine CLINICAL HISTORY: purulent discharge s/p partial 2nd toe amputation COMPARISON: None FINDINGS: 3 views are provided for interpretation. The bones are osteopenic. There is prominent plan tar calcaneal spurring. The patient is status post amputation of the second toe at the level of the p roximal interphalangeal joint. There is an overlying soft tissue ulceration. There are no erosive or destructive changes involving the residual proximal phalanx. There is an overlying bandage. IMPRESSION: 1. Status post amputation of the middle and distal phalanges of the second toe. 2. Soft tissue ulceration/defect overlying the proximal phalanx of the second toe. There are no corti yaa destructive changes to indicate osteomyelitis. ACT 112: Negative or not required by law. Electronically signed by: Dimitrios Bush M.D. 06/12/2025 12:38 PM
[2025-06-12] MEDS: Patient's HEIGHT &/or WEIGHT Needed STA (12:41)
[2025-06-12 12:53] LABS: Alanine Aminotransferase 8.0 U/L (7-52); Albumin Globulin Ratio 0.9 (0.9-2); Albumin Level 3.3 gm/dl (3.4-5.0); Alkaline Phosphatase 75.0 U/L (34-104); Anion Gap 6.0 (3-11); Bilirubin,Total 0.6 mg/dl (0.2-1.0); Blood Urea Nitrogen 18.0 mg/dl (6-23); Calcium 9.1 mg/dl (8.6-10.3); Carbon Dioxide 29.0 mmol/L (21-32); Chloride 103.0 mmol/L (98-107); Creatinine Clr Calc Pharmacy 59.7 ml/min; Globulin 3.6 gm/dl (2.5-4.0); Glucose 92.0 mg/dl (70-99(Fasting)); Potassium 4.6 mmol/L (3.5-5.1); Sodium 138.0 mmol/L (136-145); Total Protein 6.9 gm/dl (6.0-8.3)
--- NOTE | 2025-06-12 12:59 | History & Physical Report ---
Date of Service June 12, 2025 Assessment & Plan (1) Osteomyelitis of toe: Plan: 85-year-old male with history of HFpEF, noncardiac chest pain, recurrent DVT/PE, 1 episode of paroxysmal A-fib in sinus since cardioversion, hypothyroidism, hypertension, CPAP intolerant CURTIS who presents with recurrent right second toe infection/suspected osteomyelitis. He was referred by podiatry for IV antibiotic therapy, and anticipated surgical management 06/13/2025. 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 coli, otherwise no prior cultures with resistance. Patient has purulent cellulitis with macerated exposed bone, will admit on Zosyn/daptomycin. Podiatry Dr. Davalos consulted, anticipate operative management 06/13 Eliquis held in anticipation of surgery following Repeat culture prior to antibiotics collected/sent by ER HFpEF Beta-samm limited due to history of bradycardia No dyspnea, saturation normal on room air, lungs are diminished but clear. Appears near euvolemic Continue Lasix 40 mg p.o. daily No anginal symptoms/equivalents Liberalize BP goal of 140/80 due to history of prior syncope/falls Noncardiac chest pain/dyspnea Ongoing for many years. It is not tied to exercise and is not consistent with typical angina. DSE 09/2023, LHC 12/2021 without evidence of ischemic etiology. Suspected to be MSK in origin. History of PE/DVT Provoked by TURP in 2002, recurrent in 2015 Lifelong anticoagulation Eliquis held Will place on bridging heparin gtt. while Eliquis is held. This can be paused 6 hours preoperatively Paroxysmal A-fib S/p prior cardioversion. In sinus since. In sinus on admission. Eliquis held. Due to increased risk with recurrent DVT/PE and upcoming surgery has been transitioned to heparin gtt. which can be paused preoperatively. Can resume Eliquis when bleeding risk okay per surgery postoperatively History of CKD Baseline creatinine approximately 1, previously around 1.2 GFR 62.9 on admission Trend BMP daily, renally adjust medications as needed Hypothyroidism Continue Synthroid Hypertension Losartan held preoperatively. Spironolactone continued BPH with LUTS s/p TURP Continue tamsulosin Mixed obstructive/restrictive lung disease Continue home inhalers No wheezing on admission DVT prophylaxis: Anticoagulated Disposition: MSO CODE STATUS: DNR/DNI Diet: Heart healthy, n.p.o. 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 Patient was referred to the ER by podiatry for admission and IV antibiotics with anticipated right second toe amputation. Per chart review he was diagnosed with osteomyelitis and partial toe amputation 1 month ago by podiatry. Was doing well but then had purulent discharge and redness which started about 7 days ago. He was seen in the office by podiatry and then referred to the ER for IV antibiotics and definitive management. Patel is seen at the bedside with his daughter present. He is extremely hard of hearing. He reports for 1 week he has had increased beltran/brown discharge from his foot. No fevers or chills. He does sometimes get cold and has a resting tremor but these have not changed. He has not had any shaking chills/rigors. He does not feel sick, but notes his toe has been draining. 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 Reports he is a reddy and very independent, is able to do heavy lifting and work around the house and splitting wood without any associated chest pain shortness of breath or dyspnea. He has had intermittent chest pain in the past which was evaluated by cardiology and was not felt to be ischemic in origin. He reports he has no chest pain that correlates with exertion recently and again is able to go up stairs and chop wood feeling slightly tired but with no other issues. He reports he does have a history of syncope and falls and had a loop recorder. Reportedly this was okay, he left the recorder in and did not have this explant ed. He did subsequently have A-fib which underwent cardioversion. He has a past history of HFpEF per cardiology note review. He does take Lasix daily. He denies history of diabetes Denies history of stroke He reports a history of recurrent DVT/PE for which he was previously on warfarin but was subsequently transitioned to Eliquis. He is also on Eliquis for paroxysmal A-fib, has not had a recurrence of A-fib since cardioversion as outpatient. Medical History: Reviewed Medications: Reviewed Surgical History: Reviewed Family history: Reviewed Allergies: Reviewed Social History: Denies tobacco/ETOH use Code Status: DNR/DNI, confirmed with patient on admit Allergies Allergy/AdvReac Type Severity Reaction Status Date / Time aspirin Allergy Intermediate Hives Verified 05/26/25 13:35 celecoxib [From Celebrex] Allergy Intermediate Hives Verified 05/26/25 13:35 Iodinated Contrast Media Allergy Intermediate Hives, Verified 05/26/25 13:35 swelling iodine Allergy Intermediate Hives Verified 05/26/25 13:35 tramadol AdvReac Intermediate Dizziness, Verified 05/26/25 13:35 nausea, leg weakness FRESH Pineapple Allergy Unknown Anaphylaxis Uncoded 05/26/25 13:35 Home Medications Medication Instructions Recorded Confirmed Type syringe with needle, safety 3 mL #100 ea 12/09/20 05/26/25 Rx 23 gauge x 1" (BD Safety-Bren Detachable Needle) epinephrine 0.3 mg/0.3 mL 0.3 mg (0.3 mL) IM UD PRN 03/01/23 05/12/25 Rx injection, auto-injector (EpiPen) Anaphylaxis #1 ea cyanocobalamin (vitamin B-12) 1,000 mcg PO QAM 10/02/23 05/26/25 History 1,000 mcg capsule Wheeled Walker #1 ea 11/21/23 05/26/25 Rx acetaminophen 500 mg tablet 1,000 mg PO TID PRN Pain, Mild 04/22/24 05/26/25 History (Tylenol Extra Strength) apixaban 5 mg tablet (Eliquis) 5 mg PO BID #180 tabs 10/02/24 05/26/25 Rx albuterol sulfate 90 mcg/actuation 2 inh inhalation QID PRN shortness 02/03/25 05/26/25 Rx aerosol inhaler of breath or wheezing #6.7 grams fluticasone fur. 100 mcg-umeclid 1 inh inhalation DAILY #28 ea 03/02/25 05/26/25 Rx 62.5 mcg-vilant 25 mcg inhalat.powder (Trelegy Ellipta) levothyroxine 50 mcg tablet 50 mcg PO .6XW #90 tabs 03/04/25 05/26/25 Rx levothyroxine 50 mcg tablet 100 mcg (2 x 50 mcg) PO .ONE DAY 03/04/25 05/26/25 Rx WEEKLY #90 tabs ipratropium bromide 21 mcg (0.03 2 spray intranasal BID #30 mL 04/08/25 05/26/25 Rx %) nasal spray tamsulosin 0.4 mg capsule (Flomax) 0.4 mg PO QAM #90 caps 04/08/25 05/26/25 Rx losartan 25 mg tablet 25 mg PO QAM #90 tabs 04/14/25 05/26/25 Rx spironolactone 25 mg tablet 25 mg PO QAM 04/17/25 05/26/25 History (Aldactone) finasteride 5 mg tablet (Proscar) 5 mg PO QAM 04/21/25 05/26/25 History fluoxetine 20 mg capsule (Prozac) 20 mg PO QAM #90 caps 05/26/25 05/26/25 Rx furosemide 40 mg tablet 40 mg PO QAM #90 tabs 06/03/25 Rx Past Med/Surg History Problem List (Updated 06/12/25 @ 13:36 by Thomas Vanegas MD) Osteomyelitis of toe Heterotopic ossification Acquired hammer toe (Chronic) Neuropathic ulcer of toe of right foot (Acute) Neuropathic ulcer of toe of left foot (Acute) Greater trochanteric bursitis of right hip Edema (Acute) Elevated troponin I level (Acute) Myofascial pain 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 L5 vertebral fracture Sacroiliitis Leg length discrepancy Pes anserinus bursitis Prediabetes Carpal tunnel syndrome on both sides Hypothyroidism Osteoarthritis of hips, bilateral Suicidal thoughts Depression Osteoarthritis of right hip Elevated TSH CAD (coronary artery disease) Nonobstructive per cardio records Orthostatic hypotension Near syncope (Acute) Urgency of urination Frequency of urination Obstructive sleep apnea Hematuria Hypervolemia Physical deconditioning BPH (benign prostatic hyperplasia) Sinus bradycardia Bilateral edema of lower extremity (Acute) PERALTA (dyspnea on exertion) (Acute) Mild sleep apnea Postherpetic neuralgia Obesity Hypersomnia 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 Decreased activity tolerance Arthralgia Myalgia superintendent terminal (current) use of anticoagulants (Chronic) Enlarged prostate with lower urinary tract symptoms (LUTS) (Acute) HTN (hypertension) (Acute) Recurrent falls Benign essential tremor Frequent PVCs Syncope Sensorineural hearing loss (SNHL) of both ears Lumbar spinal stenosis Medical History Sensorineural hearing loss (SNHL) of both ears Extremely hard of hearing per daughter Neuropathic ulcer of toe Acquired hammer toe Sacroiliitis Ankylosing spondylitis Wound of foot Follows with [facility] [place] wound clinic Chronic kidney disease (CKD) Hyperlipidemia Obesity HTN (hypertension) Prediabetes Hypothyroid COPD (chronic obstructive pulmonary disease) Benign essential tremor CAD (coronary artery disease) Cath 2021: Nonobstructive Dyspnea on exertion Chronic Follows with [facility] Cardio/HF clinic Negative ischemic w/u 12/2024 [place] (HFpEF) heart failure with preserved ejection fraction Follows with [facility] HF clinic Implantable loop recorder present Per chart review, 'near end of life in 2023; pt has decided not to remove device' Lumbar spondylosis Recurrent falls Most recent 11/2024 Paroxysmal atrial fibrillation Cardioversion 2021 Polyneuropathy B/L hands/feet Peripheral neuropathy Cervical pain Hx cervical fracture ~2019, conservative treatment, mild pain Depression History of pulmonary embolism Approx 20+ years ago post op Rt TKA Enlarged prostate Sleep apnea No device History of DVT (deep vein thrombosis) RLE post op TKA approx 20+years ago Treated with AC/coumadin at that time, now on Eliquis History of atrial fibrillation Follows with [facility] cardio Taking Eliquis Osteoporosis History of squamous cell carcinoma s/p excision Surgical History History of operative procedure on hip History of cardioversion History of cardiac cath (2021) History of squamous cell carcinoma excision History of loop recorder (2019) History of tonsillectomy History of cataract surgery History of transurethral resection of prostate History of knee replacement Family History Father Prostate cancer Cancer Mother Breast cancer Colorectal cancer Other No family history of adverse response to anesthesia No significant family history Denies family history of Ovarian cancer Myocardial infarction Social History Smoking Status: Never smoker Tobacco Type: Declines Second Hand Exposure: No; Do You Dip or Chew Tobacco: No; Hx Alcohol Use: No Hx Substance Use: No Preferred Language: Polish Communication Ability: Effective Communication Ability Comment: Pt is [place] Hearing Ability: Use of Hearing Aid Supervisor Wheel Shop Required: No Beliefs That Will Affect Care: None marital status: Current Living Situation: Spouse Current Living Situation Comment: lives in farmhouse with current occupational status: retired Feels Safe at Home: Yes Childhood Exposure to Second-Hand Smoke: No Diet: low salt Dental Care, Regularly: No Physical Activity Frequency: Does not Exercise Seatbelt Use: always Sunscreen Use: Yes Assistive Devices: Cane, Glasses, Hearing Aid - Bilateral, Stair Lift and Walker Physical Exam Physical Exam: General: A&Ox3. NAD. Cooperative. HEENT: Atraumatic, normocephalic. Pulm: CTAB A&P. -wheezes, -rales, -rhonchi. Symmetrical chest rise. No increased work of breathing. No respiratory distress. Cardiac: RRR, -mrg. Radial pulses intact and symmetrical. Abdominal: Nontender, nondistended, soft. BS present. Ext: R second toe with macerated tip, surrounding erythema, draining beltran material. No pain. Er Results & Data Results & Data Vital Signs (Past 12 Hours) Vital Signs Temp Pulse Resp BP Pulse Ox O2 Del Method 06/12/25 12:20 60 16 95 Room Air 06/12/25 11:37 36.4 C L 73 18 108/72 98 Room Air PG Care Time/CCT Total # of Minutes Spent Total Time Spent with Patient: Total time spent is greater than 50% in coordination of care (as documented) at patient's floor/unit and/or counseling patient: Coding Level of Care Code 32517 INT INP/OBS CARE 75MIN Diagnoses Osteomyelitis of toe M86.9 Ankylosing spondylitis M45.9 Obstructive sleep apnea G47.33 Mixed restrictive and obstructive lung disease J43.9; J98.4 HTN (hypertension) I10 Benign essential tremor G25.0 History of pulmonary embolism Z86.711
[2025-06-12 13:04] LABS: INR 1.1 (0.9-1.1); Partial Thromboplastin Time 34 Seconds (21-31); Prothrombin Time 12.0 Seconds (9.0-12.0)
[2025-06-12] MEDS: DAPTOmycin 700 MG in SYRINGE 0 ML IV SCH (14:32)
[2025-06-12] MEDS: PIPERACILLIN/TAZOBACTAM 4.5 GM/100 ML BAG IV ONE (14:32)
[2025-06-12] MEDS ORDERED: ONDANSETRON INJ 2 MG/ML 2 ML VIAL IV PRN (15:59)
[2025-06-12] MEDS ORDERED: POLYETHYLENE (MIRALAX) 17 GM PACK PO PRN (15:59)
--- NOTE | 2025-06-12 17:33 | Podiatry Consultation ---
Date of Consultation June 12, 2025 Assessment & Plan (1) Osteomyelitis of toe: (2) Acquired hammer toe: (3) Neuropathic ulcer of toe of right foot: Non-pressure ulcer stage: with fat layer exposed Qualified Code(s): L97.512 - Non-pressure chronic ulcer of other part of right foot with fat layer exposed Plan A: right 2nd toe partial toe amputation site infected ulcer with suspected osteomyelitis P: Incision and drainage of infected bone right foot tomorrow (06/13/2025). Case is scheduled as the third add-on and anticipate start time at noon. Surgical consent is signed and on the patient's chart. Continue IV antibiotics per medicine. NPO after midnight. Weight bearing as tolerated. Dry dressing can stay intact until surgery. History of Present Illness Reason for Consultation: right 2nd toe infected ulcer Attending Physician: Thomas Vanegas MD History of Present Illness Patient presented to our clinic this morning with a new infected ulceration with concern of osteomyelitis at the amputation stump of the right second toe. Patient had a partial toe amputation on 04/21/2025. Reports noticing the wound about a week ago. Denies any known recent injury or trauma to the toe. Denies any treatment for the wound. Reports malodorous drainage from the wound. States he was seen about 3 weeks ago for his regular at risk nail care appointment with Dr. Ruben Davalos. States he had a minor scab at the amputation site, but there was no evidence of wound dehiscence at that appointment. States he has not been feeling well this past week with chills and diarrhea. It was recommended for the patient to report to the emergency department for IV antibiotics and medical optimization prior to surgery to address his right 2nd toe stump. It was recommended right foot incision and drainage of infected bone. Allergies Allergy/AdvReac Type Severity Reaction Status Date / Time aspirin Allergy Intermediate Hives Verified 05/26/25 13:35 celecoxib [From Celebrex] Allergy Intermediate Hives Verified 05/26/25 13:35 Iodinated Contrast Media Allergy Intermediate Hives, Verified 05/26/25 13:35 swelling iodine Allergy Intermediate Hives Verified 05/26/25 13:35 tramadol AdvReac Intermediate Dizziness, Verified 05/26/25 13:35 nausea, leg weakness FRESH Pineapple Allergy Unknown Anaphylaxis Uncoded 05/26/25 13:35 Home Medications Medication Instructions Recorded Confirmed Type syringe with needle, safety 3 mL #100 ea 12/09/20 05/26/25 Rx 23 gauge x 1" (BD Safety-Bren Detachable Needle) epinephrine 0.3 mg/0.3 mL 0.3 mg (0.3 mL) IM UD PRN 03/01/23 06/12/25 Rx injection, auto-injector (EpiPen) Anaphylaxis #1 ea cyanocobalamin (vitamin B-12) 1,000 mcg PO QAM 10/02/23 06/12/25 History 1,000 mcg capsule Wheeled Walker #1 ea 11/21/23 05/26/25 Rx acetaminophen 500 mg tablet 1,000 mg PO TID PRN Pain, Mild 04/22/24 06/12/25 His tory (Tylenol Extra Strength) apixaban 5 mg tablet (Eliquis) 5 mg PO BID #180 tabs 10/02/24 06/12/25 Rx albuterol sulfate 90 mcg/actuation 2 inh inhalation QID PRN shortness 02/03/25 06/12/25 Rx aerosol inhaler of breath or wheezing #6.7 grams fluticasone fur. 100 mcg-umeclid 1 inh inhalation DAILY #28 ea 03/02/25 06/12/25 Rx 62.5 mcg-vilant 25 mcg inhalat.powder (Trelegy Ellipta) levothyroxine 50 mcg tablet 50 mcg PO .6XW #90 tabs 03/04/25 06/12/25 Rx levothyroxine 50 mcg tablet 100 mcg (2 x 50 mcg) PO .ONE DAY 03/04/25 06/12/25 Rx WEEKLY #90 tabs ipratropium bromide 21 mcg (0.03 2 spray intranasal BID #30 mL 04/08/25 06/12/25 Rx %) nasal spray tamsulosin 0.4 mg capsule (Flomax) 0.4 mg PO QAM #90 caps 04/08/25 06/12/25 Rx losartan 25 mg tablet 25 mg PO QAM #90 tabs 04/14/25 06/12/25 Rx spironolactone 25 mg tablet 25 mg PO QAM 04/17/25 06/12/25 History (Aldactone) finasteride 5 mg tablet (Proscar) 5 mg PO QAM 04/21/25 06/12/25 History fluoxetine 20 mg capsule (Prozac) 20 mg PO QAM #90 caps 05/26/25 06/12/25 Rx furosemide 40 mg tablet 40 mg PO QAM #90 tabs 06/03/25 06/12/25 Rx Patient History Medical History Sensorineural hearing loss (SNHL) of both ears Extremely hard of hearing per daughter Neuropathic ulcer of toe Acquired hammer toe Sacroiliitis Ankylosing spondylitis Wound of foot Follows with [facility] wound clinic Chronic kidney disease (CKD) Hyperlipidemia Obesity HTN (hypertension) Prediabetes Hypothyroid COPD (chronic obstructive pulmonary disease) Benign essential tremor CAD (coronary artery disease) Cath 2021: Nonobstructive Dyspnea on exertion Chronic Follows with [facility] Cardio/HF clinic Negative ischemic w/u 12/2024 [place] (HFpEF) heart failure with preserved ejection fraction Follows with [facility] HF clinic Implantable loop recorder present Per chart review, 'near end of life in 2023; pt has decided not to remove device' Lumbar spondylosis Recurrent falls Most recent 11/2024 Paroxysmal atrial fibrillation Cardioversion 2021 Polyneuropathy B/L hands/feet Peripheral neuropathy Cervical pain Hx cervical fracture ~2019, conservative treatment, mild pain Depression History of pulmonary embolism Approx 20+ years ago post op Rt TKA Enlarged prostate Sleep apnea No device History of DVT (deep vein thrombosis) RLE post op TKA approx 20+years ago Treated with AC/coumadin at that time, now on Eliquis History of atrial fibrillation Follows with [facility] cardio Taking Eliquis Osteoporosis History of squamous cell carcinoma s/p excision Surgical History History of operative procedure on hip Right [place] 10/2023 History of cardioversion 2021 at [place] History of cardiac cath (2021) No stents History of squamous cell carcinoma excision History of loop recorder (2019) Placed 2019 (placed for syncope and frequent falls)- still in place/batteries History of tonsillectomy History of cataract surgery R/L History of transurethral resection of prostate History of knee replacement Right Family History Father Prostate cancer Cancer Prostate Mother Breast cancer Colorectal cancer Other No family history of adverse response to anesthesia No significant family history Denies family history of Ovarian cancer Myocardial infarction Social History Smoking Status: Never smoker Tobacco Type: Declines Second Hand Exposure: No; Do You Dip or Chew Tobacco: No; Hx Alcohol Use: No Hx Substance Use: No Preferred Language: Salvadorean Communication Ability: Effective Communication Ability Comment: Pt is [place] Hearing Ability: Use of Hearing Aid Setter Up Required: No Beliefs That Will Affect Care: None marital status: Current Living Situation: Spouse Current Living Situation Comment: lives in farmhouse with current occupational status: retired Other Information That Helps Us Care for You: No Feels Safe at Home: Yes Safety Concerns: Feels Safe At This Time Childhood Exposure to Second-Hand Smoke: No Diet: low salt Dental Care, Regularly: No Physical Activity Frequency: Does not Exercise Seatbelt Use: always Sunscreen Use: Yes Assistive Devices: Glasses, Hearing Aid - Bilateral and Walker Review of Systems Review of Systems: All systems reviewed & are unremarkable except as noted in HPI & below Constitutional: + chills, + fatigue and + malaise Eyes: no problem reported Ear, Nose, Mouth, Throat: no problem reported Respiratory: no cough Cardiovascular: no problem reported Gastrointestinal: no problem reported Musculoskeletal: no problem reported Integumentary: + lesions, + non-healing lesions and + e rythema; no skin ulcer Neurologic: + numbness Psychiatric: no problem reported Physical Exam Constitutional: well developed, well nourished and + morbidly obese; no acute distress Eyes: PERRL, conjunctivae normal, anicteric sclerae ENMT: external ear and nose normal, oropharynx normal Mouth: + poor d entition Neck: trachea midline, no thyromegaly Respiratory: normal respiratory effort; no respiratory distress Cardiovascular: Rate/Rhythm: regular rate and regular rhythm Vessels: + posterior tibial pulses abnormal and + dorsalis pedis pulses abnormal Extremities: normal capillary refill and + pedal edema Gastrointestinal (Abdomen): Inspection/Auscultation: abdomen normal to inspection Musculoskeletal: Head/Neck/Chest: normocephalic and head atraumatic Extremities: + foot abnormality (pes planus) Skin: + ulcer, + wound (distal right 3rd toe), + skin atrophy and + nails dystrophic Full thickness ulcer at amputation stump of right 2nd toe. Wound extends deep enough to probe to bone. There is purulent and mal odorous drainage from the wound. Wound bed is mixed fibrotic/necrotic tissue. Erythema and edema noted. No ascending cellulitis. Neurologic: moves all extremities and awake; + abnormal touch/pain/proprioception and + abnormal sensation to monofilament Psychiatric: A+Ox3, euthymic affect Results & Data Vital Signs (Past 12 Hours) Vital Signs Temp Pulse Pulse Pulse Resp BP BP 06/12/25 15:50 36.7 C 81 18 131/74 06/12/25 15:27 64 18 06/12/25 12:20 60 16 06/12/25 11:37 36.4 C L 73 18 108/72 BP Pulse Ox O2 Del Method 06/12/25 15:50 98 Room Air 06/12/25 15:27 117/66 96 Room Air 06/12/25 12:20 95 Room Air 06/12/25 11:37 98 Room Air
[2025-06-12] MEDS: PIPERACILLIN/TAZOBACTAM 4.5 GM/100 ML BAG IV SCH (18:20)
[2025-06-12] MEDS: ACETAMINOPHEN 325 MG TAB PO PRN (20:06)
[2025-06-12] MEDS ORDERED: Heparin IV Adult Wt-Based Low-Dose *NO* INITIAL Bolus Protocol IV SCH (21:00)
[2025-06-12] MEDS: HEPARIN 25000 UNIT/500 ML D5W 25,000 UNITS/500 ML BAG IV SCH (21:12)
[2025-06-13 06:53] LABS: Hematocrit (blood only) 36.3 % (42.0-52.0); Hemoglobin 11.5 g/dl (14.0-18.0); Immature Granulocytes # (auto) 0.09 K/uL (0.01-0.20); Immature Granulocytes % (auto) 1.7 %; Mean Corpuscular Hemoglobin 29.6 pg (25.0-34.0); Mean Corpuscular Volume 93.6 fL (80.0-100.0); Platelet Count 243 K/uL (130-400); RDW Standard Deviation 46.5 fL (36.4-46.3); Red Blood Count 3.88 M/uL (4.70-6.10); White Blood Count 5.18 K/ul (4.8-10.8)
[2025-06-13 07:14] LABS: Anion Gap 6.0 (3-11); Blood Urea Nitrogen 20.0 mg/dl (6-23); Calcium 8.9 mg/dl (8.6-10.3); Carbon Dioxide 30.0 mmol/L (21-32); Chloride 102.0 mmol/L (98-107); Creatinine Clr Calc Pharmacy 52.1 ml/min; Glucose 98.0 mg/dl (70-99(Fasting)); Potassium 4.3 mmol/L (3.5-5.1); Sodium 138.0 mmol/L (136-145)
[2025-06-13] MEDS ORDERED: NON-FORMULARY MEDICATION (Fluticasone-Umeclidin-Vilanter [Trelegy Ellipta] 100-62.5-25 mcg INH SCH (09:00)
--- NOTE | 2025-06-13 09:03 | Anesthesiology Consultation ---
Date of Service June 13, 2025 Assessment & Plan (1) Encounter for pre-operative examination: Chart Review Chart Review: Acceptable Risk for Surgery History Surgery Operation Date: 06/13/25 12:00 Proposed Procedures p Incision and Drainage Right Foot(Right) - Joanne Davalos DPM Height/Weight Height: 6 ft Weight: 110.3 kg Allergies Allergy/AdvReac Type Severity Reaction Status Date / Time aspirin Allergy Intermediate Hives Verified 05/26/25 13:35 celecoxib [From Celebrex] Allergy Intermediate Hives Verified 05/26/25 13:35 Iodinated Contrast Media Allergy Intermediate Hives, Verified 05/26/25 13:35 swelling iodine Allergy Intermediate Hives Verified 05/26/25 13:35 tramadol AdvReac Intermediate Dizziness, Verified 05/26/25 13:35 nausea, leg weakness FRESH Pineapple Allergy Unknown Anaphylaxis Uncoded 05/26/25 13:35 Medications Home Medications Medication Instructions Recorded Confirmed Last Taken syringe with needle, safety 3 mL #100 ea 12/09/20 05/26/25 Unknown 23 gauge x 1" (BD Safety-Bren Detachable Needle) epinephrine 0.3 mg/0.3 mL 0.3 mg (0.3 mL) IM UD PRN 03/01/23 06/12/25 Unknown injection, auto-injector (EpiPen) Anaphylaxis #1 ea cyanocobalamin (vitamin B-12) 1,000 mcg PO QAM 10/02/23 06/12/25 04/20/25 08:00 1,000 mcg capsule Wheeled Walker #1 ea 11/21/23 05/26/25 Unknown acetaminophen 500 mg tablet 1,000 mg PO TID PRN Pain, Mild 04/22/24 06/12/25 04/20/25 18:00 (Tylenol Extra Strength) apixaban 5 mg tablet (Eliquis) 5 mg PO BID #180 tabs 10/02/24 06/12/25 04/17/25 albuterol sulfate 90 mcg/actuation 2 inh inhalation QID PRN shortness 02/03/25 06/12/25 04/20/25 13:00 aerosol inhaler of breath or wheezing #6.7 grams fluticasone fur. 100 mcg-umeclid 1 inh inhalation DAILY #28 ea 03/02/25 06/12/25 04/20/25 07:00 62.5 mcg-vilant 25 mcg inhalat.powder (Trelegy Ellipta) levothyroxine 50 mcg tablet 50 mcg PO .6XW #90 tabs 03/04/25 06/12/25 04/21/25 07:00 levothyroxine 50 mcg tablet 100 mcg (2 x 50 mcg) PO .ONE DAY 03/04/25 06/12/25 04/18/25 WEEKLY #90 tabs ipratropium bromide 21 mcg (0.03 2 spray intranasal BID #30 mL 04/08/25 06/12/25 04/20/25 07:00 %) nasal spray tamsulosin 0.4 mg capsule (Flomax) 0.4 mg PO QAM #90 caps 04/08/25 06/12/25 04/21/25 07:00 losartan 25 mg tablet 25 mg PO QAM #90 tabs 04/14/25 06/12/25 04/20/25 07:00 spironolactone 25 mg tablet 25 mg PO QAM 04/17/25 06/12/25 04/20/25 07:00 (Aldactone) finasteride 5 mg tablet (Proscar) 5 mg PO QAM 04/21/25 06/12/25 04/21/25 07:00 fluoxetine 20 mg capsule (Prozac) 20 mg PO QAM #90 caps 05/26/25 06/12/25 Unknown furosemide 40 mg tablet 40 mg PO QAM #90 tabs 06/03/25 06/12/25 Unknown Active Medications Generic Name Dose Route Start Last Admin Trade Name Freq PRN Reason Stop Dose Admin Acetaminophen 650 mg 06/12/25 15:59 06/12/25 20:06 Acetaminophen 325 Mg Tab PO 07/12/25 15:58 650 mg Q4H PRN Administration pain/fever Piperacillin Sod/Tazobactam Sod 4.5 gm in 100 mls @ 25 mls/hr 06/12/25 19:00 06/13/25 07:39 Zosyn IV 07/24/25 18:59 Infused Q8H TIMOTHY Infusion Protocol Daptomycin 700 mg/ Syringe 14 mls @ 7 mls/min 06/12/25 14:00 06/12/25 14:32 IV 07/24/25 13:59 7 mls/min Q24H TIMOTHY Administration Protocol Heparin Sodium/Dextrose 25,000 units in 500 mls @ 0 mls/hr 06/12/25 21:00 06/13/25 05:59 Heparin 92477 Unit/500 Ml D5w IV 07/12/25 20:59 0 units/hr .Q0M TIMOTHY 0 mls/hr Titration Protocol 0 UNITS/HR Past Medical History Medical History Sensorineural hearing loss (SNHL) of both ears Extremely hard of hearing per daughter Neuropathic ulcer of toe Acquired hammer toe Sacroiliitis Ankylosing spondylitis Wound of foot Follows with [facility] wound clinic Chronic kidney disease (CKD) Hyperlipidemia Obesity HTN (hypertension) Prediabetes Hypothyroid COPD (chronic obstructive pulmonary disease) Benign essential tremor CAD (coronary artery disease) Cath 2021: Nonobstructive Dyspnea on exertion Chronic Follows with [facility] Cardio/HF clinic Negative ischemic w/u 12/2024 [place] (HFpEF) heart failure with preserved ejection fraction Follows with [facility] HF clinic Implantable loop recorder present Per chart review, 'near end of life in 2023; pt has decided not to remove device' Lumbar spondylosis Recurrent falls Most recent 11/2024 Paroxysmal atrial fibrillation Cardioversion 2021 Polyneuropathy B/L hands/feet Peripheral neuropathy Cervical pain Hx cervical fracture ~2019, conservative treatment, mild pain Depression History of pulmonary embolism Approx 20+ years ago post op Rt TKA Enlarged prostate Sleep apnea No device History of DVT (deep vein thrombosis) RLE post op TKA approx 20+years ago Treated with AC/coumadin at that time, now on Eliquis History of atrial fibrillation Follows with [facility] cardio Taking Eliquis Osteoporosis History of squamous cell carcinoma s/p excision Past Family History Family History Father Prostate cancer Cancer Prostate Mother Breast cancer Colorectal cancer Other No family history of adverse response to anesthesia No significant family history Denies family history of Ovarian cancer Myocardial infarction Past Surgical History Surgical History History of operative procedure on hip Right ADAMA 10/2023 History of cardioversion 2021 at [place] History of cardiac cath (2021) No stents History of squamous cell carcinoma excision History of loop recorder (2019) Placed 2019 (placed for syncope and frequent falls)- still in place/batteries History of tonsillectomy History of cataract surgery R/L History of transurethral resection of prostate History of knee replacement Right Social History Smoking Status: Never smoker Do You Dip or Chew Tobacco: No Hx Alcohol Use: No Alcohol type: beer alcohol intake frequency: holidays/special occasions only Hx Substance Use: No substance use type: does not use Physical Exam Vital Signs Last Vital Signs Temp 36.4 C L 06/13/25 07:49 Pulse 65 06/13/25 07:49 Resp 18 06/13/25 07:49 BP 146/76 H 06/13/25 07:49 Pulse Ox 95 06/13/25 07:49 O2 Del Method Room Air 06/13/25 07:49 Testing Laboratory Results 06/13/25 06:13 06/13/25 06:13 PT 12.0 Seconds (9.0-12.0) 06/12/25 12:16 INR 1.1 (0.9-1.1) 06/12/25 12:16 APTT 34 Seconds (21-31) H 06/12/25 12:16 06/12/25 12:10 Gram Stain - Final Toe,Right Second Echocardiogram Date: 01/08/25 EF: 55-60% LV Function: normal Valvular Disease: + no significant valvular disease
[2025-06-13] MEDS ORDERED: LIDOCAINE 2% 2 ML VIAL/AMP(20MG/ML) INFIL ONE (11:40)
[2025-06-13] MEDS ORDERED: PROPOFOL IV EMULSION 10 MG/ML 20 ML VIAL IV ONE (11:40)
--- NOTE | 2025-06-13 11:51 | History & Physical Bridge Note ---
Date of Service June 13, 2025 History & Physical Bridge Note I have examined the patient, reviewed the History & Physical and in the interval since the performance of the History & Physical I have noted the following changes of clinical significance: no changes noted
[2025-06-13] MEDS: BUPIVACAINE 0.25% PF 30 ML VIAL ONE (12:30)
--- NOTE | 2025-06-13 13:00 | Post Operative Brief Note ---
Immediate Post Op Note Date of Surgery June 13, 2025 Pre & Post Diagnosis Operation Date: 06/13/25 12:00 Pre-Op Diagnosis: Osteomyelitis of toe, acquired hammer toe, neuropathic ulcer of toe of right foot Post-Op Diagnosis: Osteomyelitis of toe, acquired hammer toe, neuropathic ulcer of toe of right foot I identified the patient and participated in the time-out.: Yes Procedure Operation Date: 06/13/25 12:00 Actual Procedures p Incision and Drainage Right Foot(Right) - Joanne Davalos DPM Surgeon Joanne Davalos DPM Corn Picker none Estimated Blood Loss 10 Findings Consistent with Post-Op Diagnosis Specimens swab culture right 2nd toe wound soft tissue/bone culture from right 2nd toe wound right 2nd toe sent to pathology right 2nd toe bone base of proximal phalanx as proximal margin pathology Anesthesia Type MAC Complications none Disposition Accompanied Patient To Recovery: Yes
--- NOTE | 2025-06-13 13:12 | Anesthesiology Progress Note ---
Date of Service June 13, 2025 Anesthesia Post Procedure Vital Signs Vital Signs: Temp Pulse Pulse Resp BP BP Pulse Ox 06/13/25 13:05 61 17 139/75 100 06/13/25 12:55 65 18 129/72 100 06/13/25 12:46 36.2 C L 64 20 129/65 99 06/13/25 08:30 06/13/25 07:49 36.4 C L 65 18 146/76 H 95 06/12/25 22:17 36.5 C 60 16 110/57 L 95 06/12/25 15:50 36.7 C 81 18 131/74 98 06/12/25 15:27 64 18 117/66 96 O2 Del Method O2 Flow Rate 06/13/25 13:05 Oxymask 3 06/13/25 12:55 Oxymask 6 06/13/25 12:46 Oxymask 8 06/13/25 08:30 Room Air 06/13/25 07:49 Room Air 06/12/25 22:17 Room Air 06/12/25 15:50 Room Air 06/12/25 15:27 Room Air Pain Intensity Right 2nd Digit Toe: Pain Intensity: 3 Transfer of Care Handoff Completed per policy Notes Mental Status: alert / awake / arousable Patient Amnestic to Procedure: Yes Nausea / Vomiting: adequately controlled Pain: adequately controlled Airway Patency, RR, SpO2: stable & adequate BP & HR: stable & adequate Hydration State: stable & adequate Anesthetic Complications: no major complications apparent
--- NOTE | 2025-06-13 13:16 | Hospitalist Progress Note ---
Date of Service June 13, 2025 Assessment & Plan (1) Osteomyelitis of toe: Plan: 85-year-old male with history of HFpEF, noncardiac chest pain, recurrent DVT/PE, 1 episode of paroxysmal A-fib in sinus since cardioversion, hypothyroidism, hypertension, CPAP intolerant CURTIS who presents with recurrent right second toe infection/suspected osteomyelitis. He was referred by podiatry for IV antibiotic therapy, and anticipated surgical management 06/13/2025. 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 coli, otherwise no prior cultures with resistance. Patient has purulent cellulitis with macerated exposed bone, will admit on Zosyn/daptomycin. Podiatry Dr. Davalos consulted, anticipate operative management at noon 06/13 Eliquis held in anticipation of surgery following. Heparin GTT for bridging was held at approximately 6 Repeat culture prior to antibiotics collected/sent by ER. NGTD HFpEF Beta-samm limited due to history of bradycardia No dyspnea, saturation normal on room air, lungs are diminished but clear. Appears near euvolemic Continue Lasix 40 mg p.o. daily No anginal symptoms/equivalents Liberalize BP goal of 140/80 due to history of prior syncope/falls Noncardiac chest pain/dyspnea Ongoing for many years. It is not tied to exercise and is not consistent with typical angina. DSE 09/2023, cath 12/2021 without evidence of ischemic etiology. Suspected to be MSK in origin. History of PE/DVT Provoked by [facility] in 2001, recurrent in 2014 Lifelong anticoagulation Eliquis held Heparin GTT for bridging due to history of both PE/DVT and A-fib was pause 6 hours in anticipation of surgery Paroxysmal A-fib S/p prior cardioversion. In sinus since. In sinus on admission. Eliquis held transient heparin gtt. as noted History of CKD Baseline creatinine approximately 1, previously around 1.2 GFR 62.9 on admission Trend BMP daily, renally adjust medications as needed Hypothyroidism Continue Synthroid Hypertension Losartan held preoperatively. Spironolactone continued BPH with LUTS s/p TURP Continue tamsulosin Mixed obstructive/restrictive lung disease Continue home inhalers No wheezing on admission DVT prophylaxis: Anticoagulated Disposition: MSO CODE STATUS: DNR/DNI Diet: Heart healthy, n.p.o. 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 Reports some stiffness which is chronic due to his hip replacement, otherwise no pain. Is awaiting surgery no questions or concerns at time bedside visit.. Denies pain in his toe Physical Exam Physical Exam: General: A&Ox3. NAD. Cooperative. HEENT: Atraumatic, normocephalic. Vision and hearing grossly intact. He is very hard of hearing and requires hearing aids Pulm: CTAB A&P. -wheezes, -rales, -rhonchi. Symmetrical chest rise. No increased work of breathing. No respiratory distress. Cardiac: RRR, -mrg. Radial pulses intact and symmetrical. Abdominal: Nontender, nondistended, soft. BS present. Ext: R second toe with macerated tip, surrounding erythema, draining beltran material. No pain. Results & Data Results & Data Vital Signs (Past 12 Hours) Vital Signs Temp Pulse Pulse Resp BP Pulse Ox O2 Del Method 06/13/25 13:05 61 17 139/75 100 Oxymask 06/13/25 12:55 65 18 129/72 100 Oxymask 06/13/25 12:46 36.2 C L 64 20 129/65 99 Oxymask 06/13/25 08:30 Room Air 06/13/25 07:49 36.4 C L 65 18 146/76 H 95 Room Air O2 Flow Rate 06/13/25 13:05 3 06/13/25 12:55 6 06/13/25 12:46 8 06/13/25 08:30 06/13/25 07:49 PG Care Time/CCT Total # of Minutes Spent Total Time Spent with Patient: Total time spent is greater than 50% in coordination of care (as documented) at patient's floor/unit and/or counseling patient: Coding Level of Care Code 02077 SUB INP/OBS CARE 350MIN Diagnoses Osteomyelitis of toe M86.9 Ankylosing spondylitis M45.9 Obstructive sleep apnea G47.33 Mixed restrictive and obstructive lung disease J43.9; J98.4 HTN (hypertension) I10 Benign essential tremor G25.0 History of pulmonary embolism Z86.711
[2025-06-13] MEDS: FINASTERIDE 5 MG TAB PO SCH (13:57)
[2025-06-13] MEDS: FUROSEMIDE 40 MG TAB PO SCH (13:57)
[2025-06-13] MEDS: FLUTICASONE FUROATE 100MCG 14 PUFFS/INHALER INH SCH (13:57)
[2025-06-13] MEDS: SPIRONOLACTONE 25 MG TAB PO SCH (13:57)
[2025-06-13] MEDS: UMECLIDINIUM/VILANTEROL 62.5/25MCG 7 PUFFS/INHALER INH SCH (13:58)
[2025-06-13 19:32] VITALS: RESP 16
[2025-06-14 05:26] LABS: Hematocrit (blood only) 37.0 % (42.0-52.0); Hemoglobin 11.7 g/dl (14.0-18.0); Immature Granulocytes # (auto) 0.08 K/uL (0.01-0.20); Immature Granulocytes % (auto) 1.1 %; Mean Corpuscular Hemoglobin 29.7 pg (25.0-34.0); Mean Corpuscular Volume 93.9 fL (80.0-100.0); Platelet Count 262 K/uL (130-400); RDW Standard Deviation 46.6 fL (36.4-46.3); Red Blood Count 3.94 M/uL (4.70-6.10); White Blood Count 7.26 K/ul (4.8-10.8)
[2025-06-14 05:41] LABS: Anion Gap 7.0 (3-11); Blood Urea Nitrogen 19.0 mg/dl (6-23); Calcium 8.8 mg/dl (8.6-10.3); Carbon Dioxide 26.0 mmol/L (21-32); Chloride 103.0 mmol/L (98-107); Creatinine Clr Calc Pharmacy 59.1 ml/min; Glucose 103.0 mg/dl (70-99(Fasting)); Potassium 4.1 mmol/L (3.5-5.1); Sodium 136.0 mmol/L (136-145)
[2025-06-14 05:57] LABS: ANTI-Xa, UFH(UnfractionatedHep 0.28 IU/ml (0.3-0.7)
[2025-06-14 06:15] VITALS: O2SAT 94
[2025-06-14] MEDS: LEVOTHYROXINE SODIUM 50 MCG TABLET PO SCH (06:21)
[2025-06-14 07:34] VITALS: TEMP 97.7
--- NOTE | 2025-06-14 08:13 | Discharge Summary ---
Discharge Summary Date of Service June 14, 2025 Principal Dx & Hospital Course #1 = Principal Diagnosis (1) Osteomyelitis of toe: 85-year-old male with history of HFpEF, noncardiac chest pain, recurrent DVT/PE, 1 episode of paroxysmal A-fib in sinus since cardioversion, hypothyroidism, hypertension, CPAP intolerant CURTIS who presents with recurrent right second toe infection/suspected osteomyelitis. He was referred by podiatry for IV antibiotic therapy, and anticipated surgical management 06/13/2025. Due to history of both A-fib and recurrent VTE he has been placed on a heparin bridge while his Eliquis is held to be started at the next scheduled dose of Eliquis (9 PM). He did well with surgical resection, was at his ambulatory baseline the following day and hemodynamically stable. Was discharged to outpatient follow- up and to continue Augmentin for 2 weeks to complete antibiotic treatment. To do as outpatient: 1. Complete 2 weeks of Augmentin [id number] twice daily treatment 2. Follow-up 2 podiatry and PCP Right second toe cellulitis, possible osteomyelitis X-ray without definitive cortical disruption however bony exposure macerated toe wound present S/p partial right second toe amputation 04/21/2025 Recurrent signs of infection 7 days [employer] Right second toe cultures 02/2025, 03/2025/04/2025 without speciation's available Recent UCx with Unasyn resistant E. coli, otherwise no prior cultures with resistance. Patient has purulent cellulitis with macerated exposed bone, will admit on Zosyn/daptomycin. Podiatry Dr. Davalos consulted, underwent operative phalanx resection 06/13 and did well. Recommended for 2 weeks of antibiotics on Augmentin Repeat culture prior to antibiotics collected/sent by ER. NGTD - Offered PT/OT evaluations to patient and family for evaluation for rehab. Patel reports that he was ambulating at his normal ability with no impairment compared to his baseline, was able to ambulate with his walker, and has additional resources including a lift chair at home. Seale comfortable with discharge w/ home health services, he was seen at the bedside with his daughter as well who agreed with this plan HFpEF Beta-samm limited due to history of bradycardia No dyspnea, saturation normal on room air, lungs are diminished but clear. Appears near euvolemic Continue Lasix 40 mg p.o. daily No anginal symptoms/equivalents Liberalize BP goal of 140/80 due to history of prior syncope/falls Noncardiac chest pain/dyspnea Ongoing for many years. It is not tied to exercise and is not consistent with typical angina. DSE 09/2023, cath 12/2021 without evidence of ischemic etiology. Suspected to be MSK in origin. History of PE/DVT Provoked by TURP in 2001, recurrent in 2015 Lifelong anticoagulation Eliquis held Heparin GTT for bridging due to history of both PE/DVT and A-fib was pause 6 hours in anticipation of surgery. Resumed eliquis on D/c Paroxysmal A-fib S/p prior cardioversion. In sinus since. In sinus on admission. Eliquis held transient heparin gtt. as noted History of CKD Baseline creatinine approximately 1, previously around 1.2 GFR 62.9 on admission Trend BMP daily, renally adjust medications as needed Hypothyroidism Continue Synthroid Hypertension Losartan held preoperatively. Spironolactone continued BPH with LUTS s/p TURP Continue tamsulosin Mixed obstructive/restrictive lung disease Continue home inhalers No wheezing on admission DVT prophylaxis: Anticoagulated Disposition: MSO CODE STATUS: DNR/DNI Diet: Heart healthy, n.p.o. 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 Patient was referred to the ER by podiatry for admission and IV antibiotics with anticipated right second toe amputation. Per chart review he was diagnosed with osteomyelitis and partial toe amputation 1 month ago by podiatry. Was doing well but then had purulent discharge and redness which started about 7 days ago. He was seen in the office by podiatry and then referred to the ER for IV antibiotics and definitive management. Patel is seen at the bedside with his daughter present. He is extremely hard of hearing. He reports for 1 week he has had increased beltran/brown discharge from his foot. No fevers or chills. He does sometimes get cold and has a resting tremor but these have not changed. He has not had any shaking chills/rigors. He does not feel sick, but notes his toe has been draining. 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 Reports he is a reddy and very independent, is able to do heavy lifting and work around the house and splitting wood without any associated chest pain shortness of breath or dyspnea. He has had intermittent chest pain in the past which was evaluated by cardiology and was not felt to be ischemic in origin. He reports he has no chest pain that correlates with exertion recently and again is able to go up stairs and chop wood feeling slightly tired but with no other issues. He reports he does have a history of syncope and falls and had a loop recorder. Reportedly this was okay, he left the recorder in and did not have this explanted. He did subsequently have A-fib which underwent cardioversion. He has a past history of HFpEF per cardiology note review. He does take Lasix daily. He denies history of diabetes Denies history of stroke He reports a history of recurrent DVT/PE for which he was previously on warfarin but was subsequently transitioned to Eliquis. He is also on Eliquis for paroxysmal A-fib, has not had a recurrence of A-fib since cardioversion as outpatient. Medical History: Reviewed Medications: Reviewed Surgical History: Reviewed Family history: Reviewed Allergies: Reviewed Social History: Denies tobacco/ETOH use Code Status: DNR/DNI, confirmed with patient on admit Discharge Exam General: A&Ox3. NAD. Cooperative. HEENT: Atraumatic, normocephalic. Vision and hearing grossly intact. He is very hard of hearing and requires hearing aids Pulm: CTAB A&P. -wheezes, -rales, -rhonchi. Symmetrical chest rise. No increased work of breathing. No respiratory distress. Cardiac: RRR, -mrg. Radial pulses intact and symmetrical. Abdominal: Nontender, nondistended, soft. BS present. Ext: R second toe with dressing intact, C/D/I. No pain Discharge Plan Discharge Items Patient Disposition: Home - Home Health Services Reason For Visit: R TOE OSTEO Discharge Diagnosis: R 2nd toe osteo Condition on Discharge: Good Activity: Resume your previous activity Non-emergency contact: Primary Care Provider and Surgeon Call non-emergency contact if: you have any medication questions, your symptoms worsen and your pain is not controlled Follow-up/Referrals: Sylvie Aburto MD [Primary Care Provider] - Joanne Davalos DPM [Surgeon] - Diet: Regular Addtl Attending Provider Instructions: You were seen in the hospital for a right second toe infection which involve the bone. You underwent surgical intervention with removal of infected tissue and bone. Given prescribed antibiotics as below. Please take Augmentin 875-125 mg by mouth twice daily for 14 days. You were ambulating at your normal baseline at time of discharge. Your ambulatory ability was discussed w/ you and your daughter- you were able to ambulate with assistance of a walker and are at your normal level of activity, have a home lift chair, and feel that you are at your normal baseline and did not wish for PT/OT. Home health services are being arranged for you. If you develop any new or worsening symptoms including fever, chills, sweats, chest pain, chest pressure, difficulty breathing, uncontrolled nausea/vomiting, rash, wheezing, passing out or nearly passing out, bleeding, black/bloody bowel movements, or other new or concerning symptoms please call your primary care physician, or call 911 for re-evaluation in the emergency department if you are very concerned. Pending Studies at Discharge: No Stand-Alone Forms: [facility] AbilTo, Smoking Cessation Medications and DC Order Prescriptions: New amoxicillin-pot clavulanate 875-125 mg Tablet 1 tab PO BIDM 14 Days Qty: 28 0RF Continued Eliquis 5 mg tablet 5 mg PO BID Qty: 180 3RF Trelegy Ellipta 100-62.5-25 mcg blister with device 1 inh inhalation DAILY Qty: 28 5RF levothyroxine 50 mcg tablet 50 mcg PO .6XW Qty: 90 3RF Rx Instructions: TAKE THIS MED SIX DAYS A WEEK. SEVENTH DAY= DIFFERENT DOSE. levothyroxine 50 mcg tablet 100 mcg PO .ONE DAY WEEKLY Qty: 90 3RF Rx Instructions: TAKE TWO TABLETS ONE DAY PER WEEK. SIX OTHER DAYS WEEKLY TAKE ONE TABLET. SUNDAY losartan 25 mg tablet 25 mg PO QAM Qty: 90 1RF furosemide 40 mg tablet 40 mg PO QAM Qty: 90 1RF (DME) BD Safety-Bren Detachable Needl 3 mL 23 gauge x 1" syringe See Rx Instructions .ROUTE .MEDSUPPLY Qty: 100 0RF Rx Instructions: As directed with cyanocobalamin (DME) Wheeljasmin Walker Misc See Rx Instructions .MEDSUPPLY Qty: 1 0RF Rx Instructions: As directed epinephrine [EpiPen] 0.3 mg/0.3 mL auto-injector 0.3 mg IM UD PRN (Reason: Anaphylaxis) Qty: 1 1RF tamsulosin [Flomax] 0.4 mg capsule 0.4 mg PO QAM Qty: 90 3RF ipratropium bromide 21 mcg (0.03 %) spray,non-aerosol 2 spray intranasal BID Qty: 30 2RF Rx Instructions: administer into each nostril albuterol sulfate 90 mcg/actuation HFA aerosol inhaler 2 inh inhalation QID PRN (Reason: shortness of breath or wheezing) Qty: 6.7 2RF fluoxetine [Prozac] 20 mg capsule 20 mg PO QAM Qty: 90 0RF acetaminophen [Tylenol Extra Strength] 500 mg tablet 1,000 mg PO TID PRN (Reason: Pain, Mild) cyanocobalamin (vitamin B-12) 1,000 mcg Capsule 1,000 mcg PO QAM spironolactone [Aldactone] 25 mg tablet 25 mg PO QAM finasteride [Proscar] 5 mg tablet 5 mg PO QAM Discharge Orders: Discharge Order (Routine); Ordered 06/14/25 Ordered By: Thomas Ziegler/Other Patient Handouts: Apixaban Oral Tablet Admission Data Admit Date/Time: 06/12/25 13:41 Attending Provider: Thomas Vanegas Admit Provider: Thomas Vanegas Primary Care Provider: Sylvie Aburto Other Providers: Thomas Vanegas; Joanne Davalso Other Interventions: Discharge Summary Assessment (RN) Last Done: 06/14/25 10:52 Hospital Stay Data Consultations 06/12/25 13:07 ED Decision to Admit Stat 06/12/25 15:59 Consult Podiatry Routine Procedures Performed Operation Date: 06/13/25 12:00 Actual Procedures p Incision and Drainage Right Foot(Right) - Joanne Davalos DPM Discharge Instructions Given to Patient (Per Discharging Provider) You were seen in the hospital for a right second toe infection which involve the bone. You underwent surgical intervention with removal of infected tissue and bone. Given prescribed antibiotics as below. Please take Augmentin 875-125 mg by mouth twice daily for 14 days. You were ambulating at your normal baseline at time of discharge. Your ambulatory ability was discussed w/ you and your daughter- you were able to ambulate with assistance of a walker and are at your normal level of activity, have a home lift chair, and feel that you are at your normal baseline and did not wish for PT/OT. Home health services are being arranged for you. If you develop any new or worsening symptoms including fever, chills, sweats, chest pain, chest pressure, difficulty breathing, uncontrolled nausea/vomiting, rash, wheezing, passing out or nearly passing out, bleeding, black/bloody bowel movements, or other new or concerning symptoms please call your primary care physician, or call 911 for re-evaluation in the emergency department if you are very concerned. Total Time Total Time Spent Total Time Spent (In Minutes): 40 Coding Level of Care Code 39072 INP/OBS DISCH >30 MIN Diagnoses Osteomyelitis of toe M86.9 Ankylosing spondylitis M45.9 Obstructive sleep apnea G47.33 Mixed restrictive and obstructive lung disease J43.9; J98.4 HTN (hypertension) I10 Benign essential tremor G25.0 History of pulmonary embolism Z86.711
[2025-06-14] MEDS: APIXABAN 5 MG TABLET PO SCH (10:15)
[2025-06-14 10:54] VITALS: BP 117/66; PULSE 62
[2025-06-14] MEDS ORDERED: AMOXICILLIN/CLAVULANATE 875 MG TAB PO SCH (17:00)
--- NOTE | 2025-06-18 06:13 | Operative Report ---
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 swab culture right second toe stump wound 2. soft tissue and necrotic bone from the right second toe stump were sent for aerobic and anerobic cultures. 3. The base of the proximal phalanx of right second toe bone was sent to pathology as proximal margin 4. remainder of proximal phalanx bone sent to pathology Anesthesia Type MAC Complications none Disposition Accompanied Patient To Recovery: Yes Indications Patient is a 85- year old male with neuropathic toe ulcer of his right second toe stump with underlying suspected osteomyelitis. The patient underwent a right second toe partial toe amputation approximately 5 weeks ago and was healing uneventfully. Patient reports about a week ago, he noticed the scab over the incision fell off. The patient states since the scab fell off, the toe became red, swollen, and had a malodorous drainage. States he did not inform his daughter about the toe problem until about a week after he started noticing changes. States this past week he has not felt well with chills and diarrhea. Upon clinical evaluation, the right second toe stump appeared infected with localized erythema and edema. In addition, the wound had mixed fibrinous and necrotic tissue that probed to bone. It was discussed intravenous antibiotics and referral to [facility] wound center versus unplanned return to operating room to perform incision and drainage of infected bone right foot. Patient elected to proceed with surgical intervention to address his neuropathic ulcer of his right second toe stump. Due to his systemic symptoms and rapidly worsening toe ulcer and toe cellulitis, I advised the patient to report to the emergency department for IV antibiotics and medical optimization for surgery. The patient was admitted to [facility] and podiatry consulted on his right second neuropathic ulcer with suspected osteomyelitis. I discussed the possible risks of the planned surgery including but not limited to infection, swelling, transfer lesions, wound dehiscence, blood clots, deep venous thrombosis, pulmonary embolism, chronic pain, phantom pain, hallux valgus deformity, nerve injury, numbness, loss of limb, loss of life, failure of procedure and need for additional procedures. Discussed risks, benefits, and alternatives to surgery. Patient states he understands and wants to proceed. Description of Procedure The patient was brought back into the operating room and placed on the OR table in the supine position. A time was performed in order to correctly identify the patient, planned procedure, and correct side of limb. MAC was performed per the anesthesiologist. 10 cc of 0.25% Marcaine plain was administered as a right second digital block under aseptic technique. The right lower extremity was scrubbed, prepped, and draped in the usual aseptic manner. No tourniquet was utilized. Attention was then directed to the right second toe stump at the level of the second metatarsophalangeal joint where two semi elliptical incisions were made with the 15 blade. The incision deepened to the level of the second metatarsophalangeal joint and the toe stump was disarticulated and passed from the operative field and passed to the sterile back table. Attention was directed to the sterile back table, where a swab culture of right second toe wound was obtained. In addition, soft tissue and necrotic bone from the right second toe stump were sent for aerobic and anerobic cultures. The base of the proximal phalanx of right second toe bone was sent to pathology as proximal margin, however, the bone did appear soft and wild-concerning for osteomyelitis. The distal remainder of the right second proximal phalanx bone was also sent to pathology. Attention was then directed to the surgical wound, where copious amount of saline was utilized to irrigate. No purulent drainage could be identified proximally. The head of the second metatarsal appeared healthy with intact cartilage. Therefore, it was decided to not remove the head of the second metatarsal. Deep closure was performed with 3-0 monocryl. The skin was coapted with 3-0 nylon in interrupted horizontal fashion. The incision was dressed with adapatic, 4x4 gauze, abd pad, kerlix, and Ke bandage. The patient tolerated the procedure and anesthesia well with all vital signs stable and vascular status intact to the right foot. The patient was transferred to recovery for brief post operative monitoring and will be transferred back to the floor for continued IV antibiotics and medical management. The infected bone appeared to be isolated to the right second proximal phalanx bone which was removed completely. Therefore, from a podiatry standpoint the patient is cleared for discharge tomorrow on two weeks of oral antibioitcs. The patient should keep the bandage dry, clean, and intact until the first post op visit in office. The patient may ambulate as tolerated in post op shoe. Patient to elevate right lower limb at rest. Patient to contact the office with any questions or concerns. I attest to the content of the Intraoperative Record and any orders documented therein. Any exceptions are noted below.
== END 2025-06-14 11:45 | disposition home or self-care (01) | DRG 504 ==
LOC: ED 11:26 → 3N 13:41

== ENCOUNTER 2025-08-06 16:49 | Observation (INO) ==
--- NOTE | 2025-08-06 17:22 | Emergency Department Note ---
History of Present Illness General Chief complaint: Trauma Stated complaint: FALL,BLOOD CLOTS, BROKEN BONES CHEST, BLOOD THINNE Time Seen by Provider: 08/06/25 17:02 Source: patient and family Mode of arrival: ambulatory Limitations: no limitations History of Present Illness Maximum Pain Intensity: 5 Patient is an 85-year-old male presents after a fall. He was outside getting wood for his furnace when his legs gave out and he fell into the wood pile. He did strike his face at that time. He did need help getting up from his daughter. No loss of conscious. He says he has had similar falls in the past where his "legs just give out for no reason". He gets no warning when this happens. Denies any lightheadedness, dizziness, chest pain, shortness of breath, nausea, vomiting, palpitations. He does report some left-sided shoulder pain as well as skin tears to the left arm that occurred after the fall. Patient is on Eliquis at baseline. Denies any neck pain. Denies any numbness, weakness, paresthesias in the extremities. Home Medications Medication Instructions Recorded Confirmed Type syringe with needle, safety 3 mL #100 ea 12/09/20 07/29/25 Rx 23 gauge x 1" (BD Safety-Bren Detachable Needle) epinephrine 0.3 mg/0.3 mL 0.3 mg (0.3 mL) IM UD PRN 03/01/23 08/06/25 Rx injection, auto-injector (EpiPen) Anaphylaxis #1 ea cyanocobalamin (vitamin B-12) 1,000 mcg PO QAM 10/02/23 08/06/25 History 1,000 mcg capsule Wheeled Walker #1 ea 11/21/23 07/29/25 Rx acetaminophen 500 mg tablet 1,000 mg PO TID PRN Pain, Mild 04/22/24 08/06/25 History (Tylenol Extra Strength) apixaban 5 mg tablet (Eliquis) 5 mg PO BID #180 tabs 10/02/24 08/06/25 Rx albuterol sulfate 90 mcg/actuation 2 inh inhalation QID PRN shortness 02/03/25 08/06/25 Rx aerosol inhaler of breath or wheezing #6.7 grams fluticasone fur. 100 mcg-umeclid 1 inh inhalation DAILY #28 ea 03/02/25 08/06/25 Rx 62.5 mcg-vilant 25 mcg inhalat.powder (Trelegy Ellipta) losartan 25 mg tablet 25 mg PO QAM #90 tabs 04/14/25 08/06/25 Rx spironolactone 25 mg tablet 25 mg PO QAM 04/17/25 08/06/25 History (Aldactone) finasteride 5 mg tablet (Proscar) 5 mg PO QAM 04/21/25 08/06/25 History fluoxetine 20 mg capsule (Prozac) 20 mg PO QAM #90 caps 05/26/25 08/06/25 Rx furosemide 40 mg tablet 40 mg PO QAM #90 tabs 06/03/25 08/06/25 Rx ipratropium bromide 21 mcg (0.03 2 spray intranasal BID #30 mL 07/23/25 08/06/25 Rx %) nasal spray levothyroxine 50 mcg tablet 50 mcg PO [id number] 08/06/25 08/06/25 History levothyroxine 50 mcg tablet 100 mcg PO WK 08/06/25 08/06/25 History tamsulosin 0.4 mg capsule 0.4 mg PO QAM 08/06/25 08/06/25 History Allergies Allergy/AdvReac Type Severity Reaction Status Date / Time aspirin Allergy Intermediate Hives Verified 08/06/25 19:39 celecoxib [From Celebrex] Allergy Intermediate Hives Verified 08/06/25 19:39 Iodinated Contrast Media Allergy Intermediate Hives, Verified 08/06/25 19:39 swelling iodine Allergy Intermediate Hives Verified 08/06/25 19:39 tramadol AdvReac Intermediate Dizziness, Verified 08/06/25 19:39 nausea, leg weakness FRESH Pineapple Allergy Unknown Anaphylaxis Uncoded 08/06/25 19:39 Past Med/Surg History Problem List (Updated 08/06/25 @ 22:46 by Tang Mendes MD) Multiple fractures of ribs (Acute) Heterotopic ossification Neuropathic ulcer of toe of right foot (Acute) Neuropathic ulcer of toe of left foot (Acute) Greater trochanteric bursitis of right hip Edema (Acute) Elevated troponin I level (Acute) Myofascial pain 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 L5 vertebral fracture Sacroiliitis Leg length discrepancy Pes anserinus bursitis Prediabetes Carpal tunnel syndrome on both sides Hypothyroidism Osteoarthritis of hips, bilateral Suicidal thoughts Depression Osteoarthritis of right hip Elevated TSH CAD (coronary artery disease) Nonobstructive per cardio records Orthostatic hypotension Near syncope (Acute) Urgency of urination Frequency of urination Obstructive sleep apnea Hematuria Hypervolemia Physical deconditioning BPH (benign prostatic hyperplasia) Sinus bradycardia Bilateral edema of lower extremity (Acute) PERALTA (dyspnea on exertion) (Acute) Mild sleep apnea Postherpetic neuralgia Obesity Hypersomnia 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 Decreased activity tolerance Arthralgia Myalgia penitentiary (current) use of anticoagulants (Chronic) Enlarged prostate with lower urinary tract symptoms (LUTS) (Acute) HTN (hypertension) (Acute) Recurrent falls Benign essential tremor Frequent PVCs Syncope Sensorineural hearing loss (SNHL) of both ears Lumbar spinal stenosis Medical History Osteomyelitis of toe Acquired hammer toe Sensorineural hearing loss (SNHL) of both ears Neuropathic ulcer of toe Acquired hammer toe Sacroiliitis Ankylosing spondylitis Wound of foot Chronic kidney disease (CKD) Hyperlipidemia Obesity HTN (hypertension) Prediabetes Hypothyroid COPD (chronic obstructive pulmonary disease) Benign essential tremor CAD (coronary artery disease) Dyspnea on exertion (HFpEF) heart failure with preserved ejection fraction Implantable loop recorder present Lumbar spondylosis Recurrent falls Paroxysmal atrial fibrillation Polyneuropathy Peripheral neuropathy Cervical pain Depression History of pulmonary embolism Enlarged prostate Sleep apnea History of DVT (deep vein thrombosis) History of atrial fibrillation Osteoporosis History of squamous cell carcinoma Surgical History History of operative procedure on hip History of cardioversion History of cardiac cath (2021) History of squamous cell carcinoma excision History of loop recorder (2019) History of tonsillectomy History of cataract surgery History of transurethral resection of prostate History of knee replacement Family History Father Prostate cancer Cancer Mother Breast cancer Colorectal cancer Other No family history of adverse response to anesthesia No significant family history Denies family history of Ovarian cancer Myocardial infarction Social History Smoking Status: Never smoker Tobacco Type: Declines Second Hand Exposure: No; Do You Dip or Chew Tobacco: No; Hx Alcohol Use: No Hx Substance Use: No Preferred Language: [place] Communication Ability: Effective Communication Ability Comment: Pt is [place] Hearing Ability: Use of Hearing Aid Wellness Guide Required: No Beliefs That Will Affect Care: None marital status: Current Living Situation: Spouse Current Living Situation Comment: lives in farmhouse with current occupational status: retired Feels Safe at Home: Yes Childhood Exposure to Second-Hand Smoke: No Diet: low salt Dental Care, Regularly: No Physical Activity Frequency: Does not Exercise Seatbelt Use: always Sunscreen Use: Yes Assistive Devices: Glasses, Hearing Aid - Bilateral and Walker Review of Systems Review of systems negative outside of positive findings mentioned in HPI. Physical Exam Vital Signs Vital Signs - 24 hr 08/06/25 16:54 08/06/25 17:09 08/06/25 17:12 Temperature 36 C L 36.8 C Temperature Source Temporal Artery Scan Oral Pulse Rate 83 66 Pulse Rate [Right Finger] 62 Pulse Rate from SpO2 Sensor Pulse Rhythm Pulse Rhythm [Right Finger] Regular Pulse Strength [Right Finger] Normal Respiratory Rate 18 28 H Respiratory Effort / Characteristics Non-Labored Non-Labored Respiratory Depth Normal Normal Respiratory Pattern Regular Blood Pressure 143/75 H Blood Pressure [Right Arm] 132/78 Blood Pressure Mean 97 Blood Pressure Mean [Right Arm] 96 Blood Pressure Position [Right Arm] Lying Pulse Oximetry 98 96 Oxygen Delivery Method Room Air Room Air Oxygen Flow Rate Sepsis Recent Fever Within 48 Hours No Sepsis New/Unexplained Change in Mental Status N/A Sepsis Action Taken by Nursing No Action Required 08/06/25 17:51 08/06/25 17:51 08/06/25 17:56 Temperature 36.9 C 36.9 C Temperature Source Oral Pulse Rate 64 66 Pulse Rate [Right Finger] 64 Pulse Rate from SpO2 Sensor 65 Pulse Rhythm Pulse Rhythm [Right Finger] Regular Pulse Strength [Right Finger] Normal Respiratory Rate 28 H 27 H 23 Respiratory Effort / Characteristics Non-Labored Respiratory Depth Normal Respiratory Pattern Regular Blood Pressure 131/74 Blood Pressure [Right Arm] 131/74 Blood Pressure Mean Blood Pressure Mean [Right Arm] 93 Blood Pressure Position [Right Arm] Lying Pulse Oximetry 98 98 97 Oxygen Delivery Method Room Air Room Air Oxygen Flow Rate 0 Sepsis Recent Fever Within 48 Hours Sepsis New/Unexplained Change in Mental Status Sepsis Action Taken by Nursing 08/06/25 18:00 08/06/25 18:00 08/06/25 18:00 Temperature Temperature Source Pulse Rate 66 Pulse Rate [Right Finger] 64 Pulse Rate from SpO2 Sensor 233 H Pulse Rhythm Pulse Rhythm [Right Finger] Regular Pulse Strength [Right Finger] Normal Respiratory Rate 27 H 35 H Respiratory Effort / Characteristics Non-Labored Respiratory Depth Normal Respiratory Pattern Regular Blood Pressure 131/74 Blood Pressure [Right Arm] 128/73 Blood Pressure Mean 85 Blood Pressure Mean [Right Arm] 91 Blood Pressure Position [Right Arm] Lying Pulse Oximetry 99 97 Oxygen Delivery Method Room Air Oxygen Flow Rate Sepsis Recent Fever Within 48 Hours Sepsis New/Unexplained Change in Mental Status Sepsis Action Taken by Nursing 08/06/25 18:00 08/06/25 18:00 08/06/25 18:00 Temperature Temperature Source Pulse Rate Pulse Rate [Right Finger] Pulse Rate from SpO2 Sensor Pulse Rhythm Pulse Rhythm [Right Finger] Pulse Strength [Right Finger] Respiratory Rate Respiratory Effort / Characteristics Respiratory Depth Respiratory Pattern Blood Pressure 131/74 131/74 131/74 Blood Pressure [Right Arm] Blood Pressure Mean 85 85 85 Blood Pressure Mean [Right Arm] Blood Pressure Position [Right Arm] Pulse Oximetry Oxygen Delivery Method Oxygen Flow Rate Sepsis Recent Fever Within 48 Hours Sepsis New/Unexplained Change in Mental Status Sepsis Action Taken by Nursing 08/06/25 18:00 08/06/25 18:11 08/06/25 18:14 Temperature Temperature Source Pulse Rate 64 64 Pulse Rate [Right Finger] Pulse Rate from SpO2 Sensor 64 64 Pulse Rhythm Pulse Rhythm [Right Finger] Pulse Strength [Right Finger] Respiratory Rate 27 H 23 Respiratory Effort / Characteristics Respiratory Depth Respiratory Pattern Blood Pressure 131/74 Blood Pressure [Right Arm] Blood Pressure Mean 85 Blood Pressure Mean [Right Arm] Blood Pressure Position [Right Arm] Pulse Oximetry 97 98 Oxygen Delivery Method Oxygen Flow Rate Sepsis Recent Fever Within 48 Hours Sepsis New/Unexplained Change in Mental Status Sepsis Action Taken by Nursing 08/06/25 18:15 08/06/25 18:15 08/06/25 18:15 Temperature Temperature Source Pulse Rate Pulse Rate [Right Finger] Pulse Rate from SpO2 Sensor Pulse Rhythm Pulse Rhythm [Right Finger] Pulse Strength [Right Finger] Respiratory Rate Respiratory Effort / Characteristics Respiratory Depth Respiratory Pattern Blood Pressure 128/70 128/70 128/70 Blood Pressure [Right Arm] Blood Pressure Mean 92 92 92 Blood Pressure Mean [Right Arm] Blood Pressure Position [Right Arm] Pulse Oximetry Oxygen Delivery Method Oxygen Flow Rate Sepsis Recent Fever Within 48 Hours Sepsis New/Unexplained Change in Mental Status Sepsis Action Taken by Nursing 08/06/25 18:15 08/06/25 18:15 08/06/25 18:20 Temperature Temperature Source Pulse Rate 64 Pulse Rate [Right Finger] Pulse Rate from SpO2 Sensor 64 Pulse Rhythm Pulse Rhythm [Right Finger] Pulse Strength [Right Finger] Respiratory Rate 25 H Respiratory Effort / Characteristics Respiratory Depth Respiratory Pattern Blood Pressure 128/70 128/70 Blood Pressure [Right Arm] Blood Pressure Mean 92 92 Blood Pressure Mean [Right Arm] Blood Pressure Position [Right Arm] Pulse Oximetry 99 Oxygen Delivery Method Oxygen Flow Rate Sepsis Recent Fever Within 48 Hours Sepsis New/Unexplained Change in Mental Status Sepsis Action Taken by Nursing 08/06/25 18:29 08/06/25 18:30 08/06/25 18:30 Temperature Temperature Source Pulse Rate 64 Pulse Rate [Right Finger] Pulse Rate from SpO2 Sensor 64 Pulse Rhythm Pulse Rhythm [Right Finger] Pulse Strength [Right Finger] Respiratory Rate 22 Respiratory Effort / Characteristics Respiratory Depth Respiratory Pattern Blood Pressure 128/73 128/73 Blood Pressure [Right Arm] Blood Pressure Mean 101 101 Blood Pressure Mean [Right Arm] Blood Pressure Position [Right Arm] Pulse Oximetry 99 Oxygen Delivery Method Oxygen Flow Rate Sepsis Recent Fever Within 48 Hours Sepsis New/Unexplained Change in Mental Status Sepsis Action Taken by Nursing 08/06/25 18:30 08/06/25 18:30 08/06/25 18:30 Temperature Temperature Source Pulse Rate Pulse Rate [Right Finger] Pulse Rate from SpO2 Sensor Pulse Rhythm Pulse Rhythm [Right Finger] Pulse Strength [Right Finger] Respiratory Rate Respiratory Effort / Characteristics Respiratory Depth Respiratory Pattern Blood Pressure 128/73 128/73 128/73 Blood Pressure [Right Arm] Blood Pressure Mean 101 101 101 Blood Pressure Mean [Right Arm] Blood Pressure Position [Right Arm] Pulse Oximetry Oxygen Delivery Method Oxygen Flow Rate Sepsis Recent Fever Within 48 Hours Sepsis New/Unexplained Change in Mental Status Sepsis Action Taken by Nursing 08/06/25 18:35 08/06/25 18:37 08/06/25 18:37 Temperature 36.9 C Temperature Source Oral Pulse Rate 59 L 60 Pulse Rate [Right Finger] 61 Pulse Rate from SpO2 Sensor 59 L Pulse Rhythm Regular Pulse Rhythm [Right Finger] Regular Pulse Strength [Right Finger] Normal Respiratory Rate 30 H 28 H 27 H Respiratory Effort / Characteristics Non-Labored Respiratory Depth Normal Respiratory Pattern Blood Pressure Blood Pressure [Right Arm] 128/73 Blood Pressure Mean Blood Pressure Mean [Right Arm] 91 Blood Pressure Position [Right Arm] Lying Pulse Oximetry 99 99 99 Oxygen Delivery Method Room Air Room Air Oxygen Flow Rate Sepsis Recent Fever Within 48 Hours Sepsis New/Unexplained Change in Mental Status Sepsis Action Taken by Nursing 08/06/25 18:41 08/06/25 18:44 08/06/25 18:45 Temperature Temperature Source Pulse Rate 58 L 60 Pulse Rate [Right Finger] Pulse Rate from SpO2 Sensor 58 L 62 Pulse Rhythm Pulse Rhythm [Right Finger] Pulse Strength [Right Finger] Respiratory Rate 31 H 25 H Respiratory Effort / Characteristics Respiratory Depth Respiratory Pattern Blood Pressure 131/77 Blood Pressure [Right Arm] Blood Pressure Mean 99 Blood Pressure Mean [Right Arm] Blood Pressure Position [Right Arm] Pulse Oximetry 97 95 Oxygen Delivery Method Oxygen Flow Rate Sepsis Recent Fever Within 48 Hours Sepsis New/Unexplained Change in Mental Status Sepsis Action Taken by Nursing 08/06/25 18:45 08/06/25 18:45 08/06/25 18:45 Temperature Temperature Source Pulse Rate Pulse Rate [Right Finger] Pulse Rate from SpO2 Sensor Pulse Rhythm Pulse Rhythm [Right Finger] Pulse Strength [Right Finger] Respiratory Rate Respiratory Effort / Characteristics Respiratory Depth Respiratory Pattern Blood Pressure 131/77 131/77 131/77 Blood Pressure [Right Arm] Blood Pressure Mean 99 99 99 Blood Pressure Mean [Right Arm] Blood Pressure Position [Right Arm] Pulse Oximetry Oxygen Delivery Method Oxygen Flow Rate Sepsis Recent Fever Within 48 Hours Sepsis New/Unexplained Change in Mental Status Sepsis Action Taken by Nursing 08/06/25 18:45 08/06/25 18:50 08/06/25 18:59 Temperature Temperature Source Pulse Rate 64 63 Pulse Rate [Right Finger] Pulse Rate from SpO2 Sensor 64 63 Pulse Rhythm Pulse Rhythm [Right Finger] Pulse Strength [Right Finger] Respiratory Rate 24 20 Respiratory Effort / Characteristics Respiratory Depth Respiratory Pattern Blood Pressure 131/77 Blood Pressure [Right Arm] Blood Pressure Mean 99 Blood Pressure Mean [Right Arm] Blood Pressure Position [Right Arm] Pulse Oximetry 95 96 Oxygen Delivery Method Oxygen Flow Rate Sepsis Recent Fever Within 48 Hours Sepsis New/Unexplained Change in Mental Status Sepsis Action Taken by Nursing 08/06/25 19:00 08/06/25 19:00 08/06/25 19:00 Temperature Temperature Source Pulse Rate Pulse Rate [Right Finger] 62 Pulse Rate from SpO2 Sensor Pulse Rhythm Pulse Rhythm [Right Finger] Regular Pulse Strength [Right Finger] Normal Respiratory Rate 24 Respiratory Effort / Characteristics Non-Labored Respiratory Depth Normal Respiratory Pattern Regular Blood Pressure 129/68 129/68 Blood Pressure [Right Arm] 129/68 Blood Pressure Mean 94 94 Blood Pressure Mean [Right Arm] 88 Blood Pressure Position [Right Arm] Lying Pulse Oximetry 96 Oxygen Delivery Method Room Air Oxygen Flow Rate Sepsis Recent Fever Within 48 Hours Sepsis New/Unexplained Change in Mental Status Sepsis Action Taken by Nursing 08/06/25 19:00 08/06/25 19:02 08/06/25 19:11 Temperature Temperature Source Pulse Rate 63 59 L Pulse Rate [Right Finger] Pulse Rate from SpO2 Sensor 62 59 L Pulse Rhythm Pulse Rhythm [Right Finger] Pulse Strength [Right Finger] Respiratory Rate 22 19 Respiratory Effort / Characteristics Respiratory Depth Respiratory Pattern Blood Pressure 129/68 Blood Pressure [Right Arm] Blood Pressure Mean 94 Blood Pressure Mean [Right Arm] Blood Pressure Position [Right Arm] Pulse Oximetry 96 97 Oxygen Delivery Method Oxygen Flow Rate Sepsis Recent Fever Within 48 Hours Sepsis New/Unexplained Change in Mental Status Sepsis Action Taken by Nursing 08/06/25 19:45 08/06/25 19:45 08/06/25 19:45 Temperature Temperature Source Pulse Rate 60 Pulse Rate [Right Finger] Pulse Rate from SpO2 Sensor 60 Pulse Rhythm Pulse Rhythm [Right Finger] Pulse Strength [Right Finger] Respiratory Rate 22 Respiratory Effort / Characteristics Respiratory Depth Respiratory Pattern Blood Pressure 144/75 H 144/75 H Blood Pressure [Right Arm] Blood Pressure Mean 103 103 Blood Pressure Mean [Right Arm] Blood Pressure Position [Right Arm] Pulse Oximetry 99 Oxygen Delivery Method Oxygen Flow Rate Sepsis Recent Fever Within 48 Hours Sepsis New/Unexplained Change in Mental Status Sepsis Action Taken by Nursing 08/06/25 19:51 08/06/25 20:00 08/06/25 20:00 Temperature Temperature Source Pulse Rate 60 53 L Pulse Rate [Right Finger] 56 L Pulse Rate from SpO2 Sensor 54 L 58 L Pulse Rhythm Pulse Rhythm [Right Finger] Regular Pulse Strength [Right Finger] Normal Respiratory Rate 20 22 30 H Respiratory Effort / Characteristics Non-Labored Respiratory Depth Normal Respiratory Pattern Regular Blood Pressure Blood Pressure [Right Arm] 120/74 Blood Pressure Mean Blood Pressure Mean [Right Arm] 89 Blood Pressure Position [Right Arm] Semi-fowlers Pulse Oximetry 98 98 98 Oxygen Delivery Method Room Air Oxygen Flow Rate Sepsis Recent Fever Within 48 Hours Sepsis New/Unexplained Change in Mental Status Sepsis Action Taken by Nursing 08/06/25 20:01 08/06/25 20:01 08/06/25 20:01 Temperature Temperature Source Pulse Rate Pulse Rate [Right Finger] Pulse Rate from SpO2 Sensor Pulse Rhythm Pulse Rhythm [Right Finger] Pulse Strength [Right Finger] Respiratory Rate Respiratory Effort / Characteristics Respiratory Depth Respiratory Pattern Blood Pressure 130/79 130/79 130/79 Blood Pressure [Right Arm] Blood Pressure Mean 98 98 98 Blood Pressure Mean [Right Arm] Blood Pressure Position [Right Arm] Pulse Oximetry Oxygen Delivery Method Oxygen Flow Rate Sepsis Recent Fever Within 48 Hours Sepsis New/Unexplained Change in Mental Status Sepsis Action Taken by Nursing 08/06/25 20:01 08/06/25 20:01 08/06/25 20:12 Temperature Temperature Source Pulse Rate 53 L Pulse Rate [Right Finger] Pulse Rate from SpO2 Sensor 53 L Pulse Rhythm Pulse Rhythm [Right Finger] Pulse Strength [Right Finger] Respiratory Rate 19 Respiratory Effort / Characteristics Respiratory Depth Respiratory Pattern Blood Pressure 130/79 130/79 Blood Pressure [Right Arm] Blood Pressure Mean 98 98 Blood Pressure Mean [Right Arm] Blood Pressure Position [Right Arm] Pulse Oximetry 99 Oxygen Delivery Method Oxygen Flow Rate Sepsis Recent Fever Within 48 Hours Sepsis New/Unexplained Change in Mental Status Sepsis Action Taken by Nursing 08/06/25 20:15 08/06/25 20:15 08/06/25 20:15 Temperature Temperature Source Pulse Rate 54 L Pulse Rate [Right Finger] Pulse Rate from SpO2 Sensor 54 L Pulse Rhythm Pulse Rhythm [Right Finger] Pulse Strength [Right Finger] Respiratory Rate 18 Respiratory Effort / Characteristics Respiratory Depth Respiratory Pattern Blood Pressure 132/75 132/75 Blood Pressure [Right Arm] Blood Pressure Mean 108 108 Blood Pressure Mean [Right Arm] Blood Pressure Position [Right Arm] Pulse Oximetry 100 Oxygen Delivery Method Oxygen Flow Rate Sepsis Recent Fever Within 48 Hours Sepsis New/Unexplained Change in Mental Status Sepsis Action Taken by Nursing 08/06/25 20:15 08/06/25 20:15 08/06/25 20:15 Temperature Temperature Source Pulse Rate Pulse Rate [Right Finger] Pulse Rate from SpO2 Sensor Pulse Rhythm Pulse Rhythm [Right Finger] Pulse Strength [Right Finger] Respiratory Rate Respiratory Effort / Characteristics Respiratory Depth Respiratory Pattern Blood Pressure 132/75 132/75 132/75 Blood Pressure [Right Arm] Blood Pressure Mean 108 108 108 Blood Pressure Mean [Right Arm] Blood Pressure Position [Right Arm] Pulse Oximetry Oxygen Delivery Method Oxygen Flow Rate Sepsis Recent Fever Within 48 Hours Sepsis New/Unexplained Change in Mental Status Sepsis Action Taken by Nursing 08/06/25 20:39 08/06/25 20:40 08/06/25 20:40 Temperature Temperature Source Pulse Rate Pulse Rate [Right Finger] Pulse Rate from SpO2 Sensor 123 H Pulse Rhythm Pulse Rhythm [Right Finger] Pulse Strength [Right Finger] Respiratory Rate Respiratory Effort / Characteristics Respiratory Depth Respiratory Pattern Blood Pressure 153/81 H 153/81 H Blood Pressure [Right Arm] Blood Pressure Mean 102 102 Blood Pressure Mean [Right Arm] Blood Pressure Position [Right Arm] Pulse Oximetry 100 Oxygen Delivery Method Oxygen Flow Rate Sepsis Recent Fever Within 48 Hours Sepsis New/Unexplained Change in Mental Status Sepsis Action Taken by Nursing 08/06/25 20:40 08/06/25 20:40 08/06/25 20:40 Temperature Temperature Source Pulse Rate Pulse Rate [Right Finger] Pulse Rate from SpO2 Sensor Pulse Rhythm Pulse Rhythm [Right Finger] Pulse Strength [Right Finger] Respiratory Rate Respiratory Effort / Characteristics Respiratory Depth Respiratory Pattern Blood Pressure 153/81 H 153/81 H 153/81 H Blood Pressure [Right Arm] Blood Pressure Mean 102 102 102 Blood Pressure Mean [Right Arm] Blood Pressure Position [Right Arm] Pulse Oximetry Oxygen Delivery Method Oxygen Flow Rate Sepsis Recent Fever Within 48 Hours Sepsis New/Unexplained Change in Mental Status Sepsis Action Taken by Nursing 08/06/25 20:42 08/06/25 20:45 08/06/25 20:45 Temperature Temperature Source Pulse Rate 55 L Pulse Rate [Right Finger] Pulse Rate from SpO2 Sensor 55 L Pulse Rhythm Pulse Rhythm [Right Finger] Pulse Strength [Right Finger] Respiratory Rate 19 Respiratory Effort / Characteristics Respiratory Depth Respiratory Pattern Blood Pressure 137/106 H 137/106 H Blood Pressure [Right Arm] Blood Pressure Mean 115 115 Blood Pressure Mean [Right Arm] Blood Pressure Position [Right Arm] Pulse Oximetry 100 Oxygen Delivery Method Oxygen Flow Rate Sepsis Recent Fever Within 48 Hours Sepsis New/Unexplained Change in Mental Status Sepsis Action Taken by Nursing 08/06/25 20:45 08/06/25 20:45 08/06/25 20:45 Temperature Temperature Source Pulse Rate Pulse Rate [Right Finger] Pulse Rate from SpO2 Sensor Pulse Rhythm Pulse Rhythm [Right Finger] Pulse Strength [Right Finger] Respiratory Rate Respiratory Effort / Characteristics Respiratory Depth Respiratory Pattern Blood Pressure 137/106 H 137/106 H 137/106 H Blood Pressure [Right Arm] Blood Pressure Mean 115 115 115 Blood Pressure Mean [Right Arm] Blood Pressure Position [Right Arm] Pulse Oximetry Oxygen Delivery Method Oxygen Flow Rate Sepsis Recent Fever Within 48 Hours Sepsis New/Unexplained Change in Mental Status Sepsis Action Taken by Nursing 08/06/25 20:45 08/06/25 20:51 08/06/25 21:00 Temperature Temperature Source Pulse Rate 53 L 54 L Pulse Rate [Right Finger] 58 L Pulse Rate from SpO2 Sensor 52 L 55 L Pulse Rhythm Pulse Rhythm [Right Finger] Regular Pulse Strength [Right Finger] Normal Respiratory Rate 30 H 27 H 26 H Respiratory Effort / Characteristics Non-Labored Respiratory Depth Normal Respiratory Pattern Regular Blood Pressure Blood Pressure [Right Arm] 139/77 Blood Pressure Mean Blood Pressure Mean [Right Arm] 97 Blood Pressure Position [Right Arm] Semi-fowlers Pulse Oximetry 100 99 99 Oxygen Delivery Method Room Air Oxygen Flow Rate Sepsis Recent Fever Within 48 Hours Sepsis New/Unexplained Change in Mental Status Sepsis Action Taken by Nursing 08/06/25 21:00 08/06/25 21:01 08/06/25 21:01 Temperature Temperature Source Pulse Rate 54 L Pulse Rate [Right Finger] Pulse Rate from SpO2 Sensor 55 L Pulse Rhythm Pulse Rhythm [Right Finger] Pulse Strength [Right Finger] Respiratory Rate 32 H Respiratory Effort / Characteristics Respiratory Depth Respiratory Pattern Blood Pressure 120/74 120/74 Blood Pressure [Right Arm] Blood Pressure Mean 89 89 Blood Pressure Mean [Right Arm] Blood Pressure Position [Right Arm] Pulse Oximetry 99 Oxygen Delivery Method Oxygen Flow Rate Sepsis Recent Fever Within 48 Hours Sepsis New/Unexplained Change in Mental Status Sepsis Action Taken by Nursing 08/06/25 21:01 08/06/25 21:11 08/06/25 21:11 Temperature Temperature Source Pulse Rate 55 L Pulse Rate [Right Finger] Pulse Rate from SpO2 Sensor Pulse Rhythm Pulse Rhythm [Right Finger] Pulse Strength [Right Finger] Respiratory Rate Respiratory Effort / Characteristics Respiratory Depth Respiratory Pattern Blood Pressure 120/74 139/77 Blood Pressure [Right Arm] Blood Pressure Mean 89 106 Blood Pressure Mean [Right Arm] Blood Pressure Position [Right Arm] Pulse Oximetry Oxygen Delivery Method Oxygen Flow Rate Sepsis Recent Fever Within 48 Hours Sepsis New/Unexplained Change in Mental Status Sepsis Action Taken by Nursing 08/06/25 21:15 08/06/25 21:21 08/06/25 21:30 Temperature Temperature Source Pulse Rate 59 L Pulse Rate [Right Finger] Pulse Rate from SpO2 Sensor 59 L Pulse Rhythm Pulse Rhythm [Right Finger] Pulse Strength [Right Finger] Respiratory Rate 28 H Respiratory Effort / Characteristics Respiratory Depth Respiratory Pattern Blood Pressure 137/74 137/74 129/82 Blood Pressure [Right Arm] Blood Pressure Mean 103 95 108 Blood Pressure Mean [Right Arm] Blood Pressure Position [Right Arm] Pulse Oximetry 96 Oxygen Delivery Method Oxygen Flow Rate Sepsis Recent Fever Within 48 Hours Sepsis New/Unexplained Change in Mental Status Sepsis Action Taken by Nursing 08/06/25 21:30 08/06/25 21:30 08/06/25 21:30 Temperature Temperature Source Pulse Rate Pulse Rate [Right Finger] Pulse Rate from SpO2 Sensor Pulse Rhythm Pulse Rhythm [Right Finger] Pulse Strength [Right Finger] Respiratory Rate Respiratory Effort / Characteristics Respiratory Depth Respiratory Pattern Blood Pressure 129/82 129/82 129/82 Blood Pressure [Right Arm] Blood Pressure Mean 108 108 108 Blood Pressure Mean [Right Arm] Blood Pressure Position [Right Arm] Pulse Oximetry Oxygen Delivery Method Oxygen Flow Rate Sepsis Recent Fever Within 48 Hours Sepsis New/Unexplained Change in Mental Status Sepsis Action Taken by Nursing 08/06/25 21:30 08/06/25 21:30 08/06/25 21:42 Temperature Temperature Source Pulse Rate 56 L 57 L Pulse Rate [Right Finger] Pulse Rate from SpO2 Sensor 57 L 57 L Pulse Rhythm Pulse Rhythm [Right Finger] Pulse Strength [Right Finger] Respiratory Rate 25 H 27 H Respiratory Effort / Characteristics Respiratory Depth Respiratory Pattern Blood Pressure 129/82 Blood Pressure [Right Arm] Blood Pressure Mean 108 Blood Pressure Mean [Right Arm] Blood Pressure Position [Right Arm] Pulse Oximetry 97 98 Oxygen Delivery Method Oxygen Flow Rate Sepsis Recent Fever Within 48 Hours Sepsis New/Unexplained Change in Mental Status Sepsis Action Taken by Nursing 08/06/25 21:45 08/06/25 21:46 08/06/25 21:46 Temperature Temperature Source Pulse Rate 58 L Pulse Rate [Right Finger] Pulse Rate from SpO2 Sensor 57 L Pulse Rhythm Pulse Rhythm [Right Finger] Pulse Strength [Right Finger] Respiratory Rate 30 H Respiratory Effort / Characteristics Respiratory Depth Respiratory Pattern Blood Pressure 137/77 137/77 Blood Pressure [Right Arm] Blood Pressure Mean 101 101 Blood Pressure Mean [Right Arm] Blood Pressure Position [Right Arm] Pulse Oximetry 96 Oxygen Delivery Method Oxygen Flow Rate Sepsis Recent Fever Within 48 Hours Sepsis New/Unexplained Change in Mental Status Sepsis Action Taken by Nursing 08/06/25 21:46 08/06/25 21:46 08/06/25 21:46 Temperature Temperature Source Pulse Rate Pulse Rate [Right Finger] Pulse Rate from SpO2 Sensor Pulse Rhythm Pulse Rhythm [Right Finger] Pulse Strength [Right Finger] Respiratory Rate Respiratory Effort / Characteristics Respiratory Depth Respiratory Pattern Blood Pressure 137/77 137/77 137/77 Blood Pressure [Right Arm] Blood Pressure Mean 101 101 101 Blood Pressure Mean [Right Arm] Blood Pressure Position [Right Arm] Pulse Oximetry Oxygen Delivery Method Oxygen Flow Rate Sepsis Recent Fever Within 48 Hours Sepsis New/Unexplained Change in Mental Status Sepsis Action Taken by Nursing 08/06/25 21:51 08/06/25 22:00 08/06/25 22:00 Temperature Temperature Source Pulse Rate 58 L Pulse Rate [Right Finger] 57 L Pulse Rate from SpO2 Sensor 59 L Pulse Rhythm Pulse Rhythm [Right Finger] Regular Pulse Strength [Right Finger] Normal Respiratory Rate 30 H 25 H Respiratory Effort / Characteristics Non-Labored Respiratory Depth Normal Respiratory Pattern Regular Blood Pressure 140/82 Blood Pressure [Right Arm] 140/82 Blood Pressure Mean 112 Blood Pressure Mean [Right Arm] 101 Blood Pressure Position [Right Arm] Lying Pulse Oximetry 97 98 Oxygen Delivery Method Room Air Oxygen Flow Rate Sepsis Recent Fever Within 48 Hours Sepsis New/Unexplained Change in Mental Status Sepsis Action Taken by Nursing 08/06/25 22:00 08/06/25 22:00 08/06/25 22:00 Temperature Temperature Source Pulse Rate Pulse Rate [Right Finger] Pulse Rate from SpO2 Sensor Pulse Rhythm Pulse Rhythm [Right Finger] Pulse Strength [Right Finger] Respiratory Rate Respiratory Effort / Characteristics Respiratory Depth Respiratory Pattern Blood Pressure 140/82 140/82 140/82 Blood Pressure [Right Arm] Blood Pressure Mean 112 112 112 Blood Pressure Mean [Right Arm] Blood Pressure Position [Right Arm] Pulse Oximetry Oxygen Delivery Method Oxygen Flow Rate Sepsis Recent Fever Within 48 Hours Sepsis New/Unexplained Change in Mental Status Sepsis Action Taken by Nursing 08/06/25 22:00 08/06/25 22:00 08/06/25 22:12 Temperature Temperature Source Pulse Rate 57 L 56 L Pulse Rate [Right Finger] Pulse Rate from SpO2 Sensor 59 L 57 L Pulse Rhythm Pulse Rhythm [Right Finger] Pulse Strength [Right Finger] Respiratory Rate 19 28 H Respiratory Effort / Characteristics Respiratory Depth Respiratory Pattern Blood Pressure 140/82 Blood Pressure [Right Arm] Blood Pressure Mean 112 Blood Pressure Mean [Right Arm] Blood Pressure Position [Right Arm] Pulse Oximetry 99 97 Oxygen Delivery Method Oxygen Flow Rate Sepsis Recent Fever Within 48 Hours Sepsis New/Unexplained Change in Mental Status Sepsis Action Taken by Nursing 08/06/25 22:15 08/06/25 22:15 08/06/25 22:15 Temperature Temperature Source Pulse Rate Pulse Rate [Right Finger] Pulse Rate from SpO2 Sensor Pulse Rhythm Pulse Rhythm [Right Finger] Pulse Strength [Right Finger] Respiratory Rate Respiratory Effort / Characteristics Respiratory Depth Respiratory Pattern Blood Pressure 143/76 H 143/76 H 143/76 H Blood Pressure [Right Arm] Blood Pressure Mean 107 107 107 Blood Pressure Mean [Right Arm] Blood Pressure Position [Right Arm] Pulse Oximetry Oxygen Delivery Method Oxygen Flow Rate Sepsis Recent Fever Within 48 Hours Sepsis New/Unexplained Change in Mental Status Sepsis Action Taken by Nursing 08/06/25 22:15 08/06/25 22:15 08/06/25 22:15 Temperature Temperature Source Pulse Rate 55 L Pulse Rate [Right Finger] Pulse Rate from SpO2 Sensor 55 L Pulse Rhythm Pulse Rhythm [Right Finger] Pulse Strength [Right Finger] Respiratory Rate 30 H Respiratory Effort / Characteristics Respiratory Depth Respiratory Pattern Blood Pressure 143/76 H 143/76 H Blood Pressure [Right Arm] Blood Pressure Mean 107 107 Blood Pressure Mean [Right Arm] Blood Pressure Position [Right Arm] Pulse Oximetry 97 Oxygen Delivery Method Oxygen Flow Rate Sepsis Recent Fever Within 48 Hours Sepsis New/Unexplained Change in Mental Status Sepsis Action Taken by Nursing 08/06/25 22:21 Temperature Temperature Source Pulse Rate 56 L Pulse Rate [Right Finger] Pulse Rate from SpO2 Sensor 57 L Pulse Rhythm Pulse Rhythm [Right Finger] Pulse Strength [Right Finger] Respiratory Rate 29 H Respiratory Effort / Characteristics Respiratory Depth Respiratory Pattern Blood Pressure Blood Pressure [Right Arm] Blood Pressure Mean Blood Pressure Mean [Right Arm] Blood Pressure Position [Right Arm] Pulse Oximetry 99 Oxygen Delivery Method Oxygen Flow Rate Sepsis Recent Fever Within 48 Hours Sepsis New/Unexplained Change in Mental Status Sepsis Action Taken by Nursing Primary Survey Airway: Intact Breathing: Normal, breath sounds equal bilaterally Circulation: Skin warm, well perfused, capillary refill less than 2 seconds Disability Pupils: Equal and reactive to light, 3mm, brisk GCS: 15, E = 4 V=5 M= 6 Motor Function: Moves all extremities. Sensory: No deficits Secondary Survey GENERAL: NAD, non-toxic. HEAD: Normal cephalic, ecchymosis to the left side of the face EYE EXAM: Normal conjunctiva. PERRL, no anisocoria and EOM's grossly intact w/o pain. OROPHARYNX: Moist mucus membranes. Grossly normal dentition. NECK: Supple, trachea midline, no midline C spine TTP. Chest: No reproducible chest wall pain. LUNGS: Clear to auscultation. Normal chest wall mechanics. HEART: NSR, no MRG. ABDOMEN: Abdomen soft, non-tender, no obvious bruising, normo-active bowel sounds, no masses, no rebound or guarding. BACK: No CVA TTP. No midline thoracic or lumbar TTP. SKIN: No rashes and no bruising, superficial skin tears to the left wrist and forearm UPPER EXTREMITIES: Upper extremities are grossly normal. Well-perfused and compartments are soft throughout, able to passively range left shoulder to full extent LOWER EXTREMITIES: Grossly normal, no edema. Well-perfused and compartments are soft throughout. NEURO EXAM: A&O x3, cranial nerves II-XII grossly intact, normal speech, moves all 4 extremities. Course Administered Medications Discontinued Medications Acetaminophen (Ofirmev) 1,000 mg in 100 mls @ 400 mls/hr IV NOW STA Stop: 08/06/25 17:27 Last Infusion: 08/06/25 20:24 Dose: Infused Documented By: donn Admin: 08/06/25 18:27 Dose: 400 mls/hr Documented By: donn Morphine Sulfate (Morphine Sulfate 2 Mg/Ml Carp) 2 mg IV NOW STA Stop: 08/06/25 20:42 Last Admin: 08/06/25 21:00 Dose: 2 mg Documented By: donn Medical Decision Making Differential Diagnosis DDx includes but not limited to: Facial contusion, SDH, SAH, basilar skull fracture, cervical spine fracture, facial fracture, clavicle fracture, rib fracture, pulmonary injury, skin tears Medical Records Attestation: I reviewed the patient's medical records. Home Medications Current Medication List: was personally reviewed by me Laboratory Data Attestation: I reviewed the patient's lab results. 08/06/25 17:35 08/06/25 17:35 Lab Results 08/06/25 08/06/25 Range/Units 17:35 17:38 WBC 13.14 H (4.8-10.8) K/ul RBC 4.28 L (4.70-6.10) M/uL Hgb 12.9 L (14.0-18.0) g/dL POC Hgb 12.9 L (14.0-18.0) g/dl Hct 39.1 L (42.0-52.0) % POC Hct 38 L (42-52) % MCV 91.4 (80.0-100.0) fL MCH 30.1 (25.0-34.0) pg MCHC 33.0 (32.0-36.0) g/dL RDW Std Deviation 48.2 H (36.4-46.3) fL RDW Coeff of Castillo 14.4 (11.5-14.5) % Plt Count 281 (130-400) K/uL MPV 8.7 L (9.4-12.4) fL Immature Gran % (Auto) 1.8 % Neut % (Auto) 78.4 % Lymph % (Auto) 9.3 % [place] % (Auto) 9.7 % Eos % (Auto) 0.5 % Baso % (Auto) 0.3 % Neut # (Auto) 10.31 H (1.40-6.50) K/uL Lymph # (Auto) 1.22 (1.20-3.40) K/uL [place] # (Auto) 1.27 H (0.11-0.59) K/uL Eos # (Auto) 0.06 (0.00-0.50) K/uL Baso # (Auto) 0.04 (0.00-0.20) K/uL Immature Gran # (Auto) 0.24 H (0.01-0.20) K/uL PT 11.0 (9.0-12.0) Seconds INR 1.0 (0.9-1.1) APTT 26 (21-31) Seconds PTT Ratio 1.0 POC Sodium 141 (135-144) mmol/L Sodium 139 (136-145) mmol/L POC Potassium 4.5 (3.3-5.0) mmol/L Potassium 4.6 (3.5-5.1) mmol/L POC Chloride 105 (101-112) mmol/L Chloride 107 (98-107) mmol/L Carbon Dioxide 27 (21-32) mmol/L POC Total CO2 24 (24-31) mmol/L Anion Gap 5 (3-11) POC Anion Gap 17.0 (16-25) mmol/L POC BUN 30 H (7-18) mg/dl BUN 29 H (6-23) mg/dl Creatinine 1.03 (0.6-1.4) mg/dl POC Creatinine 1.2 (0.6-1.3) mg/dl Est Cr Clr Drug Dosing Not Reportable eGFR 70.30 BUN/Creatinine Ratio 28.2 H (10-20) Glucose 104 H (70-99(Fasting)) mg/dl POC Glucose (other) 102 H (70-99) mg/dl Calcium 8.8 (8.6-10.3) mg/dl POC Ioniz Calcium Matt 1.16 (1.12-1.32) mmol/l Total Bilirubin 0.4 (0.2-1.0) mg/dl AST 14 (13-39) U/L ALT 11 (7-52) U/L Alkaline Phosphatase 72 (34-104) U/L Total Protein 6.6 (6.0-8.3) gm/dl Albumin 3.8 (3.4-5.0) gm/dl Globulin 2.8 (2.5-4.0) gm/dl Albumin/Globulin Ratio 1.4 (0.9-2) Lipase 14 (11-82) U/L Imaging Data Radiologist's Impression: Chest X-Ray 08/06/25 17:12 EXAM: X-ray chest one-view portable CLINICAL HISTORY: Trauma PRIORS: 01/29/2025 TECHNIQUE: Upright AP chest FINDINGS: Large body habitus and diminished lung volumes noted. No displaced rib fracture or pneumothorax. bobbin loose end finder projecting over the heart. Note confluent opacification or pleural effusion. Heart size enlarged versus diminished lung volumes and technique, unchanged. Trachea is midline. Mild osseous demineralization noted. IMPRESSION: No clinical evidence of an acute cardiopulmonary process. Electronically signed by Annabel Gamez 08-06-2025 6:19 PM Pelvis X-Ray 08/06/25 17:12 EXAMINATION: X-ray pelvis 1-2 views routine CLINICAL HISTORY: Trauma PRIORS: None TECHNIQUE: Single AP view pelvis FINDINGS: Overlying bowel gas, stool and soft tissues obscures fine bone detail. Moderate osseous demineralization noted. Right total hip arthroplasty present with femoral stem not in the [id number]. Allowing for this, no displaced fracture or dislocation. Moderate degenerative change of the left hip. No pubic symphysis widening. IMPRESSION: No plain film evidence of an acute osseous abnormality. Electronically signed by Annabel Gamez 08-06-2025 6:19 PM Shoulder X-Ray 08/06/25 17:12 EXAMINATION: X-ray shoulder left minimum 2 view routine CLINICAL HISTORY: Fall, shoulder pain PRIORS: None TECHNIQUE: 4 views left shoulder FINDINGS: Moderate osseous demineralization noted. Humeral head is high riding. The Y view is limited. Allowing for this, no acute displaced fracture or dislocation. Degenerative or remote traumatic changes of the acromioclavicular joint noted. No soft tissue swelling or radiopaque foreign body. Hemithorax unremarkable. IMPRESSION: Osseous demineralization with no acute displaced fracture or dislocation identified. Electronically signed by Annabel Gamez 08-06-2025 6:[address] 08/06/25 17:13 EXAM: CT cervical spine without CLINICAL HISTORY: Trauma TECHNIQUE: Contiguous axial images were obtained through the cervical spine without the use of intravenous contrast. Sagittal and coronal reformations are supplied. PRIORS: 06/04/2024 FINDINGS: Moderate osseous demineralization noted. Lordotic straightening is noted. No acute cervical spine fracture or facet dislocation. Moderate degenerative change present at C4-C5 and C5-C6 with loss of intervertebral disc height, endplate changes and uncovertebral hypertrophic changes. Facet hypertrophic changes also noted at these levels. No prevertebral soft tissue swelling. Visualized trachea is patent. No pneumothorax. IMPRESSION: No CT evidence of an acute osseous abnormality. Electronically signed by Annabel Gamez 08-06-2025 6:[address] 08/06/25 17:13 EXAMINATION: CT facial bones without contrast PROCEDURE: Contiguous axial images were obtained through the paranasal sinuses without the use of intravenous contrast in bone windows. Sagittal and coronal reformations are supplied. COMPARISON: 11/24/2016 INDICATION: Trauma FINDINGS: Near total opacification of the right maxillary sinus, progressed in the interval. Moderate osseous demineralization noted. Nasal bone and anterior maxillary spine are intact. Dens is normal. The mandible, maxilla, zygomatic arch, bony orbits demonstrate no acute fracture. Lucency present at the base of multiple teeth, for example, image 22, series 901 within the mandible. Mastoid air cells well-pneumatized. Globes are bilaterally symmetric. IMPRESSION: 1. No CT evidence of an acute displaced fracture or dislocation. 2. Diffuse periodontal disease. 3. Near-total opacification of the right maxillary sinus, progressed, compatible with chronic sinusitis. Electronically signed by Annabel Gamez 08-06-2025 6:[address] 08/06/25 17:13 EXAMINATION: Head CT without CLINICAL HISTORY: Trauma PRIORS: Non 06/04/2024 TECHNIQUE: Contiguous axial images were obtained through the head without the use of intravenous contrast. Sagittal and coronal reformations are supplied. FINDINGS: Dental amalgam create significant beam hardening artifact. Moderate parenchymal volume loss noted diffusely.. Tuttle-white differentiation is preserved. No edema or midline shift. No intra-axial or extra-axial hemorrhage. Ventricles are normal in size and configuration. Brainstem and cerebellum have a normal appearance. Calvarium unremarkable. Opacification present in the right maxillary sinus, progressed in the interval. Globes are intact. No retrobulbar abnormality. IMPRESSION: No CT evidence of an acute intracranial abnormality. Facial CT dictated under separate heading. Electronically signed by Annabel Gamez 08-06-2025 6:[address] 08/06/25 19:58 Exam(s): CT CHEST Without Contrast EXAM: CT Chest Without Intravenous Contrast CLINICAL HISTORY: Reason for exam: Trauma/ rib pain. TECHNIQUE: Axial computed tomography images of the chest without intravenous contrast. CTDI is 26 mGy and DLP is 871 mGy-cm. Automated exposure control was utilized for the study. A dose lowering technique was utilized adhering to the principles of ALARA. COMPARISON: Chest CT 01/07/2025 FINDINGS: Lungs: No pulmonary contusion. Pleural space: No pleural effusion or pneumothorax. Heart: Heart size upper limits of normal with mild coronary artery calcifications. Bones/joints: Flowing syndesmophytes throughout the thoracic spine. Acute left anterior 3rd and posterior 11th rib fractures. Soft tissues: Unremarkable. Vasculature: Aneurysmal proximal descending thoracic aorta up to 3.8 cm. [id number] aortic valvular calcifications. Lymph nodes: Unremarkable. IMPRESSION: 1. Acute left anterior 3rd and posterior 11th rib fractures. 2. 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 Electronically signed by: John Wan MD 08/06/25 22:13 PM MDM Narrative Patient is an 85-year-old male who presents after a ground-level fall when his legs gave out. Fell onto a stack of wood. He did strike his face and head. GCS of 15. Primary exam is nonconcerning. Secondary exam notable for findings above. Patient is on Eliquis at baseline. He was made a an injury alert on arrival. CT of the head/cervical spine/face shows no acute traumatic injuries. He did have persistent pain to the left anterior chest wall. Chest x-ray was independently reviewed and nonconcerning however follow-up CT scan shows evidence of a nondisplaced anterior third rib fracture and posterior 11th rib fracture. No underlying pulmonary injury noted. Patient is requiring multiple doses of IV pain medication here today. He was able to pull 1500 mL on incentive spirometer however he will be admitted for pain control and respiratory support as needed. Stable for admission to hospitalist service. Impression & Plan Multiple fractures of ribs Discharge Plan Visit Data Chief Complaint: Trauma Stated Complaint: FALL,BLOOD CLOTS, BROKEN BONES CHEST, BLOOD THINNE ED Provider: Tang Mendes Discharge Problem: Multiple fractures of ribs Patient Disposition: Admitted As Inpatient Condition: Good Forms Stand Alone Forms: [facility] [employer] Prescriptions Prescriptions: No Action Eliquis 5 mg tablet 5 mg PO BID Qty: 180 3RF Trelegy Ellipta 100-62.5-25 mcg blister with device 1 inh inhalation DAILY Qty: 28 5RF losartan 25 mg tablet 25 mg PO QAM Qty: 90 1RF furosemide 40 mg tablet 40 mg PO QAM Qty: 90 1RF ipratropium bromide 21 mcg (0.03 %) spray,non-aerosol 2 spray intranasal BID Qty: 30 2RF Rx Instructions: administer into each nostril (DME) BD Safety-Bren Detachable Needl 3 mL 23 gauge x 1" syringe See Rx Instructions .ROUTE .MEDSUPPLY Qty: 100 0RF Rx Instructions: As directed with cyanocobalamin (DME) Nimisha Walker [facility] [place] See Rx Instructions .MEDSUPPLY Qty: 1 0RF Rx Instructions: As directed epinephrine [EpiPen] 0.3 mg/0.3 mL auto-injector 0.3 mg IM UD PRN (Reason: Anaphylaxis) Qty: 1 1RF albuterol sulfate 90 mcg/actuation HFA aerosol inhaler 2 inh inhalation QID PRN (Reason: shortness of breath or wheezing) Qty: 6.7 2RF fluoxetine [Prozac] 20 mg capsule 20 mg PO QAM Qty: 90 0RF acetaminophen [Tylenol Extra Strength] 500 mg tablet 1,000 mg PO TID PRN (Reason: Pain, Mild) cyanocobalamin (vitamin B-12) 1,000 mcg Capsule 1,000 mcg PO QAM spironolactone [Aldactone] 25 mg tablet 25 mg PO QAM finasteride [Proscar] 5 mg tablet 5 mg PO QAM tamsulosin [Flomax] 0.4 mg Capsule 0.4 mg PO QAM levothyroxine 50 mcg tablet 100 mcg PO WK Rx Instructions: SATURDAYS levothyroxine 50 mcg tablet 50 mcg PO [id number] Rx Instructions: EVERY DAY EXCEPT SATURDAYS. Referrals Referrals: Sylvie Aburto MD [Primary Care Provider] -
[2025-08-06 17:52] LABS: Hematocrit (blood only) 39.1 % (42.0-52.0); Hemoglobin 12.9 g/dL (14.0-18.0); Immature Granulocytes # (auto) 0.24 K/uL (0.01-0.20); Immature Granulocytes % (auto) 1.8 %; Mean Corpuscular Hemoglobin 30.1 pg (25.0-34.0); Mean Corpuscular Volume 91.4 fL (80.0-100.0); Platelet Count 281 K/uL (130-400); RDW Standard Deviation 48.2 fL (36.4-46.3); Red Blood Count 4.28 M/uL (4.70-6.10); White Blood Count 13.14 K/ul (4.8-10.8)
[2025-08-06 18:08] LABS: Alanine Aminotransferase 11 U/L (7-52); Albumin Globulin Ratio 1.4 (0.9-2); Albumin Level 3.8 gm/dl (3.4-5.0); Alkaline Phosphatase 72 U/L (34-104); Anion Gap 5 (3-11); Bilirubin,Total 0.4 mg/dl (0.2-1.0); Blood Urea Nitrogen 29 mg/dl (6-23); Calcium 8.8 mg/dl (8.6-10.3); Carbon Dioxide 27 mmol/L (21-32); Chloride 107 mmol/L (98-107); Globulin 2.8 gm/dl (2.5-4.0); Glucose 104 mg/dl (70-99(Fasting)); Lipase 14 U/L (11-82); Potassium 4.6 mmol/L (3.5-5.1); Sodium 139 mmol/L (136-145); Total Protein 6.6 gm/dl (6.0-8.3)
--- NOTE | 2025-08-06 18:10 | CT Scan Report ---
EXAMINATION: Head CT without CLINICAL HISTORY: Trauma PRIORS: Non 06/04/2024 TECHNIQUE: Contiguous axial images were obtained through the head without the use of intravenous contrast. Sagittal and coronal reformations are supplied. FINDINGS: Dental amalgam create significant beam hardening artifact. Moderate parenchymal volume loss noted diffusely.. Tuttle-white differentiation is preserved. No edema or midline shift. No intra-axial or extra-axial hemorrhage. Ventricles are normal in size and configuration. Brainstem and cerebellum have a normal appearance. Calvarium unremarkable. Opacification present in the right maxillary sinus, progressed in the interval. Globes are intact. No retrobulbar abnormality. IMPRESSION: No CT evidence of an acute intracranial abnormality. Facial CT dictated under separate heading. Electronically signed by Annabel Gamez 08-06-2025 6:08 PM
--- NOTE | 2025-08-06 18:15 | CT Scan Report ---
EXAM: CT cervical spine without CLINICAL HISTORY: Trauma TECHNIQUE: Contiguous axial images were obtained through the cervical spine without the use of intravenous contrast. Sagittal and coronal reformations are supplied. PRIORS: 06/04/2024 FINDINGS: Moderate osseous demineralization noted. Lordotic straightening is noted. No acute cervical spine fracture or facet dislocation. Moderate degenerative change present at C4-C5 and C5-C6 with loss of intervertebral disc height, endplate changes and uncovertebral hypertrophic changes. Facet hypertrophic changes also noted at these levels. No prevertebral soft tissue swelling. Visualized trachea is patent. No pneumothorax. IMPRESSION: No CT evidence of an acute osseous abnormality. Electronically signed by Annabel Gamez 08-06-2025 6:14 PM
--- NOTE | 2025-08-06 18:15 | CT Scan Report ---
EXAMINATION: CT facial bones without contrast PROCEDURE: Contiguous axial images were obtained through the paranasal sinuses without the use of intravenous contrast in bone windows. Sagittal and coronal reformations are supplied. COMPARISON: 11/24/2016 INDICATION: Trauma FINDINGS: Near total opacification of the right maxillary sinus, progressed in the interval. Moderate osseous demineralization noted. Nasal bone and anterior maxillary spine are intact. Dens is normal. The mandible, maxilla, zygomatic arch, bony orbits demonstrate no acute fracture. Lucency present at the base of multiple teeth, for example, image 22, series 901 within the mandible. Mastoid air cells well-pneumatized. Globes are bilaterally symmetric. IMPRESSION: 1. No CT evidence of an acute displaced fracture or dislocation. 2. Diffuse periodontal disease. 3. Near-total opacification of the right maxillary sinus, progressed, compatible with chronic sinusitis. Electronically signed by Annabel Gamez 08-06-2025 6:14 PM
[2025-08-06 18:18] LABS: INR 1.0 (0.9-1.1); Partial Thromboplastin Time 26 Seconds (21-31); Prothrombin Time 11.0 Seconds (9.0-12.0)
--- NOTE | 2025-08-06 18:20 | XRay Report ---
EXAM: X-ray chest one-view portable CLINICAL HISTORY: Trauma PRIORS: 01/29/2025 TECHNIQUE: Upright AP chest FINDINGS: Large body habitus and diminished lung volumes noted. No displaced rib fracture or pneumothorax. psychologist engineering projecting over the heart. Note confluent opacification or pleural effusion. Heart size enlarged versus diminished lung volumes and technique, unchanged. Trachea is midline. Mild osseous demineralization noted. IMPRESSION: No clinical evidence of an acute cardiopulmonary process. Electronically signed by Annabel Gamez 08-06-2025 6:19 PM
--- NOTE | 2025-08-06 18:20 | XRay Report ---
EXAMINATION: X-ray shoulder left minimum 2 view routine CLINICAL HISTORY: Fall, shoulder pain PRIORS: None TECHNIQUE: 4 views left shoulder FINDINGS: Moderate osseous demineralization noted. Humeral head is high riding. The Y view is limited. Allowing for this, no acute displaced fracture or dislocation. Degenerative or remote traumatic changes of the acromioclavicular joint noted. No soft tissue swelling or radiopaque foreign body. Hemithorax unremarkable. IMPRESSION: Osseous demineralization with no acute displaced fracture or dislocation identified. Electronically signed by Annabel Gamez 08-06-2025 6:19 PM
--- NOTE | 2025-08-06 18:20 | XRay Report ---
EXAMINATION: X-ray pelvis 1-2 views routine CLINICAL HISTORY: Trauma PRIORS: None TECHNIQUE: Single AP view pelvis FINDINGS: Overlying bowel gas, stool and soft tissues obscures fine bone detail. Moderate osseous demineralization noted. Right total hip arthroplasty present with femoral stem not in the [id number]. Allowing for this, no displaced fracture or dislocation. Moderate degenerative change of the left hip. No pubic symphysis widening. IMPRESSION: No plain film evidence of an acute osseous abnormality. Electronically signed by Annabel Gamez 08-06-2025 6:19 PM
[2025-08-06] MEDS: ACETAMINOPHEN 1,000 MG/100 ML VIAL IV STA (18:27)
[2025-08-06] MEDS: MoRPHine SULFATE 2 MG/ML CARP IV STA (21:00)
--- NOTE | 2025-08-06 22:13 | CT Scan Report ---
Exam(s): CT CHEST Without Contrast EXAM: CT Chest Without Intravenous Contrast CLINICAL HISTORY: Reason for exam: Trauma/ rib pain. TECHNIQUE: Axial computed tomography images of the chest without intravenous contrast. CTDI is 26 mGy and DLP is 871 mGy-cm. Automated exposure control was utilized for the study. A dose lowering technique was utilized adhering to the principles of ALARA. COMPARISON: Chest CT 01/07/2025 FINDINGS: Lungs: No pulmonary contusion. Pleural space: No pleural effusion or pneumothorax. Heart: Heart size upper limits of normal with mild coronary artery calcifications. Bones/joints: Flowing syndesmophytes throughout the thoracic spine. Acute left anterior 3rd and posterior 11th rib fractures. Soft tissues: Unremarkable. Vasculature: Aneurysmal proximal descending thoracic aorta up to 3.8 cm. [id number] aortic valvular calcifications. Lymph nodes: Unremarkable. IMPRESSION: 1. Acute left anterior 3rd and posterior 11th rib fractures. 2. 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 Electronically signed by: John Wan MD 08/06/25 22:13 PM
--- NOTE | 2025-08-06 22:47 | History & Physical Report ---
Date of Service August 06, 2025 Assessment & Plan (1) Multiple fractures of ribs: (2) Trauma: (3) Ground-level fall: Plan 85-year-old male with history of HFpEF, recurrent DVT/PE, 1 episode of paroxysmal A-fib in sinus since cardioversion, hypothyroidism, hypertension, CPAP intolerant CURTIS. Patient presented as a trauma alert after a ground-level fall while moving wood outside when she stated his "legs gave out" resulting in a left third anterior and left 11th posterior rib fracture. Patient is anticoagulated with Eliquis. Patient is being admitted to the PCU for pain control of rib fractures. #rib fractures/trauma/fall - hemodynamically stable and non-hypoxic at time of admission. Chest CT revealed left 3rd anterior and left 11th posterior rib fracture; diagnostic imaging otherwise negative for acute changes. - UA ordered - rib fracture order set - incentive spirometry, OOB as tolerate, fall precautions, ice prn - pain control with Tylenol prn, Dilaudid 0.5/1mg IV prn for breakthrough pain - will avoid NSAIDs with bleeding risk on chronic anticoagulation - lidoderm patch - oxygen as needed O2 goal greater than 92% - PT/OT evals - dressing changes to left UE abrasions - trend CBC #Hx DVT/PE - patient reports only taking Eliquis 5mg daily instead of BID, will order BID for now and encourage compliance #HFpEF/CAD/HTN - continue lasix, spironolactone, losartan #COPD - continue home inhalers #hypothyroidism - continue levothyroxine #thoracic aortic aneurysm - noted on chest CT to be 3.8cm; no mention of aneurysm in previous imaging. - follow up with PCP VTE ppx: dual vte ppx with home Eliquis and SCDs Dispo: PCU as patient was trauma alert Admission and Anticipated Discharge Date Admission Date: 08/06/25 History of Present Illness Chief Complaint: trauma Primary Care Provider: Sylvie Aburto MD 85-year-old male with history of HFpEF, recurrent DVT/PE, 1 episode of paroxysmal A-fib in sinus since cardioversion, hypothyroidism, hypertension, CPAP intolerant CURTIS. Patient presented as a trauma alert after a ground-level fall while moving wood outside when she stated his "legs gave out" resulting in a left third anterior and left 11th posterior rib fracture. Patient is anticoagulated with Eliquis. Patient is being admitted to the PCU for pain control of rib fractures. Patient seen at bedside with his daughter present. He is extremely hard of hearing. He stated he was working out with a wood pile when his legs gave out. He has had about 3 falls like this before, most recent 1 year ago. He did know he was going to fall because his legs got weak. He denies any dizziness, lightheadedness, chest pain, shortness of breath prior to the fall. He does not believe he lost consciousness. Currently feels well at bedside other than persistent pain after Tylenol 1G IV and morphine 2G IV in the ED. He did perform incentive spirometry with nursing at 1500. He denies any dizziness, headaches, headaches, shortness of breath, abdominal pain, nausea, vomiting. He is complaining of left hip pain. He did fall onto his left side and struck his face, chest, arm, and hip on the ground/wood pile. He denies any nicotine use. He took all of his home medications this morning, stated he only takes Eliquis once daily in the morning even though he knows he is to take it twice a day. He is a reddy and stated that when he gets a cut it bleeds too much when he takes it twice a day. Discussed compliance with this with his history of DVT and PE. He wishes to maintain his DNR/DNI status. Allergies Allergy/AdvReac Type Severity Reaction Status Date / Time pineapple Allergy Severe Anaphylaxis Verified 08/06/25 23:00 to FRESH pineapple aspirin Allergy Intermediate Hives Verified 08/06/25 19:39 celecoxib [From Celebrex] Allergy Intermediate Hives Verified 08/06/25 19:39 Iodinated Contrast Media Allergy Intermediate Hives, Verified 08/06/25 19:39 swelling iodine Allergy Intermediate Hives Verified 08/06/25 19:39 tramadol AdvReac Intermediate Dizziness, Verified 08/06/25 19:39 nausea, leg weakness Home Medications Medication Instructions Recorded Confirmed Type syringe with needle, safety 3 mL #100 ea 12/09/20 07/29/25 Rx 23 gauge x 1" (BD Safety-Bern Detachable Needle) epinephrine 0.3 mg/0.3 mL 0.3 mg (0.3 mL) IM UD PRN 03/01/23 08/06/25 Rx injection, auto-injector (EpiPen) Anaphylaxis #1 ea cyanocobalamin (vitamin B-12) 1,000 mcg PO QAM 10/02/23 08/06/25 History 1,000 mcg capsule Wheeled Walker #1 ea 11/21/23 07/29/25 Rx acetaminophen 500 mg tablet 1,000 mg PO TID PRN Pain, Mild 04/22/24 08/06/25 History (Tylenol Extra Strength) apixaban 5 mg tablet (Eliquis) 5 mg PO BID #180 tabs 10/02/24 08/06/25 Rx albuterol sulfate 90 mcg/actuation 2 inh inhalation QID PRN shortness 02/03/25 08/06/25 Rx aerosol inhaler of breath or wheezing #6.7 grams fluticasone fur. 100 mcg-umeclid 1 inh inhalation DAILY #28 ea 03/02/25 08/06/25 Rx 62.5 mcg-vilant 25 mcg inhalat.powder (Trelegy Ellipta) losartan 25 mg tablet 25 mg PO QAM #90 tabs 04/14/25 08/06/25 Rx spironolactone 25 mg tablet 25 mg PO QAM 04/17/25 08/06/25 History (Aldactone) finasteride 5 mg tablet (Proscar) 5 mg PO QAM 04/21/25 08/06/25 History fluoxetine 20 mg capsule (Prozac) 20 mg PO QAM #90 caps 05/26/25 08/06/25 Rx furosemide 40 mg tablet 40 mg PO QAM #90 tabs 06/03/25 08/06/25 Rx ipratropium bromide 21 mcg (0.03 2 spray intranasal BID #30 mL 07/23/25 08/06/25 Rx %) nasal spray levothyroxine 50 mcg tablet 50 mcg PO [id number] 08/06/25 08/06/25 History levothyroxine 50 mcg tablet 100 mcg PO WK 08/06/25 08/06/25 History tamsulosin 0.4 mg capsule 0.4 mg PO QAM 08/06/25 08/06/25 History Past Med/Surg History Problem List (Updated 08/07/25 @ 02:21 by Mony Suggs PA-C) Ground-level fall Trauma Multiple fractures of ribs (Acute) Heterotopic ossification Neuropathic ulcer of toe of right foot (Acute) Neuropathic ulcer of toe of left foot (Acute) Greater trochanteric bursitis of right hip Edema (Acute) Elevated troponin I level (Acute) Myofascial pain 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 L5 vertebral fracture Sacroiliitis Leg length discrepancy Pes anserinus bursitis Prediabetes Carpal tunnel syndrome on both sides Hypothyroidism Osteoarthritis of hips, bilateral Suicidal thoughts Depression Osteoarthritis of right hip Elevated TSH CAD (coronary artery disease) Nonobstructive per cardio records Orthostatic hypotension Near syncope (Acute) Urgency of urination Frequency of urination Obstructive sleep apnea Hematuria Hypervolemia Physical deconditioning BPH (benign prostatic hyperplasia) Sinus bradycardia Bilateral edema of lower extremity (Acute) PERALTA (dyspnea on exertion) (Acute) Mild sleep apnea Postherpetic neuralgia Obesity Hypersomnia 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 Decreased activity tolerance Arthralgia Myalgia halfway (current) use of anticoagulants (Chronic) Enlarged prostate with lower urinary tract symptoms (LUTS) (Acute) HTN (hypertension) (Acute) Recurrent falls Benign essential tremor Frequent PVCs Syncope Sensorineural hearing loss (SNHL) of both ears Lumbar spinal stenosis Medical History Osteomyelitis of toe Acquired hammer toe Sensorineural hearing loss (SNHL) of both ears Neuropathic ulcer of toe Acquired hammer toe Sacroiliitis Ankylosing spondylitis Wound of foot Chronic kidney disease (CKD) Hyperlipidemia Obesity HTN (hypertension) Prediabetes Hypothyroid COPD (chronic obstructive pulmonary disease) Benign essential tremor CAD (coronary artery disease) Dyspnea on exertion (HFpEF) heart failure with preserved ejection fraction Implantable loop recorder present Lumbar spondylosis Recurrent falls Paroxysmal atrial fibrillation Polyneuropathy Peripheral neuropathy Cervical pain Depression History of pulmonary embolism Enlarged prostate Sleep apnea History of DVT (deep vein thrombosis) History of atrial fibrillation Osteoporosis History of squamous cell carcinoma Surgical History History of operative procedure on hip History of cardioversion History of cardiac cath (2021) History of squamous cell carcinoma excision History of loop recorder (2019) History of tonsillectomy History of cataract surgery History of transurethral resection of prostate History of knee replacement Family History Father Prostate cancer Cancer Mother Breast cancer Colorectal cancer Other No family history of adverse response to anesthesia No significant family history Denies family history of Ovarian cancer Myocardial infarction Social History Smoking Status: Never smoker Tobacco Type: Declines Second Hand Exposure: No; Do You Dip or Chew Tobacco: No; Hx Alcohol Use: No Hx Substance Use: No Preferred Language: Ecuadorean Communication Ability: Effective Communication Ability Comment: Pt is [place] Hearing Ability: Use of Hearing Aid Petrophysical Engineer Required: No Beliefs That Will Affect Care: None marital status: Current Living Situation: Spouse Current Living Situation Comment: lives in farmhouse with current occupational status: retired Other Information That Helps Us Care for You: No Feels Safe at Home: Yes Safety Concerns: Feels Safe At This Time Childhood Exposure to Second-Hand Smoke: No Diet: low salt Dental Care, Regularly: No Physical Activity Frequency: Does not Exercise Seatbelt Use: always Sunscreen Use: Yes Assistive Devices: Cane, Stair Lift and Walker Review of Systems Review of Systems: see HPI Physical Exam Physical Exam: The patient is awake, alert and oriented 3, well developed and well nourished, in no acute distress. Non-toxic appearing. HEENT- EOMI, mucous membranes dry. Hard of hearing. Significant ecchymosis to left cheek. Heart-normal S1 and S2. No murmurs, rubs or gallops. Lungs-clear bilaterally, no respiratory distress, no accessory muscle use. Abdomen-normal bowel sounds and soft. No ascites noted. Non-tender. Extremities- no clubbing, cyanosis, or edema. Abrasions to left UE with bandages in place. Rheumatologic-normal range of motion. Psychiatric-normal affect. Results & Data Results & Data Vital Signs (Past 12 Hours) Vital Signs Temp Pulse Pulse Resp BP BP Pulse Ox 08/06/25 22:21 56 L 29 H 99 08/06/25 22:15 55 L 30 H 97 08/06/25 22:15 143/76 H 08/06/25 22:15 143/76 H 08/06/25 22:15 143/76 H 08/06/25 22:15 143/76 H 08/06/25 22:15 143/76 H 08/06/25 22:12 56 L 28 H 97 08/06/25 22:00 57 L 19 99 08/06/25 22:00 140/82 08/06/25 22:00 140/82 08/06/25 22:00 140/82 08/06/25 22:00 140/82 08/06/25 22:00 140/82 08/06/25 22:00 57 L 25 H 140/82 98 08/06/25 21:51 58 L 30 H 97 08/06/25 21:46 137/77 08/06/25 21:46 137/77 08/06/25 21:46 137/77 08/06/25 21:46 137/77 08/06/25 21:46 137/77 08/06/25 21:45 58 L 30 H 96 08/06/25 21:42 57 L 27 H 98 08/06/25 21:30 56 L 25 H 97 08/06/25 21:30 129/82 08/06/25 21:30 129/82 08/06/25 21:30 129/82 08/06/25 21:30 129/82 08/06/25 21:30 129/82 08/06/25 21:21 59 L 28 H 137/74 96 08/06/25 21:15 137/74 08/06/25 21:11 139/77 08/06/25 21:11 55 L 08/06/25 21:01 120/74 08/06/25 21:01 120/74 08/06/25 21:01 120/74 08/06/25 21:00 54 L 32 H 99 08/06/25 21:00 58 L 26 H 139/77 99 08/06/25 20:51 54 L 27 H 99 08/06/25 20:45 53 L 30 H 100 08/06/25 20:45 137/106 H 08/06/25 20:45 137/106 H 08/06/25 20:45 137/106 H 08/06/25 20:45 137/106 H 08/06/25 20:45 137/106 H 08/06/25 20:42 55 L 19 100 08/06/25 20:40 153/81 H 08/06/25 20:40 153/81 H 08/06/25 20:40 153/81 H 08/06/25 20:40 153/81 H 08/06/25 20:40 153/81 H 08/06/25 20:39 100 08/06/25 20:15 132/75 08/06/25 20:15 132/75 08/06/25 20:15 132/75 08/06/25 20:15 132/75 08/06/25 20:15 132/75 08/06/25 20:15 54 L 18 100 08/06/25 20:12 53 L 19 99 08/06/25 20:01 130/79 08/06/25 20:01 130/79 08/06/25 20:01 130/79 08/06/25 20:01 130/79 08/06/25 20:01 130/79 08/06/25 20:00 53 L 30 H 98 08/06/25 20:00 56 L 22 120/74 98 08/06/25 19:51 60 20 98 08/06/25 19:45 60 22 99 08/06/25 19:45 144/75 H 08/06/25 19:45 144/75 H 08/06/25 19:11 59 L 19 97 08/06/25 19:02 63 22 96 08/06/25 19:00 129/68 08/06/25 19:00 129/68 08/06/25 19:00 129/68 08/06/25 19:00 62 24 129/68 96 08/06/25 18:59 63 20 96 08/06/25 18:50 64 24 95 08/06/25 18:45 131/77 08/06/25 18:45 131/77 08/06/25 18:45 131/77 08/06/25 18:45 131/77 08/06/25 18:45 131/77 08/06/25 18:44 60 25 H 95 08/06/25 18:41 58 L 31 H 97 08/06/25 18:37 60 27 H 99 08/06/25 18:37 36.9 C 61 28 H 128/73 99 08/06/25 18:35 59 L 30 H 99 08/06/25 18:30 128/73 08/06/25 18:30 128/73 08/06/25 18:30 128/73 08/06/25 18:30 128/73 08/06/25 18:30 128/73 08/06/25 18:29 64 22 99 08/06/25 18:20 64 25 H 99 08/06/25 18:15 128/70 08/06/25 18:15 128/70 08/06/25 18:15 128/70 08/06/25 18:15 128/70 08/06/25 18:15 128/70 08/06/25 18:14 64 23 98 08/06/25 18:11 64 27 H 97 08/06/25 18:00 131/74 08/06/25 18:00 131/74 08/06/25 18:00 131/74 08/06/25 18:00 131/74 08/06/25 18:00 131/74 08/06/25 18:00 66 35 H 97 08/06/25 18:00 64 27 H 128/73 99 08/06/25 17:56 66 23 97 08/06/25 17:51 36.9 C 64 27 H 131/74 98 08/06/25 17:51 36.9 C 64 28 H 131/74 98 08/06/25 17:12 66 08/06/25 17:09 36.8 C 62 28 H 132/78 96 08/06/25 16:54 36 C L 83 18 143/75 H 98 O2 Del Method O2 Flow Rate 08/06/25 22:21 08/06/25 22:15 08/06/25 22:15 08/06/25 22:15 08/06/25 22:15 08/06/25 22:15 08/06/25 22:15 08/06/25 22:12 08/06/25 22:00 08/06/25 22:00 08/06/25 22:00 08/06/25 22:00 08/06/25 22:00 08/06/25 22:00 08/06/25 22:00 Room Air 08/06/25 21:51 08/06/25 21:46 08/06/25 21:46 08/06/25 21:46 08/06/25 21:46 08/06/25 21:46 08/06/25 21:45 08/06/25 21:42 08/06/25 21:30 08/06/25 21:30 08/06/25 21:30 08/06/25 21:30 08/06/25 21:30 08/06/25 21:30 08/06/25 21:21 08/06/25 21:15 08/06/25 21:11 08/06/25 21:11 08/06/25 21:01 08/06/25 21:01 08/06/25 21:01 08/06/25 21:00 08/06/25 21:00 Room Air 08/06/25 20:51 08/06/25 20:45 08/06/25 20:45 08/06/25 20:45 08/06/25 20:45 08/06/25 20:45 08/06/25 20:45 08/06/25 20:42 08/06/25 20:40 08/06/25 20:40 08/06/25 20:40 08/06/25 20:40 08/06/25 20:40 08/06/25 20:39 08/06/25 20:15 08/06/25 20:15 08/06/25 20:15 08/06/25 20:15 08/06/25 20:15 08/06/25 20:15 08/06/25 20:12 08/06/25 20:01 08/06/25 20:01 08/06/25 20:01 08/06/25 20:01 08/06/25 20:01 08/06/25 20:00 08/06/25 20:00 Room Air 08/06/25 19:51 08/06/25 19:45 08/06/25 19:45 08/06/25 19:45 08/06/25 19:11 08/06/25 19:02 08/06/25 19:00 08/06/25 19:00 08/06/25 19:00 08/06/25 19:00 Room Air 08/06/25 18:59 08/06/25 18:50 08/06/25 18:45 08/06/25 18:45 08/06/25 18:45 08/06/25 18:45 08/06/25 18:45 08/06/25 18:44 08/06/25 18:41 08/06/25 18:37 Room Air 08/06/25 18:37 Room Air 08/06/25 18:35 08/06/25 18:30 08/06/25 18:30 08/06/25 18:30 08/06/25 18:30 08/06/25 18:30 08/06/25 18:29 08/06/25 18:20 08/06/25 18:15 08/06/25 18:15 08/06/25 18:15 08/06/25 18:15 08/06/25 18:15 08/06/25 18:14 08/06/25 18:11 08/06/25 18:00 08/06/25 18:00 08/06/25 18:00 08/06/25 18:00 08/06/25 18:00 08/06/25 18:00 08/06/25 18:00 Room Air 08/06/25 17:56 08/06/25 17:51 Room Air 08/06/25 17:51 Room Air 0 08/06/25 17:12 08/06/25 17:09 Room Air 08/06/25 16:54 Room Air Laboratory Results Reviewed CBC, CMP, PT/INR UA ordered Diagnostic Findings reviewed chest CT, head CT, face CT, cervical spine CT, shoulder XR, pelvis XR, chest XR Medications Administered ED - morphine 2g IV, tylenol 1g IV ECG Additional Comments: ordered Code Status & VTE Plan Code Status dnr/dni VTE Prophylaxis Plan VTE Prophylaxis will be ordered: Yes Supervising Physician Co-Signing Physician Notes Patient seen and examined, chart reviewed, case discussed with JAZ Suggs and I agree with the assessment and plan as above. Patient fell outside while moving wood - sustained left 3rd rib fracture and posterior 11th fracture. Is having significant pain but now more comfortable Patient sitting comfortably, NAD Skin - no rash HEENT - MMM, Neck supple Heart - +S1/S2, regular Lungs- CTA Abd - soft, NT/ND Labs and images reviewed Assessment/Plan Rib fracture order set in place - pain control, incentive spirometry Continue Eliquis - monitor closely for bleeding Remainder as above PG Care Time/CCT Total # of Minutes Spent Total Time Spent with Patient: Total time spent is greater than 50% in coordination of care (as documented) at patient's floor/unit and/or counseling patient: Coding Level of Care Code 39347 INT INP/OBS CARE 3/75MIN Diagnoses Multiple fractures of ribs S22.49XA Trauma T14.90XA Ground-level fall W18.30XA
[2025-08-06] MEDS: HYDROmorphone INJ 0.5 MG/0.5 ML SYR IV STA (23:32)
[2025-08-06] MEDS: LIDOCAINE 5% 1 PATCH TD STA (23:34)
[2025-08-07] MEDS ORDERED: ONDANSETRON INJ 2 MG/ML 2 ML VIAL IV PRN (01:37)
[2025-08-07] MEDS ORDERED: NALOXONE HCL 0.4 MG/1 ML VIAL/CARP IV PRN (01:37)
[2025-08-07] MEDS ORDERED: MELATONIN 3 MG TAB PO PRN (01:37)
[2025-08-07] MEDS ORDERED: ALBUTEROL HFA 8 GM INHALER INH PRN (01:37)
[2025-08-07] MEDS: APIXABAN 5 MG TABLET PO SCH (02:30)
[2025-08-07] MEDS: HYDROmorphone INJ 1 MG/ML SYRINGE IV PRN (03:23)
[2025-08-07] MEDS: LEVOTHYROXINE SODIUM 50 MCG TABLET PO SCH (05:48)
[2025-08-07 06:45] LABS: Hematocrit (blood only) 38.2 % (42.0-52.0); Hemoglobin 12.5 g/dL (14.0-18.0); Immature Granulocytes # (auto) 0.22 K/uL (0.01-0.20); Immature Granulocytes % (auto) 1.8 %; Mean Corpuscular Hemoglobin 30.6 pg (25.0-34.0); Mean Corpuscular Volume 93.6 fL (80.0-100.0); Platelet Count 277 K/uL (130-400); RDW Standard Deviation 50.1 fL (36.4-46.3); Red Blood Count 4.08 M/uL (4.70-6.10); White Blood Count 12.09 K/ul (4.8-10.8)
[2025-08-07 07:13] LABS: Anion Gap 6.0 (3-11); Blood Urea Nitrogen 29.0 mg/dl (6-23); Calcium 8.9 mg/dl (8.6-10.3); Carbon Dioxide 26.0 mmol/L (21-32); Chloride 107.0 mmol/L (98-107); Creatinine Clr Calc Pharmacy 67.2 ml/min; Glucose 104.0 mg/dl (70-99(Fasting)); Magnesium 2.6 mg/dl (1.7-2.4); Potassium 4.9 mmol/L (3.5-5.1); Sodium 139.0 mmol/L (136-145)
[2025-08-07] MEDS: IPRATROPIUM BROMIDE NASAL SPRAY 0.03% 30 ML SCH (08:33)
[2025-08-07] MEDS: HYDROmorphone INJ 0.5 MG/0.5 ML SYR IV PRN (08:33)
[2025-08-07] MEDS: DOCUSATE SODIUM 100 MG CAP PO PRN (08:33)
[2025-08-07] MEDS: UMECLIDINIUM/VILANTEROL 62.5/25MCG 7 PUFFS/INHALER INH SCH (08:34)
[2025-08-07] MEDS: FLUTICASONE FUROATE 100MCG 14 PUFFS/INHALER INH SCH (08:34)
[2025-08-07] MEDS: LOSARTAN POTASSIUM 25 MG TAB PO SCH (08:35)
[2025-08-07] MEDS: FINASTERIDE 5 MG TAB PO SCH (08:35)
[2025-08-07] MEDS: SPIRONOLACTONE 25 MG TAB PO SCH (08:35)
[2025-08-07] MEDS: FUROSEMIDE 40 MG TAB PO SCH (08:35)
[2025-08-07] MEDS: TAMSULOSIN HCL 0.4 MG CAP PO SCH (08:35)
[2025-08-07] MEDS: REMOVE LIDODERM PATCH SCH (08:36)
[2025-08-07] MEDS ORDERED: NON-FORMULARY MEDICATION (Fluticasone-Umeclidin-Vilanter [Trelegy Ellipta] 100-62.5-25 mcg INH SCH (09:00)
--- NOTE | 2025-08-07 10:50 | Hospitalist Progress Note ---
Date of Service August 07, 2025 Assessment & Plan (1) Multiple fractures of ribs: Plan: - rib fracture order set - incentive spirometry, OOB as tolerate, fall precautions, ice prn - pain control with Tylenol prn, Dilaudid 0.5/1mg IV prn for breakthrough pain - will avoid NSAIDs with bleeding risk on chronic anticoagulation - lidoderm patch - oxygen as needed O2 goal greater than 92% - PT/OT evals (2) DVT (deep venous thrombosis): Plan: -con't eliquis BID (3) COPD (chronic obstructive pulmonary disease): Plan: -con't home inhailers (4) (HFpEF) heart failure with preserved ejection fraction: Plan: -lasix -spironolactone -losartan (5) Hypothyroidism: Plan: -con't levothyroxine Plan 85-year-old male with history of HFpEF, recurrent DVT/PE, 1 episode of paroxysmal A-fib in sinus since cardioversion, hypothyroidism, hypertension, CPAP intolerant CURTIS. Patient presented as a trauma alert after a ground-level fall while moving wood outside when she stated his "legs gave out" resulting in a left third anterior and left 11th posterior rib fracture. Patient is anticoagulated with Eliquis. Patient is being admitted to the PCU for pain control of rib fractures. VTE ppx: dual vte ppx with home Eliquis and SCDs Admission and Anticipated Discharge Date Admission Date: August 06, 2025 Subjective No events overnight. Pt complaining of left sided rib pain. Review of Systems Constitutional: CONST: Negative for fever, body aches and chills. HENT: Negative for neck pain/stiffness, headache, congestion, sore throat, swelling. EYES: Negative for discharge/pain or vision changes. RESP: Negative for cough/hemoptysis and shortness of breath. CV: Negative chest pain, difficulty breathing, palpitations. ABD: Negative pain, nausea, vomiting. : Negative increase frequency, dysuria, blood in urine or stool. MUSC: Negative for muscle aches, edema. SKIN: Negative rash, lesions/sores. NEURO: Negative headache, dizziness, weakness. Physical Exam Physical Exam: GENERAL APPEARANCE NAD, activity normal for age, well developed/ well nourished, no cyanosis, pallor, or diaphoresis. EYES lids/conjunctiva normal. EARS/NOSE/THROAT Mucous membranes moist, nares normal, lips/teeth normal uvula midline without oral pharyngeal erythema, exudate or swelling TMs normal bilaterally. No lymphangitis/lymphedema. HEAD/NECK normocephalic atraumatic, no facial trauma, neck is supple. RESPIRATORY respiratory effort normal, speaks in full sentences, no tripod position, no accessory muscle use. Lungs clear to auscultation without rhonchi, wheezes, rales CARDIAC Regular rate and rhythm, no edema. ABDOMINAL Soft, ND/NT. No evidence of fluid wave. No pulsatile masses on exam, rebound tenderness, Johnston sign or pain over Mcburney's point. MUSCLES/EXTREMITIES No abnormal range of motion, no swelling. SKIN Warm, pink and dry. No rashes, dermatoses, petechiae or lesions. NEUROLOGICAL Speech is clear and appropriate. Normal level of consciousness. Gait and coordination are normal. 5/5 strength in all extremities. PSYCH Normal mood and affect. Judgement/competence is appropriate Results & Data Results & Data Vital Signs (Past 12 Hours) Vital Signs Temp Pulse Pulse Resp BP BP Pulse Ox 08/07/25 08:00 50 L 08/07/25 07:00 36.4 C L 58 L 16 112/73 98 08/07/25 03:40 36.6 C 57 L 30 H 124/69 95 08/07/25 01:00 67 08/07/25 00:41 26 H 97 08/07/25 00:20 08/07/25 00:20 36.7 C 67 40 H 123/73 96 08/06/25 23:00 63 26 H 137/79 97 O2 Del Method 08/07/25 08:00 08/07/25 07:00 Room Air 08/07/25 03:40 Room Air 08/07/25 01:00 08/07/25 00:41 Room Air 08/07/25 00:20 Room Air 08/07/25 00:20 Room Air 08/06/25 23:00 Room Air PG Care Time/CCT Total # of Minutes Spent Total Time Spent with Patient: Total time spent is greater than 50% in coordination of care (as documented) at patient's floor/unit and/or counseling patient: Coding Level of Care Code 61028 SUB INP/OBS CARE 2/35MIN Diagnoses Multiple fractures of ribs S22.49XA DVT (deep venous thrombosis) I82.409 COPD (chronic obstructive pulmonary disease) J44.9 (HFpEF) heart failure with preserved ejection fraction I50.30 Hypothyroidism E03.9
[2025-08-07 18:15] LABS: Appearance Urine Clear (Clear); Glucose Urine UA Negative (Negative)
[2025-08-07] MEDS: LIDOCAINE 5% 1 PATCH TD SCH (20:31)
[2025-08-07] MEDS ORDERED: REMOVE LIDODERM PATCH SCH (21:00)
[2025-08-08 04:56] VITALS: O2SAT 96
[2025-08-08] MEDS: LEVOTHYROXINE SODIUM 100 MCG TABLET PO SCH (06:11)
[2025-08-08 08:24] VITALS: PULSE 72; RESP 20; TEMP 98.2
[2025-08-08] MEDS: ACETAMINOPHEN 325 MG TAB PO PRN (08:30)
--- NOTE | 2025-08-08 09:06 | Discharge Summary ---
Discharge Summary Date of Service August 08, 2025 Principal Dx & Hospital Course #1 = Principal Diagnosis (1) Multiple fractures of ribs: (2) Trauma: (3) Ground-level fall: Plan 85-year-old male with history of HFpEF, recurrent DVT/PE, 1 episode of paroxysmal A-fib in sinus since cardioversion, hypothyroidism, hypertension, CPAP intolerant CURTIS. Patient presented as a trauma alert after a ground-level fall while moving wood outside when she stated his "legs gave out" resulting in a left third anterior and left 11th posterior rib fracture. Patient is anticoagulated with Eliquis. Patient is being admitted to the PCU for pain control of rib fractures. #rib fractures/trauma/fall - hemodynamically stable and non-hypoxic at time of admission. Chest CT revealed left 3rd anterior and left 11th posterior rib fracture; diagnostic imaging otherwise negative for acute changes. - UA ordered - rib fracture order set - incentive spirometry, OOB as tolerate, fall precautions, ice prn - pain control with Tylenol prn, Dilaudid 0.5/1mg IV prn for breakthrough pain - will avoid NSAIDs with bleeding risk on chronic anticoagulation - lidoderm patch - oxygen as needed O2 goal greater than 92% - PT/OT evals - dressing changes to left UE abrasions - trend CBC -PT recommended d/c home, pt doing well no difficulty with breathing #Hx DVT/PE - patient reports only taking Eliquis 5mg daily instead of BID, will order BID for now and encourage compliance #HFpEF/CAD/HTN - continue lasix, spironolactone, losartan #COPD - continue home inhalers #hypothyroidism - continue levothyroxine #thoracic aortic aneurysm - noted on chest CT to be 3.8cm; no mention of ane urysm in previous imaging. - follow up with PCP VTE ppx: dual vte ppx with home Eliquis and SCDs Dispo: PCU as patient was trauma alert Admission HPI Per Admitting Provider 85-year-old male with history of HFpEF, recurrent DVT/PE, 1 episode of paroxysmal A-fib in sinus since cardioversion, hypothyroidism, hypertension, CPAP intolerant CURTIS. Patient presented as a trauma alert after a ground-level fall while moving wood outside when she stated his "legs gave out" resulting in a left third anterior and left 11th posterior rib fracture. Patient is anticoagulated with Eliquis. Patient is being admitted to the PCU for pain control of rib fractures. Patient seen at bedside with his daughter present. He is extremely hard of hearing. He stated he was working out with a wood pile when his legs gave out. He has had about 3 falls like this before, most recent 1 year ago. He did know he was going to fall because his legs got weak. He denies any dizziness, lightheadedness, chest pain, shortness of breath prior to the fall. He does not believe he lost consciousness. Currently feels well at bedside other than persistent pain after Tylenol 1G IV and morphine 2G IV in the ED. He did perform incentive spirometry with nursing at 1500. He denies any dizziness, headaches, headaches, shortness of breath, abdominal pain, nausea, vomiting. He is complaining of left hip pain. He did fall onto his left side and struck his face, chest, arm, and hip on the ground/wood pile. He denies any nicotine use. He took all of his home medications this morning, stated he only takes Eliquis once daily in the morning even though he knows he is to take it twice a day. He is a reddy and stated that when he gets a cut it bleeds too much when he takes it twice a day. Discussed compliance with this with his history of DVT and PE. He wishes to maintain his DNR/DNI status. Discharge Exam GENERAL APPEARANCE NAD, activity normal for age, well developed/ well nourished, no cyanosis, pallor, or diaphoresis. EYES lids/conjunctiva normal. EARS/NOSE/THROAT Mucous membranes moist, nares normal, lips/teeth normal uvula midline without oral pharyngeal erythema, exudate or swelling TMs normal bilaterally. No lymphangitis/lymphedema. HEAD/NECK normocephalic atraumatic, no facial trauma, neck is supple. RESPIRATORY respiratory effort normal, speaks in full sentences, no tripod position, no accessory muscle use. Lungs clear to auscultation without rhonchi, wheezes, rales CARDIAC Regular rate and rhythm, no edema. ABDOMINAL Soft, ND/NT. No evidence of fluid wave. No pulsatile masses on exam, rebound tenderness, Johnston sign or pain over Mcburney's point. MUSCLES/EXTREMITIES No abnormal range of motion, no swelling. SKIN Warm, pink and dry. No rashes, dermatoses, petechiae or lesions. NEUROLOGICAL Speech is clear and appropriate. Normal level of consciousness. Gait and coordination are normal. 5/5 strength in all extremities. PSYCH Normal mood and affect. Judgement/competence is appropriate Discharge Plan Discharge Items Patient Disposition: Home - Self-Care Reason For Visit: fall, rib fractures, trauma alert Discharge Diagnosis: rib fractures Condition on Discharge: Good Activity: Resume your previous activity Non-emergency contact: Primary Care Provider Call non-emergency contact if: you have any medication questions Follow-up/Referrals: Sylvie Aburto MD [Primary Care Provider] - Diet: Regular Addtl Attending Provider Instructions: Follow up with PMD in 2 weeks Pending Studies at Discharge: No Stand-Alone Forms: [employer], Smoking Cessation Medications and DC Order Prescriptions: New lidocaine 5 % Adhesive Patch,Medicated 1 patch transdermal PM Qty: 15 0RF Continued Eliquis 5 mg tablet 5 mg PO BID Qty: 180 3RF Trelegy Ellipta 100-62.5-25 mcg blister with device 1 inh inhalation DAILY Qty: 28 5RF losartan 25 mg tablet 25 mg PO QAM Qty: 90 1RF furosemide 40 mg tablet 40 mg PO QAM Qty: 90 1RF ipratropium bromide 21 mcg (0.03 %) spray,non-aerosol 2 spray intranasal BID Qty: 30 2RF Rx Instructions: administer into each nostril (DME) BD Safety-Bren Detachable Needl 3 mL 23 gauge x 1" syringe See Rx Instructions .ROUTE .MEDSUPPLY Qty: 100 0RF Rx Instructions: As directed with cyanocobalamin (DME) Nimisha Love [facility] [place] See Rx Instructions .MEDSUPPLY Qty: 1 0RF Rx Instructions: As directed epinephrine [EpiPen] 0.3 mg/0.3 mL auto-injector 0.3 mg IM UD PRN (Reason: Anaphylaxis) Qty: 1 1RF albuterol sulfate 90 mcg/actuation HFA aerosol inhaler 2 inh inhalation QID PRN (Reason: shortness of breath or wheezing) Qty: 6.7 2RF fluoxetine [Prozac] 20 mg capsule 20 mg PO QAM Qty: 90 0RF acetaminophen [Tylenol Extra Strength] 500 mg tablet 1,000 mg PO TID PRN (Reason: Pain, Mild) cyanocobalamin (vitamin B-12) 1,000 mcg Capsule 1,000 mcg PO QAM spironolactone [Aldactone] 25 mg tablet 25 mg PO QAM finasteride [Proscar] 5 mg tablet 5 mg PO QAM tamsulosin 0.4 mg Capsule 0.4 mg PO QAM levothyroxine 50 mcg tablet 100 mcg PO WK Rx Instructions: SATURDAYS levothyroxine 50 mcg tablet 50 mcg PO [id number] Rx Instructions: EVERY DAY EXCEPT SATURDAYS. Discharge Orders: Discharge Order (Routine); Ordered 08/08/25 Ordered By: Daniel Babcock Admission Data Admit Date/Time: 08/06/25 22:55 Attending Provider: Daniel Babcock Admit Provider: Fátima Swann Primary Care Provider: Sylvie Aburto Hospital Stay Data Diagnostic Imagining Performed 08/06/25 17:13 CT cervical spine wo con Stat CT facial bones wo con Stat CT head/brain wo con Stat 08/06/25 19:58 CT chest diagnostic wo con Stat Pending Results Patient Have Any Pending Studies at Discharge: No Discharge Instructions Given to Patient (Per Discharging Provider) Follow up with PMD in 2 weeks Total Time Total Time Spent Total Time Spent (In Minutes): 50 Coding Level of Care Code 95120 INP/OBS DISCH >30 MIN Diagnoses Multiple fractures of ribs S22.49XA Trauma T14.90XA Ground-level fall W18.30XA
[2025-08-08 09:26] VITALS: BP 149/80
== END 2025-08-08 13:08 | disposition home or self-care (01) | DRG 184 ==
LOC: ED 16:49 → SUATTDRO 22:55 → 4W 22:55 → INTOOBSV 22:55 → 4W 08-07 00:41